=== PATIENT | male | born 1965 | race Hispanic/Latino ===

== ENCOUNTER 2017-11-02 19:10 | Inpatient (IN) | payer SELFPAY ==
[~2017-11-02 19:10] MED LIST: AMLO10TA2 PO; ASPI-555 PO; CHLO25TA3 PO; HYDR-4154 PO; LISI-613 PO; MAGN250T2 PO; METO50TA18 PO; POTA-79 PO; TRAZ-144 PO; VENL100T4 PO
[2017-11-02] MEDS ORDERED: KETOROLAC TROMETHAMINE 30MG/ML ONE (19:30)
[2017-11-02] MEDS ORDERED: ACETAMINOPHEN EXTRA STRENGTH 500 MG TABLET ONE (19:30)
[2017-11-02] MEDS ORDERED: HYOSCYAMINE SULFATE 0.125 MG TAB.SUBL SL ONE (19:30)
[2017-11-02] MEDS ORDERED: SODIUM CHLORIDE 0.9% 1000ML 1,000 ML IV ONE ×2 (19:30→22:27)
[2017-11-02] MEDS ORDERED: ONDANSETRON HCL 4 MG/2 ML VIAL ONE ×2 (19:30→22:27)
[2017-11-02 19:36] LABS: APPEARANCE,URINE Clear (CLEAR); BASOPHILS % (AUTO) 0.5 % (0.0-5.0); BILIRUBIN,URINE Negative (NEGATIVE); COLOR,URINE Yellow (YELLOW); GLUCOSE, URINE (UA) Negative (NEGATIVE); HEMATOCRIT 50.2 % (42-54); KETONES,URINE Negative (NEGATIVE); LEUKOCYTE ESTERASE ,URINE Negative (NEGATIVE); MEAN CORPUSCULAR HEMOGLOBIN 28.6 pg (27.0-33.0); MEAN CORPUSCULAR HGB CONC 34.9 g/dL (32.0-36.0); MEAN CORPUSCULAR VOLUME 81.9 fL (79-99); NEUTROPHILS % (AUTO) 76.5 % (40.0-77.0); NITRATE,URINE Negative (NEGATIVE); OCCULT BLOOD,URINE Trace (NEGATIVE); PLATELET COUNT (AUTO) 238 K/uL (130-400); PROTEIN,URINE POS 1+ (NEGATIVE); RED BLOOD CELL COUNT(AUTO) 6.13 MIL/uL (4.50-6.20); RED CELL DISTRIBUTION WIDTH 14.1 % (11.0-15.5); WHITE BLOOD COUNT (AUTO) 10.2 K/uL (4.8-10.8)
[2017-11-02 19:48] LABS: BACTERIA,URINE Few /HPF (None Seen); MUCUS,URINE Few LPF (None Seen); RBC,URINE None Seen /HPF (0-1); WBC,URINE 0-1 /HPF (0-1)
[2017-11-02 19:49] LABS: INR 1.08 (0.85-1.15); PARTIAL THROMBOPLASTIN TIME 32.7 SEC (26.3-35.5); PROTHROMBIN TIME 11.3 SEC (9.6-11.6)
[2017-11-02 19:53] LABS: ALBUMIN 3.6 g/dL (3.5-5.0); BILIRUBIN,TOTAL 0.7 mg/dL (0.2-1.0); CREATININE 1.4 mg/dL (0.5-1.5); TOTAL PROTEIN, SERUM 8.4 g/dL (6.0-8.3)
[2017-11-02 19:55] LABS: POTASSIUM 2.5 mmol/L (3.5-5.1)
[2017-11-02] MEDS ORDERED: POTASSIUM BICARB/CIT AC 25 MEQ TABLET.EFF ONE (19:57)
[2017-11-02] MEDS ORDERED: MORPHINE SULFATE 4 MG/1ML SYG ONE (19:58)
[2017-11-02] MEDS ORDERED: MAG HYDROX/AL HYDROX/SIMETH ES 30 ML SUSP UDCUP ONE (21:07)
[2017-11-02] MEDS ORDERED: LIDOCAINE HCL 2% VISCOUS 15 ML UDCUP ONE (21:07)
[2017-11-02] MEDS ORDERED: POTASSIUM CHLORIDE 20MEQ/100ML 100 ML IV ONE (22:45)
[2017-11-02] MEDS ORDERED: DICYCLOMINE HCL 10 MG/ML 2ML AMP IM ONE (22:52)
[2017-11-03] MEDS ORDERED: POTASSIUM CHLORIDE 20MEQ/100ML 100 ML IV ONE (04:02)
[2017-11-03] MEDS: SODIUM CHLORIDE 0.9% 1000ML 1,000 ML IV SCH ×3 (04:05→20:05)
[2017-11-03] MEDS ORDERED: ACETAMINOPHEN 325 MG TAB PO PRN (04:15)
[2017-11-03] MEDS ORDERED: POTASSIUM CHLORIDE 10% ELIXIR 20 MEQ/15 ML UDCUP PO PRN (04:15)
[2017-11-03] MEDS ORDERED: ONDANSETRON HCL 4 MG/2 ML VIAL IV PRN (04:15)
[2017-11-03 04:27] VITALS: BP 147/104
[2017-11-03] MEDS ORDERED: POTA20TA12 PO (04:59)
[2017-11-03] MEDS ORDERED: ATOR10TA69 PO (04:59)
[2017-11-03] MEDS ORDERED: LISI40TA4 PO (04:59)
[2017-11-03 05:22] LABS: HEMATOCRIT 43.5 % (42-54); MEAN CORPUSCULAR HEMOGLOBIN 28.2 pg (27.0-33.0); MEAN CORPUSCULAR HGB CONC 34.4 g/dL (32.0-36.0); MEAN CORPUSCULAR VOLUME 82.1 fL (79-99); PLATELET COUNT (AUTO) 197 K/uL (130-400); RED BLOOD CELL COUNT(AUTO) 5.31 MIL/uL (4.50-6.20); RED CELL DISTRIBUTION WIDTH 14.2 % (11.0-15.5); WHITE BLOOD COUNT (AUTO) 7.2 K/uL (4.8-10.8)
[2017-11-03 05:33] LABS: CREATININE 1.1 mg/dL (0.5-1.5); POTASSIUM 3.2 mmol/L (3.5-5.1)
[2017-11-03] MEDS ORDERED: FLU VACC QS2017-18 36MOS UP/PF 60 MCG/0.5 ML ML IM SCH (06:30)
[2017-11-03 07:30] VITALS: BP 166/105
[2017-11-03] MEDS ORDERED: PANTOPRAZOLE SODIUM 40 MG TABLET.DR PO SCH (09:00)
[2017-11-03] MEDS: HYDRALAZINE HCL 20 MG/ML VIAL IV PRN ×2 (09:31→21:04)
[2017-11-03 11:00] VITALS: BP 144/92
[2017-11-03] MEDS: METRONIDAZOLE 500 MG TABLET PO SCH ×2 (12:49→21:00)
[2017-11-03] MEDS: CLARITHROMYCIN 500 MG TABLET PO SCH ×2 (12:50→21:00)
[2017-11-03] MEDS: FAMOTIDINE 20MG TAB 20 MG TAB PO SCH ×2 (12:50→21:00)
[2017-11-03 16:00] VITALS: BP 163/104
[2017-11-03 19:58] VITALS: BP 162/103
[2017-11-03] MEDS: POTASSIUM CHLORIDE 20 MEQ ERTAB PO PRN (21:04)
[2017-11-03] MEDS: MORPHINE SULFATE 2 MG/ML 1ML SYG IV PRN (21:05)
[2017-11-03 22:00] VITALS: BP 148/113
[2017-11-04] VITALS (7 sets, daily range): BP systolic 149–179; BP diastolic 93–114
[2017-11-04] MEDS: SODIUM CHLORIDE 0.9% 1000ML 1,000 ML IV SCH ×2 (04:05→12:05)
[2017-11-04 05:29] LABS: MAGNESIUM 1.6 mg/dL (1.80-2.40)
[2017-11-04 05:34] LABS: POTASSIUM 2.8 mmol/L (3.5-5.1)
[2017-11-04] MEDS: POTASSIUM CHLORIDE 20MEQ/100ML 100 ML IV PRN ×2 (06:36→13:29)
[2017-11-04] MEDS: POTASSIUM CHLORIDE 20 MEQ ERTAB PO PRN (06:37)
[2017-11-04] MEDS: LIDOCAINE HCL-MPF 1% 2ML VIAL IVP PRN ×2 (06:37→13:29)
[2017-11-04] MEDS: FAMOTIDINE 20MG TAB 20 MG TAB PO SCH ×2 (09:30→20:49)
[2017-11-04] MEDS: CLARITHROMYCIN 500 MG TABLET PO SCH ×2 (09:30→20:48)
[2017-11-04] MEDS: HYDRALAZINE HCL 20 MG/ML VIAL IV PRN ×2 (09:30→17:36)
[2017-11-04] MEDS: METRONIDAZOLE 500 MG TABLET PO SCH ×2 (09:31→20:49)
[2017-11-04] MEDS: MORPHINE SULFATE 2 MG/ML 1ML SYG IV PRN (09:39)
[2017-11-04] MEDS: LACTOBACILLUS RHAMNOSUS GG 1 EACH CAP.SPRINK PO SCH (13:31)
[2017-11-04] MEDS ORDERED: LOPERAMIDE HCL 2 MG CAP PO PRN (15:30)
[2017-11-04 18:02] LABS: CREATININE 1.1 mg/dL (0.5-1.5); POTASSIUM 3.9 mmol/L (3.5-5.1)
[2017-11-04 18:07] LABS: BILIRUBIN,TOTAL 0.3 mg/dL (0.2-1.0); MAGNESIUM 1.6 mg/dL (1.80-2.40); TOTAL PROTEIN, SERUM 7.1 g/dL (6.0-8.3)
[2017-11-04] MEDS: LEVOFLOXACIN 500 MG/D5W 100 ML 100 ML IV SCH (20:48)
[2017-11-05] VITALS (13 sets, daily range): BP systolic 123–216; BP diastolic 81–133
[2017-11-05] MEDS: MORPHINE SULFATE 2 MG/ML 1ML SYG IV PRN (04:14)
[2017-11-05] MEDS: HYDRALAZINE HCL 20 MG/ML VIAL IV PRN ×3 (04:14→22:52)
[2017-11-05] MEDS: ATORVASTATIN CALCIUM 10 MG TABLET PO SCH (09:21)
[2017-11-05] MEDS: CLARITHROMYCIN 500 MG TABLET PO SCH ×2 (09:21→22:52)
[2017-11-05] MEDS: AMLODIPINE BESYLATE 5 MG TAB PO SCH (09:21)
[2017-11-05] MEDS: VENLAFAXINE HCL 50 MG TABLET PO SCH (09:21)
[2017-11-05] MEDS: POTASSIUM CHLORIDE 20 MEQ ERTAB PO SCH (09:21)
[2017-11-05] MEDS: FAMOTIDINE 20MG TAB 20 MG TAB PO SCH ×2 (09:21→22:52)
[2017-11-05] MEDS: METRONIDAZOLE 500 MG TABLET PO SCH ×2 (09:21→22:52)
[2017-11-05] MEDS: LACTOBACILLUS RHAMNOSUS GG 1 EACH CAP.SPRINK PO SCH (09:21)
[2017-11-05] MEDS: LISINOPRIL 40 MG TABLET PO SCH (09:22)
[2017-11-05] MEDS: LEVOFLOXACIN 500 MG/D5W 100 ML 100 ML IV SCH (22:55)
[2017-11-05] MEDS: MAGNESIUM 2GM PREMIX 50ML 50 ML IV SCH (23:03)
[2017-11-06] MEDS: SODIUM CHLORIDE 0.9% 1000ML 1,000 ML IV SCH (04:05)
[2017-11-06 04:52] VITALS: BP 146/89
[2017-11-06] MEDS ORDERED: ONDANSETRON HCL MDV 20ML 2 MG/ML VIAL IVP PRN (07:45)
[2017-11-06] MEDS: LACTOBACILLUS RHAMNOSUS GG 1 EACH CAP.SPRINK PO SCH (07:59)
[2017-11-06 08:00] VITALS: BP 156/99
[2017-11-06] MEDS: VENLAFAXINE HCL 50 MG TABLET PO SCH (08:01)
[2017-11-06] MEDS: AMLODIPINE BESYLATE 5 MG TAB PO SCH (08:02)
[2017-11-06] MEDS: POTASSIUM CHLORIDE 20 MEQ ERTAB PO SCH (08:02)
[2017-11-06] MEDS: ATORVASTATIN CALCIUM 10 MG TABLET PO SCH (08:02)
[2017-11-06] MEDS: LISINOPRIL 40 MG TABLET PO SCH (08:02)
[2017-11-06] MEDS: FAMOTIDINE 20MG TAB 20 MG TAB PO SCH (08:02)
[2017-11-06] MEDS: CLARITHROMYCIN 500 MG TABLET PO SCH (09:38)
[2017-11-06] MEDS: METRONIDAZOLE 500 MG TABLET PO SCH (09:38)
[2017-11-06] MEDS ORDERED: MAGNESIUM 2GM PREMIX 50ML 50 ML IV SCH (10:15)
[2017-11-06] MEDS ORDERED: HYDRALAZINE HCL 10 MG TABLET PO SCH (10:15)
[2017-11-06] MEDS ORDERED: METR500T PO (10:24)
[2017-11-06] MEDS ORDERED: FAMO20TA8 PO (10:24)
[2017-11-06] MEDS ORDERED: HYDR-3420 PO (10:24)
[2017-11-06] MEDS ORDERED: CLAR500T PO (10:24)
[2017-11-06] MEDS: MAGNESIUM 2GM PREMIX 50ML 50 ML IV SCH (10:47)
[2017-11-06 12:00] VITALS: BP 134/86
[2017-11-06 16:00] VITALS: BP 131/86
[2017-12-27] MEDS ORDERED: LABE200T PO (15:54)
== END 2017-11-06 16:45 | disposition home or self-care (01) | DRG 392 ==
LOC: EDH 19:10 → EDHIP 19:11 → 4BH 22:57
PROVIDERS: ADMIT Family Medicine; ATTEND Family Medicine
PROC: 3E0234Z Introduction of Serum, Toxoid and Vaccine into Muscle, Percutaneous Approach (ICD-10-PCS; principal; 2017-11-03)
DX: K52.9 Noninfective gastroenteritis and colitis, unspecified (principal); E83.42 Hypomagnesemia; E86.0 Dehydration; I48.0 Paroxysmal atrial fibrillation; B96.81 Helicobacter pylori [H. pylori] as the cause of diseases classified elsewhere; E87.6 Hypokalemia; I10 Essential (primary) hypertension; K57.30 Diverticulosis of large intestine without perforation or abscess without bleeding; Z23 Encounter for immunization
CPT/HCPCS: 36415; 74176; 76705; 80048; 80053; 81001; 82948; 83690; 83735; 84132; 85025; 85027; 85610; 85730; 86677; 87040; 87324; 87507; 87804; 93005; C9113; J0360; J0500; J1885; J1956; J2270; J2405; J3475; J3480; J3490; J7030; Q2038

== ENCOUNTER 2017-12-26 15:16 | Inpatient (IN) | payer SELFPAY ==
[~2017-12-26] VITALS: Ht 175.3 cm; Wt 94.2 kg
[~2017-12-26 15:16] MED LIST changes: -ASPI-555 PO; +ATOR10TA69 PO; -CHLO25TA3 PO; +CLAR500T PO; +FAMO20TA8 PO; +HYDR-3420 PO; -HYDR-4154 PO; -LISI-613 PO; +LISI40TA4 PO; -MAGN250T2 PO; -METO50TA18 PO; +METR500T PO; -POTA-79 PO; +POTA20TA12 PO; -TRAZ-144 PO
[2017-12-26 15:46] LABS: BASOPHILS % (AUTO) 0.9 % (0.0-5.0); EOSINOPHILS % (AUTO) 4.1 % (0.0-8.0); HEMATOCRIT 47.1 % (42-54); LYMPHOCYTES % (AUTO) 26.4 % (21.0-51.0); MEAN CORPUSCULAR HEMOGLOBIN 28.3 pg (27.0-33.0); MEAN CORPUSCULAR HGB CONC 34.6 g/dL (32.0-36.0); MEAN CORPUSCULAR VOLUME 81.9 fL (79-99); MONOCYTES % (AUTO) 8.9 % (3.0-13.0); NEUTROPHILS % (AUTO) 59.7 % (40.0-77.0); PLATELET COUNT (AUTO) 271 K/uL (130-400); RED BLOOD CELL COUNT(AUTO) 5.75 MIL/uL (4.50-6.20); RED CELL DISTRIBUTION WIDTH 14.1 % (11.0-15.5); WHITE BLOOD COUNT (AUTO) 8.9 K/uL (4.8-10.8)
[2017-12-26 16:04] LABS: BILIRUBIN,TOTAL 0.4 mg/dL (0.2-1.0); CREATININE 1.1 mg/dL (0.5-1.5); TOTAL PROTEIN, SERUM 8.2 g/dL (6.0-8.3)
[2017-12-26 16:05] LABS: POTASSIUM 2.6 mmol/L (3.5-5.1)
[2017-12-26] MEDS ORDERED: POTASSIUM BICARB/CIT AC 25 MEQ TABLET.EFF ONE (16:20)
[2017-12-26] MEDS ORDERED: NITROGLYCERIN 1GM/1 INCH PACKET TD ONE (16:20)
[2017-12-26] MEDS ORDERED: CLONIDINE HCL 0.1 MG TABLET ONE (16:20)
[2017-12-26] MEDS ORDERED: HYDRALAZINE HCL 25 MG TABLET ONE (17:35)
[2017-12-26 21:20] VITALS: BP 175/99
[2017-12-26] MEDS ORDERED: HYDRALAZINE HCL 20 MG/ML VIAL ONE (22:27)
[2017-12-26] MEDS ORDERED: POTASSIUM CHLORIDE 20 MEQ ERTAB PO ONE (22:27)
[2017-12-26] MEDS ORDERED: LIDOCAINE HCL-MPF 1% 2ML VIAL IJ PRN (23:30)
[2017-12-26] MEDS ORDERED: HYDRALAZINE HCL 20 MG/ML VIAL IV PRN (23:30)
[2017-12-26] MEDS ORDERED: POTASSIUM CHLORIDE 20MEQ/100ML 100 ML IV PRN (23:30)
[2017-12-26] MEDS ORDERED: CLONIDINE HCL 0.1 MG TABLET PO PRN (23:30)
[2017-12-26] MEDS ORDERED: POTASSIUM CHLORIDE 10% ELIXIR 20 MEQ/15 ML UDCUP PO PRN (23:30)
[2017-12-26] MEDS ORDERED: POTASSIUM CHLORIDE 20 MEQ ERTAB PO PRN (23:30)
[2017-12-26] MEDS ORDERED: ONDANSETRON ODT 4 MG TAB PO PRN (23:30)
[2017-12-27] VITALS: BP 134/82
[2017-12-27 04:00] VITALS: BP 152/98
[2017-12-27 06:00] LABS: HEMATOCRIT 45.4 % (42-54); MEAN CORPUSCULAR HEMOGLOBIN 28.9 pg (27.0-33.0); MEAN CORPUSCULAR HGB CONC 35.4 g/dL (32.0-36.0); MEAN CORPUSCULAR VOLUME 81.5 fL (79-99); PLATELET COUNT (AUTO) 265 K/uL (130-400); RED BLOOD CELL COUNT(AUTO) 5.57 MIL/uL (4.50-6.20); RED CELL DISTRIBUTION WIDTH 14.7 % (11.0-15.5); WHITE BLOOD COUNT (AUTO) 8.4 K/uL (4.8-10.8)
[2017-12-27 06:14] LABS: POTASSIUM 3.6 mmol/L (3.5-5.1)
[2017-12-27 08:24] VITALS: BP 166/118
[2017-12-27] MEDS ORDERED: LISINOPRIL 40 MG TABLET PO SCH (09:00)
[2017-12-27] MEDS ORDERED: AMLODIPINE BESYLATE 5 MG TAB PO SCH (09:00)
[2017-12-27] MEDS ORDERED: FAMOTIDINE 20MG TAB 20 MG TAB PO SCH (09:00)
[2017-12-27] MEDS ORDERED: LABETALOL HCL 200 MG TABLET PO SCH (09:00)
[2017-12-27] MEDS ORDERED: VENLAFAXINE HCL 50 MG TABLET PO SCH (09:00)
[2017-12-27] MEDS ORDERED: POTASSIUM CHLORIDE 20 MEQ ERTAB PO SCH (09:00)
[2017-12-27] MEDS ORDERED: HYDRALAZINE HCL 10 MG TABLET PO SCH (09:00)
[2017-12-27 12:03] VITALS: BP 159/111
[2017-12-27] MEDS: HYDRALAZINE HCL 10 MG TABLET PO SCH ×2 (13:14→17:40)
[2017-12-27] MEDS ORDERED: LABE200T5 PO (15:54)
[2017-12-27] MEDS ORDERED: HYDR-3420 PO (15:54)
[2017-12-27 15:58] VITALS: BP 135/78
[2017-12-27] MEDS ORDERED: ATORVASTATIN CALCIUM 10 MG TABLET PO SCH (21:00)
== END 2017-12-27 18:50 | disposition home or self-care (01) | DRG 305 ==
LOC: EDH 15:16 → OBSVTOIN 15:17 → EDHIP 15:17 → 3CH 21:12
PROVIDERS: ADMIT Family Medicine; ATTEND Family Medicine
DX: I16.9 Hypertensive crisis, unspecified (principal); I48.0 Paroxysmal atrial fibrillation; I10 Essential (primary) hypertension; E11.9 Type 2 diabetes mellitus without complications; E66.9 Obesity, unspecified; E78.5 Hyperlipidemia, unspecified; E87.6 Hypokalemia; Z68.30 Body mass index [BMI] 30.0-30.9, adult; Z59.9 Problem related to housing and economic circumstances, unspecified; Z82.49 Family history of ischemic heart disease and other diseases of the circulatory system; Z83.3 Family history of diabetes mellitus
CPT/HCPCS: 36415; 80048; 80053; 84484; 85025; 85027; 93005; J0360; J3480; J3490

== ENCOUNTER 2018-01-26 10:42 | Inpatient (IN) | payer SELFPAY ==
[~2018-01-26] VITALS: Ht 175.3 cm; Wt 93.6 kg
[~2018-01-26 10:42] MED LIST changes: +LABE200T5 PO
[2018-01-26] MEDS ORDERED: SODIUM CHLORIDE 0.9% 1000ML 1,000 ML IV ONE ×2 (11:06→11:18)
[2018-01-26 11:42] LABS: BASOPHILS % (AUTO) 0.6 % (0.0-5.0); EOSINOPHILS % (AUTO) 1.2 % (0.0-8.0); HEMATOCRIT 44.7 % (42-54); LYMPHOCYTES % (AUTO) 15.4 % (21.0-51.0); MEAN CORPUSCULAR HEMOGLOBIN 28.7 pg (27.0-33.0); MEAN CORPUSCULAR HGB CONC 34.7 g/dL (32.0-36.0); MEAN CORPUSCULAR VOLUME 82.8 fL (79-99); MONOCYTES % (AUTO) 10.1 % (3.0-13.0); NEUTROPHILS % (AUTO) 72.7 % (40.0-77.0); PLATELET COUNT (AUTO) 290 K/uL (130-400); RED CELL DISTRIBUTION WIDTH 14.6 % (11.0-15.5); WHITE BLOOD COUNT (AUTO) 10.1 K/uL (4.8-10.8)
[2018-01-26] MEDS ORDERED: LORAZEPAM 1 MG TABLET ONE (11:44)
[2018-01-26 11:58] LABS: ALBUMIN 3.8 g/dL (3.5-5.0); BILIRUBIN,TOTAL 0.7 mg/dL (0.2-1.0); CREATININE 1.5 mg/dL (0.5-1.5); TOTAL PROTEIN, SERUM 7.9 g/dL (6.0-8.3)
[2018-01-26 12:01] LABS: POTASSIUM 2.4 mmol/L (3.5-5.1)
[2018-01-26] MEDS ORDERED: POTASSIUM BICARB/CIT AC 25 MEQ TABLET.EFF ONE (12:23)
[2018-01-26] MEDS ORDERED: LABETALOL HCL 5 MG/ML 20ML VIAL IV ONE (13:09)
[2018-01-26 15:13] VITALS: BP 159/96
[2018-01-26] MEDS ORDERED: LIDOCAINE HCL-MPF 1% 2ML VIAL IJ PRN (16:30)
[2018-01-26] MEDS ORDERED: POTASSIUM CHLORIDE 10% ELIXIR 20 MEQ/15 ML UDCUP PO PRN (16:30)
[2018-01-26] MEDS: SODIUM CHLORIDE 0.9% 1000ML 1,000 ML IV SCH (16:42)
[2018-01-26 19:00] VITALS: BP 168/99
[2018-01-26] MEDS: ALPRAZOLAM 0.5 MG TABLET PO PRN (21:01)
[2018-01-27] VITALS (7 sets, daily range): BP systolic 129–176; BP diastolic 85–100
[2018-01-27] MEDS: HYDRALAZINE HCL 20 MG/ML VIAL IV PRN (00:49)
[2018-01-27 04:44] LABS: HEMATOCRIT 41.6 % (42-54); MEAN CORPUSCULAR HGB CONC 34.8 g/dL (32.0-36.0); MEAN CORPUSCULAR VOLUME 83.5 fL (79-99); PLATELET COUNT (AUTO) 261 K/uL (130-400); RED BLOOD CELL COUNT(AUTO) 4.98 MIL/uL (4.50-6.20); RED CELL DISTRIBUTION WIDTH 14.9 % (11.0-15.5); WHITE BLOOD COUNT (AUTO) 8.2 K/uL (4.8-10.8)
[2018-01-27 04:45] LABS: CREATININE 1.3 mg/dL (0.5-1.5)
[2018-01-27 04:48] LABS: POTASSIUM 2.9 mmol/L (3.5-5.1)
[2018-01-27] MEDS: POTASSIUM CHLORIDE 20 MEQ ERTAB PO PRN ×4 (04:55→20:16)
[2018-01-27] MEDS: SODIUM CHLORIDE 0.9% 1000ML 1,000 ML IV SCH ×2 (04:58→12:30)
[2018-01-27] MEDS: POTASSIUM CHLORIDE 20MEQ/100ML 100 ML IV PRN (08:49)
[2018-01-27] MEDS ORDERED: PHARMACY COMMUNICATION MISC SCH (11:00)
[2018-01-27] MEDS ORDERED: COMPOUND PO MISCELLANEOUS 1 EACH MISC MISC PRN (11:15)
[2018-01-27] MEDS: MAG HYDROX/AL HYDROX/SIMETH 30 ML, LIDOCAINE HCL 2% VISCOUS 30 ML, DIPHENHYDRAMINE HCL ... PO SCH ×6 (16:56→22:41)
[2018-01-27] MEDS: ALPRAZOLAM 0.5 MG TABLET PO PRN (22:37)
[2018-01-28] VITALS: BP 146/100
[2018-01-28 04:00] VITALS: BP 117/91
[2018-01-28] MEDS: SODIUM CHLORIDE 0.9% 1000ML 1,000 ML IV SCH (05:27)
[2018-01-28] MEDS: MAG HYDROX/AL HYDROX/SIMETH 30 ML, LIDOCAINE HCL 2% VISCOUS 30 ML, DIPHENHYDRAMINE HCL ... PO SCH ×12 (05:28→22:48)
[2018-01-28 05:53] LABS: CREATININE 1.2 mg/dL (0.5-1.5)
[2018-01-28 05:57] LABS: POTASSIUM 2.8 mmol/L (3.5-5.1)
[2018-01-28 08:13] VITALS: BP 153/97
[2018-01-28] MEDS: POTASSIUM CHLORIDE 20MEQ/100ML 100 ML IV PRN ×2 (10:21→13:52)
[2018-01-28] MEDS: POTASSIUM CHLORIDE 20 MEQ ERTAB PO PRN ×3 (10:23→15:35)
[2018-01-28 11:27] VITALS: BP 159/97
[2018-01-28] MEDS ORDERED: MAGNESIUM 2GM PREMIX 50ML 50 ML IV SCH (12:00)
[2018-01-28] MEDS ORDERED: LISINOPRIL 40 MG TABLET ONE (15:31)
[2018-01-28] MEDS: HYDRALAZINE HCL 20 MG/ML VIAL IV PRN (15:33)
[2018-01-28] MEDS: LISINOPRIL 40 MG TABLET PO SCH (15:34)
[2018-01-28 15:37] VITALS: BP 182/120
[2018-01-28 19:05] VITALS: BP 161/112
[2018-01-28] MEDS: HYDRALAZINE HCL 25 MG TABLET PO SCH (21:01)
[2018-01-28] MEDS: LABETALOL HCL 100 MG TABLET PO SCH (21:01)
[2018-01-28] MEDS: ALPRAZOLAM 0.5 MG TABLET PO PRN (21:07)
[2018-01-29 00:15] VITALS: BP 152/96
[2018-01-29 04:28] VITALS: BP 163/95
[2018-01-29] MEDS: MAG HYDROX/AL HYDROX/SIMETH 30 ML, LIDOCAINE HCL 2% VISCOUS 30 ML, DIPHENHYDRAMINE HCL ... PO SCH ×6 (04:33→11:15)
[2018-01-29 07:17] VITALS: BP 119/106
[2018-01-29 08:02] LABS: CREATININE 1.2 mg/dL (0.5-1.5); MAGNESIUM 1.8 mg/dL (1.80-2.40); POTASSIUM 3.2 mmol/L (3.5-5.1)
[2018-01-29] MEDS ORDERED: LISINOPRIL 40 MG TABLET PO SCH (09:00)
[2018-01-29] MEDS ORDERED: AMLODIPINE BESYLATE 5 MG TAB PO SCH (09:00)
[2018-01-29 10:55] VITALS: BP 168/105
[2018-01-29] MEDS: LISINOPRIL 40 MG TABLET PO SCH (11:06)
[2018-01-29] MEDS: POTASSIUM CHLORIDE 20 MEQ ERTAB PO PRN ×2 (11:06→15:03)
[2018-01-29] MEDS: LABETALOL HCL 100 MG TABLET PO SCH (11:07)
[2018-01-29] MEDS: HYDRALAZINE HCL 25 MG TABLET PO SCH ×2 (11:20→14:22)
[2018-01-29] MEDS ORDERED: POTA20TA12 PO (14:05)
[2018-01-31] MEDS ORDERED: ZOSYN 3.375GM+NS 50ML 50 ML IV ONE (06:36)
== END 2018-01-29 15:35 | disposition home or self-care (01) | DRG 641 ==
LOC: EDH 10:42 → OBSVTOIN 10:43 → EDHIP 10:43 → 3DH 15:04
PROVIDERS: ADMIT Family Medicine; ATTEND Family Medicine
DX: E87.6 Hypokalemia (principal); E86.0 Dehydration; M62.82 Rhabdomyolysis; E78.5 Hyperlipidemia, unspecified; I10 Essential (primary) hypertension
CPT/HCPCS: 36415; 80048; 80053; 82550; 83735; 84132; 84484; 85025; 85027; 93005; J0360; J3475; J3480; J3490; J7030

== ENCOUNTER → 2020-02-28 | Outpatient (CLI) | payer MEDICAID ==
[~2020-02-28] MED LIST changes: -AMLO10TA2 PO; +AMLO10TA7 PO; -CLAR500T PO; -FAMO20TA8 PO; -METR500T PO
== END | disposition home or self-care (01) ==
LOC: SHCH 07:54
PROVIDERS: ATTEND Internal Medicine Cardiovascular Disease
DX: I10 Essential (primary) hypertension (principal)
CPT/HCPCS: 93975

== ENCOUNTER 2023-04-03 16:03 | Emergency (ER) | payer MEDICAID ==
[~2023-04-03] VITALS: Ht 170.2 cm; Wt 102.5 kg
[~2023-04-03 16:03] MED LIST changes: +AMLO-258 PO; -AMLO10TA7 PO; -LABE200T5 PO; +LABE200T7 PO; -LISI40TA4 PO; +LISI40TA9 PO; +POTA-192 PO; -POTA20TA12 PO
[2023-04-03] MEDS ORDERED: AMOX500T2 PO (16:35)
[2023-04-03 16:41] VITALS: BP 154/79; PULSE 72; RESP 18; O2SAT 96
== END 2023-04-03 16:50 | disposition home or self-care (01) ==
LOC: EDH 16:03
DX: H66.91 Otitis media, unspecified, right ear (principal); I10 Essential (primary) hypertension; F41.9 Anxiety disorder, unspecified; Z90.49 Acquired absence of other specified parts of digestive tract; Z98.890 Other specified postprocedural states; Z79.899 Other long term (current) drug therapy

== ENCOUNTER → 2023-04-16 | Outpatient (CLI) | payer MEDICAID ==
[~2023-04-16] MED LIST changes: +AMOX500T2 PO
[2023-04-16 15:36] LABS: CREATININE 1.2 mg/dL (0.5-1.5); POTASSIUM 3.1 mmol/L (3.5-5.1)
== END | disposition home or self-care (01) ==
LOC: LAB 10:00
PROVIDERS: ATTEND Internal Medicine Cardiovascular Disease
DX: I10 Essential (primary) hypertension (principal)
CPT/HCPCS: 36415; 80048

== ENCOUNTER → 2023-05-10 | Outpatient (CLI) | payer MEDICAID ==
[2023-05-10 16:31] LABS: CREATININE 1.1 mg/dL (0.5-1.5)
== END | disposition home or self-care (01) ==
LOC: LAB 13:14
PROVIDERS: ATTEND Internal Medicine Cardiovascular Disease
DX: I10 Essential (primary) hypertension (principal)
CPT/HCPCS: 36415; 80048

== ENCOUNTER 2023-12-30 17:30 | Emergency (ER) | payer MEDICAID ==
[2023-12-30 18:26] LABS: APPEARANCE,URINE CLEAR (CLEAR); BILIRUBIN,URINE NEGATIVE (NEGATIVE); COLOR,URINE COLORLESS (YELLOW); GLUCOSE, URINE (UA) >=1000 mg/dL (NEGATIVE); KETONES,URINE NEGATIVE (NEGATIVE); LEUKOCYTE ESTERASE ,URINE NEGATIVE Leu/uL (NEGATIVE); NITRATE,URINE NEGATIVE (NEGATIVE); OCCULT BLOOD,URINE NEGATIVE (NEGATIVE); PROTEIN,URINE NEGATIVE (NEGATIVE); UROBILINOGEN,URINE 0.2 mg/dL (0.2-1.0)
[2023-12-30 18:27] LABS: ADD UA MICROSCOPIC YES
[2023-12-30 18:28] LABS: RBC,URINE 0-1 /HPF (0-1); WBC,URINE 0-1 /HPF (0-1)
[2023-12-30 18:33] VITALS: BP 171/100; PULSE 60; RESP 16; O2SAT 100
[2023-12-30 18:35] LABS: BASOPHILS # (AUTO) 0.08 K/uL (0.00-0.20); BASOPHILS % (AUTO) 0.9 % (0.0-5.0); EOSINOPHILS # (AUTO) 0.47 K/uL (0.00-0.70); EOSINOPHILS % (AUTO) 5.1 % (0.0-8.0); HEMATOCRIT 48.4 % (42-54); IMMATURE GRANULOCYTE ABSOLUTE 0.08 K/uL (0-1); LYMPHOCYTES # (AUTO) 1.4 K/uL (1.0-4.8); LYMPHOCYTES % (AUTO) 15.2 % (21.0-51.0); MEAN CORPUSCULAR HEMOGLOBIN 29.9 pg (27.0-33.0); MEAN CORPUSCULAR HGB CONC 33.9 g/dL (32.0-36.0); MEAN CORPUSCULAR VOLUME 88.2 fL (79-99); MONOCYTES # (AUTO) 1.1 K/uL (0.1-1.0); MONOCYTES % (AUTO) 11.6 % (3.0-13.0); NEUTROPHILS # (AUTO) 6.1 K/uL (1.8-7.7); NEUTROPHILS % (AUTO) 66.3 % (40.0-77.0); PLATELET COUNT (AUTO) 260 K/uL (130-400); RED BLOOD CELL COUNT(AUTO) 5.49 MIL/uL (4.50-6.20); RED CELL DISTRIBUTION WIDTH 13.2 % (11.0-15.5); WHITE BLOOD COUNT (AUTO) 9.2 K/uL (4.8-10.8)
[2023-12-30 18:44] LABS: CREATININE 1.2 mg/dL (0.5-1.3); POTASSIUM 3.9 mmol/L (3.5-5.1)
[2023-12-30 18:48] LABS: BILIRUBIN,TOTAL 0.5 mg/dL (0.2-1.0); TOTAL PROTEIN, SERUM 7.8 g/dL (6.0-8.3)
[2023-12-30] MEDS: ONDANSETRON 4MG INJ IVP ONE (19:06)
[2023-12-30] MEDS: MORPHINE 4 MG SYG IVP ONE (19:07)
[2023-12-30] MEDS ORDERED: TAMS-1 PO (19:52)
== END 2023-12-30 20:12 | disposition home or self-care (01) ==
LOC: EDH 17:30
DX: S79.912A Unspecified injury of left hip, initial encounter (principal); R07.81 Pleurodynia; F41.9 Anxiety disorder, unspecified; I10 Essential (primary) hypertension; Z79.899 Other long term (current) drug therapy; Z86.73 Personal history of transient ischemic attack (TIA), and cerebral infarction without residual deficits; Z90.49 Acquired absence of other specified parts of digestive tract; W18.39XA Other fall on same level, initial encounter; Y93.89 Activity, other specified; Y92.89 Other specified places as the place of occurrence of the external cause; Y99.8 Other external cause status
CPT/HCPCS: 99285; 74176; 96374; 71045; 96375; 84484; 80053; 85025; 81001; 36415; 73562; 71100; 73030; 93005; J2405; J2270

== ENCOUNTER 2024-10-07 12:17 | Emergency (ER) | payer MEDICAID ==
[~2024-10-07] VITALS: Ht 175.3 cm; Wt 98.9 kg
[~2024-10-07 12:17] MED LIST changes: +TAMS-1 PO
--- NOTE | 2024-10-07 13:19 | ERN ---
ED Note History of Present Illness Stated Complaint: WEAKNESS Chief Complaint: Weakness Time Seen by MD: 12:52 Allergies: Coded Allergies: No Known Drug Allergies (Verified Allergy, 11/10/12) Home Meds Active Scripts Tamsulosin HCl (Flomax) 0.4 Mg Cap.er.24h, 0.4 MG PO DAILY, #30 CAPSULE.DR Prov:BOBBY CORONEL V JET DYEING MACHINE TENDER 12/30/23 Amoxicillin (Amoxicillin) 500 Mg Tablet, 1000 MG PO TID for 10 Days, #60 TAB Prov:MIGEL BRIAN MD 04/03/23 Potassium Chloride (K-Dur/Klor-Con) 20 Meq Ertab, 20 MEQ PO BID for 30 Days, #60 TAB.EC Prov:TRISTAN COVARRUBIAS MD 01/29/18 Labetalol HCl (Labetalol HCl) 200 Mg Tablet, 50 MG PO BID for 30 Days, TAB Prov:LENORE BATRES JET DYEING MACHINE TENDER 12/27/17 Hydralazine Hcl (APRESOLINE) 10 Mg Tablet, 25 MG PO QID for 30 Days, TAB Prov:LENORE BATRES JET DYEING MACHINE TENDER 12/27/17 Reported Medications Lisinopril (Lisinopril) 40 Mg Tablet, 40 MG PO DAILY, TAB 11/03/17 Atorvastatin Calcium (Atorvastatin Calcium) 10 Mg Tablet, 10 MG PO DAILY, TAB 11/03/17 Amlodipine Besylate (Amlodipine Besylate) 10 Mg Tablet, 10 MG PO DAILY, TAB 01/13/17 Venlafaxine HCl (Venlafaxine HCl) 100 Mg Tablet, 100 MG PO DAILY, TAB 01/13/17 Past Medical History Past Medical History: Anxiety, CAD, CVA, Depression, Diabetes-Type II, High Cholesterol, Hypertension Surgical History: Appendectomy, Other Surgical History Other: HERNIA SX, LEFT ARM SX Social History: Negative, Lives with family RN Note Reviewed/Agreed w/PFSH: Yes Initial Vital Sign VS Vital Signs Date Time Temp Pulse Resp B/P (MAP) Pulse Ox O2 Delivery O2 Flow Rate FiO2 10/07/24 12:21 99.3 82 18 178/111 96 Room Air 0 10/07/24 12:25 21 Results (Laboratory/Radiology) Laboratory/Radiology Laboratory Tests Test 10/07/24 13:35 10/07/24 13:41 White Blood Count 10.4 K/uL (4.8-10.8) Red Blood Count 5.32 MIL/uL (4.50-6.20) Hemoglobin 14.9 g/dL (14.0-18.0) Hematocrit 45.4 % (42-54) Mean Corpuscular Volume 85.3 fL (79-99) Mean Corpuscular Hemoglobin 28.0 pg (27.0-33.0) Mean Corpuscular Hemoglobin Concent 32.8 g/dL (32.0-36.0) Red Cell Distribution Width 14.0 % (11.0-15.5) Platelet Count 278 K/uL (130-400) Mean Platelet Volume 9.3 fL (7.5-10.5) Immature Granulocyte % (Auto) 0.4 % (0-1) Neutrophils (%) (Auto) 69.5 % (40.0-77.0) Lymphocytes (%) (Auto) 12.3 % (21.0-51.0) L Monocytes (%) (Auto) 10.2 % (3.0-13.0) Eosinophils (%) (Auto) 6.8 % (0.0-8.0) Basophils (%) (Auto) 0.8 % (0.0-5.0) Neutrophils # (Auto) 7.2 K/uL (1.8-7.7) Lymphocytes # (Auto) 1.3 K/uL (1.0-4.8) Monocytes # (Auto) 1.1 K/uL (0.1-1.0) H Eosinophils # (Auto) 0.70 K/uL (0.00-0.70) Basophils # (Auto) 0.08 K/uL (0.00-0.20) Absolute Immature Granulocyte (auto 0.04 K/uL (0-1) Nucleated Red Blood Cells 0.0 % (0.0-0.19) Sodium Level 140 mmol/L (136-145) Potassium Level 3.0 mmol/L (3.5-5.1) *L Chloride Level 101 mmol/L (101-111) Carbon Dioxide Level 36 mmol/L (21-32) H Blood Urea Nitrogen 12 mg/dL (7-18) Creatinine 1.2 mg/dL (0.5-1.3) Glomerular Filtration Rate Calc 70 mL/min (>90) Random Glucose 104 mg/dL (70-105) Total Calcium 9.2 mg/dL (8.5-10.1) Troponin I High Sensitivity 12 ng/L (4-75) Urine Color YELLOW (YELLOW) Urine Appearance CLOUDY (CLEAR) H Urine pH 6.0 (5.0-8.0) Urine Specific [place] 1.023 (1.001-1.031) Urine Protein 100 mg/dL (NEGATIVE) H Urine Glucose (UA) NEGATIVE mg/dL (NEGATIVE) Urine Ketones 5 mg/dL (NEGATIVE) H Urine Occult Blood +- (TRACE) (NEGATIVE) H Urine Nitrate NEGATIVE (NEGATIVE) Urine Bilirubin NEGATIVE mg/dL (NEGATIVE) Urine Urobilinogen 2.0 mg/dL (0.2-1.0) H Urine Leukocyte Esterase 500 Giovanny/uL (NEGATIVE) H Urine RBC 2-5 /HPF (0-1) H Urine WBC TNTC /HPF (0-1) H Urine Squamous Epithelial Cells RARE /HPF (0-2) Urine Transitional Epithelial Cells RARE /HPF (None Seen) Urine Bacteria Few /HPF (None Seen) EKG Comment: EKG Interpretation: Time Reviewed: 1329 Ventricular rate: 72 bpm AK Interval: 164 ms QRS duration: 91 ms Clinical impression: Sinus rhythm without ST elevation EKG Reviewed and interpreted by Dr. Scott ED Course ED Course Orders Procedure Category Date Status Time Influenza Type A & B, LAB 10/07/24 In Process Rapid 13:18 Covid Rna Naat LAB 10/07/24 In Process 13:18 Urinalysis Profile LAB 10/07/24 Complete 13:18 Cbc With Differential LAB 10/07/24 Complete 13:18 Basic Metabolic Panel LAB 10/07/24 Complete 13:18 Troponin I High LAB 10/07/24 Complete Sensitivity 13:18 12 Lead Ekg Tracing- EKG 10/07/24 Logged Technical 13:18 Culture Urine COLBY 10/07/24 In Process 14:23 Levofloxacin 250 PHA 10/07/24 In Process Mg/D5w 50ml (Levaquin 15:00 Potassium Bicarb/Cit PHA 10/07/24 Complete Ac 25meq (K-Lyte Ta 15:00 Ondansetron 4mg Inj PHA 10/07/24 Complete (Zofran 4mg Inj) 15:00 Current Medications Medications (Trade) Dose Ordered Sig/[place] Route PRN Reason Start Time Stop Time Status Last Admin Dose Admin Levofloxacin/ Dextrose 250 ml @ 100 mls/hr ONCE ONCE IV 10/07/24 15:00 10/07/24 17:29 10/07/24 14:57 Ondansetron HCl (zoFRAN 4MG INJ) 4 mg ONCE ONCE IVP 10/07/24 15:00 10/07/24 15:01 DC 10/07/24 14:57 Potassium Bicarbonate (K-Lyte Tablet Eff 25 Meq Tablet.eff) 50 meq ONCE ONCE PO 10/07/24 15:00 10/07/24 15:01 DC 10/07/24 14:57 Vital Signs Date Time Temp Pulse Resp B/P (MAP) Pulse Ox O2 Delivery O2 Flow Rate FiO2 10/07/24 15:41 98.1 70 16 144/90 96 Room Air* 0 21 10/07/24 14:28 98.2 71 16 155/86 96 Room Air* 0 21 10/07/24 13:25 99.3 74 14 152/92 96 Room Air* 0 21 10/07/24 12:25 99.3 82 18 178/111 96 Room Air* 0 21 10/07/24 12:21 99.3 82 18 178/111 96 Room Air 0 DX & DISP Disposition: Discharge Departure Impression: Primary Impression: UTI (urinary tract infection) Additional Impression: Hypokalemia Condition: Stable Scripts Ondansetron (Ondansetron Odt) 4 Mg Tab.rapdis 4 MG PO Q6HPRN PRN for nausea, #15 TAB 0 Refills Prov: KILEY AMATO CRANE OPERATOR CAB 10/07/24 Levofloxacin (Levaquin 750Mg Tabs) 750 Mg Tablet 250 MG PO DAILY for UTI, #10 TAB 0 Refills Prov: KILEY AMATO CRANE OPERATOR CAB 10/07/24 Potassium Chloride (Potassium Chloride) 20 Meq Tab.er.prt 1 TAB PO DAILY for 5 Days, #5 TAB 0 Refills Prov: KILEY AMATO CRANE OPERATOR CAB 10/07/24 Additional Instructions: . Drink plenty of fluids. Rest. Continue antibiotic with Levaquin 250 mg daily for the next 10 days may take ondansetron sublingual every 6 hours as needed for nausea. You will need to continue taking potassium pills one tablet daily for the next five days. Referrals: DEVANG CHASE (PCP) Time of Disposition: 16:47 KILEY AMATO NP Oct 07, 2024 13:19
[2024-10-07 13:46] LABS: BASOPHILS # (AUTO) 0.08 K/uL (0.00-0.20); BASOPHILS % (AUTO) 0.8 % (0.0-5.0); EOSINOPHILS % (AUTO) 6.8 % (0.0-8.0); HEMATOCRIT 45.4 % (42-54); IMMATURE GRANULOCYTE ABSOLUTE 0.04 K/uL (0-1); LYMPHOCYTES # (AUTO) 1.3 K/uL (1.0-4.8); LYMPHOCYTES % (AUTO) 12.3 % (21.0-51.0); MEAN CORPUSCULAR HGB CONC 32.8 g/dL (32.0-36.0); MEAN CORPUSCULAR VOLUME 85.3 fL (79-99); MONOCYTES # (AUTO) 1.1 K/uL (0.1-1.0); MONOCYTES % (AUTO) 10.2 % (3.0-13.0); NEUTROPHILS # (AUTO) 7.2 K/uL (1.8-7.7); NEUTROPHILS % (AUTO) 69.5 % (40.0-77.0); PLATELET COUNT (AUTO) 278 K/uL (130-400); RED BLOOD CELL COUNT(AUTO) 5.32 MIL/uL (4.50-6.20); WHITE BLOOD COUNT (AUTO) 10.4 K/uL (4.8-10.8)
[2024-10-07 14:04] LABS: CREATININE 1.2 mg/dL (0.5-1.3)
[2024-10-07 14:13] LABS: APPEARANCE,URINE CLOUDY (CLEAR); BILIRUBIN,URINE NEGATIVE (NEGATIVE); COLOR,URINE YELLOW (YELLOW); GLUCOSE, URINE (UA) NEGATIVE (NEGATIVE); KETONES,URINE 5 mg/dL (NEGATIVE); LEUKOCYTE ESTERASE ,URINE 500 Leu/uL (NEGATIVE); NITRATE,URINE NEGATIVE (NEGATIVE); PROTEIN,URINE 100 mg/dL (NEGATIVE)
[2024-10-07 14:23] LABS: ADD UA MICROSCOPIC YES
[2024-10-07 14:26] LABS: MUCUS,URINE FEW LPF (None Seen); SQUAMOUS EPITHELIAL CELL,UR RARE /HPF (0-2); TRANSITIONAL EPI CELLS,URINE RARE /HPF (None Seen); WBC,URINE TNTC /HPF (0-1)
[2024-10-07 14:27] LABS: BACTERIA,URINE Few /HPF (None Seen)
[2024-10-07] MEDS: LEVOFLOXACIN IV ONE (14:57)
[2024-10-07] MEDS: PoTASSium BIcarbonate/CIT AC 25 MEQ TABLET.EFF PO ONE (14:57)
[2024-10-07] MEDS: D5W IV ONE (14:57)
[2024-10-07] MEDS: ondanSETRON 4MG INJ IVP ONE (14:57)
[2024-10-07] MEDS ORDERED: POTA-202 PO (16:46)
[2024-10-07] MEDS ORDERED: ONDA-243 PO (16:46)
[2024-10-07] MEDS ORDERED: LEVO750T68 PO (16:46)
[2024-10-07 17:14] LABS: INFLUENZA TYPE A Negative For Type A (NEGATIVE); INFLUENZA TYPE B Negative For Type B (NEGATIVE); SARS-CoV-2, RNA, NAAT NEGATIVE SARS CoV-2 (NEGATIVE)
[2024-10-07 17:16] VITALS: BP 145/80; PULSE 70; RESP 16; TEMP 98; O2SAT 96
--- NOTE | 2024-10-07 17:48 | EKG ---
[facility] Test Date: 2024-10-07 Test Time: 13:29:17 Pat Name: DANYELL ROSARIO Department: ED Room: Gender: M Tub Washer: [id number] : 1965 Requested By: KILEY AMATO Order Number: [id number] Reading MD: Geovanny García Measurements Intervals [place] Rate: 72 P: 45 ME: 164 QRS: 2 QRSD: 91 T: 136 QT: 401 QTc: 441 Interpretive Statements Sinus rhythm Abnormal T, consider ischemia, lateral leads Compared to ECG 12/30/2023 18:46:25 T-wave abnormality now present Possible ischemia still present Electronically Signed On 10-08-2024 09:56:34 COLLECTION CORRESPONDENT by Geovanny García Please click the below link to view image of tracing.
== END 2024-10-07 17:19 | disposition home or self-care (01) ==
LOC: EDH 12:17
DX: N39.0 Urinary tract infection, site not specified (principal); E87.6 Hypokalemia; F41.9 Anxiety disorder, unspecified; E11.9 Type 2 diabetes mellitus without complications; E78.00 Pure hypercholesterolemia, unspecified; F32.A Depression, unspecified; I10 Essential (primary) hypertension; I25.10 Atherosclerotic heart disease of native coronary artery without angina pectoris; Z79.899 Other long term (current) drug therapy; Z86.73 Personal history of transient ischemic attack (TIA), and cerebral infarction without residual deficits; Z90.49 Acquired absence of other specified parts of digestive tract; Z20.822 Contact with and (suspected) exposure to COVID-19
CPT/HCPCS: 99285; 96365; 87635; 96366; 96375; 84484; 80048; 85025; 87086 ×2; 87186; 87804 ×2; 81001; 36415; 93005; J2405; J1956; 99284

== ENCOUNTER → 2024-10-13 | Outpatient (CLI) | payer MEDICAID ==
[~2024-10-13] MED LIST changes: +LEVO750T68 PO; +ONDA-243 PO; +POTA-202 PO
[2024-10-13 15:22] LABS: CREATININE 1.2 mg/dL (0.5-1.3); POTASSIUM 3.6 mmol/L (3.5-5.1)
== END | disposition home or self-care (01) ==
LOC: LAB 11:39
PROVIDERS: ATTEND Nurse Practitioner Acute Care
DX: E87.6 Hypokalemia (principal)
CPT/HCPCS: 36415; 80048

== ENCOUNTER 2024-11-16 10:09 | Emergency (ER) | payer MEDICAID ==
[~2024-11-16] VITALS: Ht 175.3 cm; Wt 95.7 kg
--- NOTE | 2024-11-16 10:16 | ERN ---
ED Note History of Present Illness Stated Complaint: LEFT SHOULDER, FALL YESTERDAY Chief Complaint: Mechanical Fall Time Seen by MD: 10:11 Dictation: PATIENT IS A 59-YEAR-OLD MALE SENT BY HIS PRIMARY CARE DOCTOR FOR X-RAY OF HIS LEFT SHOULDER. PATIENT STATES HE WAS WALKING YESTERDAY WHEN HE MISSTEPPED AND FELL ON HIS LEFT SHOULDER. HE STATES HE DOES NOT HAVE ANY RANGE OF MOTION TO HIS SHOULDER OR HIS LEFT LEG BECAUSE A PRIOR STROKE AND HE DOES NOT MOVE EITHER ONE OF THEM. HE SAW HIS PRIMARY CARE DOCTOR TODAY WHO EVALUATED HIM AND TOLD HIM HE THOUGHT IT MIGHT BE FRACTURED OR DISLOCATED AND SENT HIM TO THE EMERGENCY ROOM FOR FURTHER EVALUATION AND TREATMENT. PATIENT WAS GIVEN TORADOL 60 MG IM PRIOR TO ARRIVAL Allergies: Coded Allergies: No Known Drug Allergies (Verified Allergy, 11/10/12) Home Meds Active Scripts Ondansetron (Ondansetron Odt) 4 Mg Tab.rapdis, 4 MG PO Q6HPRN PRN for nausea, #15 TAB 0 Refills Prov:KILEY AMATO NP 10/07/24 Levofloxacin (Levaquin 750Mg Tabs) 750 Mg Tablet, 250 MG PO DAILY for UTI, #10 TAB 0 Refills Prov:KILEY AMATO NP 10/07/24 Potassium Chloride (Potassium Chloride) 20 Meq Tab.er.prt, 1 TAB PO DAILY for 5 Days, #5 TAB 0 Refills Prov:KILEY AMATO NP 10/07/24 Tamsulosin HCl (Flomax) 0.4 Mg Cap.er.24h, 0.4 MG PO DAILY, #30 CAPSULE.DR Prov:BOBBY CORONEL 12/30/23 Amoxicillin (Amoxicillin) 500 Mg Tablet, 1000 MG PO TID for 10 Days, #60 TAB Prov:MIGEL BRIAN MD 04/03/23 Potassium Chloride (K-Dur/Klor-Con) 20 Meq Ertab, 20 MEQ PO BID for 30 Days, #60 TAB.EC Prov:TRISTAN COVARRUBIAS MD 01/29/18 Labetalol HCl (Labetalol HCl) 200 Mg Tablet, 50 MG PO BID for 30 Days, TAB Prov:LENORE BATRES 12/27/17 Hydralazine Hcl (APRESOLINE) 10 Mg Tablet, 25 MG PO QID for 30 Days, TAB Prov:LENORE BATRESP 12/27/17 Reported Medications Lisinopril (Lisinopril) 40 Mg Tablet, 40 MG PO DAILY, TAB 11/03/17 Atorvastatin Calcium (Atorvastatin Calcium) 10 Mg Tablet, 10 MG PO DAILY, TAB 11/03/17 Amlodipine Besylate (Amlodipine Besylate) 10 Mg Tablet, 10 MG PO DAILY, TAB 01/13/17 Venlafaxine HCl (Venlafaxine HCl) 100 Mg Tablet, 100 MG PO DAILY, TAB 01/13/17 Past Medical History Past Medical History: Anxiety, CAD, CVA, Depression, Diabetes-Type II, High Cholesterol, Hypertension Surgical History: Appendectomy, Other Surgical History Other: HERNIA SX, LEFT ARM SX Social History: Negative, Lives with family RN Note Reviewed/Agreed w/PFSH: Yes Review of System Dictation CONSTITUTIONAL: NEGATIVE EXCEPT FOR HPI HEAD/FACE: NEGATIVE EXCEPT FOR HPI EENT: NEGATIVE EXCEPT FOR HPI RESPIRATORY: NEGATIVE EXCEPT FOR HPI GASTROINTESTINAL/ABDOMINAL: NEGATIVE EXCEPT FOR HPI GENITOURINARY: NEGATIVE EXCEPT FOR HPI MUSCULOSKELETAL: NEGATIVE EXCEPT FOR HPI LEFT SHOULDER PAIN INTEGUMENTARY: NEGATIVE EXCEPT FOR HPI NEUROLOGICAL/PSYCH: NEGATIVE EXCEPT FOR HPI HEMATOLOGIC/LYMPHATIC: NEGATIVE EXCEPT FOR HPI ALL SYSTEMS NEGATIVE, EXCEPT NOTED ABOVE. 13 POINT REVIEW OF SYSTEMS ASSESSED AND ALL NEGATIVE EXCEPT FOR ABOVE. Initial Vital Sign VS Vital Signs Date Time Temp Pulse Resp B/P (MAP) Pulse Ox O2 Delivery O2 Flow Rate FiO2 11/16/24 10:10 98.1 65 16 132/87 97 Room Air 0 Physical Exam Dictation VITAL SIGNS REVIEWED GENERAL APPEARANCE: ALERT, ORIENTED X 3, NO ACUTE DISTRESS, WELL DEVELOPED, NOURISHED. HEAD AND FACE: NON-TRAUMATIC. EYES: PERRL, PINK CONJUNCTIVAS, EYELID NO TRAUMA, ANTERIOR CHAMBER WITH ARCUS SENILIS. EARS: PINNAS INTACT AND NO SIGNS OF TRAUMA OR ERYTHEMA EAR CANALS CLEAR AND NO DISCHARGE TM NO ERYTHEMA NOSE: NO DISCHARGE, NO BLEEDING. OROPHARYNX: MOUTH NORMAL, TONGUE PINK, PHARYNX CLEAR,NO ERYTHEMA, TONSILS NO EXUDATES, NO ABSCESSES NOTED, MUCOUS MEMBRANE MOIST NECK: SUPPLE, NON-TENDER, NO THYROMEGALY, NO MASSES, NO JVD, NO BRUITS BREAST:DEFERRED CHEST:NO TENDERNESS, NO CREPITUS, NO PARADOXICAL MOVEMENT, NO RETRACTIONS LUNGS:CLEAR, WELL-VENTILATED, SYMMETRIC, NO RALES, NO WHEEZING, NO RHONCHI, NO STRIDOR, GOOD BREATH SOUNDS BILATERALLY HEART: REGULAR RATE, REGULAR RHYTHM, NO MURMUR, NO GALLOPS VASCULAR: NO PERIPHERAL EDEMA, ABDOMEN: SOFT, POSITIVE BOWEL SOUNDS, NONDISTENDED, NO GUARDING, NONTENDER, NO REBOUND, NO MASSES NO HEPATOMEGALY, NO SPLENOMEGALY, NO BERTRAND'S SIGN, NO HERNIAS. RECTAL: DEFERRED GENITAL: DEFERRED NEUROLOGICAL: NORMAL SPEECH, MOTOR FUNCTION INTACT, CHRONIC LEFT HEMIPLEGIA, SECONDARY TO STROKE MUSCULOSKELETAL: NECK NONTENDER, FULL RANGE OF MOTION, BACK NONTENDER, FULL RANGE OF MOTION, EXTREMITIES: LEFT ANTEROLATERAL SHOULDER TENDERNESS WITH PALPATION. SKIN: COLOR PINK, DRY, NO TURGOR, NO RASH, NO LACERATIONS, NO ABRASIONS, NO CONT USIONS. LYMPHATIC: DEFERRED Results (Laboratory/Radiology) Laboratory/Radiology 1102/LEFT SHOULDER X-RAY DEMONSTRATES PRIOR SURGICAL REPAIR OF HUMERAL HEAD WITH SCREWS NO DISLOCATION NO OBVIOUS FRACTURE Labs Reviewed?: Yes ED Course ED Course Orders Procedure Category Date Status Time Shoulder Comp 2+Vws Lt RAD 11/16/24 Taken 10:14 Sling MARILIA 11/16/24 Transmitted 11:03 Vital Signs Date Time Temp Pulse Resp B/P (MAP) Pulse Ox O2 Delivery O2 Flow Rate FiO2 11/16/24 10:10 98.1 65 16 132/87 97 Room Air 0 1102/PATIENT PLACED IN SLING TO LEFT ARM WE WILL BE REFERRED TO DR. CARA DE FOR MANAGEMENT Medical Decision Making MDM MEDICAL DECISION-MAKING BASED ON X-RAY OF LEFT SHOULDER STATUS POST FALL NO OBVIOUS FRACTURE OR DISLOCATION PRIOR HUMERAL HEAD REPAIR GROSSLY INTACT PATIENT PLACED IN SLING AND REFERRED TO DR. CARA DE FOR EVALUATION DX & DISP Disposition: Discharge Departure Impression: Primary Impression: Contusion of left shoulder, initial encounter Additional Impression: Fall Condition: Stable Scripts Ibuprofen (Ibuprofen 800 mg Tab) 800 Mg Tab 800 MG PO Q8H PRN for fever or pain, #30 TAB 0 Refills Prov: ALEJANDRA DE LA GARZA ARCHERY EQUIPMENT HAY SORTER 11/16/24 Additional Instructions: FOLLOW-UP WITH PRIMARY CARE PROVIDER IN 1 TO 2 DAYS. TAKE MEDICATIONS DIRECTED HERE IN THE EMERGENCY ROOM. OKAY TO CONTINUE HOME MEDICATIONS UNLESS OTHERWISE DISCUSSED DURING YOUR VISIT IN THE EMERGENCY ROOM TODAY. RETURN TO YOUR NEAREST EMERGENCY ROOM IF SYMPTOMS WORSEN OR IF THERE IS NO IMPROVEMENT. CALL 911 IF YOU NEED IMMEDIATE ASSISTANCE. TAKE TYLENOL OR MOTRIN [id number] NEEDED AND IF NO CONTRAINDICATIONS ARE PRESENT. INCREASE ORAL HYDRATION. A WOUND CULTURE OR URINE CULTURE WAS ORDERED HERE IN THE E MERGENCY ROOM DEPARTMENT PLEASE FOLLOW-UP WITH PRIMARY CARE PROVIDER AND ADVISE THEM TO GET REPEAT PORTS FROM OUR FACILITY. IF YOU HAD ANY CHASITY WRAP/SPLINTS THAT WERE APPLIED HERE, PLEASE DO NOT REMOVE THEM UNTIL YOU SEE YOUR PRIMARY CARE OR SPECIALTY. SLING AND NO WEIGHT-BEARING TO LEFT ARM UNTIL CLEARED BY ORTHOPEDIC SURGERY, CALL FOR AN APPOINTMENT TODAY OR TOMORROW. Referrals: DEVANG CHASE (PCP) CARA DE DO Time of Disposition: 11:05 I have reviewed the case, and I agree with ALEJANDRA DE LA GARZA NP Nov 16, 2024 10:16
[2024-11-16] MEDS ORDERED: IBUP-2077 PO (11:07)
[2024-11-16 11:52] VITALS: BP 136/66; PULSE 60; RESP 18; TEMP 97.7; O2SAT 98
--- NOTE | 2024-11-16 11:53 | NUR ---
APPLIED XL SLING TO LT ARM, PT TOLERATED WELL.
[2024-11-16] MEDS: acetaMINOPHEN 325 MG TAB ONE (11:55)
[2024-11-16] MEDS: acetaMINOPHEN 325 MG TAB PO ONE (12:04)
--- NOTE | 2024-11-16 12:10 | HMCIMG ---
Exam Type: SHOULDER COMP 2+VWS LT Clinical Information: LEFT ANTEROLATERAL SHOULDER PAIN STATUS POST FALL YESTERDAY Comparison: None FINDINGS and impression: Postoperative changes with status post ORIF of a humeral neck fracture with hardware in place. The glenohumeral relationship is preserved. No acute fractures or dislocations are noted.
== END 2024-11-16 12:04 | disposition home or self-care (01) ==
LOC: EDH 10:09
DX: S40.012A Contusion of left shoulder, initial encounter (principal); E11.9 Type 2 diabetes mellitus without complications; E78.00 Pure hypercholesterolemia, unspecified; F32.A Depression, unspecified; F41.9 Anxiety disorder, unspecified; I10 Essential (primary) hypertension; I25.10 Atherosclerotic heart disease of native coronary artery without angina pectoris; Z79.899 Other long term (current) drug therapy; Z86.73 Personal history of transient ischemic attack (TIA), and cerebral infarction without residual deficits; Z90.49 Acquired absence of other specified parts of digestive tract; Z98.890 Other specified postprocedural states; W18.39XA Other fall on same level, initial encounter; Y93.01 Activity, walking, marching and hiking; Y92.89 Other specified places as the place of occurrence of the external cause; Y99.8 Other external cause status
CPT/HCPCS: 73030; 99283

== ENCOUNTER 2024-12-16 06:27 | Emergency (ER) | payer MEDICAID ==
[~2024-12-16] VITALS: Ht 175.3 cm; Wt 95.7 kg
[~2024-12-16 06:27] MED LIST changes: +AMLO-257 PO; -AMLO-258 PO; +AMOX-426 PO; -AMOX500T2 PO; +ASPI-1197 PO; -ATOR10TA69 PO; +ATOR40TA71 PO; +DULO60CA64 PO; -HYDR-3420 PO; -LABE200T7 PO; +LABE300T4 PO; -LEVO750T68 PO; -LISI40TA9 PO; -ONDA-243 PO; -POTA-192 PO; +SPIR25TA6 PO; -TAMS-1 PO; +TAMS-55 PO; +TELM80TA10 PO; +TRAZ-187 PO; -VENL100T4 PO
--- NOTE | 2024-12-16 06:54 | ERN ---
General Chief Complaint: Multiple Complaints Stated Complaint: GENERALIZED WEAKNESS, FATIGUE, ANXIETY Time Seen by : 06:33 Source: patient History of Present Illness Initial Comments This is a 59-year-old male with multiple medical problems including a recent admission for a urinary tract infection and hypokalemia. 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 The patient is here because he has not been able or drink any food for a week. Anytime he tries he immediately experiences nausea and emesis. He does not think it was made worse by his Augmentin prescription for his UTI, but he is not sure. He reports intermittent chills but no fever. He does not have diarrhea. Other significant past medical history is anxiety. Timing/Duration: 24 hours Severity: mild Allergies: Coded Allergies: No Known Drug Allergies (Verified Allergy, 11/10/12) Home Meds Active Scripts Potassium Chloride (Potassium Chloride) 20 Meq Tab.er.prt, 1 TAB PO DAILY for 7 Days, #7 TAB 0 Refills Prov:ARLYN MICHEL MD 12/15/24 Amoxicillin/Potassium Clav (Augmentin 500-125 Tablet) 500 Mg-125 Mg Tablet, 1 TAB PO BID for 7 Days, #14 TAB 0 Refills Prov:ARLYN MICHEL MD 12/15/24 Spironolactone (Spironolactone) 25 Mg Tablet, 50 MG PO DAILY, #30 TAB 0 Refills Prov:ARLYN MICHEL MD 12/15/24 Tamsulosin HCl (Flomax) 0.4 Mg Cap.er.24h, 0.4 MG PO DAILY, #30 CAPSULE. Prov:[facility] 12/30/23 Reported Medications Atorvastatin Calcium (Atorvastatin Calcium) 40 Mg Tablet, 1 TAB PO HS for 30 Days, #30 TAB 0 Refills 12/12/24 Aspirin (Aspirin) 81 Mg Tab.chew, 1 TAB PO DAILY for 30 Days, #30 TAB 0 Refills 12/12/24 Trazodone HCl (Trazodone HCl) 100 Mg Tablet, 2.5 TAB PO HS for 30 Days, #30 TAB 0 Refills 12/12/24 Labetalol HCl (Labetalol HCl) 300 Mg Tablet, 1 TAB PO BID for 30 Days, #60 TAB 0 Refills 12/12/24 Duloxetine HCl (Duloxetine HCl) 60 Mg Capsule.dr, 2 CAP PO DAILY for 30 Days, #30 CAP 0 Refills 12/12/24 Amlodipine Besylate (Amlodipine Besylate) 5 Mg Tablet, 1 TAB PO DAILY for 30 Days, #30 TAB 0 Refills 12/12/24 Telmisartan (Telmisartan) 80 Mg Tablet, 1 TAB PO DAILY for 30 Days, #30 TAB 0 Refills 12/12/24 Discontinued Reported Medications Empagliflozin (Jardiance) 10 Mg Tablet, 1 TAB PO DAILY for 30 Days, #30 TAB 0 Refills 12/12/24 Spironolactone (Spironolactone) 25 Mg Tablet, 1 TAB PO DAILY for 30 Days, #30 TAB 0 Refills 12/12/24 Lisinopril (Lisinopril) 40 Mg Tablet, 40 MG PO DAILY, TAB 11/03/17 Atorvastatin Calcium (Atorvastatin Calcium) 10 Mg Tablet, 10 MG PO DAILY, TAB 11/03/17 Amlodipine Besylate (Amlodipine Besylate) 10 Mg Tablet, 10 MG PO DAILY, TAB 01/13/17 Venlafaxine HCl (Venlafaxine HCl) 100 Mg Tablet, 100 MG PO DAILY, TAB 01/13/17 Discontinued Scripts Tamsulosin HCl (Flomax) 0.4 Mg Cap.er.24h, 1 CAP PO DAILY for 7 Days, #7 CAP 0 Refills Prov:SOLEDAD RUANO MD 12/12/24 Cephalexin Monohydrate (Keflex) 500 Mg Cap, 1 CAP PO TID for 10 Days, #30 CAP 0 Refills Prov:SOLEDAD RUANO MD 12/12/24 Ibuprofen (Ibuprofen 800 mg Tab) 800 Mg Tab, 800 MG PO Q8H PRN for fever or pain, #30 TAB 0 Refills Prov:ALEJANDRA DE LA GARZA NP 11/16/24 Ondansetron (Ondansetron Odt) 4 Mg Tab.rapdis, 4 MG PO Q6HPRN PRN for nausea, #15 TAB 0 Refills Prov:KILEY AMATO NP 10/07/24 Levofloxacin (Levaquin 750Mg Tabs) 750 Mg Tablet, 250 MG PO DAILY for UTI, #10 TAB 0 Refills Prov:KILEY AMATO NP 10/07/24 Potassium Chloride (Potassium Chloride) 20 Meq Tab.er.prt, 1 TAB PO DAILY for 5 Days, #5 TAB 0 Refills Prov:KILEY AMATO NP 10/07/24 Amoxicillin (Amoxicillin) 500 Mg Tablet, 1000 MG PO TID for 10 Days, #60 TAB Prov:MIGEL BRIAN MD 04/03/23 Potassium Chloride (K-Dur/Klor-Con) 20 Meq Ertab, 20 MEQ PO BID for 30 Days, #60 TAB.EC Prov:TRISTAN COVARRUBIAS MD 01/29/18 Labetalol HCl (Labetalol HCl) 200 Mg Tablet, 50 MG PO BID for 30 Days, TAB Prov:[facility] 12/27/17 Hydralazine Hcl (APRESOLINE) 10 Mg Tablet, 25 MG PO QID for 30 Days, TAB Prov:[facility] 12/27/17 Past Medical History Past Medical History: Anxiety, CVA, Diabetes-Type II, High Cholesterol, Hypertension Medical History Other: LT SIDE WEAKNESS R/T CVA, ABDOMINAL HERNIA Past Surgical History: Appendectomy, Other Surgical History Other: LEFT ARM, HERNIA. Social History Social History: Negative, Lives with family Constitutional: (+) chills, (+) fever, (+) malaise EENTM: (-) eye pain, (-) blurred vision, (-) tearing, (-) double vision, (-) ear pain, (-) ear discharge, (-) nose pain, (-) nose congestion, (-) throat pain, (-) Throat swelling, (-) mouth pain, (-) tooth pain, (-) mouth swelling, (-) other documentation Respiratory: (-) cough, (-) orthopnea, (-) short of breath, (-) stridor, (-) wheezing, (-) other documentation Cardiovascular: (-) chest pain, (-) edema, (-) palpitations, (-) syncope, (-) dyspnea on exertion, (-) other documentation Gastrointestinal/Abdominal: (+) nausea, (+) vomiting Musculoskeletal: (-) Neck pain, (-) back pain, (-) Flank Pain, (-) joint pain, (-) joint swelling, (-) muscle pain, (-) muscle stiffness, (-) gout, (-) other documentation Skin: (-) laceration, (-) contusion, (-) abrasion, (-) abscess, (-) rash, (-) change in color, (-) change in hair, (-) change in nails, (-) diaphoresis, (-) dryness, (-) other documentation Neuro: (-) altered mental status, (-) headache, (-) syncope, (-) paralysis, (-) numbness, (-) seizure, (-) pre-existing deficit, (-) tremors, (-) weakness, (-) dizziness, (-) slurred speech, (-) vertigo, (-) other documentation Psych: (+) anxiety Physical Exam General Appearance: (+) mild distress Orientation: (+) alert Head/Face Trauma: No Eye: bilateral eye normal inspection, bilateral eye PERRL, bilateral eye EOMI Ear, Nose, Throat: (+) hearing grossly normal, (+) normal ENT inspection Neck: (+) normal inspection, (+) supple, (+) full range of motion Respiratory: (+) chest non-tender, (+) lungs clear, (+) well ventilated Heart: (+) regular, (+) no gallop Vascular: (+) no edema, (+) no JVD Gastrointestinal: (+) soft, (+) non-tender, (+) bowel sound present Results Laboratory and Microbiology Lab and Micro Result Laboratory Tests Test 12/16/24 09:13 12/16/24 09:18 White Blood Count 8.9 K/uL (4.8-10.8) Red Blood Count 5.01 MIL/uL (4.50-6.20) Hemoglobin 14.7 g/dL (14.0-18.0) Hematocrit 44.2 % (42-54) Mean Corpuscular Volume 88.2 fL (79-99) Mean Corpuscular Hemoglobin 29.3 pg (27.0-33.0) Mean Corpuscular Hemoglobin Concent 33.3 g/dL (32.0-36.0) Red Cell Distribution Width 13.9 % (11.0-15.5) Platelet Count 260 K/uL (130-400) Mean Platelet Volume 9.7 fL (7.5-10.5) Immature Granulocyte % (Auto) 0.7 % (0-1) Neutrophils (%) (Auto) 78.2 % (40.0-77.0) H Lymphocytes (%) (Auto) 10.6 % (21.0-51.0) L Monocytes (%) (Auto) 9.0 % (3.0-13.0) Eosinophils (%) (Auto) 0.8 % (0.0-8.0) Basophils (%) (Auto) 0.7 % (0.0-5.0) Neutrophils # (Auto) 7.0 K/uL (1.8-7.7) Lymphocytes # (Auto) 0.9 K/uL (1.0-4.8) L Monocytes # (Auto) 0.8 K/uL (0.1-1.0) Eosinophils # (Auto) 0.07 K/uL (0.00-0.70) Basophils # (Auto) 0.06 K/uL (0.00-0.20) Absolute Immature Granulocyte (auto 0.06 K/uL (0-1) Nucleated Red Blood Cells 0.0 % (0.0-0.19) Sodium Level 139 mmol/L (136-145) Potassium Level 3.3 mmol/L (3.5-5.1) L Chloride Level 102 mmol/L (101-111) Carbon Dioxide Level 30 mmol/L (21-32) Blood Urea Nitrogen 12 mg/dL (7-18) Creatinine 1.0 mg/dL (0.5-1.3) Glomerular Filtration Rate Calc 87 mL/min (>90) Random Glucose 95 mg/dL (70-105) Lactic Acid Level 1.4 mmol/L (0.8-2.5) Total Calcium 8.7 mg/dL (8.5-10.1) Total Bilirubin 0.8 mg/dL (0.2-1.0) Aspartate Amino Transf (AST/SGOT) 17 U/L (10-37) Alanine Aminotransferase (ALT/SGPT) 24 U/L (12-78) Alkaline Phosphatase 113 U/L (50-136) Troponin I High Sensitivity 12 ng/L (4-75) Total Protein 7.1 g/dL (6.0-8.3) Albumin 3.6 g/dL (3.5-5.0) Urine Color LIGHT-YELLOW (YELLOW) Urine Appearance CLEAR (CLEAR) Urine pH 7.0 (5.0-8.0) Urine Specific [place] 1.012 (1.001-1.031) Urine Protein 10 mg/dL (NEGATIVE) H Urine Glucose (UA) 70 mg/dL (NEGATIVE) H Urine Ketones 60 mg/dL (NEGATIVE) H Urine Occult Blood +- (TRACE) (NEGATIVE) H Urine Nitrate NEGATIVE (NEGATIVE) Urine Bilirubin NEGATIVE mg/dL (NEGATIVE) Urine Urobilinogen 0.2 mg/dL (0.2-1.0) Urine Leukocyte Esterase NEGATIVE Giovanny/uL Urine RBC 2-5 /HPF (0-1) H Urine WBC 0-1 /HPF (0-1) Urine Bacteria None /HPF (None Seen) MDM I will get a CBC, a BMP, a repeat UA. I will give the patient half a mg of Ativan p.o. and I will bolused him a L of LR. His symptoms are so nonspecific and many of them could be related to him recovering from his urinary tract infection, which he says is still ongoing as he still experiences burning when he urinates. I will defer imaging for now. Patient handed off at shift change pending re-evaluation, patient laboratory values were stable potassium borderline low at 3.3 urinary tract infection has now cleared up patient feels better and wants to go home stable for discharge.. MDM: Differential diagnosis: Rationale: Tests considered and ordered secondary to shared decision making include: Previous outside records reviewed: Old ER visits. Risk of complication and/or morbidity or mortality of patient management: None Medications-Per medication reconciliation Need for hospitalization: Patient does not meet criteria for hospitalization. Need for emergency major/minor surgery: No There are no social concerns with this patient. Prescription drug management Prescriptions will include symptomatic care Patient's prior external medical records from other ER visits were reviewed by me as indicated. Prior testing and results from previous visits were reviewed. Prior tests were taken into account with medical decision making and resource utilization, independent historian/historians were used to obtain complete medical history. I independently interpreted the test that were performed, results were reviewed by me and considered findings on radiology if ordered. Medical management and examination interpretation discussions were had by me with other qualified healthcare professionals as indicated for the patient's care. ED Course Orders Procedure Category Date Status Time Cbc With Differential LAB 12/16/24 Complete 06:33 Comprehensive LAB 12/16/24 Complete Metabolic Panel 06:33 Lactic Acid LAB 12/16/24 Complete 06:33 Urinalysis LAB 12/16/24 Complete W/Microscopic 06:33 Lactated Ringers PHA 12/16/24 Complete 1000ml (Lactated 07:00 Lorazepam 0.5 Mg PHA 12/16/24 In Process (Ativan) 07:30 12 Lead Ekg Tracing- EKG 12/16/24 Logged Technical 07:37 Troponin I High LAB 12/16/24 Complete Sensitivity 07:37 Current Medications Medications (Trade) Dose Ordered Sig/[place] Route PRN Reason Start Time Stop Time Status Last Admin Dose Admin Lactated Ringer's (Lactated Ringers 1000ml) 1,000 ml BOLUS ONCE IV 12/16/24 07:00 12/16/24 07:01 DC 12/16/24 08:14 Lorazepam (AtiVAN) 0.5 mg BID PRN PO ANXIETY/AGITATION 12/16/24 07:30 01/15/25 07:29 12/16/24 08:14 Vital Signs Date Time Temp Pulse Resp B/P (MAP) Pulse Ox O2 Delivery O2 Flow Rate FiO2 12/16/24 07:56 97.9 73 18 164/95 98 Room Air* 0 21 12/16/24 06:28 98.4 87 18 185/87 98 0 DX & DISP Disposition: Discharge Departure Impression: Primary Impression: Weakness Additional Impression: Hypokalemia Condition: Stable Scripts Potassium Chloride (Potassium Chloride) 20 Meq Tablet.er 20 MEQ PO DAILY for 10 Days, #10 TAB 0 Refills Prov: NETO PARKS MD 12/16/24 Referrals: DEVANG CHASE (PCP) SILVIA KILGORE MD Dec 16, 2024 06:54 NETO PARKS MD Dec 16, 2024 10:58
[2024-12-16] MEDS: LACTATED RINGERS 1000ML IV ONE (08:14)
[2024-12-16] MEDS: LORazepam 0.5 MG TABLET PO PRN (08:14)
[2024-12-16 09:27] LABS: BASOPHILS # (AUTO) 0.06 K/uL (0.00-0.20); BASOPHILS % (AUTO) 0.7 % (0.0-5.0); EOSINOPHILS # (AUTO) 0.07 K/uL (0.00-0.70); EOSINOPHILS % (AUTO) 0.8 % (0.0-8.0); HEMATOCRIT 44.2 % (42-54); IMMATURE GRANULOCYTE ABSOLUTE 0.06 K/uL (0-1); LYMPHOCYTES # (AUTO) 0.9 K/uL (1.0-4.8); LYMPHOCYTES % (AUTO) 10.6 % (21.0-51.0); MEAN CORPUSCULAR HEMOGLOBIN 29.3 pg (27.0-33.0); MEAN CORPUSCULAR HGB CONC 33.3 g/dL (32.0-36.0); MEAN CORPUSCULAR VOLUME 88.2 fL (79-99); MONOCYTES # (AUTO) 0.8 K/uL (0.1-1.0); NEUTROPHILS % (AUTO) 78.2 % (40.0-77.0); PLATELET COUNT (AUTO) 260 K/uL (130-400); RED BLOOD CELL COUNT(AUTO) 5.01 MIL/uL (4.50-6.20); RED CELL DISTRIBUTION WIDTH 13.9 % (11.0-15.5); WHITE BLOOD COUNT (AUTO) 8.9 K/uL (4.8-10.8)
[2024-12-16 09:33] LABS: APPEARANCE,URINE CLEAR (CLEAR); BILIRUBIN,URINE NEGATIVE (NEGATIVE); COLOR,URINE LIGHT-YELLOW (YELLOW); GLUCOSE, URINE (UA) 70 mg/dL (NEGATIVE); KETONES,URINE 60 mg/dL (NEGATIVE); LEUKOCYTE ESTERASE ,URINE NEGATIVE Leu/uL (NEGATIVE); NITRATE,URINE NEGATIVE (NEGATIVE); PROTEIN,URINE 10 mg/dL (NEGATIVE); UROBILINOGEN,URINE 0.2 mg/dL (0.2-1.0)
[2024-12-16 09:48] LABS: MUCUS,URINE RARE LPF (None Seen); WBC,URINE 0-1 /HPF (0-1)
[2024-12-16 09:56] LABS: POTASSIUM 3.3 mmol/L (3.5-5.1)
[2024-12-16 10:01] LABS: ALBUMIN 3.6 g/dL (3.5-5.0); BILIRUBIN,TOTAL 0.8 mg/dL (0.2-1.0); TOTAL PROTEIN, SERUM 7.1 g/dL (6.0-8.3)
[2024-12-16] MEDS ORDERED: POTA-364 PO (10:58)
[2024-12-16 11:14] VITALS: BP 145/90; PULSE 75; RESP 18; TEMP 97.9; O2SAT 97
--- NOTE | 2024-12-16 13:11 | EKG ---
[facility] Test Date: 2024-12-16 Test Time: 07:44:57 Pat Name: DANYELL ROSARIO Department: ED Room: Gender: M [employer]: [id number] 1965 Requested By: NETO PARKS Order Number: [id number] Reading MD: Teresa Tesfaye Measurements Intervals Holiday Rate: 79 P: 45 WY: 150 QRS: 16 QRSD: 84 T: 0 QT: 339 QTc: 386 Interpretive Statements Sinus rhythm Atrial premature complex Compared to ECG 12/12/2024 09:37:37 Atrial premature complex(es) now present Electronically Signed On 12-16-2024 17:04:14 CDT by Teresa Tesfaye Please click the below link to view image of tracing.
== END 2024-12-16 11:34 | disposition home or self-care (01) ==
LOC: EDH 06:27
DX: E87.6 Hypokalemia (principal); R53.1 Weakness; E11.9 Type 2 diabetes mellitus without complications; E78.00 Pure hypercholesterolemia, unspecified; F41.9 Anxiety disorder, unspecified; I10 Essential (primary) hypertension; I49.1 Atrial premature depolarization; Z79.84 Long term (current) use of oral hypoglycemic drugs; Z79.899 Other long term (current) drug therapy; Z86.73 Personal history of transient ischemic attack (TIA), and cerebral infarction without residual deficits; Z90.49 Acquired absence of other specified parts of digestive tract
CPT/HCPCS: 99284; 96360; 84484; 80053; 85025; 83605; 81001; 36415; 93005; J7120

== ENCOUNTER 2024-12-17 19:09 | Emergency (ER) | payer MEDICAID ==
[~2024-12-17] VITALS: Ht 175.3 cm; Wt 95.7 kg
[~2024-12-17 19:09] MED LIST changes: +POTA-364 PO
--- NOTE | 2024-12-17 19:30 | ERN ---
General Chief Complaint: Nausea,Vomiting,Diarrhea Stated Complaint: N/V X 2 DAYS, SOB Time Seen by MD: 19:12 History of Present Illness Initial Comments A 59-year-old male with a history of nonobstructing nephrolithiasis, anxiety, UTI, hallucinations. He was recently discharged from the hospital with these complaints treated with IV antibiotics only to be seen the very next day in the emergency room or he was treated with hypokalemia and discharged. He was unable to fill his prescriptions. Had emesis x3 today and comes back to the emergency room. Timing/Duration: 4-6 hours, 24 hours Allergies: Coded Allergies: No Known Drug Allergies (Verified Allergy, 11/10/12) Home Meds Active Scripts Potassium Chloride (Potassium Chloride) 20 Meq Tablet.er, 20 MEQ PO DAILY for 10 Days, #10 TAB 0 Refills Prov:NETO PARKS MD 12/16/24 Potassium Chloride (Potassium Chloride) 20 Meq Tab.er.prt, 1 TAB PO DAILY for 7 Days, #7 TAB 0 Refills Prov:ARLYN MICHEL MD 12/15/24 Amoxicillin/Potassium Clav (Augmentin 500-125 Tablet) 500 Mg-125 Mg Tablet, 1 TAB PO BID for 7 Days, #14 TAB 0 Refills Prov:ARLYN MICHEL MD 12/15/24 Spironolactone (Spironolactone) 25 Mg Tablet, 50 MG PO DAILY, #30 TAB 0 Refills Prov:ARLYN MICHEL MD 12/15/24 Tamsulosin HCl (Flomax) 0.4 Mg Cap.er.24h, 0.4 MG PO DAILY, #30 CAPSULE. Prov:[facility] 12/30/23 Reported Medications Atorvastatin Calcium (Atorvastatin Calcium) 40 Mg Tablet, 1 TAB PO HS for 30 Days, #30 TAB 0 Refills 12/12/24 Aspirin (Aspirin) 81 Mg Tab.chew, 1 TAB PO DAILY for 30 Days, #30 TAB 0 Refills 12/12/24 Trazodone HCl (Trazodone HCl) 100 Mg Tablet, 2.5 TAB PO HS for 30 Days, #30 TAB 0 Refills 12/12/24 Labetalol HCl (Labetalol HCl) 300 Mg Tablet, 1 TAB PO BID for 30 Days, #60 TAB 0 Refills 12/12/24 Duloxetine HCl (Duloxetine HCl) 60 Mg Capsule.dr, 2 CAP PO DAILY for 30 Days, #30 CAP 0 Refills 12/12/24 Amlodipine Besylate (Amlodipine Besylate) 5 Mg Tablet, 1 TAB PO DAILY for 30 Days, #30 TAB 0 Refills 12/12/24 Telmisartan (Telmisartan) 80 Mg Tablet, 1 TAB PO DAILY for 30 Days, #30 TAB 0 Refills 12/12/24 Discontinued Reported Medications Empagliflozin (Jardiance) 10 Mg Tablet, 1 TAB PO DAILY for 30 Days, #30 TAB 0 Refills 12/12/24 Spironolactone (Spironolactone) 25 Mg Tablet, 1 TAB PO DAILY for 30 Days, #30 TAB 0 Refills 12/12/24 Lisinopril (Lisinopril) 40 Mg Tablet, 40 MG PO DAILY, TAB 11/03/17 Atorvastatin Calcium (Atorvastatin Calcium) 10 Mg Tablet, 10 MG PO DAILY, TAB 11/03/17 Amlodipine Besylate (Amlodipine Besylate) 10 Mg Tablet, 10 MG PO DAILY, TAB 01/13/17 Venlafaxine HCl (Venlafaxine HCl) 100 Mg Tablet, 100 MG PO DAILY, TAB 01/13/17 Discontinued Scripts Tamsulosin HCl (Flomax) 0.4 Mg Cap.er.24h, 1 CAP PO DAILY for 7 Days, #7 CAP 0 Refills Prov:SOLEDAD RUANO MD 12/12/24 Cephalexin Monohydrate (Keflex) 500 Mg Cap, 1 CAP PO TID for 10 Days, #30 CAP 0 Refills Prov:SOLEDAD RUANO MD 12/12/24 Ibuprofen (Ibuprofen 800 mg Tab) 800 Mg Tab, 800 MG PO Q8H PRN for fever or pain, #30 TAB 0 Refills Prov:ALEJANDRA DE LA GARZA NP 11/16/24 Ondansetron (Ondansetron Odt) 4 Mg Tab.rapdis, 4 MG PO Q6HPRN PRN for nausea, #15 TAB 0 Refills Prov:KILEY AMATO NP 10/07/24 Levofloxacin (Levaquin 750Mg Tabs) 750 Mg Tablet, 250 MG PO DAILY for UTI, #10 TAB 0 Refills Prov:KILEY AMATO NP 10/07/24 Potassium Chloride (Potassium Chloride) 20 Meq Tab.er.prt, 1 TAB PO DAILY for 5 Days, #5 TAB 0 Refills Prov:KILEY AMATO NP 10/07/24 Amoxicillin (Amoxicillin) 500 Mg Tablet, 1000 MG PO TID for 10 Days, #60 TAB Prov:MIGEL BRIAN MD 04/03/23 Potassium Chloride (K-Dur/Klor-Con) 20 Meq Ertab, 20 MEQ PO BID for 30 Days, #60 TAB.EC Prov:TRISTAN COVARRUBIAS MD 01/29/18 Labetalol HCl (Labetalol HCl) 200 Mg Tablet, 50 MG PO BID for 30 Days, TAB Prov:[facility] 12/27/17 Hydralazine Hcl (APRESOLINE) 10 Mg Tablet, 25 MG PO QID for 30 Days, TAB Prov:[facility] 12/27/17 Past Medical History Past Medical History: Anxiety, CVA, Diabetes-Type II, High Cholesterol, Hypertension Medical History Other: LT SIDE WEAKNESS R/T CVA, ABDOMINAL HERNIA, adrenal mass, ureteral stones Past Surgical History: Appendectomy, Other Surgical History Other: LEFT ARM, HERNIA. Social History Social History: Negative, Lives with family Constitutional: (-) chills, (-) diaphoresis, (-) fever, (-) malaise, (-) weakness, (-) other documentation EENTM: (-) eye pain, (-) blurred vision, (-) tearing, (-) double vision, (-) ear pain, (-) ear discharge, (-) nose pain, (-) nose congestion, (-) throat pain, (-) Throat swelling, (-) mouth pain, (-) tooth pain, (-) mouth swelling, (-) other documentation Respiratory: (-) cough, (-) orthopnea, (-) short of breath, (-) stridor, (-) wheezing, (-) other documentation Cardiovascular: (-) chest pain, (-) edema, (-) palpitations, (-) syncope, (-) dyspnea on exertion, (-) other documentation Gastrointestinal/Abdominal: (+) nausea, (+) vomiting Genitourinary: (-) penile discharge, (-) dysuria, (-) frequency, (-) hematuria, (-) pain, (-) other documentation Musculoskeletal: (-) Neck pain, (-) back pain, (-) Flank Pain, (-) joint pain, (-) joint swelling, (-) muscle pain, (-) muscle stiffness, (-) gout, (-) other documentation Skin: (-) laceration, (-) contusion, (-) abrasion, (-) abscess, (-) rash, (-) change in color, (-) change in hair, (-) change in nails, (-) diaphoresis, (-) dryness, (-) other documentation Physical Exam General Appearance: (+) no apparent distress Orientation: (+) alert Eye: bilateral eye normal inspection, bilateral eye PERRL, bilateral eye EOMI Ear, Nose, Throat: (+) hearing grossly normal, (+) normal ENT inspection Neck: (+) normal inspection, (+) supple, (+) full range of motion Respiratory: (+) chest non-tender, (+) lungs clear Heart: (+) regular, (+) no gallop Vascular: (+) no edema, (+) normal peripheral pulse Gastrointestinal: (+) soft, (+) non-tender, (+) bowel sound present Extremities: (+) normal range of motion, (+) non-tender Results Laboratory and Microbiology Lab and Micro Result Laboratory Tests Test 12/17/24 19:33 12/17/24 22:55 12/18/24 01:18 White Blood Count 9.0 K/uL (4.8-10.8) Red Blood Count 4.49 MIL/uL (4.50-6.20) L Hemoglobin 13.1 g/dL (14.0-18.0) L Hematocrit 39.5 % (42-54) L Mean Corpuscular Volume 88.0 fL (79-99) Mean Corpuscular Hemoglobin 29.2 pg (27.0-33.0) Mean Corpuscular Hemoglobin Concent 33.2 g/dL (32.0-36.0) Red Cell Distribution Width 14.0 % (11.0-15.5) Platelet Count 280 K/uL (130-400) Mean Platelet Volume 9.8 fL (7.5-10.5) Immature Granulocyte % (Auto) 0.6 % (0-1) Neutrophils (%) (Auto) 67.6 % (40.0-77.0) Lymphocytes (%) (Auto) 16.7 % (21.0-51.0) L Monocytes (%) (Auto) 11.2 % (3.0-13.0) Eosinophils (%) (Auto) 3.3 % (0.0-8.0) Basophils (%) (Auto) 0.6 % (0.0-5.0) Neutrophils # (Auto) 6.1 K/uL (1.8-7.7) Lymphocytes # (Auto) 1.5 K/uL (1.0-4.8) Monocytes # (Auto) 1.0 K/uL (0.1-1.0) Eosinophils # (Auto) 0.30 K/uL (0.00-0.70) Basophils # (Auto) 0.05 K/uL (0.00-0.20) Absolute Immature Granulocyte (auto 0.05 K/uL (0-1) Nucleated Red Blood Cells 0.0 % (0.0-0.19) Sodium Level 141 mmol/L (136-145) 141 mmol/L (136-145) Potassium Level 2.7 mmol/L (3.5-5.1) *L 3.7 mmol/L (3.5-5.1) Chloride Level 107 mmol/L (101-111) 102 mmol/L (101-111) Carbon Dioxide Level 24 mmol/L (21-32) 30 mmol/L (21-32) Blood Urea Nitrogen 17 mg/dL (7-18) 17 mg/dL (7-18) Creatinine 1.2 mg/dL (0.5-1.3) 1.2 mg/dL (0.5-1.3) Glomerular Filtration Rate Calc 70 mL/min (>90) 70 mL/min (>90) Random Glucose 96 mg/dL (70-105) 94 mg/dL (70-105) Total Calcium 8.1 mg/dL (8.5-10.1) L 8.7 mg/dL (8.5-10.1) Urine Color YELLOW (YELLOW) Urine Appearance CLEAR (CLEAR) Urine pH 5.5 (5.0-8.0) Urine Specific [place] 1.031 (1.001-1.031) Urine Protein 50 mg/dL (NEGATIVE) H Urine Glucose (UA) >=1000 mg/dL (NEGATIVE) H Urine Ketones 5 mg/dL (NEGATIVE) H Urine Occult Blood NEGATIVE (NEGATIVE) Urine Nitrate NEGATIVE (NEGATIVE) Urine Bilirubin 0.5 mg/dL (NEGATIVE) H Urine Urobilinogen 2.0 mg/dL (0.2-1.0) H Urine Leukocyte Esterase NEGATIVE Giovanny/uL Urine RBC 2-5 /HPF (0-1) H Urine WBC 2-5 /HPF (0-1) H Urine Squamous Epithelial Cells RARE /HPF (0-2) Urine Bacteria RARE /HPF (None Seen) Urine Hyaline Casts 2-5 /LPF (0-1 /LPF) H MDM Not obvious to me why the patient continues to have nausea and vomiting. He probably has not completed his antibiotic therapy for his UTI. He has not refilled any of his prescriptions due to stores being closed. I will get a CBC BMP and a UA. I will also give him fluid. Patient's potassium is 2.7 and a BMP I will give him effervescent potassium replacement. Patient received two oral doses 50 mEq each of potassium. Follow-up BMP shows that his potassium is 3.7. He feels much better. He will start making phone calls to get a ride home. ED Course Orders Procedure Category Date Status Time Cbc With Differential LAB 12/17/24 Complete 19: Urinalysis Profile LAB 12/17/24 Complete 19:31 Lactated Ringers PHA 12/17/24 Complete 1000ml (Lactated 20:00 Basic Metabolic Panel LAB 12/17/24 Complete 19:31 Potassium Bicarb/Cit PHA 12/17/24 Complete Ac 25meq (K-Lyte Ta 20:30 Potassium Bicarb/Cit PHA 12/17/24 Complete Ac 25meq (K-Lyte Ta 23:00 Basic Metabolic Panel LAB 12/18/24 Complete 00:58 Current Medications Medications (Trade) Dose Ordered Sig/[place] Route PRN Reason Start Time Stop Time Status Last Admin Dose Admin Lactated Ringer's 1,000 ml @ 0 mls/hr ONCE ONCE IV 12/17/24 20:00 12/17/24 20:01 DC 12/17/24 19:57 Potassium Bicarbonate (K-Lyte Tablet Eff 25 Meq Tablet.eff) 50 meq ONCE ONCE PO 12/17/24 20:30 12/17/24 20:31 DC 12/17/24 21:31 Potassium Bicarbonate (K-Lyte Tablet Eff 25 Meq Tablet.eff) 50 meq ONCE ONCE PO 12/17/24 23:00 12/17/24 23:01 DC 12/17/24 23:39 Vital Signs Date Time Temp Pulse Resp B/P (MAP) Pulse Ox O2 Delivery O2 Flow Rate FiO2 12/17/24 23:34 98.4 76 20 128/74 97 Room Air* 0 21 12/17/24 19:40 98.4 72 18 138/87 98 Room Air* 0 21 12/17/24 19:10 98.8 80 22 160/94 93 Room Air 0 DX & DISP Disposition: Discharge Departure Impression: Primary Impression: Hypokalemia Condition: Stable Additional Instructions: Please return if you have continued emesis in her and able to Referrals: DEVANG CHASE (PCP) SILVIA KILGORE MD Dec 17, 2024 19:30
[2024-12-17 19:39] LABS: BASOPHILS # (AUTO) 0.05 K/uL (0.00-0.20); BASOPHILS % (AUTO) 0.6 % (0.0-5.0); EOSINOPHILS % (AUTO) 3.3 % (0.0-8.0); HEMATOCRIT 39.5 % (42-54); IMMATURE GRANULOCYTE ABSOLUTE 0.05 K/uL (0-1); LYMPHOCYTES # (AUTO) 1.5 K/uL (1.0-4.8); LYMPHOCYTES % (AUTO) 16.7 % (21.0-51.0); MEAN CORPUSCULAR HEMOGLOBIN 29.2 pg (27.0-33.0); MEAN CORPUSCULAR HGB CONC 33.2 g/dL (32.0-36.0); MONOCYTES % (AUTO) 11.2 % (3.0-13.0); NEUTROPHILS # (AUTO) 6.1 K/uL (1.8-7.7); NEUTROPHILS % (AUTO) 67.6 % (40.0-77.0); PLATELET COUNT (AUTO) 280 K/uL (130-400); RED BLOOD CELL COUNT(AUTO) 4.49 MIL/uL (4.50-6.20)
[2024-12-17 19:48] LABS: CREATININE 1.2 mg/dL (0.5-1.3)
[2024-12-17] MEDS: LACTATED RINGERS 1000ML 1,000 ML IV ONE (19:57)
[2024-12-17 20:02] LABS: POTASSIUM 2.7 mmol/L (3.5-5.1)
[2024-12-17] MEDS: PoTASSium BIcarbonate/CIT AC 25 MEQ TABLET.EFF PO ONE ×2 (21:31→23:39)
[2024-12-17 23:57] LABS: APPEARANCE,URINE CLEAR (CLEAR); BILIRUBIN,URINE 0.5 mg/dL (NEGATIVE); COLOR,URINE YELLOW (YELLOW); GLUCOSE, URINE (UA) >=1000 mg/dL (NEGATIVE); KETONES,URINE 5 mg/dL (NEGATIVE); LEUKOCYTE ESTERASE ,URINE NEGATIVE Leu/uL (NEGATIVE); NITRATE,URINE NEGATIVE (NEGATIVE); OCCULT BLOOD,URINE NEGATIVE (NEGATIVE); PH,URINE 5.5 (5.0-8.0); PROTEIN,URINE 50 mg/dL (NEGATIVE)
[2024-12-17 23:59] LABS: ADD UA MICROSCOPIC YES
[2024-12-18 00:01] LABS: BACTERIA,URINE RARE /HPF (None Seen); MUCUS,URINE MANY LPF (None Seen); SQUAMOUS EPITHELIAL CELL,UR RARE /HPF (0-2)
[2024-12-18 01:36] LABS: CREATININE 1.2 mg/dL (0.5-1.3); POTASSIUM 3.7 mmol/L (3.5-5.1)
--- NOTE | 2024-12-18 02:18 | NUR ---
[facility] CONTACTED FOR TRANSFER HOME
[2024-12-18 05:31] VITALS: BP 154/82; PULSE 76; RESP 18; TEMP 98.5; O2SAT 98
--- NOTE | 2024-12-18 05:32 | NUR ---
EMS AT BEDSIDE
== END 2024-12-18 05:35 | disposition home or self-care (01) ==
LOC: EDH 19:09
DX: E87.6 Hypokalemia (principal); E11.9 Type 2 diabetes mellitus without complications; E78.00 Pure hypercholesterolemia, unspecified; F41.9 Anxiety disorder, unspecified; I10 Essential (primary) hypertension; Z79.82 Long term (current) use of aspirin; Z79.84 Long term (current) use of oral hypoglycemic drugs; Z79.899 Other long term (current) drug therapy; Z86.73 Personal history of transient ischemic attack (TIA), and cerebral infarction without residual deficits; Z90.49 Acquired absence of other specified parts of digestive tract
CPT/HCPCS: 99285; 96360; 96361; 80048 ×3; 85025 ×2; 81001; 36415 ×3; 99284; 82088; 96372 ×2; J7120; J1885; J1200

== ENCOUNTER 2024-12-18 16:29 | Emergency (ER) | payer MEDICAID ==
[~2024-12-18] VITALS: Ht 172.7 cm; Wt 95.7 kg
--- NOTE | 2024-12-18 18:45 | ERN ---
General Chief Complaint: Urinary Frequency Stated Complaint: UTI Time Seen by MD: 17:03 Time Seen by Midlevel: 17:03 Source: patient History of Present Illness Initial Comments The patient is a 59-year-old male presenting to the emergency department seeking pain medication and medication help him sleep. He has been seen in our emergency department twice in the last 48 hours. Today he states he had an episode of profuse sweating which prompted the ER visit. He does have a history of stroke with residual left-sided weakness. He reports chronic pain from previous left-sided rib fractures and is seeking pain control. He also states he has been unable to sleep for the last couple of days and wanted medication to help him sleep. Allergies: Coded Allergies: No Known Drug Allergies (Verified Allergy, 11/10/12) Home Meds Active Scripts Potassium Chloride (Potassium Chloride) 20 Meq Tablet.er, 20 MEQ PO DAILY for 10 Days, #10 TAB 0 Refills Prov:NETO PARKS MD 12/16/24 Potassium Chloride (Potassium Chloride) 20 Meq Tab.er.prt, 1 TAB PO DAILY for 7 Days, #7 TAB 0 Refills Prov:ARLYN MICHEL MD 12/15/24 Amoxicillin/Potassium Clav (Augmentin 500-125 Tablet) 500 Mg-125 Mg Tablet, 1 TAB PO BID for 7 Days, #14 TAB 0 Refills Prov:ARLYN MICHEL MD 12/15/24 Spironolactone (Spironolactone) 25 Mg Tablet, 50 MG PO DAILY, #30 TAB 0 Refills Prov:ARLYN MICHEL MD 12/15/24 Tamsulosin HCl (Flomax) 0.4 Mg Cap.er.24h, 0.4 MG PO DAILY, #30 CAPSULE. Prov:B[facility]BY [facility] 12/30/23 Reported Medications Atorvastatin Calcium (Atorvastatin Calcium) 40 Mg Tablet, 1 TAB PO HS for 30 Days, #30 TAB 0 Refills 12/12/24 Aspirin (Aspirin) 81 Mg Tab.chew, 1 TAB PO DAILY for 30 Days, #30 TAB 0 Refills 12/12/24 Trazodone HCl (Trazodone HCl) 100 Mg Tablet, 2.5 TAB PO HS for 30 Days, #30 TAB 0 Refills 12/12/24 Labetalol HCl (Labetalol HCl) 300 Mg Tablet, 1 TAB PO BID for 30 Days, #60 TAB 0 Refills 12/12/24 Duloxetine HCl (Duloxetine HCl) 60 Mg Capsule.dr, 2 CAP PO DAILY for 30 Days, #30 CAP 0 Refills 12/12/24 Amlodipine Besylate (Amlodipine Besylate) 5 Mg Tablet, 1 TAB PO DAILY for 30 Days, #30 TAB 0 Refills 12/12/24 Telmisartan (Telmisartan) 80 Mg Tablet, 1 TAB PO DAILY for 30 Days, #30 TAB 0 Refills 12/12/24 Discontinued Reported Medications Empagliflozin (Jardiance) 10 Mg Tablet, 1 TAB PO DAILY for 30 Days, #30 TAB 0 Refills 12/12/24 Spironolactone (Spironolactone) 25 Mg Tablet, 1 TAB PO DAILY for 30 Days, #30 TAB 0 Refills 12/12/24 Lisinopril (Lisinopril) 40 Mg Tablet, 40 MG PO DAILY, TAB 11/03/17 Atorvastatin Calcium (Atorvastatin Calcium) 10 Mg Tablet, 10 MG PO DAILY, TAB 11/03/17 Amlodipine Besylate (Amlodipine Besylate) 10 Mg Tablet, 10 MG PO DAILY, TAB 01/13/17 Venlafaxine HCl (Venlafaxine HCl) 100 Mg Tablet, 100 MG PO DAILY, TAB 01/13/17 Discontinued Scripts Tamsulosin HCl (Flomax) 0.4 Mg Cap.er.24h, 1 CAP PO DAILY for 7 Days, #7 CAP 0 Refills Prov:SOLEDAD RUANO MD 12/12/24 Cephalexin Monohydrate (Keflex) 500 Mg Cap, 1 CAP PO TID for 10 Days, #30 CAP 0 Refills Prov:SOLEDAD RUANO MD 12/12/24 Ibuprofen (Ibuprofen 800 mg Tab) 800 Mg Tab, 800 MG PO Q8H PRN for fever or pain, #30 TAB 0 Refills Prov:ALEJANDRA DE LA GARZA NP 11/16/24 Ondansetron (Ondansetron Odt) 4 Mg Tab.rapdis, 4 MG PO Q6HPRN PRN for nausea, #15 TAB 0 Refills Prov:KILEY AMATO NP 10/07/24 Levofloxacin (Levaquin 750Mg Tabs) 750 Mg Tablet, 250 MG PO DAILY for UTI, #10 TAB 0 Refills Prov:KILEY AMATO NP 10/07/24 Potassium Chloride (Potassium Chloride) 20 Meq Tab.er.prt, 1 TAB PO DAILY for 5 Days, #5 TAB 0 Refills Prov:KILEY AMATO Lance PALOMINO 10/07/24 Amoxicillin (Amoxicillin) 500 Mg Tablet, 1000 MG PO TID for 10 Days, #60 TAB Prov:MIGEL BRIAN MD 04/03/23 Potassium Chloride (K-Dur/Klor-Con) 20 Meq Ertab, 20 MEQ PO BID for 30 Days, #60 TAB.EC Prov:TRISTAN COVARRUBIAS MD 01/29/18 Labetalol HCl (Labetalol HCl) 200 Mg Tablet, 50 MG PO BID for 30 Days, TAB Prov:LENORE BATRESP 12/27/17 Hydralazine Hcl (APRESOLINE) 10 Mg Tablet, 25 MG PO QID for 30 Days, TAB Prov:LENORE BATRESP 12/27/17 Past Medical History Past Medical History: Diabetes-Type II, High Cholesterol, Heart Disease, Hypertension, UTI Medical History Other: LT SIDE WEAKNESS R/T CVA, ABDOMINAL HERNIA, adrenal mass, ureteral stones Past Surgical History: Appendectomy Surgical History Other: LT ARM, HERNIA Social History Social History: Negative, Lives with family ROS Dictation CONSTITUTIONAL: Negative except for HPI HEAD/FACE: Negative except for HPI EENT: Negative except for HPI RESPIRATORY: Negative except for HPI GASTROINTESTINAL/ABDOMINAL: Negative except for HPI GENITOURINARY: Negative except for HPI MUSCULOSKELETAL: Negative except for HPI INTEGUMENTARY: Negative except for HPI NEUROLOGICAL/PSYCH: Negative except for HPI HEMATOLOGIC/LYMPHATIC: Negative except for HPI All Systems Negative, Except as noted above. 13 point review of systems assessed and all negative except for above. Physical Exam Physical Exam Dictation Vital Signs reviewed General Appearance: Alert, oriented x 3, no acute distress, well developed, nourished. Head and Face: non-traumatic. Eyes: PERRL, pink conjunctivas, eyelid no trauma, anterior chamber with arcus senilis. Ears: Pinnas intact and no signs of trauma or erythema ear canals clear and no discharge TM no erythema Nose: No discharge, no bleeding. Oropharynx: Mouth normal, tongue pink, pharynx clear,no erythema, tonsils no exudates, no abscesses noted, mucous membrane moist Neck: Supple, non-tender, no thyromegaly, no masses, no JVD, no bruits Breast:Deferred Chest:No tenderness, no crepitus, no paradoxical movement, no retractions Lungs:Clear, well-ventilated, symmetric, no rales, no wheezing, no rhonchi, no stridor, good breath sounds bilaterally Heart: Regular rate, regular rhythm, no murmur, no gallops Vascular: no peripheral edema, Abdomen: Soft, positive bowel sounds, nondistended, no guarding, nontender, no rebound, no masses no hepatomegaly, no splenomegaly, no Henderson's sign, no hernias. Rectal: Deferred Genital: Deferred Neurological: Normal speech, motor function intact, sensory function intact Musculoskeletal: Left-sided hemiparesis consistent with previous CVA Extremities: nontender, full range of motion Skin: Color pink, dry, no turgor, no rash, no lacerations, no abrasions, no contusions. Lymphatic: Deferred Results Laboratory and Microbiology Lab and Micro Result Laboratory Tests Test 12/18/24 19:24 White Blood Count 8.6 K/uL (4.8-10.8) Red Blood Count 4.89 MIL/uL (4.50-6.20) Hemoglobin 14.3 g/dL (14.0-18.0) Hematocrit 43.0 % (42-54) Mean Corpuscular Volume 87.9 fL (79-99) Mean Corpuscular Hemoglobin 29.2 pg (27.0-33.0) Mean Corpuscular Hemoglobin Concent 33.3 g/dL (32.0-36.0) Red Cell Distribution Width 14.1 % (11.0-15.5) Platelet Count 306 K/uL (130-400) Mean Platelet Volume 9.6 fL (7.5-10.5) Immature Granulocyte % (Auto) 0.5 % (0-1) Neutrophils (%) (Auto) 71.2 % (40.0-77.0) Lymphocytes (%) (Auto) 14.8 % (21.0-51.0) L Monocytes (%) (Auto) 10.3 % (3.0-13.0) Eosinophils (%) (Auto) 2.4 % (0.0-8.0) Basophils (%) (Auto) 0.8 % (0.0-5.0) Neutrophils # (Auto) 6.1 K/uL (1.8-7.7) Lymphocytes # (Auto) 1.3 K/uL (1.0-4.8) Monocytes # (Auto) 0.9 K/uL (0.1-1.0) Eosinophils # (Auto) 0.21 K/uL (0.00-0.70) Basophils # (Auto) 0.07 K/uL (0.00-0.20) Absolute Immature Granulocyte (auto 0.04 K/uL (0-1) Nucleated Red Blood Cells 0.0 % (0.0-0.19) Sodium Level 143 mmol/L (136-145) Potassium Level 3.3 mmol/L (3.5-5.1) L Chloride Level 104 mmol/L (101-111) Carbon Dioxide Level 29 mmol/L (21-32) Blood Urea Nitrogen 13 mg/dL (7-18) Creatinine 1.0 mg/dL (0.5-1.3) Glomerular Filtration Rate Calc 87 mL/min (>90) Random Glucose 107 mg/dL (70-105) H Total Calcium 9.1 mg/dL (8.5-10.1) Labs Reviewed?: Yes MDM MDM: Differential diagnosis: Malingering, chronic pain, electrolyte abnormality There are no social concerns with this patient. Prescription drug management Prescriptions will include: None Medical management and examination interpretation discussions were had by me with other qualified healthcare professionals as indicated for the patient's care. ED Course Orders Procedure Category Date Status Time Cbc With Differential LAB 12/18/24 Complete 18:41 Basic Metabolic Panel LAB 12/18/24 Complete 18:41 Ketorolac PHA 12/18/24 Complete Tromethamine 15mg/Ml 19:00 Diphenhydramine Hcl PHA 12/18/24 Complete (Benadryl Inj) 19:00 Aldosterone Serum LAB 12/18/24 In Process 20:25 Current Medications Medications (Trade) Dose Ordered Sig/[place] Route PRN Reason Start Time Stop Time Status Last Admin Dose Admin Diphenhydramine HCl (BENAdryl INJ) 50 mg ONCE ONCE IM 12/18/24 19:00 12/18/24 19:01 DC 12/18/24 20:31 Ketorolac Tromethamine (toRADol) 15 mg ONCE ONCE IM 12/18/24 19:00 12/18/24 19:01 DC 12/18/24 20:31 Vital Signs Date Time Temp Pulse Resp B/P (MAP) Pulse Ox O2 Delivery O2 Flow Rate FiO2 12/18/24 16:30 99.0 71 16 157/91 98 Room Air 0 DX & DISP Disposition: Discharge Departure Impression: Primary Impression: Rib pain on left side Additional Impression: Insomnia Condition: Stable Additional Instructions: Your blood work today is stable. You were given pain medication in the emergency department for your chronic left rib pain. You were also given an injection which should help easy sleep. He had mentioned you were having difficulty sleeping over the last couple of days. You need to follow up with your primary care doctor for further evaluation. Referrals: DEVANG CHASE (PCP) Time of Disposition: 21:47 I have reviewed the case, and I agree with, Diagnosis and Plan I performed the substantive portion of the visit. I have reviewed and personally made and approve the management plan that is documented in the note by myself or the ANIBAL. I acknowledge for responsibility for the patient's management plan. ANTHONY GRADY Dec 18, 2024 18:45
[2024-12-18 19:37] LABS: BASOPHILS # (AUTO) 0.07 K/uL (0.00-0.20); BASOPHILS % (AUTO) 0.8 % (0.0-5.0); EOSINOPHILS # (AUTO) 0.21 K/uL (0.00-0.70); EOSINOPHILS % (AUTO) 2.4 % (0.0-8.0); IMMATURE GRANULOCYTE ABSOLUTE 0.04 K/uL (0-1); LYMPHOCYTES # (AUTO) 1.3 K/uL (1.0-4.8); LYMPHOCYTES % (AUTO) 14.8 % (21.0-51.0); MEAN CORPUSCULAR HEMOGLOBIN 29.2 pg (27.0-33.0); MEAN CORPUSCULAR HGB CONC 33.3 g/dL (32.0-36.0); MEAN CORPUSCULAR VOLUME 87.9 fL (79-99); MONOCYTES # (AUTO) 0.9 K/uL (0.1-1.0); MONOCYTES % (AUTO) 10.3 % (3.0-13.0); NEUTROPHILS # (AUTO) 6.1 K/uL (1.8-7.7); NEUTROPHILS % (AUTO) 71.2 % (40.0-77.0); PLATELET COUNT (AUTO) 306 K/uL (130-400); RED BLOOD CELL COUNT(AUTO) 4.89 MIL/uL (4.50-6.20); RED CELL DISTRIBUTION WIDTH 14.1 % (11.0-15.5); WHITE BLOOD COUNT (AUTO) 8.6 K/uL (4.8-10.8)
[2024-12-18 19:48] LABS: POTASSIUM 3.3 mmol/L (3.5-5.1)
[2024-12-18] MEDS: DiphenhydrAMINE HCL 50 MG/ML VIAL IM ONE (20:31)
[2024-12-18] MEDS: ketOROlac 15MG/ML VIAL (15MG/ML) IM ONE (20:31)
[2024-12-18 22:27] VITALS: BP 150/85; PULSE 70; RESP 18; TEMP 98.6; O2SAT 97
== END 2024-12-18 22:28 | disposition home or self-care (01) ==
LOC: EDH 16:29
DX: R07.81 Pleurodynia (principal); G47.00 Insomnia, unspecified; E11.9 Type 2 diabetes mellitus without complications; E78.00 Pure hypercholesterolemia, unspecified; I10 Essential (primary) hypertension; Z79.82 Long term (current) use of aspirin; Z79.84 Long term (current) use of oral hypoglycemic drugs; Z79.899 Other long term (current) drug therapy; Z90.49 Acquired absence of other specified parts of digestive tract
CPT/HCPCS: 99284; 80048; 85025; 82088; 36415; 96372 ×2; J1885; J1200

== ENCOUNTER 2024-12-20 17:07 | Emergency (ER) | payer MEDICAID ==
[~2024-12-20] VITALS: Ht 175.3 cm; Wt 95.7 kg
[2024-12-20 17:42] LABS: BASOPHILS # (AUTO) 0.07 K/uL (0.00-0.20); BASOPHILS % (AUTO) 0.8 % (0.0-5.0); EOSINOPHILS # (AUTO) 0.29 K/uL (0.00-0.70); EOSINOPHILS % (AUTO) 3.5 % (0.0-8.0); IMMATURE GRANULOCYTE ABSOLUTE 0.03 K/uL (0-1); LYMPHOCYTES # (AUTO) 1.3 K/uL (1.0-4.8); MEAN CORPUSCULAR HEMOGLOBIN 29.3 pg (27.0-33.0); MEAN CORPUSCULAR HGB CONC 33.3 g/dL (32.0-36.0); MEAN CORPUSCULAR VOLUME 87.9 fL (79-99); MONOCYTES % (AUTO) 11.6 % (3.0-13.0); NEUTROPHILS # (AUTO) 5.8 K/uL (1.8-7.7); NEUTROPHILS % (AUTO) 68.7 % (40.0-77.0); PLATELET COUNT (AUTO) 287 K/uL (130-400); RED BLOOD CELL COUNT(AUTO) 4.78 MIL/uL (4.50-6.20); RED CELL DISTRIBUTION WIDTH 14.1 % (11.0-15.5); WHITE BLOOD COUNT (AUTO) 8.4 K/uL (4.8-10.8)
[2024-12-20 18:09] LABS: CREATININE 1.2 mg/dL (0.5-1.3); POTASSIUM 3.6 mmol/L (3.5-5.1)
[2024-12-20 18:13] LABS: ALBUMIN 3.7 g/dL (3.5-5.0); BILIRUBIN,DIRECT 0.2 mg/dL (0.0-0.3); BILIRUBIN,TOTAL 0.6 mg/dL (0.2-1.0)
[2024-12-20 18:55] LABS: APPEARANCE,URINE CLEAR (CLEAR); BILIRUBIN,URINE NEGATIVE (NEGATIVE); COLOR,URINE YELLOW (YELLOW); GLUCOSE, URINE (UA) >=1000 mg/dL (NEGATIVE); KETONES,URINE NEGATIVE (NEGATIVE); LEUKOCYTE ESTERASE ,URINE NEGATIVE Leu/uL (NEGATIVE); MUCUS,URINE FEW LPF (None Seen); NITRATE,URINE NEGATIVE (NEGATIVE); OCCULT BLOOD,URINE NEGATIVE (NEGATIVE); PH,URINE 6.5 (5.0-8.0); PROTEIN,URINE NEGATIVE (NEGATIVE); SQUAMOUS EPITHELIAL CELL,UR RARE /HPF (0-2); UROBILINOGEN,URINE 0.2 mg/dL (0.2-1.0); YEAST,URINE BUDDING RARE /HPF (None Seen)
[2024-12-20] MEDS ORDERED: PHEN-846 PO (19:32)
--- NOTE | 2024-12-20 19:32 | ERN ---
General Chief Complaint: Painful Urination Stated Complaint: DYSURIA, POSSIBLE HYPOKALEMIA Time Seen by MD: 17:10 Time Seen by Midlevel: 17:10 Source: patient History of Present Illness Initial Comments 59-year-old male who presents to the emergency department due to dysuria. The patient reports he has concern for hypokalemia due to his history is. Denies any fever, abdominal pain, hematuria, penile lesions, penile discharge or further associated symptoms. PMHx DM, hypercholesterolemia, HTN, left-sided weakness due to CVA, abdominal hernia Allergies: Coded Allergies: No Known Drug Allergies (Verified Allergy, 11/10/12) Home Meds Active Scripts Phenazopyridine HCl (Pyridium) 100 Mg Tab, 1 TAB PO TID for urinary discomfort for 3 Days, #9 TAB 0 Refills Prov:YAW HODGES 12/20/24 Potassium Chloride (Potassium Chloride) 20 Meq Tablet.er, 20 MEQ PO DAILY for 10 Days, #10 TAB 0 Refills Prov:NETO PARKS MD 12/16/24 Potassium Chloride (Potassium Chloride) 20 Meq Tab.er.prt, 1 TAB PO DAILY for 7 Days, #7 TAB 0 Refills Prov:ARLYN MICHEL MD 12/15/24 Amoxicillin/Potassium Clav (Augmentin 500-125 Tablet) 500 Mg-125 Mg Tablet, 1 TAB PO BID for 7 Days, #14 TAB 0 Refills Prov:ARLYN MICHEL MD 12/15/24 Spironolactone (Spironolactone) 25 Mg Tablet, 50 MG PO DAILY, #30 TAB 0 Refills Prov:ARLYN MICHEL MD 12/15/24 Tamsulosin HCl (Flomax) 0.4 Mg Cap.er.24h, 0.4 MG PO DAILY, #30 CAPSULE. Prov:BOBBY CORONEL [facility] [employer] 12/30/23 Reported Medications Atorvastatin Calcium (Atorvastatin Calcium) 40 Mg Tablet, 1 TAB PO HS for 30 Days, #30 TAB 0 Refills 12/12/24 Aspirin (Aspirin) 81 Mg Tab.chew, 1 TAB PO DAILY for 30 Days, #30 TAB 0 Refills 12/12/24 Trazodone HCl (Trazodone HCl) 100 Mg Tablet, 2.5 TAB PO HS for 30 Days, #30 TAB 0 Refills 12/12/24 Labetalol HCl (Labetalol HCl) 300 Mg Tablet, 1 TAB PO BID for 30 Days, #60 TAB 0 Refills 12/12/24 Duloxetine HCl (Duloxetine HCl) 60 Mg Capsule.dr, 2 CAP PO DAILY for 30 Days, #30 CAP 0 Refills 12/12/24 Amlodipine Besylate (Amlodipine Besylate) 5 Mg Tablet, 1 TAB PO DAILY for 30 Days, #30 TAB 0 Refills 12/12/24 Telmisartan (Telmisartan) 80 Mg Tablet, 1 TAB PO DAILY for 30 Days, #30 TAB 0 Refills 12/12/24 Discontinued Reported Medications Empagliflozin (Jardiance) 10 Mg Tablet, 1 TAB PO DAILY for 30 Days, #30 TAB 0 Refills 12/12/24 Spironolactone (Spironolactone) 25 Mg Tablet, 1 TAB PO DAILY for 30 Days, #30 TAB 0 Refills 12/12/24 Past Medical History Past Medical History: Diabetes-Type II, High Cholesterol, Heart Disease, Hypertension, UTI Medical History Other: LT SIDE WEAKNESS R/T CVA, ABDOMINAL HERNIA, adrenal mass, ureteral stones Past Surgical History: Appendectomy Surgical History Other: LT ARM, HERNIA Social History Social History: Negative, Lives with family ROS Dictation Constitutional: Negative for fever,chills, and weight loss Eyes: Negative for injury, pain,redness, and discharge ENT: Negative for injury,pain or swelling Cardiovascular: Negative for chest pain, palpitations, and edema Respiratory: Negative for shortness of breath, cough, and wheezing, Abdomen/GI: Negative for abdominal pain, nausea, vomiting, diarrhea, and constipation Back: Negative for injury and pain : Positive dysuria Negative for bleeding or discharge MS/Extremity: Negative for injury and deformity Skin: Negative for rash, and discoloration Neuro: Negative for headache, weakness, numbness, tingling, and seizure Psych: Negative for suicide ideation, homicidal ideation, and hallucinations Physical Exam Physical Exam Dictation General: awake, alert, no acute distress Head/Face: Normocephalic, atraumatic Eyes: PERRL, EOMI, normal conjuctiva ENT: oral cavity clear, oral mucosa moist Neck: Supple, normal range of motion Cardiovascular: RRR, normal S1/S2 Respiratory: CTAB, no respiratory distress, Abdomen: Soft, non-tender, non-distended, no guarding or rebound. Skin: Warm, dry, normal turgor, no rash MS/Extremity: Pulses equal, no cyanosis, neurovascular intact, FROM Neuro: COAx4, GCS 15, left side at baseline after CVA, normal gait using a cane Psych: Normal behavior, mood, and affect normal Results Laboratory and Microbiology Lab and Micro Result Laboratory Tests Test 12/20/24 17:34 12/20/24 18:45 White Blood Count 8.4 K/uL (4.8-10.8) Red Blood Count 4.78 MIL/uL (4.50-6.20) Hemoglobin 14.0 g/dL (14.0-18.0) Hematocrit 42.0 % (42-54) Mean Corpuscular Volume 87.9 fL (79-99) Mean Corpuscular Hemoglobin 29.3 pg (27.0-33.0) Mean Corpuscular Hemoglobin Concent 33.3 g/dL (32.0-36.0) Red Cell Distribution Width 14.1 % (11.0-15.5) Platelet Count 287 K/uL (130-400) Mean Platelet Volume 9.5 fL (7.5-10.5) Immature Granulocyte % (Auto) 0.4 % (0-1) Neutrophils (%) (Auto) 68.7 % (40.0-77.0) Lymphocytes (%) (Auto) 15.0 % (21.0-51.0) L Monocytes (%) (Auto) 11.6 % (3.0-13.0) Eosinophils (%) (Auto) 3.5 % (0.0-8.0) Basophils (%) (Auto) 0.8 % (0.0-5.0) Neutrophils # (Auto) 5.8 K/uL (1.8-7.7) Lymphocytes # (Auto) 1.3 K/uL (1.0-4.8) Monocytes # (Auto) 1.0 K/uL (0.1-1.0) Eosinophils # (Auto) 0.29 K/uL (0.00-0.70) Basophils # (Auto) 0.07 K/uL (0.00-0.20) Absolute Immature Granulocyte (auto 0.03 K/uL (0-1) Nucleated Red Blood Cells 0.0 % (0.0-0.19) Sodium Level 139 mmol/L (136-145) Potassium Level 3.6 mmol/L (3.5-5.1) Chloride Level 103 mmol/L (101-111) Carbon Dioxide Level 31 mmol/L (21-32) Blood Urea Nitrogen 14 mg/dL (7-18) Creatinine 1.2 mg/dL (0.5-1.3) Glomerular Filtration Rate Calc 70 mL/min (>90) Random Glucose 98 mg/dL (70-105) Total Calcium 9.1 mg/dL (8.5-10.1) Total Bilirubin 0.6 mg/dL (0.2-1.0) Direct Bilirubin 0.2 mg/dL (0.0-0.3) Aspartate Amino Transf (AST/SGOT) 14 U/L (10-37) Alanine Aminotransferase (ALT/SGPT) 24 U/L (12-78) Alkaline Phosphatase 112 U/L (50-136) Total Protein 7.0 g/dL (6.0-8.3) Albumin 3.7 g/dL (3.5-5.0) Lipase 129 U/L (16-77) H Urine Color YELLOW (YELLOW) Urine Appearance CLEAR (CLEAR) Urine pH 6.5 (5.0-8.0) Urine Specific [place] 1.017 (1.001-1.031) Urine Protein NEGATIVE mg/dL (NEGATIVE) Urine Glucose (UA) >=1000 mg/dL (NEGATIVE) H Urine Ketones NEGATIVE mg/dL (NEGATIVE) Urine Occult Blood NEGATIVE (NEGATIVE) Urine Nitrate NEGATIVE (NEGATIVE) Urine Bilirubin NEGATIVE mg/dL (NEGATIVE) Urine Urobilinogen 0.2 mg/dL (0.2-1.0) Urine Leukocyte Esterase NEGATIVE Giovanny/uL Urine RBC 2-5 /HPF (0-1) H Urine WBC 2-5 /HPF (0-1) H Urine Squamous Epithelial Cells RARE /HPF (0-2) Urine Bacteria None /HPF (None Seen) Urine Yeast RARE /HPF (None Seen) Labs Reviewed?: Yes MDM MDM: Differential diagnosis: Dehydration, hypokalemia, UTI Rationale: 59-year-old male who presents to the emergency department due to dysuria. The patient reports he has concern for hypokalemia due to his history is. Denies any fever, abdominal pain, hematuria, penile lesions, penile discharge or further associated symptoms. PMHx DM, hypercholesterolemia, HTN, left-sided weakness due to CVA, abdominal hernia Labs obtained CBC within normal limits, chemistry shows mild lipase elevation of 129 however patient is not having any nausea, vomiting or abdominal pain. UA negative for leukocytes or nitrates and no bacteria. UA sent out for culture. Patient prescribed Pyridium. Advised to follow up with PCP. Return to the emergency department if any worsening symptoms. Patient verbalized understanding. Patient stable for discharge. There are no social concerns with this patient. I independently interpreted the test that were performed, results were reviewed by me and considered findings on radiology if ordered. Medical management and examination interpretation discussions were had by me with other qualified healthcare professionals as indicated for the patient's care. ED Course Orders Procedure Category Date Status Time Cbc With Differential LAB 12/20/24 Complete 17:17 Basic Metabolic Panel LAB 12/20/24 Complete 17:17 Lipase LAB 12/20/24 Complete 17:17 Hepatic Function Panel LAB 12/20/24 Complete 17:17 Urinalysis LAB 12/20/24 Complete W/Microscopic 17:17 Vital Signs Date Time Temp Pulse Resp B/P (MAP) Pulse Ox O2 Delivery O2 Flow Rate FiO2 12/20/24 19:48 97.0 72 17 146/83 96 Room Air* 0 21 12/20/24 17:09 98.2 68 16 144/82 96 Room Air 0 DX & DISP Disposition: Discharge Departure Impression: Primary Impression: Dysuria Condition: Stable Scripts Phenazopyridine HCl (Pyridium) 100 Mg Tab 1 TAB PO TID for urinary discomfort for 3 Days, #9 TAB 0 Refills Prov: YAW HODGES 12/20/24 Additional Instructions: Discharge home. Rest. Follow up with primary care DrTrista in 24 hours. Return to the ER for any acute changes or worsening symptoms. If any medications were prescribed take as directed. Okay to continue home medications unless otherwise discussed during your visit in the emergency room today. Patient was also advised to follow-up with primary care physician in 1 to 2 days for continued monitoring. Referrals: DEVANG CHASE (PCP) I performed the substantive portion of the visit. I have reviewed and personally made and approve the management plan that is documented in the notes by myself or the ANIBAL. I acknowledge full responsibility for the patient's management plan. YAW HODGES Dec 20, 2024 19:32
[2024-12-20 19:48] VITALS: BP 146/83; PULSE 72; RESP 17; TEMP 97; O2SAT 96
== END 2024-12-20 19:53 | disposition home or self-care (01) ==
LOC: EDH 17:07
DX: R30.0 Dysuria (principal); E11.9 Type 2 diabetes mellitus without complications; E78.00 Pure hypercholesterolemia, unspecified; I11.9 Hypertensive heart disease without heart failure; Z79.82 Long term (current) use of aspirin; Z79.84 Long term (current) use of oral hypoglycemic drugs; Z79.899 Other long term (current) drug therapy; Z87.440 Personal history of urinary (tract) infections; Z87.442 Personal history of urinary calculi; Z90.49 Acquired absence of other specified parts of digestive tract
CPT/HCPCS: 36415; 80048; 80076; 81001; 83690; 85025; 99284

== ENCOUNTER 2025-01-12 09:54 | Emergency (ER) | payer MEDICAID ==
[~2025-01-12] VITALS: Ht 175.3 cm; Wt 83.5 kg
[~2025-01-12 09:54] MED LIST changes: +PHEN-846 PO
[2025-01-12] MEDS: HYDROcodone/acetaMINOPHEN 10/325 MG TAB PO ONE (10:37)
[2025-01-12] MEDS: ketOROlac 15MG/ML VIAL (15MG/ML) IM ONE (10:37)
--- NOTE | 2025-01-12 12:34 | ERN ---
ED Note History of Present Illness Stated Complaint: FALL Chief Complaint: Mechanical Fall Time Seen by MD: 10:04 Dictation: 59-year-old male with a history of stroke with left-sided residual deficit presents to the ED for evaluation post fall onset [employer]. Patient reports left- sided rib pain with inspiration, SOB, but denies any head injury, LOC, vomiting or any other associated symptoms at this time. Patient states he has a history of two fractured ribs that were healing on his left side. Allergies: Coded Allergies: No Known Drug Allergies (Verified Allergy, 11/10/12) Home Meds Active Scripts Cyclobenzaprine HCl (Cyclobenzaprine HCl) 5 Mg Tablet, 5 MG PO BID for 5 Days, #10 TAB Prov:NETO PARKS MD 01/12/25 Phenazopyridine HCl (Pyridium) 100 Mg Tab, 1 TAB PO TID for urinary discomfort for 3 Days, #9 TAB 0 Refills Prov:YAW HODGES 12/20/24 Potassium Chloride (Potassium Chloride) 20 Meq Tablet.er, 20 MEQ PO DAILY for 10 Days, #10 TAB 0 Refills Prov:NETO PARKS MD 12/16/24 Potassium Chloride (Potassium Chloride) 20 Meq Tab.er.prt, 1 TAB PO DAILY for 7 Days, #7 TAB 0 Refills Prov:ARLYN MICHEL MD 12/15/24 Amoxicillin/Potassium Clav (Augmentin 500-125 Tablet) 500 Mg-125 Mg Tablet, 1 TAB PO BID for 7 Days, #14 TAB 0 Refills Prov:ARLYN MICHEL MD 12/15/24 Spironolactone (Spironolactone) 25 Mg Tablet, 50 MG PO DAILY, #30 TAB 0 Refills Prov:ARLYN MICHEL MD 12/15/24 Tamsulosin HCl (Flomax) 0.4 Mg Cap.er.24h, 0.4 MG PO DAILY, #30 CAPSULE. Prov:BOBBY CORONELP 12/30/23 Reported Medications Atorvastatin Calcium (Atorvastatin Calcium) 40 Mg Tablet, 1 TAB PO HS for 30 Days, #30 TAB 0 Refills 12/12/24 Aspirin (Aspirin) 81 Mg Tab.chew, 1 TAB PO DAILY for 30 Days, #30 TAB 0 Refills 12/12/24 Trazodone HCl (Trazodone HCl) 100 Mg Tablet, 2.5 TAB PO HS for 30 Days, #30 TAB 0 Refills 12/12/24 Labetalol HCl (Labetalol HCl) 300 Mg Tablet, 1 TAB PO BID for 30 Days, #60 TAB 0 Refills 12/12/24 Duloxetine HCl (Duloxetine HCl) 60 Mg Capsule.dr, 2 CAP PO DAILY for 30 Days, #30 CAP 0 Refills 12/12/24 Amlodipine Besylate (Amlodipine Besylate) 5 Mg Tablet, 1 TAB PO DAILY for 30 Days, #30 TAB 0 Refills 12/12/24 Telmisartan (Telmisartan) 80 Mg Tablet, 1 TAB PO DAILY for 30 Days, #30 TAB 0 Refills 12/12/24 Past Medical History Past Medical History: Diabetes-Type II, High Cholesterol, Heart Disease, Hypertension, UTI Additional Past Medical Hx: LT SIDE WEAKNESS R/T CVA, ABDOMINAL HERNIA, adrenal mass, ureteral stones Surgical History: Appendectomy Surgical History Other: LT ARM, HERNIA Social History: Negative, Lives with family Review of System Dictation Constitutional: Negative for fever,chills, and weight loss Eyes: Negative for injury, pain,redness, and discharge ENT: Negative for injury,pain or swelling Cardiovascular: Positive for left-sided rib pain Negative for chest pain, palpitations, and edema Respiratory: Negative for shortness of breath, cough, and wheezing, Abdomen/GI: Negative for abdominal pain, nausea, vomiting, diarrhea, and constipation Back: Negative for injury and pain : Negative for injury, bleeding and discharge MS/Extremity: Negative for injury and deformity Skin: Negative for rash, and discoloration Neuro: Negative for headache, weakness, numbness, tingling, and seizure Psych: Negative for suicide ideation, homicidal ideation, and hallucinations Initial Vital Sign VS Vital Signs Date Time Temp Pulse Resp B/P (MAP) Pulse Ox O2 Delivery O2 Flow Rate FiO2 01/12/25 09:54 98.8 66 16 132/80 98 Room Air 0 01/12/25 09:54 21 Physical Exam Dictation General: awake, alert, NAD Head/Face: Normocephalic, atraumatic Eyes: PERRL, EOMI, vision at baseline ENT: oral cavity clear, TMs clear, no signs of infection Neck: Trachea midline, supple, no nuchal rigidity Cardiovascular: RRR, normal S1/S2, No MRGs, no JVD, left rib tenderness Respiratory: CTAB, no respiratory distress, No rales or wheezes Abdomen: Soft, non-tender, non-distended, normal bowel sounds, no guarding or rebound. Skin: Warm, dry, normal turgor, no rash MS/Extremity: Pulses equal, no cyanosis, neurovascular intact, FROM Neuro: COAx4, GCS 15, strength 5/5, CN 2-12 intact, normal cerebellar exam, normal gait, Psych: Normal behavior, mood, and affect normal Results (Laboratory/Radiology) CT Scan Comment: REASON: left rib pain, fall ORDERING PHYSICIAN: NETO PARKS MD PROCEDURE: CHEST WO - CT CHEST W/O CONTRAST CT NONCONTRAST CHEST Comparison Study: none History: left rib pain, fall Technique: Helical CT of the chest without IV contrast at 5 mm collimation. Coronal and sagittal reformations also done. CT Dose Index (CTDI): 2.38 mGy Dose Length Product (DLP): 94.8 total mGy-cm Findings: The airway is intact. The trachea and major bronchi are unremarkable. The chest exam shows no pulmonary nodules or masses. No significant pulmonary parenchymal abnormalities are noted. No pulmonary infiltrates or mass lesions are seen. No pleural effusions are identified. There is no pneumothorax. There is no evidence of pneumomediastinum. The nonenhanced exam of the araceli and mediastinum is unremarkable. No evidence of hilar enlargement is seen. The aorta shows no aneurysmal dilatation or significant atheromatous calcification. No significant brachiocephalic vascular abnormalities are seen. The heart is unremarkable. It is not enlarged. No significant coronary arterial calcifications are seen. There is no pericardial effusion. The rib cage appears unremarkable. The soft tissues of the chest wall are unremarkable. The dorsal spine shows no significant abnormalities. IMPRESSION: NORMAL CT OF THE CHEST WITHOUT CONTRAST. This study was performed using dose reduction techniques to include automated exposure control and/or adjustment of the mA and/or kV according to patient size. DICTATED BY: DOMINGUEZ VALDES MD DATE: 01/12/25 1321 ED Course ED Course Orders Procedure Category Date Status Time Hydrocodone/Apap PHA 01/12/25 Complete 10/325 Tab ([place] 10) 10:30 Ct Chest W/O Contrast CT 01/12/25 Resulted 10:17 Ketorolac PHA 01/12/25 Complete Tromethamine 15mg/Ml 10:30 Current Medications Medications (Trade) Dose Ordered Sig/[place] Route PRN Reason Start Time Stop Time Status Last Admin Dose Admin Acetaminophen/ Hydrocodone Bitart (NORco 10) 1 tab ONCE ONCE PO 01/12/25 10:30 01/12/25 10:31 DC 01/12/25 10:37 Ketorolac Tromethamine (toRADol) 15 mg ONCE ONCE IM 01/12/25 10:30 01/12/25 10:31 DC 01/12/25 10:37 Vital Signs Date Time Temp Pulse Resp B/P (MAP) Pulse Ox O2 Delivery O2 Flow Rate FiO2 01/12/25 12:00 98.8 57 16 138/80 97 Room Air* 0 21 01/12/25 09:54 98.8 66 16 132/80 98 Room Air* 0 21 01/12/25 09:54 98.8 66 16 132/80 98 Room Air 0 Medical Decision Making MDM MDM: Differential diagnosis: Fall, rib contusion, fracture Risk of complication and/or morbidity or mortality of patient management: None Medications-Per medication reconciliation Need for hospitalization: Patient does not meet criteria for hospitalization. Need for emergency major/minor surgery: No There are no social concerns with this patient. Prescription drug management Prescriptions will include symptomatic care I independently interpreted the test that were performed, results were reviewed by me and considered findings on radiology if ordered. DX & DISP Disposition: Discharge Departure Impression: Primary Impression: Contusion of rib on left side Condition: Stable Scripts Cyclobenzaprine HCl (Cyclobenzaprine HCl) 5 Mg Tablet 5 MG PO BID for 5 Days, #10 TAB Prov: NTEO PARKS MD 01/12/25 Referrals: DEVANG CHASE (PCP) NETO PARKS MD January 12, 2025 12:34
--- NOTE | 2025-01-12 13:24 | HMCIMG ---
CT NONCONTRAST CHEST Comparison Study: none History: left rib pain, fall Technique: Helical CT of the chest without IV contrast at 5 mm collimation. Coronal and sagittal reformations also done. CT Dose Index (CTDI): 2.38 mGy Dose Length Product (DLP): 94.8 total mGy-cm Findings: The airway is intact. The trachea and major bronchi are unremarkable. The chest exam shows no pulmonary nodules or masses. No significant pulmonary parenchymal abnormalities are noted. No pulmonary infiltrates or mass lesions are seen. No pleural effusions are identified. There is no pneumothorax. There is no evidence of pneumomediastinum. The nonenhanced exam of the araceli and mediastinum is unremarkable. No evidence of hilar enlargement is seen. The aorta shows no aneurysmal dilatation or significant atheromatous calcification. No significant brachiocephalic vascular abnormalities are seen. The heart is unremarkable. It is not enlarged. No significant coronary arterial calcifications are seen. There is no pericardial effusion. The rib cage appears unremarkable. The soft tissues of the chest wall are unremarkable. The dorsal spine shows no significant abnormalities. IMPRESSION: NORMAL CT OF THE CHEST WITHOUT CONTRAST. This study was performed using dose reduction techniques to include automated exposure control and/or adjustment of the mA and/or kV according to patient size.
[2025-01-12] MEDS ORDERED: CYCL5TAB3 PO (14:03)
[2025-01-12 14:27] VITALS: BP 137/79; PULSE 59; RESP 16; TEMP 98.8; O2SAT 97
== END 2025-01-12 14:38 | disposition home or self-care (01) ==
LOC: EDH 09:54
DX: S20.212A Contusion of left front wall of thorax, initial encounter (principal); E11.9 Type 2 diabetes mellitus without complications; E78.00 Pure hypercholesterolemia, unspecified; I10 Essential (primary) hypertension; Z79.82 Long term (current) use of aspirin; Z79.899 Other long term (current) drug therapy; Z86.73 Personal history of transient ischemic attack (TIA), and cerebral infarction without residual deficits; Z87.442 Personal history of urinary calculi; Z90.49 Acquired absence of other specified parts of digestive tract; W18.39XA Other fall on same level, initial encounter; Y93.89 Activity, other specified; Y92.89 Other specified places as the place of occurrence of the external cause; Y99.8 Other external cause status
CPT/HCPCS: 99285; 71250; 96372; J1885

== ENCOUNTER 2025-04-02 00:16 | Emergency (ER) | payer MEDICAID ==
[~2025-04-02] VITALS: Ht 175.3 cm; Wt 79.8 kg
[~2025-04-02 00:16] MED LIST changes: +CYCL5TAB3 PO
--- NOTE | 2025-04-02 02:34 | ERN ---
General Chief Complaint: Mechanical Fall Stated Complaint: L RIB PAIN, LUE AND HAND PAIN S/P FALL Time Seen by MD: 00:25 Time Seen by Midlevel: 00:25 Source: patient History of Present Illness Initial Comments The patient is a 59-year-old male with a past medical history of a stroke with residual left-sided weakness presenting to the emergency department for evaluation following a mechanical ground level fall. The patient states he was walking outside and accidentally fell onto his left side after stepping on uneven ground. Denies any head injury or loss of consciousness. Patient reports pain to his left wrist and the left side of his ribs. Denies any other symptoms. Denies being on any blood thinners. Allergies: Coded Allergies: No Known Drug Allergies (Verified Allergy, 11/10/12) Home Meds Active Scripts Cyclobenzaprine HCl (Cyclobenzaprine HCl) 5 Mg Tablet, 5 MG PO BID for 5 Days, #10 TAB Prov:NETO PARKS MD 01/12/25 Phenazopyridine HCl (Pyridium) 100 Mg Tab, 1 TAB PO TID for urinary discomfort for 3 Days, #9 TAB 0 Refills Prov:YAW HODGES 12/20/24 Potassium Chloride (Potassium Chloride) 20 Meq Tablet.er, 20 MEQ PO DAILY for 10 Days, #10 TAB 0 Refills Prov:NETO PARKS MD 12/16/24 Potassium Chloride (Potassium Chloride) 20 Meq Tab.er.prt, 1 TAB PO DAILY for 7 Days, #7 TAB 0 Refills Prov:ARLYN MICHEL MD 12/15/24 Amoxicillin/Potassium Clav (Augmentin 500-125 Tablet) 500 Mg-125 Mg Tablet, 1 TAB PO BID for 7 Days, #14 TAB 0 Refills Prov:ARLYN MICHEL MD 12/15/24 Spironolactone (Spironolactone) 25 Mg Tablet, 50 MG PO DAILY, #30 TAB 0 Refills Prov:ARLYN MICHEL MD 12/15/24 Tamsulosin HCl (Flomax) 0.4 Mg Cap.er.24h, 0.4 MG PO DAILY, #30 CAPSULE. Prov:BOBBY CORONEL 12/30/23 Reported Medications Atorvastatin Calcium (Atorvastatin Calcium) 40 Mg Tablet, 1 TAB PO HS for 30 Days, #30 TAB 0 Refills 12/12/24 Aspirin (Aspirin) 81 Mg Tab.chew, 1 TAB PO DAILY for 30 Days, #30 TAB 0 Refills 12/12/24 Trazodone HCl (Trazodone HCl) 100 Mg Tablet, 2.5 TAB PO HS for 30 Days, #30 TAB 0 Refills 12/12/24 Labetalol HCl (Labetalol HCl) 300 Mg Tablet, 1 TAB PO BID for 30 Days, #60 TAB 0 Refills 12/12/24 Duloxetine HCl (Duloxetine HCl) 60 Mg Capsule.dr, 2 CAP PO DAILY for 30 Days, #30 CAP 0 Refills 12/12/24 Amlodipine Besylate (Amlodipine Besylate) 5 Mg Tablet, 1 TAB PO DAILY for 30 Days, #30 TAB 0 Refills 12/12/24 Telmisartan (Telmisartan) 80 Mg Tablet, 1 TAB PO DAILY for 30 Days, #30 TAB 0 Refills 12/12/24 Past Medical History Past Medical History: CVA, Diabetes-Type II, High Cholesterol, Heart Disease, Hypertension, UTI Medical History Other: LT SIDE WEAKNESS R/T CVA, ABDOMINAL HERNIA, adrenal m ass, ureteral stones Past Surgical History: Appendectomy Surgical History Other: LT ARM, HERNIA Social History Social History: Negative, Lives with family ROS Dictation CONSTITUTIONAL: Negative except for HPI HEAD/FACE: Negative except for HPI EENT: Negative except for HPI RESPIRATORY: Negative except for HPI GASTROINTESTINAL/ABDOMINAL: Negative except for HPI GENITOURINARY: Negative except for HPI MUSCULOSKELETAL: Negative except for HPI INTEGUMENTARY: Negative except for HPI NEUROLOGICAL/PSYCH: Negative except for HPI HEMATOLOGIC/LYMPHATIC: Negative except for HPI All Systems Negative, Except as noted above. 13 point review of systems assessed and all negative except for above. Physical Exam Physical Exam Dictation Vital Signs reviewed General Appearance: Alert, oriented x 3, no acute distress, well developed, nourished. Head and Face: non-traumatic. Eyes: PERRL, pink conjunctivas, eyelid no trauma, anterior chamber with arcus senilis. Ears: Pinnas intact and no signs of trauma or erythema ear canals clear and no discharge TM no erythema Nose: No discharge, no bleeding. Oropharynx: Mouth normal, tongue pink, pharynx clear,no erythema, tonsils no exudates, no abscesses noted, mucous membrane moist Neck: Supple, non-tender, no thyromegaly, no masses, no JVD, no bruits Breast:Deferred Chest:No tenderness, no crepitus, no paradoxical movement, no retractions Lungs:Clear, well-ventilated, symmetric, no rales, no wheezing, no rhonchi, no stridor, good breath sounds bilaterally Heart: Regular rate, regular rhythm, no murmur, no gallops Vascular: no peripheral edema, Abdomen: Soft, positive bowel sounds, nondistended, no guarding, nontender, no rebound, no masses no hepatomegaly, no splenomegaly, no Henderson's sign, no hernias. Rectal: Deferred Genital: Deferred Neurological: Normal speech, motor function intact, sensory function intact Musculoskeletal: Neck nontender, full range of motion, back nontender, full range of motion, Extremities: nontender, full range of motion Skin: Color pink, dry, no turgor, no rash, no lacerations, no abrasions, no contusions. Lymphatic: Deferred MDM MDM: Differential diagnosis: Fall, contusion, fracture, dislocation There are no social concerns with this patient. Prescription drug management Prescriptions will include: None Medical management and examination interpretation discussions were had by me with other qualified healthcare professionals as indicated for the patient's care. ED Course Orders Procedure Category Date Status Time Ribs Uni Lt W Pa RAD 04/02/25 Taken Chest 3+Vws 01:00 Wrist Comp 3+Vws Lt RAD 04/02/25 Taken 01:00 Morphine 2mg Syg PHA 04/02/25 Complete (Morphine 2mg Syg) 01:00 Current Medications Medications (Trade) Dose Ordered Sig/[place] Route PRN Reason Start Time Stop Time Status Last Admin Dose Admin Morphine Sulfate (morPHINE 2MG SYG) 2 mg ONCE ONCE IM 04/02/25 01:00 04/02/25 01:01 DC 04/02/25 01:15 Vital Signs Date Time Temp Pulse Resp B/P (MAP) Pulse Ox O2 Delivery O2 Flow Rate FiO2 04/02/25 01:57 98.4 51 14 105/65 98 Room Air* 0 21 04/02/25 00:29 98.4 59 14 108/61 94 Room Air* 0 04/02/25 00:18 97.5 64 16 134/78 95 Room Air 0 DX & DISP Disposition: Discharge Departure Impression: Primary Impression: Fall Additional Impressions: Contusion of rib on left side, Contusion of left wrist Condition: Stable Additional Instructions: Your x-rays do not show any evidence of an acute fracture or dislocation. You may take Tylenol and Motrin as needed for pain. Follow up with your primary care doctor in 2-3 days for repeat evaluation. Referrals: DEVANG CHASE (PCP) Time of Disposition: 02:33 I have reviewed the case, and I agree with, Diagnosis and Plan I performed the substantive portion of the visit. I have reviewed and personally made and approve the management plan that is documented in the note by myself or the ANIBAL. I acknowledge for responsibility for the patient's man agement plan. ANTHONY GRADY Apr 02, 2025 02:33
[2025-04-02 02:41] VITALS: BP 109/71; PULSE 55; RESP 16; TEMP 98.4; O2SAT 96
--- NOTE | 2025-04-02 02:43 | HMCIMG ---
EXAM: CR Left Wrist, 3 views. CLINICAL HISTORY: Fall. COMPARISON: None provided. FINDINGS: No acute fracture or aggressive appearing osseous lesion. The carpal bones demonstrate normal alignment. Mild generalized osteopenia and osteoarthritis are evident. Mild diffuse soft tissue swelling is evident. IMPRESSION: No acute bony abnormality is evident. Mild generalized osteopenia and osteoarthritis. /[place]
--- NOTE | 2025-04-02 02:55 | HMCIMG ---
EXAM: CR Chest and Left Ribs, 5 Views. CLINICAL HISTORY: Fall. COMPARISON: CT chest dated 01/12/2025. FINDINGS: Interval blunting of the bilateral CP angles, concerning small pleural effusions. The remaining lung capps are clear. The cardiac size is within normal limits. No pneumothorax. Mild osteopenia. Degenerative osseous changes. Partially visualized internal fixator hardware in the left proximal femur. No acute left rib fracture is evident. Redemonstrated old healed left rib fractures involving the anterolateral aspect of the left 7th, 8th, 9th, and 10th ribs. IMPRESSION: No acute left rib fracture is evident. Redemonstrated old healed left rib fractures involving the anterolateral aspect of the left 7th, 8th, 9th, and 10th ribs. These are grossly unchanged compared to the previous CT dated 01/12/2025. Interval blunting of the bilateral CP angles, concerning small pleural effusions. /[place]
== END 2025-04-02 02:42 | disposition home or self-care (01) ==
LOC: EDH 00:16
DX: S20.212A Contusion of left front wall of thorax, initial encounter (principal); S60.212A Contusion of left wrist, initial encounter; E11.9 Type 2 diabetes mellitus without complications; E78.00 Pure hypercholesterolemia, unspecified; I10 Essential (primary) hypertension; Z79.82 Long term (current) use of aspirin; Z87.440 Personal history of urinary (tract) infections; Z90.49 Acquired absence of other specified parts of digestive tract; Z79.899 Other long term (current) drug therapy; W18.39XA Other fall on same level, initial encounter; Y93.01 Activity, walking, marching and hiking; Y92.89 Other specified places as the place of occurrence of the external cause; Y99.8 Other external cause status
CPT/HCPCS: 99284; 73110; 71101; 96372; J2270

== ENCOUNTER 2025-04-04 21:42 | Inpatient (IN) | payer MEDICAID ==
[~2025-04-04] VITALS: Ht 172.7 cm; Wt 79.8 kg
[2025-04-05] VITALS (8 sets, daily range): BP systolic 141–192; BP diastolic 83–97; PULSE 49–60; RESP 16–21; TEMP 98.6–98.8; O2SAT 95–98
--- NOTE | 2025-04-05 | HMCIMG ---
EXAM: CR Chest and Left Ribs, 3 Views. CLINICAL HISTORY: Pain. Fall. COMPARISON: Radiograph of the chest and left ribs dated 04/02/2025. FINDINGS: Small pleural effusion and mid to lower zone airspace disease on the left side with mild interval worsening. The remaining lung capps are clear. The cardiac size is within normal limits. No pneumothorax. Mild osteopenia. Degenerative osseous changes. Partially visualized internal fixator hardware in the left proximal femur. No acute left rib fracture is evident. Redemonstrated old healed left rib fractures involving the anterolateral aspect of the left 7th, 8th, 9th, and 10th ribs. IMPRESSION: Small pleural effusion and mid to lower zone airspace disease on the left side with mild interval worsening. Redemonstrated old healed left rib fractures involving the anterolateral aspect of the left 7th, 8th, 9th, and 10th ribs. The possibility of acute on chronic fractures cannot be excluded; recommend CT chest for an optimal evaluation. /[place]
--- NOTE | 2025-04-05 01:44 | HMCIMG ---
EXAM: Non-contrast CT examination of the chest CLINICAL HISTORY: Pain. TECHNIQUE: Thin collimated axial CT images of the chest were obtained with sagittal and coronal reformatted images also submitted. CT scan is done according to ALARA (As Low as Reasonably Achievable). CONTRAST USED: None. COMPARISON: CT chest dated 01/12/2025. FINDINGS: Acute fracture of the left 6th, 7th, 8th, and 9th ribs. Old healed fractures of the left 9th, 10th, and 11th ribs. Small pleural effusion on the left. Partial collapse and consolidation in the left lower lobe of the lung. Mild subsegmental atelectasis in the posterior segment of the left upper lobe of the lung. Mild dependent atelectasis in the right posterior basal lung. No pneumothorax. No pericardial effusion. The cardiac size is within normal limits. Calcific atherosclerotic disease in the thoracic aorta and coronary arteries. No pathological lymphadenopathy in the mediastinum, axilla, or supraclavicular regions. No focal thyroid abnormality. Mild nodular thickening in the bilateral adrenal glands, the largest measures up to 1.7 cm on the left side, is concerning for adrenal adenomas. The remaining included upper abdominal organs are within normal limits. Partially visualized omental implants in the left proximal humerus. Mild scoliosis and thoracic spondylosis. IMPRESSION: Acute fracture of the left 6th, 7th, 8th, and 9th ribs. Old healed fractures of the left 9th, 10th, and 11th ribs. Small pleural effusion on the left. No pneumothorax. Partial collapse and consolidation in the left lower lobe of the lung. Mild subsegmental atelectasis in the posterior segment of the left upper lobe of the lung. Mild dependent atelectasis in the right posterior basal lung. Overall, there is an interval worsening compared to the previous CT chest. /[place]
[2025-04-05 02:40] LABS: IMMATURE GRANULOCYTE ABSOLUTE 0.04 K/uL (0-1); NUCLEATED RED BLOOD CELLS 0.0 % (0.0-0.19); PLATELET COUNT (AUTO) 236 K/uL (130-400); RED BLOOD CELL COUNT(AUTO) 4.83 MIL/uL (4.50-6.20); RED CELL DISTRIBUTION WIDTH 13.8 % (11.0-15.5); WHITE BLOOD COUNT (AUTO) 7.7 K/uL (4.8-10.8)
[2025-04-05 02:50] LABS: CREATININE 1.0 mg/dL (0.5-1.3); GLOMERULAR FILTR. RATE CALC 87.0 mL/min (>90); GLUCOSE,RANDOM 117.0 mg/dL (70-105); SODIUM SERUM 143.0 mmol/L (136-145); UREA NITROGEN, BLOOD 13.0 mg/dL (7-18)
[2025-04-05 02:54] LABS: ASPARTATE AMINOTRANSFERASE 12.0 U/L (10-37); TOTAL PROTEIN, SERUM 6.5 g/dL (6.0-8.3)
--- NOTE | 2025-04-05 04:08 | NUR ---
PATIENT DID NOT BRING HOME MEDICATIONS
--- NOTE | 2025-04-05 04:12 | HP ---
[facility] HISTORY AND PHYSICAL Date of Service: Apr 05, 2025 Time of Service: 04:12 SUPERVISING/ATTENDING PHYSICIANS: Dr. Borges and Dr. Kavin Weaver HISTORY OF PRESENT ILLNESS: Mr. Carter is 59-year-old male with a history of alcoholism, insomnia, depression, hypertension, DM type 2, CAD, left-sided weakness due to CVA, abdominal hernia, adrenal mass, ureteral stones, urinary incontinence who presented to [facility] for evaluation of left rib pain. Patient reported that he fell on 04/04/2025 at 1900 as he is going to his brother's house and slipped on a rock. Patient reports that prior to the fall he had drank three beers. He stated he hit his left rib on concrete/dirt. Patient reported the pain has caused him to have difficulty breathing which prompted the ED visit today. CT chest without contrast: Acute fracture of the left 6th, 7th, 8th, and 9th ribs. Old healed fractures of the left 9th, 10th, and 11th ribs. Small pleural effusion on the left. No pneumothorax. Partial collapse and consolidation in the left lower lobe of the lung. Mild subsegmental atelectasis in the posterior segment of the left upper lobe of the lung. Mild dependent atelectasis in the right posterior basal lung. Overall, there is an interval worsening compared to the previous CT chest. In ED the patient received Zithromax 500 mL IV, Rocephin1 g IV, Toradol 30 mg IV. ED provider requested patient to be admitted to the hospital with the diagnosis of left hemothorax. I assessed the patient at bedside at ED nine. No family member at bedside. Breathing was even, unlabored, in no distress. Patient reports pain with deep breathing. I informed him of labs, diagnostics, and plan of care. He verbalized understanding and is in agreement with the plan. Plan and assessment are listed below. REVIEW OF SYSTEMS 12-point ROS reviewed with patient. All pertinent positives mentioned above. Otherwise negative, noncontributory, non-pertinent. PAST MEDICAL HISTORY: As mentioned above PAST SURGICAL HISTORY: Left arm surgery, hernia repair, appendectomy PAST SOCIAL HISTORY: + alcohol. Denied tobacco, illicit drug use. FAMILY HISTORY: Noncontributory Coded Allergies: No Known Drug Allergies (Verified Allergy, 11/10/12) PHYSICAL EXAM GENERAL APPEARANCE: The patient is awake, alert, and oriented, in no acute cardiopulmonary distress. NEUROLOGICAL: Cranial nerves II-XII grossly intact. Motor is 5/5 in bilateral upper and lower extremities proximal to distal. No sensory deficits. HEENT: Face is symmetric. Pupils are equal and reactive. Extraocular movements are intact. NECK: Supple. No JVD. No thyromegaly. No submental, submandibular, pre- /postauricular, occipital or supraclavicular lymphadenopathy. CHEST: Normal chest expansion. Small greenish/old bruising to left and right chest. LUNGS: Absence of any rales, rhonchi or any wheezing. CARDIOVASCULAR: Regular. S1 and S2 normal. No appreciable rubs, murmurs or gallops. ABDOMEN: Soft, nontender, and nondistended. There is no rebound, voluntary guarding, or rigidity. : Deferred. No [place]. EXTREMITIES: Non-edematous and not cyanotic. No clubbing. Good capillary refill. SKIN: No skin breakdown. Vital Sign (Last 24 Hours) 04/04/25 21:55 Temp 98.1 Pulse 68 Resp 16 B/P (MAP) 152/88 Pulse Ox 95 O2 Delivery Room Air O2 Flow Rate 0 LABS: Laboratory: Test 04/05/25 02:29 Range/Units White Blood Count 7.7 4.8-10.8 K/uL Red Blood Count 4.83 4.50-6.20 MIL/uL Hemoglobin 14.7 14.0-18.0 g/dL Hematocrit 43.7 42-54 % Mean Corpuscular Volume 90.5 79-99 fL Mean Corpuscular Hemoglobin 30.4 27.0-33.0 pg Mean Corpuscular Hemoglobin Concent 33.6 32.0-36.0 g/dL Red Cell Distribution Width 13.8 11.0-15.5 % Platelet Count 236 130-400 K/uL Mean Platelet Volume 9.7 7.5-10.5 fL Immature Granulocyte % (Auto) 0.5 0-1 % Neutrophils (%) (Auto) 72.6 40.0-77.0 % Lymphocytes (%) (Auto) 14.3 L 21.0-51.0 % Monocytes (%) (Auto) 9.2 3.0-13.0 % Eosinophils (%) (Auto) 2.6 0.0-8.0 % Basophils (%) (Auto) 0.8 0.0-5.0 % Neutrophils # (Auto) 5.6 1.8-7.7 K/uL Lymphocytes # (Auto) 1.1 1.0-4.8 K/uL Monocytes # (Auto) 0.7 0.1-1.0 K/uL Eosinophils # (Auto) 0.20 0.00-0.70 K/uL Basophils # (Auto) 0.06 0.00-0.20 K/uL Absolute Immature Granulocyte (auto 0.04 0-1 K/uL Nucleated Red Blood Cells 0.0 0.0-0.19 % Sodium Level 143 136-145 mmol/L Potassium Level 3.2 L 3.5-5.1 mmol/L Chloride Level 106 101-111 mmol/L Carbon Dioxide Level 33 H 21-32 mmol/L Blood Urea Nitrogen 13 7-18 mg/dL Creatinine 1.0 0.5-1.3 mg/dL Glomerular Filtration Rate Calc 87 >90 mL/min Random Glucose 117 H 70-105 mg/dL Total Calcium 9.0 8.5-10.1 mg/dL Total Bilirubin 0.5 0.2-1.0 mg/dL Aspartate Amino Transf (AST/SGOT) 12 10-37 U/L Alanine Aminotransferase (ALT/SGPT) 22 12-78 U/L Alkaline Phosphatase 91 50-136 U/L Total Protein 6.5 6.0-8.3 g/dL Albumin 3.3 L 3.5-5.0 g/dL Current Medications Medications (Trade) Dose Ordered Sig/[place] Route PRN Reason Start Time Stop Time Status Last Admin Dose Admin Acetaminophen (TYLenol 325MG TAB) 650 mg Q6H PRN PO FEVER/MILD PAIN LEVEL 1-3 04/05/25 04:30 05/05/25 04:29 UNV Acetaminophen (TYLenol 650MG SUPPOSITORY) 650 mg Q6H PRN RC FEVER / MILD PAIN 1-3 IF NPO 04/05/25 04:30 05/05/25 04:29 UNV Acetaminophen/ Hydrocodone Bitart (NORco 5/325MG) 1 tab Q6H PRN PO MILD PAIN (1-3) 04/05/25 04:30 04/10/25 04:29 UNV Azithromycin 250 ml @ 250 mls/hr Q24H IVPB 04/05/25 04:00 04/15/25 03:59 Docusate Sodium (COLace 100MG CAP) 100 mg BID PRN PO c 04/05/25 04:30 05/05/25 04:29 UNV Insulin Human Regular (humuLIN R 100 UNIT/ML 3ML) INSULIN SLIDING SCAL... ACHS SQ 04/05/25 07:30 05/05/25 07:29 UNV Labetalol HCl (TRANdate 20MG SYG) 10 mg Q2H PRN IV SBP GREATER THAN 160 04/05/25 04:30 05/05/25 04:29 UNV Lactulose (Constulose 20gm/ 30ml Udcup) 20 gm Q6H PRN PO CONSTIPATION 04/05/25 04:30 05/05/25 04:29 UNV Ondansetron HCl (zoFRAN 4MG INJ) 4 mg Q6H PRN IVP NAUSEA/VOMITING 04/05/25 04:30 05/05/25 04:29 UNV Temazepam (restORIL 15 MG CAP) 15 mg HS PRN PO INSOMNIA/SLEEP 04/05/25 04:30 05/05/25 04:29 UNV DIAGNOSTICS / RADIOLOGY: [ ] ASSESSMENT: Acute fracture of the left 6th, 7th, 8th, and 9th ribs, POA, per CT chest on 04/05/2025 Old healed fractures of the left 9th, 10th, and 11th ribs, per CT chest on 04/05/2025 Small pleural effusion on the left, per CT chest on 04/05/2025 Partial collapse and consolidation in the left lower lobe of the lung, per CT on 04/05/2025 Mild subsegmental atelectasis in the posterior segment of the left upper lobe of the lung, per CT on 04/05/2025 Mild dependent atelectasis in the right posterior basal lung, per CT on 04/05/2025 Uncontrolled hypertension Bradycardia Hyponatremia Acute on chronic kidney disease, [id number] Diabetes mellitus with hyperglycemia Malnutrition/albuminemia Chronic problem list: alcoholism, insomnia, depression, hypertension, DM type 2, CAD, 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 -Monitor respiratory status closely. -Oxygen therapy as needed. Titrate oxygen prn to keep Spo2>/+=92%. -Albuterol and Atrovent nebulizer treatments scheduled. -RT to provide IS and education on use. -Consult [facility] pulmonology team. -Robitussin DM as needed cough. -Continue antibiotic therapy: Zithromax IV and Rocephin IV -PRN medications for: Pain management, fever, hypertension, N/V, constipation. -CIWA -Glucometer checks AC & HS needed with insulin regular sliding scale coverage as needed. -Blood pressure checks every 4 hours and as needed. -Reconcile home medications once available. -Monitor renal and liver function. -Monitor electrolytes and treat accordingly PRN -AM labs. -GI and DVT prophylaxis -Further plan/orders per hospitalization course. ADVANCED CARE PLANNING 1. Which of the following were discussed? Hospice Care - No Therapeutic options - Yes Advance Directives - Yes Other discussions - 2. Discussed with who? The patient 3. Voluntary nature of this service was explained to the patient? Yes 4. Amount of time spent - ___ Over 35 minutes ____ 5. Reviewed by Physician? (if this service was performed by ANIBAL) Yes ATTESTATION BY PHYSICIAN I reviewed the documentation, medical decision making, and treatment plan as noted by the ANIBAL above. I agree with the findings and plan of care. RADHA KAYE Apr 05, 2025 04:12
[2025-04-05] MEDS: AZITHROMYCIN 500MG+NS 250ML 250 ML IVPB SCH (04:13)
[2025-04-05] MEDS: HYDROcodone/APAP 5/325 1 TAB TABLET PO PRN (04:47)
--- NOTE | 2025-04-05 04:57 | ERN ---
General Chief Complaint: Rib Pain Stated Complaint: LEFT RIB PAIN Time Seen by MD: 21:59 History of Present Illness Initial Comments Mr. Bob andrade is a very pleasant but unfortunate 59-year-old male with a history of alcoholism, insomnia, depression, hypertension comes in with left rib pain. Patient reports that he fell earlier today as he is going to his brother's house and slipped on a rock. Patient reports the pain has caused him to have difficulty breathing. Patient comes in for further evaluation and care Allergies: Coded Allergies: No Known Drug Allergies (Verified Allergy, 11/10/12) Home Meds Active Scripts Cyclobenzaprine HCl (Cyclobenzaprine HCl) 5 Mg Tablet, 5 MG PO BID for 5 Days, #10 TAB Prov:NETO PARKS MD 01/12/25 Phenazopyridine HCl (Pyridium) 100 Mg Tab, 1 TAB PO TID for urinary discomfort for 3 Days, #9 TAB 0 Refills Prov:YAW HODGES 12/20/24 Potassium Chloride (Potassium Chloride) 20 Meq Tablet.er, 20 MEQ PO DAILY for 10 Days, #10 TAB 0 Refills Prov:NETO PARKS MD 12/16/24 Potassium Chloride (Potassium Chloride) 20 Meq Tab.er.prt, 1 TAB PO DAILY for 7 Days, #7 TAB 0 Refills Prov:ARLYN MICHEL MD 12/15/24 Amoxicillin/Potassium Clav (Augmentin 500-125 Tablet) 500 Mg-125 Mg Tablet, 1 TAB PO BID for 7 Days, #14 TAB 0 Refills Prov:ARLYN MICHEL MD 12/15/24 Spironolactone (Spironolactone) 25 Mg Tablet, 50 MG PO DAILY, #30 TAB 0 Refills Prov:ARLYN MICHEL MD 12/15/24 Tamsulosin HCl (Flomax) 0.4 Mg Cap.er.24h, 0.4 MG PO DAILY, #30 CAPSULE. Prov:[facility] 12/30/23 Reported Medications Atorvastatin Calcium (Atorvastatin Calcium) 40 Mg Tablet, 1 TAB PO HS for 30 Days, #30 TAB 0 Refills 12/12/24 Aspirin (Aspirin) 81 Mg Tab.chew, 1 TAB PO DAILY for 30 Days, #30 TAB 0 Refills 12/12/24 Trazodone HCl (Trazodone HCl) 100 Mg Tablet, 2.5 TAB PO HS for 30 Days, #30 TAB 0 Refills 12/12/24 Labetalol HCl (Labetalol HCl) 300 Mg Tablet, 1 TAB PO BID for 30 Days, #60 TAB 0 Refills 12/12/24 Duloxetine HCl (Duloxetine HCl) 60 Mg Capsule.dr, 2 CAP PO DAILY for 30 Days, #30 CAP 0 Refills 12/12/24 Amlodipine Besylate (Amlodipine Besylate) 5 Mg Tablet, 1 TAB PO DAILY for 30 Days, #30 TAB 0 Refills 12/12/24 Telmisartan (Telmisartan) 80 Mg Tablet, 1 TAB PO DAILY for 30 Days, #30 TAB 0 Refills 12/12/24 Past Medical History Past Medical History: CVA, Diabetes-Type II, High Cholesterol, Heart Disease, Hypertension, UTI Medical History Other: LT SIDE WEAKNESS R/T CVA, ABDOMINAL HERNIA, adrenal mass, ureteral stones Past Surgical History: Appendectomy Surgical History Other: LT ARM, HERNIA Social History Social History: Negative, Lives with family ROS Dictation Constitutional: Negative for fever,chills, and weight loss Eyes: Negative for injury, pain,redness, and discharge ENT: Negative for injury,pain or swelling Cardiovascular: Negative for chest pain, palpitations, and edema Respiratory: Shortness of breath Abdomen/GI: Negative for abdominal pain, nausea, vomiting, diarrhea, and constipation Back: Negative for injury and pain : Negative for injury, bleeding and discharge MS/Extremity: Negative for injury and deformity Skin: Negative for rash, and discoloration Neuro: Negative for headache, weakness, numbness, tingling, and seizure Psych: Negative for suicide ideation, homicidal ideation, and hallucinations Physical Exam Physical Exam Dictation General: awake, alert, NAD Head/Face: Normocephalic, atraumatic Eyes: PERRL, EOMI, vision at baseline ENT: oral cavity clear, TMs clear, no signs of infection Neck: Trachea midline, supple, no nuchal rigidity Cardiovascular: RRR, normal S1/S2, No MRGs, no JVD Respiratory: Pain with palpation in the left costal margin, diminished breath sounds at the left lower lobe Abdomen: Soft, non-tender, non-distended, normal bowel sounds, no guarding or rebound. Skin: Warm, dry, normal turgor, no rash MS/Extremity: Pulses equal, no cyanosis, neurovascular intact, FROM Neuro: COAx4, GCS 15, strength 5/5, CN 2-12 intact, normal cerebellar exam, no rmal gait, Psych: Normal behavior, mood, and affect normal Results Laboratory and Microbiology Lab and Micro Result Laboratory Tests Test 04/05/25 02:29 White Blood Count 7.7 K/uL (4.8-10.8) Red Blood Count 4.83 MIL/uL (4.50-6.20) Hemoglobin 14.7 g/dL (14.0-18.0) Hematocrit 43.7 % (42-54) Mean Corpuscular Volume 90.5 fL (79-99) Mean Corpuscular Hemoglobin 30.4 pg (27.0-33.0) Mean Corpuscular Hemoglobin Concent 33.6 g/dL (32.0-36.0) Red Cell Distribution Width 13.8 % (11.0-15.5) Platelet Count 236 K/uL (130-400) Mean Platelet Volume 9.7 fL (7.5-10.5) Immature Granulocyte % (Auto) 0.5 % (0-1) Neutrophils (%) (Auto) 72.6 % (40.0-77.0) Lymphocytes (%) (Auto) 14.3 % (21.0-51.0) L Monocytes (%) (Auto) 9.2 % (3.0-13.0) Eosinophils (%) (Auto) 2.6 % (0.0-8.0) Basophils (%) (Auto) 0.8 % (0.0-5.0) Neutrophils # (Auto) 5.6 K/uL (1.8-7.7) Lymphocytes # (Auto) 1.1 K/uL (1.0-4.8) Monocytes # (Auto) 0.7 K/uL (0.1-1.0) Eosinophils # (Auto) 0.20 K/uL (0.00-0.70) Basophils # (Auto) 0.06 K/uL (0.00-0.20) Absolute Immature Granulocyte (auto 0.04 K/uL (0-1) Nucleated Red Blood Cells 0.0 % (0.0-0.19) Sodium Level 143 mmol/L (136-145) Potassium Level 3.2 mmol/L (3.5-5.1) L Chloride Level 106 mmol/L (101-111) Carbon Dioxide Level 33 mmol/L (21-32) H Blood Urea Nitrogen 13 mg/dL (7-18) Creatinine 1.0 mg/dL (0.5-1.3) Glomerular Filtration Rate Calc 87 mL/min (>90) Random Glucose 117 mg/dL (70-105) H Total Calcium 9.0 mg/dL (8.5-10.1) Total Bilirubin 0.5 mg/dL (0.2-1.0) Aspartate Amino Transf (AST/SGOT) 12 U/L (10-37) Alanine Aminotransferase (ALT/SGPT) 22 U/L (12-78) Alkaline Phosphatase 91 U/L (50-136) Total Protein 6.5 g/dL (6.0-8.3) Albumin 3.3 g/dL (3.5-5.0) L MDM Patient will be admitted for further evaluation and care of potential hemothorax. Patient will likely need a pulmonary/surgery consultation. This is the further evaluate to make sure that this is not a hemothorax. ED Course Orders Procedure Category Date Status Time Ribs Uni Lt W Pa RAD 04/04/25 Resulted Chest 3+Vws 22:17 Ketorolac PHA 04/04/25 Complete Tromethamine 30mg/Ml 22:30 Ct Chest W/O Contrast CT 04/05/25 Resulted 00:33 Comprehensive LAB 04/05/25 Complete Metabolic Panel 02:20 Cbc With Differential LAB 04/05/25 Complete 02:20 Ceftriaxone 1g Vial PHA 04/05/25 In Process (Rocephine 1g Inj) 04:00 Azithromycin 500mg+Ns PHA 04/05/25 In Process 250ml (Azithromyci 04:00 Current Medications Medications (Trade) Dose Ordered Sig/[place] Route PRN Reason Start Time Stop Time Status Last Admin Dose Admin Ketorolac Tromethamine (toRADol) 30 mg ONCE ONCE IM 04/04/25 22:30 04/04/25 22:31 DC 04/04/25 22:27 Vital Signs Date Time Temp Pulse Resp B/P (MAP) Pulse Ox O2 Delivery O2 Flow Rate FiO2 04/04/25 21:55 98.1 68 16 152/88 95 Room Air 0 DX & DISP Disposition: Discharge Departure Impression: Primary Impression: Hemothorax, left Condition: Stable Referrals: DEVANG CHASE (PCP) CHARLOTTE HOBBS MD Apr 05, 2025 04:57
[2025-04-05] MEDS: ALBUTEROL 0.083% 2.5 MG/3 ML INH IH SCH (06:34)
--- NOTE | 2025-04-05 09:15 | NUR ---
PT PROVIDER DROPPED OFF MEDICATIONS.
--- NOTE | 2025-04-05 09:39 | NUR ---
DCP: HOME Pt currently lives with her mom Shayy García . Pt does use a cane to ambulate. Pt does have a provider that assist him 26 hrs a week and helps with all ADLS, home management, and meals. PCP is Louie Small and uses [facility] for any RX needs. At [place] pt will want to go home and family can assist with transportation. Addendum: 04/05/25 at 0941 by MART MARIANO SS Amended: Links added.
[2025-04-05 09:51] LABS: ABG BASE EXCESS 3.7 mmol/L (-2.0-3.0); ABG HCO3 28.4 mmol/L (21.0-28.0); ABG OXYGEN SATURATION 94.2 % (94.0-98.0); ABG PCO2 43 mmHg (35-48); ABG PH 7.439 (7.350-7.450); CARBON MONOXIDE 2.0 % (0.5-1.5); DEVICE COMMENT RR MELANIE, RN; PO2, ARTERIAL BG 71.3 mmHg (83.0-108.0); TEMPERATURE, CELSIUS BG 37.0 CELSIUS (35.5-37.0); VENT MODE, BG RA (ROOM AIR)
[2025-04-05] MEDS ORDERED: GABA-534 PO (10:18)
[2025-04-05] MEDS ORDERED: EMPA10TA PO (10:23)
--- NOTE | 2025-04-05 11:15 | NUR ---
PT TRANSFERRED ONTO A HOSPITAL BED AT THIS TIME. PT TOELRATED TRANSFER WELL. NO VOCALIZED PAIN AT THIS TIME.
[2025-04-05] MEDS ORDERED: PoTASSium chl 10% ELIXIR 20MEQ 20 MEQ/15 ML UDCUP PO PRN (11:30)
[2025-04-05] MEDS: PoTASSium chloRIDE 20MEQ ER 20 MEQ ERTAB PO PRN (12:12)
--- NOTE | 2025-04-05 13:07 | HMCSR ---
APPROVED REPORT EXAM: Two-dimensional and M-mode echocardiogram with Doppler and color Doppler. INDICATION ICD: Chest pain R07.9 2D Dimensions RVDd4.2 cmLVEF(%)60.0 (>50%)LVED Vol(simp.)137.0 mL IVSd1.0 (0.7-1.1cm)FS(%)32 %LVES Vol(simp.)58.0 mL LVDd5.4 (3.8-5.6cm)LA (2D)3.5 (1.6-4.0cm)LVEF(%, simp.)57 % PWd1.1 (0.7-1.1cm)Ao Root(2D)3.4 (2.0-3.7cm)LA ESV INDEX (BP)33.53 mL/m2 IVSs1.3 cmLVOT diam2.5 (1.8-2.4cm) LVDs3.6 (2.5-4.0cm) PWs1.6 cm Deformation Strain Apical 4-19.0 % Apical 2-20.8 % Apical 3-20.9 % Global Strain-20.2 % M-Mode Dimensions EPSS1.1 cm LA (MM)4.8 (1.6-4.0cm) Ao Root(MM)3.6 (2.0-3.7cm) Aortic Valve AoV Vmax1.2 m/Dru Peak GR5.5 mmHgLVOT Vmax1.3 m/s AoV VTI0.2 mAo Mean GR2.7 mmHgLVOT VTI0.25 m ARNOLD (VMAX)5.24 cm2AVA (VTI) 4.8 cm2 Mitral Valve MV E Vmax72.5 cm/sDECEL Ofum675 ms MV A Vmax44.1 cm/sP 1/2 T54 ms E/A ratio1.6MVA (PHT)4.1 cm2 TDI E/E' Objbee97.8E/E' Lateral8.7 Medial E' Peak V6.15 cm/sLateral E' Peak V8.34 cm/s Pulmonary Valve PV Vmax0.8 m/sPV VTI0.16 mPV Mean GR1.4 mmHg PV Peak GR2.3 mmHg Left Ventricle The left ventricle is normal size. GLS -20.0% There is normal left ventricular wall thickness. LVEF i s 55-60%. 3D volume EF 58%. The left ventricular diastolic function is normal. Right Ventricle The right ventricle is borderline dilated. The right ventricular systolic function is normal. Atria The left atrium size is normal. The right atrium is mildly dilated. Aortic Valve Aortic valve is trileaflet. Thickening of the left/non coronary cusp leaflet. Nodular calcification o n the non coronary cusp leaflet. Mild aortic regurgitation is present. There is no aortic valvular st enosis. Mitral Valve The mitral valve is normal in structure. There is trace of mitral valve regurgitation noted. There is no mitral valve stenosis. Tricuspid Valve The tricuspid valve is normal in structure. There is no tricuspid valve regurgitation noted. Pulmonic Valve The pulmonary valve is normal in structure. There is no pulmonic valvular regurgitation. Great Vessels The aortic root is normal in size. IVC is not well visualized. Pericardium There is no pericardial effusion. Other Information Quality : AdequateRhythm : NSR Conclusion LVEF is 55-60%. 3D volume EF 58%. The left ventricular diastolic function is normal. Aortic valve is trileaflet. Thickening of the left/non coronary cusp leaflet. Nodular calcification o n the non coronary cusp leaflet. Mild aortic regurgitation is present.
--- NOTE | 2025-04-05 13:35 | PN ---
[facility] PROGRESS NOTE Date of Service: Apr 05, 2025 Time of Service: 13:34 SUBJECTIVE: 04/05/25: Patient is seen in room ED-9. The patient is awake, alert and oriented.The pulse is low 49, and the B.P appears to be high 139/79. On examination, patient appears to be feeling better. He is breathing normally at room air. ABG was ordered and the results show PO2 of 71.3 and HCO3 of 28.4 which is high and serum alcohol <3. REVIEW OF SYSTEMS 12-point ROS reviewed with patient. All pertinent positives mentioned above. Otherwise negative, noncontributory, non-pertinent. PHYSICAL EXAM GENERAL APPEARANCE: The patient is awake, alert, and oriented, in no acute cardiopulmonary distress. NEUROLOGICAL: Cranial nerves II-XII grossly intact. Motor is 5/5 in bilateral upper and lower extremities proximal to distal. No sensory deficits. HEENT: Face is symmetric. Pupils are equal and reactive. Extraocular movements are intact. NECK: Supple. No JVD. No thyromegaly. No submental, submandibular, pre- /postauricular, occipital or supraclavicular lymphadenopathy. CHEST: Normal chest expansion. Small greenish/old bruising to left and right chest. LUNGS: Absence of any rales, rhonchi or any wheezing. CARDIOVASCULAR: Regular. S1 and S2 normal. No appreciable rubs, murmurs or gallops. ABDOMEN: Soft, nontender, and nondistended. There is no rebound, voluntary guarding, or rigidity. : Deferred. No [place]. EXTREMITIES: Non-edematous and not cyanotic. No clubbing. Good capillary refill. SKIN: No skin breakdown. Vital Signs (last 8hr) Date Time Temp Pulse Resp B/P (MAP) Pulse Ox O2 Delivery O2 Flow Rate FiO2 04/05/25 12:57 52 16 139/79 98 Room Air* 0 04/05/25 11:36 49 16 04/05/25 11:36 49 16 N/A Room Air 21 04/05/25 09:15 52 17 161/84 97 Room Air* 0 21 04/05/25 07:03 51 18 156/80 97 Room Air* 0 21 04/05/25 06:34 53 16 04/05/25 06:33 53 16 N/A Room Air 21 LABS: Laboratory: Test 04/05/25 12:18 04/05/25 09:49 04/05/25 09:38 04/05/25 02:29 Range/Units Whole Blood Glucose 98 70-110 MG/DL Blood Gas Specimen Type Arterial Arterial Blood pH 7.439 7.350-7.450 Arterial Blood Partial Pressure CO2 43 35-48 mmHg Arterial Blood Partial Pressure O2 71.3 L 83.0-108.0 mmHg Arterial Blood HCO3 28.4 H 21.0-28.0 mmol/L Arterial Blood Oxygen Saturation 94.2 94.0-98.0 % Arterial Blood Base Excess 3.7 H -2.0-3.0 mmol/L Hemoglobin (Blood Gas) 14.9 13.5-17.5 g/dL Sodium (Blood Gas) 138 136-145 MMOL/L Bedside Potassium (Blood Gas) 3.0 *L 3.4-4.5 MMOL/L Bedside Chloride (Blood Gas) 103 98-107 MMOL/L Bedside Glucose (Blood Gas) 90 65-95 MG/DL Bedside Ionized Calcium (Blood Gas) 1.17 1.15-1.33 MMOL/L Bedside Lactic Acid (Blood Gas) 0.61 0.36-0.75 MMOL/L Blood Gas Temperature 37.0 35.5-37.0 CELSIUS Blood Gas Vent Mode RA ROOM AIR FiO2 21.0 % Blood Gas Specimen Comment RR MAKAYLA DUBON Serum Alcohol < 3 0-10 mg/dL White Blood Count 7.7 4.8-10.8 K/uL Red Blood Count 4.83 4.50-6.20 MIL/uL Hemoglobin 14.7 14.0-18.0 g/dL Hematocrit 43.7 42-54 % Mean Corpuscular Volume 90.5 79-99 fL Mean Corpuscular Hemoglobin 30.4 27.0-33.0 pg Mean Corpuscular Hemoglobin Concent 33.6 32.0-36.0 g/dL Red Cell Distribution Width 13.8 11.0-15.5 % Platelet Count 236 130-400 K/uL Mean Platelet Volume 9.7 7.5-10.5 fL Immature Granulocyte % (Auto) 0.5 0-1 % Neutrophils (%) (Auto) 72.6 40.0-77.0 % Lymphocytes (%) (Auto) 14.3 L 21.0-51.0 % Monocytes (%) (Auto) 9.2 3.0-13.0 % Eosinophils (%) (Auto) 2.6 0.0-8.0 % Basophils (%) (Auto) 0.8 0.0-5.0 % Neutrophils # (Auto) 5.6 1.8-7.7 K/uL Lymphocytes # (Auto) 1.1 1.0-4.8 K/uL Monocytes # (Auto) 0.7 0.1-1.0 K/uL Eosinophils # (Auto) 0.20 0.00-0.70 K/uL Basophils # (Auto) 0.06 0.00-0.20 K/uL Absolute Immature Granulocyte (auto 0.04 0-1 K/uL Nucleated Red Blood Cells 0.0 0.0-0.19 % Sodium Level 143 136-145 mmol/L Potassium Level 3.2 L 3.5-5.1 mmol/L Chloride Level 106 101-111 mmol/L Carbon Dioxide Level 33 H 21-32 mmol/L Blood Urea Nitrogen 13 7-18 mg/dL Creatinine 1.0 0.5-1.3 mg/dL Glomerular Filtration Rate Calc 87 >90 mL/min Random Glucose 117 H 70-105 mg/dL Hemoglobin A1c 4.9 4.0-6.0 % Estimated Average Glucose (eAG) 94 70-126 mg/dL Total Calcium 9.0 8.5-10.1 mg/dL Total Bilirubin 0.5 0.2-1.0 mg/dL Aspartate Amino Transf (AST/SGOT) 12 10-37 U/L Alanine Aminotransferase (ALT/SGPT) 22 12-78 U/L Alkaline Phosphatase 91 50-136 U/L Total Protein 6.5 6.0-8.3 g/dL Albumin 3.3 L 3.5-5.0 g/dL Current Medications Medications (Trade) Dose Ordered Sig/[place] Route PRN Reason Start Time Stop Time Status Last Admin Dose Admin Acetaminophen (TYLenol 325MG TAB) 650 mg Q6H PRN PO FEVER/MILD PAIN LEVEL 1-3 04/05/25 04:30 05/05/25 04:29 Acetaminophen (TYLenol 650MG SUPPOSITORY) 650 mg Q6H PRN RC FEVER / MILD PAIN 1-3 IF NPO 04/05/25 04:30 05/05/25 04:29 Acetaminophen/ Hydrocodone Bitart (NORco 5/325MG) FOR MODERATE PAIN SC... Q6H PRN PO MILD PAIN (1-3) 04/05/25 04:30 04/10/25 04:29 04/05/25 10:11 2 TAB Albuterol Sulfate (Proventil 0.083% 2.5mg/3ml) 2.5 mg [id number] IH 04/05/25 06:00 05/05/25 05:59 04/05/25 11:36 2.5 MG Azithromycin 250 ml @ 250 mls/hr Q24H IVPB 04/05/25 04:00 04/05/25 04:21 DC 04/05/25 04:13 250 MLS/HR Azithromycin 250 ml @ 250 mls/hr Q24H IVPB 04/06/25 04:30 04/16/25 04:29 Ceftriaxone Sodium (ROCEphine 1G INJ) 1 gm Q24H IVPB 04/06/25 04:30 04/16/25 04:29 Docusate Sodium (COLace 100MG CAP) 100 mg BID PRN PO CONSTIPATION 04/05/25 04:30 05/05/25 04:29 Hydralazine HCl (APRESOLine 20MG INJ) 10 mg Q2H PRN IV ADMINISTER FOR SBP > 160 04/05/25 05:00 05/05/25 04:59 Insulin Human Regular (humuLIN R 100 UNIT/ML 3ML) INSULIN SLIDING SCAL... ACHS SQ 04/05/25 07:30 05/05/25 07:29 Ipratropium [place] (AtrovENT UD) 0.5 mg [id number] IH 04/05/25 06:00 05/05/25 05:59 04/05/25 11:36 0.5 MG Labetalol HCl (TRANdate 20MG SYG) 10 mg Q2H PRN IV SBP GREATER THAN 180 04/05/25 04:30 05/05/25 04:29 Lactulose (Constulose 20gm/ 30ml Udcup) 20 gm Q6H PRN PO CONSTIPATION 04/05/25 04:30 05/05/25 04:29 Morphine Sulfate (morPHINE 2MG SYG) 2 mg Q4H PRN IVP SEVERE PAIN (7-10) IF NPO 04/05/25 11:30 04/12/25 11:29 Ondansetron HCl (zoFRAN 4MG INJ) 4 mg Q6H PRN IVP NAUSEA/VOMITING 04/05/25 04:30 05/05/25 04:29 Potassium Chloride 100 ml @ 100 mls/hr AD PRN IV POTASSIUM PROTOCOL 04/05/25 11:30 05/05/25 11:29 Potassium Chloride (K-Dur/Klor-Con 20meq) 20 meq AD PRN PO POTASSIUM PROTOCOL 04/05/25 11:30 05/05/25 11:29 04/05/25 12:12 20 MEQ Potassium Chloride (KCl 10% Elixir 20meq/15ml) 20 meq AD PRN PO POTASSIUM PROTOCOL 04/05/25 11:30 05/05/25 11:29 Temazepam (restORIL 15 MG CAP) 15 mg HS PRN PO INSOMNIA/SLEEP 04/05/25 04:30 05/05/25 04:29 DIAGNOSTICS / RADIOLOGY: [ ] ASSESSMENT: ABG was ordered and results were analyzed. Chest xray was ordered for tomorrow Pain management-pain control medications are added. Plan to consult the BIS. Acute fracture of the left 6th, 7th, 8th, and 9th ribs, POA, per CT chest on 04/05/2025 Old healed fractures of the left 9th, 10th, and 11th ribs, per CT chest on 04/05/2025 Small pleural effusion on the left, per CT chest on 04/05/2025 Partial collapse and consolidation in the left lower lobe of the lung, per CT on 04/05/2025 Mild subsegmental atelectasis in the posterior segment of the left upper lobe of the lung, per CT on 04/05/2025 Mild dependent atelectasis in the right posterior basal lung, per CT on 04/05/2025 Uncontrolled hypertension Bradycardia Hyponatremia Acute on chronic kidney disease, GFR87 Diabetes mellitus with hyperglycemia Malnutrition/albuminemia Chronic problem list: alcoholism, insomnia, depression, hypertension, DM type 2, CAD, 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 Chest xray was ordered for tomorrow Pain management-pain control medications are added. Plan to consult the BIS. -Admit to PCCU with continuous telemetry monitoring. -Monitor respiratory status closely. -Oxygen therapy as needed. Titrate oxygen prn to keep Spo2>/+=92%. -Albuterol and Atrovent nebulizer treatments scheduled. -RT to provide IS and education on use. -Consult BIS pulmonology team. -Robitussin DM as needed cough. -Continue antibiotic therapy: Zithromax IV and Rocephin IV -PRN medications for: Pain management, fever, hypertension, N/V, constipation. -CIWA -Glucometer checks AC & HS needed with insulin regular sliding scale coverage as needed. -Blood pressure checks every 4 hours and as needed. -Reconcile home medications once available. -Monitor renal and liver function. -Monitor electrolytes and treat accordingly PRN -AM labs. -GI and DVT prophylaxis -Further plan/orders per hospitalization course. MARGARITA VALLE MD Apr 05, 2025 13:35
--- NOTE | 2025-04-05 15:59 | HMCIMG ---
CHEST 1VW REASON: rib fractures and left hemothorax COMPARISON: Prior chest radiograph from 12/30/2023 is available. FINDINGS: Single view of the chest was obtained. There is suspicion for possible lung contusion in the left lower lung.. Heart size is normal. There is no pulmonary vascular congestion. Mediastinum appears normal. As noted on the recent CT there is multiple left rib fractures which is not well seen. There is multiple pins seen in the left humeral head at the edge of the study.. IMPRESSION: 1. No evidence of airspace consolidation or pulmonary venous congestion. 2. Suspicion for left lung contusion 3. Multiple left rib fractures are not well seen on the present study.
--- NOTE | 2025-04-05 18:46 | NUR ---
ATTEMPTED TO CALL FOR REPORT; NO RESPONSE.
--- NOTE | 2025-04-05 20:56 | NUR ---
PATIENT TRANSFERED TO 230
--- NOTE | 2025-04-05 20:56 | NUR ---
REPORT GIVEN TO SUNDEEP BENAVIDES.
[2025-04-05] MEDS ORDERED: ERGO500093 PO (21:14)
[2025-04-06] VITALS (15 sets, daily range): BP systolic 124–182; BP diastolic 87–105; PULSE 58–85; RESP 16–19; TEMP 98.4–99.1; O2SAT 95–98
[2025-04-06] MEDS: AZITHROMYCIN 500MG+NS 250ML 250 ML IVPB SCH (04:06)
[2025-04-06 05:09] LABS: NUCLEATED RED BLOOD CELLS 0.0 % (0.0-0.19); PLATELET COUNT (AUTO) 263.0 K/uL (130-400); RED BLOOD CELL COUNT(AUTO) 5.18 MIL/uL (4.50-6.20); RED CELL DISTRIBUTION WIDTH 13.7 % (11.0-15.5); WHITE BLOOD COUNT (AUTO) 7.6 K/uL (4.8-10.8)
[2025-04-06 05:27] LABS: CREATININE 0.7 mg/dL (0.5-1.3); GLOMERULAR FILTR. RATE CALC 106.0 mL/min (>90); GLUCOSE,RANDOM 95.0 mg/dL (70-105); PHOSPHORUS 2.8 mg/dL (2.5-4.9); SODIUM SERUM 143.0 mmol/L (136-145); UREA NITROGEN, BLOOD 14.0 mg/dL (7-18)
[2025-04-06] MEDS: DULOXETINE 60 MG PO SCH (09:00)
--- NOTE | 2025-04-06 09:27 | NUR ---
SW followed up with pt to verify medical services. Pt states that he is a pt of Louie Small at [facility]. Pt states that his case was reopened and is currently active. inclusion manager is Val Reynaga. SW contacted [facility] and confirmed that his next primary care visit is 06/22/25 at 8:00am.
[2025-04-06] MEDS: GABAPENTIN 300 MG CAPSULE PO SCH (09:48)
[2025-04-06] MEDS: ASPIRIN 81MG CHEW TAB PO SCH (09:48)
[2025-04-06] MEDS: amLODIPine 5 MG TAB PO SCH (09:49)
[2025-04-06] MEDS: SPIRONOLACTONE 25 MG TAB PO SCH (09:49)
--- NOTE | 2025-04-06 11:12 | HMCIMG ---
CHEST 2VWS REASON: rib fractures and hemothorax COMPARISON: Prior study from 04/05/2025 is available. FINDINGS: Two views of the chest were obtained. Lungs are clear. Heart size is normal. There is no pulmonary vascular congestion. Mediastinum appears to be normal there is uncoiling atherosclerotic change of thoracic aorta. The bony thorax demonstrate osteopenia. There is deformity of the left mid ribs. Patient has a known left rib fractures. There is orthopedic screw seen in the left humerus including left humeral head seen and there is a study from prior ORIF. IMPRESSION: No evidence of airspace consolidation or pulmonary venous congestion..
[2025-04-06] MEDS: LACTULOSE 20 GM/30 ML UDCUP PO PRN (11:58)
--- NOTE | 2025-04-06 12:44 | PN ---
[facility] PROGRESS NOTE Date of Service: Apr 06, 2025 Time of Service: 10:51 SUBJECTIVE: 04/05/25: Patient is seen in room ED-9. The patient is awake, alert and oriented.The pulse is low 49, and the B.P appears to be high 139/79. On examination, patient appears to be feeling better. He is breathing normally at room air. ABG was ordered and the results show PO2 of 71.3 and HCO3 of 28.4 which is high and serum alcohol <3. 04/06/25 - Patient seen in bed and remains in stable condition, currently on room air and receiving breathing treatments. He is afebrile, BP 124/94 mmHg, HR 85. He continues to report pain but is otherwise hemodynamically stable. Blood alcohol level was negative, however patient is on CIWA protocol. The patient has now been on azithromycin (day 2) and ceftriaxone (day 2). Physical therapy evaluation ordered, pending recommendations. We will continue close monitoring and follow up Pulmonary Service recommendations for further management. REVIEW OF SYSTEMS 12-point ROS reviewed with patient. All pertinent positives mentioned above. Otherwise negative, noncontributory, non-pertinent. PHYSICAL EXAM GENERAL APPEARANCE: The patient is awake, alert, and oriented, in no acute cardiopulmonary distress. NEUROLOGICAL: Cranial nerves II-XII grossly intact. Motor is 5/5 in bilateral upper and lower extremities proximal to distal. No sensory deficits. HEENT: Face is symmetric. Pupils are equal and reactive. Extraocular movements are intact. NECK: Supple. No JVD. No thyromegaly. No submental, submandibular, pre- /postauricular, occipital or supraclavicular lymphadenopathy. CHEST: Normal chest expansion. Small greenish/old bruising to left and right chest. LUNGS: Absence of any rales, rhonchi or any wheezing. CARDIOVASCULAR: Regular. S1 and S2 normal. No appreciable rubs, murmurs or gallops. ABDOMEN: Soft, nontender, and nondistended. There is no rebound, voluntary guarding, or rigidity. : Deferred. No [place]. EXTREMITIES: Non-edematous and not cyanotic. No clubbing. Good capillary refill. SKIN: No skin breakdown. Vital Signs (last 8hr) Date Time Temp Pulse Resp B/P (MAP) Pulse Ox O2 Delivery O2 Flow Rate FiO2 04/06/25 07:49 98.4 85 18 124/94 97 Room Air 04/06/25 06:57 76 19 N/A Room Air 21 04/06/25 06:54 76 18 04/06/25 04:36 163/91 04/06/25 04:00 98.8 67 18 182/105 96 Room Air LABS: Laboratory: Test 04/06/25 07:13 04/06/25 04:39 04/05/25 21:26 04/05/25 09:49 Range/Units Potassium Level 3.7 3.5-5.1 mmol/L White Blood Count 7.6 4.8-10.8 K/uL Red Blood Count 5.18 4.50-6.20 MIL/uL Hemoglobin 15.4 14.0-18.0 g/dL Hematocrit 45.6 42-54 % Mean Corpuscular Volume 88.0 79-99 fL Mean Corpuscular Hemoglobin 29.7 27.0-33.0 pg Mean Corpuscular Hemoglobin Concent 33.8 32.0-36.0 g/dL Red Cell Distribution Width 13.7 11.0-15.5 % Platelet Count 263 130-400 K/uL Mean Platelet Volume 9.7 7.5-10.5 fL Nucleated Red Blood Cells 0.0 0.0-0.19 % Sodium Level 143 136-145 mmol/L Chloride Level 104 101-111 mmol/L Carbon Dioxide Level 31 21-32 mmol/L Blood Urea Nitrogen 14 7-18 mg/dL Creatinine 0.7 0.5-1.3 mg/dL Glomerular Filtration Rate Calc 106 >90 mL/min Random Glucose 95 70-105 mg/dL Total Calcium 8.9 8.5-10.1 mg/dL Phosphorus Level 2.8 2.5-4.9 mg/dL Magnesium Level 1.80 1.80-2.40 mg/dL Whole Blood Glucose 86 70-110 MG/DL Blood Gas Specimen Type Arterial Arterial Blood pH 7.439 7.350-7.450 Arterial Blood Partial Pressure CO2 43 35-48 mmHg Arterial Blood Partial Pressure O2 71.3 L 83.0-108.0 mmHg Arterial Blood HCO3 28.4 H 21.0-28.0 mmol/L Arterial Blood Oxygen Saturation 94.2 94.0-98.0 % Arterial Blood Base Excess 3.7 H -2.0-3.0 mmol/L Hemoglobin (Blood Gas) 14.9 13.5-17.5 g/dL Sodium (Blood Gas) 138 136-145 MMOL/L Bedside Potassium (Blood Gas) 3.0 *L 3.4-4.5 MMOL/L Bedside Chloride (Blood Gas) 103 98-107 MMOL/L Bedside Glucose (Blood Gas) 90 65-95 MG/DL Bedside Ionized Calcium (Blood Gas) 1.17 1.15-1.33 MMOL/L Bedside Lactic Acid (Blood Gas) 0.61 0.36-0.75 MMOL/L Blood Gas Temperature 37.0 35.5-37.0 CELSIUS Blood Gas Vent Mode RA ROOM AIR FiO2 21.0 % Blood Gas Specimen Comment RR MAKAYLA DUBON Test 04/05/25 09:38 04/05/25 02:29 Range/Units Serum Alcohol < 3 0-10 mg/dL Immature Granulocyte % (Auto) 0.5 0-1 % Neutrophils (%) (Auto) 72.6 40.0-77.0 % Lymphocytes (%) (Auto) 14.3 L 21.0-51.0 % Monocytes (%) (Auto) 9.2 3.0-13.0 % Eosinophils (%) (Auto) 2.6 0.0-8.0 % Basophils (%) (Auto) 0.8 0.0-5.0 % Neutrophils # (Auto) 5.6 1.8-7.7 K/uL Lymphocytes # (Auto) 1.1 1.0-4.8 K/uL Monocytes # (Auto) 0.7 0.1-1.0 K/uL Eosinophils # (Auto) 0.20 0.00-0.70 K/uL Basophils # (Auto) 0.06 0.00-0.20 K/uL Absolute Immature Granulocyte (auto 0.04 0-1 K/uL Hemoglobin A1c 4.9 4.0-6.0 % Estimated Average Glucose (eAG) 94 70-126 mg/dL Total Bilirubin 0.5 0.2-1.0 mg/dL Aspartate Amino Transf (AST/SGOT) 12 10-37 U/L Alanine Aminotransferase (ALT/SGPT) 22 12-78 U/L Alkaline Phosphatase 91 50-136 U/L Total Protein 6.5 6.0-8.3 g/dL Albumin 3.3 L 3.5-5.0 g/dL Current Medications Medications (Trade) Dose Ordered Sig/[place] Route PRN Reason Start Time Stop Time Status Last Admin Dose Admin Acetaminophen (TYLenol 325MG TAB) 650 mg Q6H PRN PO FEVER/MILD PAIN LEVEL 1-3 04/05/25 04:30 05/05/25 04:29 Acetaminophen (TYLenol 650MG SUPPOSITORY) 650 mg Q6H PRN RC FEVER / MILD PAIN 1-3 IF NPO 04/05/25 04:30 05/05/25 04:29 Acetaminophen/ Hydrocodone Bitart (NORco 5/325MG) FOR MODERATE PAIN SC... Q6H PRN PO MILD PAIN (1-3) 04/05/25 04:30 04/10/25 04:29 04/06/25 04:27 2 TAB Albuterol Sulfate (Proventil 0.083% 2.5mg/3ml) 2.5 mg [id number] IH 04/05/25 06:00 05/05/25 05:59 04/06/25 06:54 2.5 MG Amlodipine Besylate (NorvASC 5MG TAB) 5 mg DAILY PO 04/06/25 09:00 05/06/25 08:59 04/06/25 09:49 5 MG Aspirin (Aspirin 81mg Chew Tab) 81 mg DAILY PO 04/06/25 09:00 05/06/25 08:59 04/06/25 09:48 81 MG Atorvastatin Calcium (LIPItor 40MG) 40 mg HS PO 04/06/25 21:00 05/06/25 20:59 Azithromycin 250 ml @ 250 mls/hr Q24H IVPB 04/05/25 04:00 04/05/25 04:21 DC 04/05/25 04:13 250 MLS/HR Azithromycin 250 ml @ 250 mls/hr Q24H IVPB 04/06/25 04:30 04/16/25 04:29 04/06/25 04:06 250 MLS/HR Ceftriaxone Sodium (ROCEphine 1G INJ) 1 gm Q24H IVPB 04/06/25 04:30 04/16/25 04:29 04/06/25 04:06 1 GM Docusate Sodium (COLace 100MG CAP) 100 mg BID PRN PO CONSTIPATION 04/05/25 04:30 05/05/25 04:29 Ergocalciferol (Drisdol) 1,250 unit QWEEK PO 04/12/25 09:00 05/12/25 08:59 Gabapentin (NEURontin 300 MG CAP) 300 mg TID PO 04/06/25 09:00 05/06/25 08:59 04/06/25 09:48 300 MG Home Med (Home Medication) DAILY PO 04/06/25 09:00 05/06/25 08:59 Hydralazine HCl (APRESOLine 20MG INJ) 10 mg Q2H PRN IV ADMINISTER FOR SBP > 160 04/05/25 05:00 05/05/25 04:59 04/06/25 04:06 10 MG Insulin Human Regular (humuLIN R 100 UNIT/ML 3ML) INSULIN SLIDING SCAL... ACHS SQ 04/05/25 07:30 05/05/25 07:29 Ipratropium [place] (AtrovENT UD) 0.5 mg [id number] IH 04/05/25 06:00 05/05/25 05:59 04/06/25 06:54 0.5 MG Labetalol HCl (TRANdate 100 MG TABLET) 300 mg BID PO 04/06/25 09:00 05/06/25 08:59 04/06/25 09:48 300 MG Labetalol HCl (TRANdate 20MG SYG) 10 mg Q2H PRN IV SBP GREATER THAN 180 04/05/25 04:30 05/05/25 04:29 04/05/25 22:22 10 MG Lactulose (Constulose 20gm/ 30ml Udcup) 20 gm Q6H PRN PO CONSTIPATION 04/05/25 04:30 05/05/25 04:29 Losartan Potassium (CozAAR 100MG TAB) 100 mg DAILY PO 04/06/25 09:00 05/06/25 08:59 04/06/25 09:48 100 MG Morphine Sulfate (morPHINE 2MG SYG) 2 mg Q4H PRN IVP SEVERE PAIN (7-10) IF NPO 04/05/25 11:30 04/12/25 11:29 04/05/25 20:23 2 MG Ondansetron HCl (zoFRAN 4MG INJ) 4 mg Q6H PRN IVP NAUSEA/VOMITING 04/05/25 04:30 05/05/25 04:29 Potassium Chloride 100 ml @ 100 mls/hr AD PRN IV POTASSIUM PROTOCOL 04/05/25 11:30 05/05/25 11:29 04/06/25 06:07 100 MLS/HR Potassium Chloride (K-Dur/Klor-Con 20meq) 20 meq AD PRN PO POTASSIUM PROTOCOL 04/05/25 11:30 05/05/25 11:29 04/06/25 09:53 20 MEQ Potassium Chloride (KCl 10% Elixir 20meq/15ml) 20 meq AD PRN PO POTASSIUM PROTOCOL 04/05/25 11:30 05/05/25 11:29 Spironolactone (Aldactone 25mg) 50 mg DAILY PO 04/06/25 09:00 05/06/25 08:59 04/06/25 09:49 50 MG Tamsulosin HCl (FloMAX) 0.4 mg DAILY PO 04/06/25 09:00 05/06/25 08:59 04/06/25 09:48 0.4 MG Temazepam (restORIL 15 MG CAP) 15 mg HS PRN PO INSOMNIA/SLEEP 04/05/25 04:30 05/05/25 04:29 Trazodone HCl (DesyREL/OlepTRO) 250 mg HS PO 04/06/25 21:00 05/06/25 20:59 04/05/25 22:20 250 MG DIAGNOSTICS / RADIOLOGY: [ ] ASSESSMENT: Acute fracture of the left 6th, 7th, 8th, and 9th ribs, POA, per CT chest on 04/05/2025 Old healed fractures of the left 9th, 10th, and 11th ribs, per CT chest on 04/05/2025 Small pleural effusion on the left, per CT chest on 04/05/2025 Partial collapse and consolidation in the left lower lobe of the lung, per CT on 04/05/2025 Mild subsegmental atelectasis in the posterior segment of the left upper lobe of the lung, per CT on 04/05/2025 Mild dependent atelectasis in the right posterior basal lung, per CT on 04/05/2025 Uncontrolled hypertension Bradycardia Hyponatremia Acute on chronic kidney disease, GFR87 Diabetes mellitus with hyperglycemia Malnutrition/albuminemia Chronic problem list: alcoholism, insomnia, depression, hypertension, DM type 2, CAD, 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 BIS recommendations -Monitor respiratory status closely. -Oxygen therapy as needed. Titrate oxygen prn to keep Spo2>/+=92%. -Albuterol and Atrovent nebulizer treatments scheduled. -RT to provide IS and education on use. -Robitussin DM as needed cough. -Continue antibiotic therapy: Zithromax IV (day 2) and Rocephin IV (day 2) -PRN medications for: Pain management, fever, hypertension, N/V, constipation. -[facility] protocol -Glucometer checks AC & HS needed with insulin regular sliding scale coverage as needed. -Blood pressure checks every 4 hours and as needed. -Reconcile home medications once available. -Monitor renal and liver function. -Monitor electrolytes and treat accordingly PRN -AM labs. - PT eval -GI and DVT prophylaxis -Further plan/orders per hospitalization course. ATTESTATION BY PHYSICIAN I have seen and examined the patient. I reviewed the documentation, medical decision making, and treatment plan as noted by the resident provider above. I agree with the findings and plan of care. Sven Borges MD, PRIYA N Apr 06, 2025 12:44
[2025-04-06 14:26] LABS: IMMATURE GRANULOCYTE ABSOLUTE 0.02 K/uL (0-1); NUCLEATED RED BLOOD CELLS 0.0 % (0.0-0.19); PLATELET COUNT (AUTO) 267 K/uL (130-400); RED BLOOD CELL COUNT(AUTO) 5.20 MIL/uL (4.50-6.20); RED CELL DISTRIBUTION WIDTH 13.7 % (11.0-15.5); WHITE BLOOD COUNT (AUTO) 9.8 K/uL (4.8-10.8)
[2025-04-06 14:45] LABS: ASPARTATE AMINOTRANSFERASE 11.0 U/L (10-37); CREATININE 0.7 mg/dL (0.5-1.3); GLOMERULAR FILTR. RATE CALC 106.0 mL/min (>90); GLUCOSE,RANDOM 99.0 mg/dL (70-105); SODIUM SERUM 140.0 mmol/L (136-145); TOTAL PROTEIN, SERUM 6.9 g/dL (6.0-8.3); UREA NITROGEN, BLOOD 10.0 mg/dL (7-18)
[2025-04-06 21:58] LABS: APPEARANCE,URINE CLEAR (CLEAR); GLUCOSE, URINE (UA) >=1000 mg/dL (NEGATIVE); LEUKOCYTE ESTERASE ,URINE NEGATIVE Leu/uL (NEGATIVE); NITRATE,URINE NEGATIVE (NEGATIVE); OCCULT BLOOD,URINE NEGATIVE (NEGATIVE)
[2025-04-06 22:00] LABS: ADD UA MICROSCOPIC YES
[2025-04-06 22:01] LABS: SQUAMOUS EPITHELIAL CELL,UR RARE /HPF (0-2)
[2025-04-06 22:59] LABS: AMPHET/METH SCREEN,URINE NEGATIVE (NEGATIVE); BARBITURATE SCREEN, URINE NEGATIVE (NEGATIVE); CANNABINOID SCREEN,URINE POSITIVE (NEGATIVE); COCAINE SCREEN,URINE NEGATIVE (NEGATIVE)
[2025-04-07] VITALS (13 sets, daily range): BP systolic 105–153; BP diastolic 67–86; PULSE 62–74; RESP 16–20; TEMP 97.7–98.5; O2SAT 96–98
[2025-04-07 04:21] LABS: IMMATURE GRANULOCYTE ABSOLUTE 0.04 K/uL (0-1); NUCLEATED RED BLOOD CELLS 0.0 % (0.0-0.19); PLATELET COUNT (AUTO) 259 K/uL (130-400); RED BLOOD CELL COUNT(AUTO) 4.84 MIL/uL (4.50-6.20); RED CELL DISTRIBUTION WIDTH 13.9 % (11.0-15.5); WHITE BLOOD COUNT (AUTO) 7.8 K/uL (4.8-10.8)
[2025-04-07 04:33] LABS: ASPARTATE AMINOTRANSFERASE 10.0 U/L (10-37); CREATININE 0.9 mg/dL (0.5-1.3); GLOMERULAR FILTR. RATE CALC 98.0 mL/min (>90); GLUCOSE,RANDOM 104.0 mg/dL (70-105); SODIUM SERUM 142.0 mmol/L (136-145); TOTAL PROTEIN, SERUM 6.4 g/dL (6.0-8.3); UREA NITROGEN, BLOOD 12.0 mg/dL (7-18)
[2025-04-07] MEDS: MAGNESIUM 2GM PREMIX 50ML 50 ML IV PRN (06:32)
--- NOTE | 2025-04-07 16:18 | PN ---
[facility] PROGRESS NOTE Date of Service: Apr 07, 2025 Time of Service: 16:08 SUBJECTIVE: 04/05/25: Patient is seen in room ED-9. The patient is awake, alert and oriented.The pulse is low 49, and the B.P appears to be high 139/79. On examination, patient appears to be feeling better. He is breathing normally at room air. ABG was ordered and the results show PO2 of 71.3 and HCO3 of 28.4 which is high and serum alcohol <3. 04/06/25 - Patient seen in bed and remains in stable condition, currently on room air and receiving breathing treatments. He is afebrile, BP 124/94 mmHg, HR 85. He continues to report pain but is otherwise hemodynamically stable. Blood alcohol level was negative, however patient is on CIWA protocol. The patient has now been on azithromycin (day 2) and ceftriaxone (day 2). Physical therapy evaluation ordered, pending recommendations. We will continue close monitoring and follow up Pulmonary Service recommendations for further management. 04/07/2025: Patient seen in bed and remains in stable condition, currently on room air and receiving breathing treatments. He is afebrile, BP 105/79 mmHg, HR 67. He continues to report pain but is otherwise hemodynamically stable. Blood alcohol level was negative, however patient is on CIWA protocol. The patient chavarria s now been on azithromycin (day 3) and ceftriaxone (day 3). Due to history of falls , patient is started on osteoporosis and osteopenia workup. REVIEW OF SYSTEMS 12-point ROS reviewed with patient. All pertinent positives mentioned above. Otherwise negative, noncontributory, non-pertinent. PHYSICAL EXAM GENERAL APPEARANCE: The patient is awake, alert, and oriented, in no acute cardiopulmonary distress. NEUROLOGICAL: Cranial nerves II-XII grossly intact. Motor is 5/5 in bilateral upper and lower extremities proximal to distal. No sensory deficits. HEENT: Face is symmetric. Pupils are equal and reactive. Extraocular movements are intact. NECK: Supple. No JVD. No thyromegaly. No submental, submandibular, pre- /postauricular, occipital or supraclavicular lymphadenopathy. CHEST: Normal chest expansion. Small greenish/old bruising to left and right chest. LUNGS: Absence of any rales, rhonchi or any wheezing. CARDIOVASCULAR: Regular. S1 and S2 normal. No appreciable rubs, murmurs or gallops. ABDOMEN: Soft, nontender, and nondistended. There is no rebound, voluntary guarding, or rigidity. : Deferred. No [place]. EXTREMITIES: Non-edematous and not cyanotic. No clubbing. Good capillary refill. SKIN: No skin breakdown. Vital Signs (last 8hr) Date Time Temp Pulse Resp B/P (MAP) Pulse Ox O2 Delivery O2 Flow Rate FiO2 04/07/25 12:00 98.4 65 16 125/76 97 Room Air 04/07/25 11:05 63 18 04/07/25 11:04 63 18 N/A Room Air 21 04/07/25 08:09 98.1 67 16 105/79 97 Room Air LABS: Laboratory: Test 04/07/25 11:31 04/07/25 03:46 04/06/25 21:45 04/06/25 04:39 Range/Units Whole Blood Glucose 130 H 70-110 MG/DL White Blood Count 7.8 4.8-10.8 K/uL Red Blood Count 4.84 4.50-6.20 MIL/uL Hemoglobin 14.5 14.0-18.0 g/dL Hematocrit 43.3 42-54 % Mean Corpuscular Volume 89.5 79-99 fL Mean Corpuscular Hemoglobin 30.0 27.0-33.0 pg Mean Corpuscular Hemoglobin Concent 33.5 32.0-36.0 g/dL Red Cell Distribution Width 13.9 11.0-15.5 % Platelet Count 259 130-400 K/uL Mean Platelet Volume 9.7 7.5-10.5 fL Immature Granulocyte % (Auto) 0.5 0-1 % Neutrophils (%) (Auto) 66.3 40.0-77.0 % Lymphocytes (%) (Auto) 17.1 L 21.0-51.0 % Monocytes (%) (Auto) 12.2 3.0-13.0 % Eosinophils (%) (Auto) 3.3 0.0-8.0 % Basophils (%) (Auto) 0.6 0.0-5.0 % Neutrophils # (Auto) 5.2 1.8-7.7 K/uL Lymphocytes # (Auto) 1.3 1.0-4.8 K/uL Monocytes # (Auto) 1.0 0.1-1.0 K/uL Eosinophils # (Auto) 0.26 0.00-0.70 K/uL Basophils # (Auto) 0.05 0.00-0.20 K/uL Absolute Immature Granulocyte (auto 0.04 0-1 K/uL Nucleated Red Blood Cells 0.0 0.0-0.19 % Sodium Level 142 136-145 mmol/L Potassium Level 3.2 L 3.5-5.1 mmol/L Chloride Level 105 101-111 mmol/L Carbon Dioxide Level 30 21-32 mmol/L Blood Urea Nitrogen 12 7-18 mg/dL Creatinine 0.9 0.5-1.3 mg/dL Glomerular Filtration Rate Calc 98 >90 mL/min Random Glucose 104 70-105 mg/dL Total Calcium 8.9 8.5-10.1 mg/dL Magnesium Level 1.90 1.80-2.40 mg/dL Total Bilirubin 0.6 0.2-1.0 mg/dL Aspartate Amino Transf (AST/SGOT) 10 10-37 U/L Alanine Aminotransferase (ALT/SGPT) 19 12-78 U/L Alkaline Phosphatase 74 50-136 U/L Total Protein 6.4 6.0-8.3 g/dL Albumin 3.2 L 3.5-5.0 g/dL Urine Color YELLOW YELLOW Urine Appearance CLEAR CLEAR Urine pH 6.0 5.0-8.0 Urine Specific [place] 1.027 1.001-1.031 Urine Protein 30 H NEGATIVE mg/dL Urine Glucose (UA) >=1000 H NEGATIVE mg/dL Urine Ketones NEGATIVE NEGATIVE mg/dL Urine Occult Blood NEGATIVE NEGATIVE Urine Nitrate NEGATIVE NEGATIVE Urine Bilirubin NEGATIVE NEGATIVE mg/dL Urine Urobilinogen 0.2 0.2-1.0 mg/dL Urine Leukocyte Esterase NEGATIVE NEGATIVE Giovanny/uL Urine RBC 2-5 H 0-1 /HPF Urine WBC 2-5 H 0-1 /HPF Urine Squamous Epithelial Cells RARE 0-2 /HPF Urine Bacteria None None Seen /HPF Urine Opiates Screen POSITIVE H NEGATIVE Urine Barbiturates Screen NEGATIVE NEGATIVE Urine Phencyclidine Screen NEGATIVE NEGATIVE Urine Amphetamines Screen NEGATIVE NEGATIVE Urine Benzodiazepines Screen NEGATIVE NEGATIVE Urine Cocaine Screen NEGATIVE NEGATIVE Urine Marijuana (THC) Screen POSITIVE H NEGATIVE Phosphorus Level 2.8 2.5-4.9 mg/dL Current Medications Medications (Trade) Dose Ordered Sig/[place] Route PRN Reason Start Time Stop Time Status Last Admin Dose Admin Acetaminophen (TYLenol 325MG TAB) 650 mg Q6H PRN PO FEVER/MILD PAIN LEVEL 1-3 04/05/25 04:30 05/05/25 04:29 Acetaminophen (TYLenol 650MG SUPPOSITORY) 650 mg Q6H PRN RC FEVER / MILD PAIN 1-3 IF NPO 04/05/25 04:30 05/05/25 04:29 Acetaminophen/ Hydrocodone Bitart (NORco 5/325MG) FOR MODERATE PAIN SC... Q6H PRN PO MILD PAIN (1-3) 04/05/25 04:30 04/10/25 04:29 04/06/25 14:41 2 TAB Albuterol Sulfate (Proventil 0.083% 2.5mg/3ml) 2.5 mg [id number] IH 04/05/25 06:00 05/05/25 05:59 04/07/25 11:03 2.5 MG Amlodipine Besylate (NorvASC 5MG TAB) 5 mg DAILY PO 04/06/25 09:00 05/06/25 08:59 04/07/25 09:14 5 MG Aspirin (Aspirin 81mg Chew Tab) 81 mg DAILY PO 04/06/25 09:00 05/06/25 08:59 04/07/25 09:15 81 MG Atorvastatin Calcium (LIPItor 40MG) 40 mg HS PO 04/06/25 21:00 05/06/25 20:59 04/06/25 20:11 40 MG Azithromycin 250 ml @ 250 mls/hr Q24H IVPB 04/05/25 04:00 04/05/25 04:21 DC 04/05/25 04:13 250 MLS/HR Azithromycin 250 ml @ 250 mls/hr Q24H IVPB 04/06/25 04:30 04/16/25 04:29 04/07/25 03:45 250 MLS/HR Ceftriaxone Sodium (ROCEphine 1G INJ) 1 gm Q24H IVPB 04/06/25 04:30 04/16/25 04:29 04/07/25 03:45 1 GM Docusate Sodium (COLace 100MG CAP) 100 mg BID PRN PO CONSTIPATION 04/05/25 04:30 05/05/25 04:29 04/06/25 11:58 100 MG Ergocalciferol (Drisdol) 50,000 unit QWEEK PO 04/12/25 09:00 05/12/25 08:59 Gabapentin (NEURontin 300 MG CAP) 300 mg TID PO 04/06/25 09:00 05/06/25 08:59 04/07/25 13:57 300 MG Home Med (Home Medication) DAILY PO 04/06/25 09:00 05/06/25 08:59 Hydralazine HCl (APRESOLine 20MG INJ) 10 mg Q2H PRN IV ADMINISTER FOR SBP > 160 04/05/25 05:00 05/05/25 04:59 04/06/25 04:06 10 MG Insulin Human Regular (humuLIN R 100 UNIT/ML 3ML) INSULIN SLIDING SCAL... ACHS SQ 04/05/25 07:30 05/05/25 07:29 Ipratropium [place] (AtrovENT UD) 0.5 mg [id number] IH 04/05/25 06:00 05/05/25 05:59 04/07/25 11:03 0.5 MG Labetalol HCl (TRANdate 100 MG TABLET) 300 mg BID PO 04/06/25 09:00 05/06/25 08:59 04/06/25 20:12 300 MG Labetalol HCl (TRANdate 20MG SYG) 10 mg Q2H PRN IV SBP GREATER THAN 180 04/05/25 04:30 05/05/25 04:29 04/05/25 22:22 10 MG Lactulose (Constulose 20gm/ 30ml Udcup) 20 gm Q6H PRN PO CONSTIPATION 04/05/25 04:30 05/05/25 04:29 04/06/25 11:58 20 GM Lidocaine (Lidocaine Patch 4%) 1 each DAILY TP 04/07/25 14:00 05/07/25 13:59 Losartan Potassium (CozAAR 100MG TAB) 100 mg DAILY PO 04/06/25 09:00 05/06/25 08:59 04/06/25 09:48 100 MG Magnesium Sulfate 50 ml @ 0 mls/hr PROTOCOL PRN IV MAGNESIUM PROTOCOL 04/07/25 06:30 05/07/25 06:29 04/07/25 06:32 25 MLS/HR Morphine Sulfate (morPHINE 2MG SYG) 2 mg Q4H PRN IVP SEVERE PAIN (7-10) IF NPO 04/05/25 11:30 04/12/25 11:29 04/07/25 13:58 2 MG Ondansetron HCl (zoFRAN 4MG INJ) 4 mg Q6H PRN IVP NAUSEA/VOMITING 04/05/25 04:30 05/05/25 04:29 Potassium Chloride 100 ml @ 100 mls/hr AD PRN IV POTASSIUM PROTOCOL 04/05/25 11:30 05/05/25 11:29 04/06/25 06:07 100 MLS/HR Potassium Chloride (K-Dur/Klor-Con 20meq) 20 meq AD PRN PO POTASSIUM PROTOCOL 04/05/25 11:30 05/05/25 11:29 04/07/25 06:09 20 MEQ Potassium Chloride (KCl 10% Elixir 20meq/15ml) 20 meq AD PRN PO POTASSIUM PROTOCOL 04/05/25 11:30 05/05/25 11:29 Spironolactone (Aldactone 25mg) 50 mg DAILY PO 04/06/25 09:00 05/06/25 08:59 04/07/25 09:15 50 MG Tamsulosin HCl (FloMAX) 0.4 mg DAILY PO 04/06/25 09:00 05/06/25 08:59 04/07/25 09:14 0.4 MG Temazepam (restORIL 15 MG CAP) 15 mg HS PRN PO INSOMNIA/SLEEP 04/05/25 04:30 05/05/25 04:29 Trazodone HCl (DesyREL/OlepTRO) 250 mg HS PO 04/06/25 21:00 05/06/25 20:59 04/06/25 20:11 250 MG DIAGNOSTICS / RADIOLOGY: [ ] ASSESSMENT: Acute fracture of the left 6th, 7th, 8th, and 9th ribs, POA, per CT chest on 04/05/2025 Old healed fractures of the left 9th, 10th, and 11th ribs, per CT chest on 04/05/2025 Small pleural effusion on the left, per CT chest on 04/05/2025 Partial collapse and consolidation in the left lower lobe of the lung, per CT on 04/05/2025 Mild subsegmental atelectasis in the posterior segment of the left upper lobe of the lung, per CT on 04/05/2025 Mild dependent atelectasis in the right posterior basal lung, per CT on 04/05/2025 Uncontrolled hypertension Bradycardia Hyponatremia Acute on chronic kidney disease, [id number] Diabetes mellitus with hyperglycemia Malnutrition/albuminemia Chronic problem list: alcoholism, insomnia, depression, hypertension, DM type 2, CAD, 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 Osteopenia and osteoporosis workup is initiated for history of multiple fractured ribs. BIS recommendations -Monitor respiratory status closely. -Oxygen therapy as needed. Titrate oxygen prn to keep Spo2>/+=92%. -Albuterol and Atrovent nebulizer treatments scheduled. -RT to provide IS and education on use. -Robitussin DM as needed cough. -Continue antibiotic therapy: Zithromax IV (day 2) and Rocephin IV (day 2) -PRN medications for: Pain management, fever, hypertension, N/V, constipation. -CIWA protocol -Glucometer checks AC & HS needed with insulin regular sliding scale coverage as needed. -Blood pressure checks every 4 hours and as needed. -Reconcile home medications once available. -Monitor renal and liver function. -Monitor electrolytes and treat accordingly PRN -AM labs. - PT eval -GI and DVT prophylaxis -Further plan/orders per hospitalization course. PHYSICIAN RESIDENT STATEMENT I was present with the resident during the History and Physical exam and I have reviewed the resident's note. This case was discussed with the resident and I agree with the history, physical exam and medical decision making as documented. Additions/exceptions/observations were directly added to the notes. Diego Hayes IV, MD, SYED M MD Apr 07, 2025 16:18
[2025-04-07] MEDS: LIDOCAINE 4% ADH..PATCH TP SCH (16:52)
--- NOTE | 2025-04-07 22:50 | PN ---
[facility] PROGRESS NOTE Date Patient Seen: Apr 07, 2025 Time of Visit: 22:46 Supervising Physician: GAYE CERON MD Primary Care Physician: [ ] Outpatient Specialists: [ ] Inpatient Consults: [ ] PROBLEM LIST: Status post mechanical fall Alcohol use disorder Tobacco use disorder Cocaine use disorder Hypertension Adult failure to thrive Left lower lobe atelectasis Left rib fractures secondary to mechanical fall Hypertension INTERVAL HISTORY: 04/07/25 patient seen at bedside he is awake, alert, no acute distress he is on room air, good appetite no nausea, no vomiting complains of left hemithorax pain pain on inspiration denies cough, denies congestion no fevers, no chills REVIEW OF SYSTEMS: 12 point ROS reviewed with patient. Pertinent positives mentioned above. Otherwise negative. PHYSICAL EXAM: GENERAL: alert, weak, awake oriented x 3 HEENT: EOMI, Sclera non icteric, moist mucosa NECK: Supple, no JVD, trachea midline LUNGS: Clear breath sounds bilaterally. No wheezes HEART: Regular rate and rhythm. Normal S1 and S2, without murmurs ABD: Abdomen soft, nontender. Bowel sounds present EXT: No clubbing cyanosis or edema NEURO: Alert and oriented to person, follows commands Vital Signs (last 8hr) Date Time Temp Pulse Resp B/P (MAP) Pulse Ox O2 Delivery O2 Flow Rate FiO2 04/07/25 20:00 98.1 64 20 137/75 96 Room Air 04/07/25 18:46 65 18 N/A Room Air 21 04/07/25 18:45 65 18 04/07/25 16:00 98.4 66 16 140/81 95 Room Air LABS: Hematology Labs: Test 04/07/25 03:46 Range/Units White Blood Count 7.8 4.8-10.8 K/uL Red Blood Count 4.84 4.50-6.20 MIL/uL Hemoglobin 14.5 14.0-18.0 g/dL Hematocrit 43.3 42-54 % Mean Corpuscular Volume 89.5 79-99 fL Mean Corpuscular Hemoglobin 30.0 27.0-33.0 pg Mean Corpuscular Hemoglobin Concent 33.5 32.0-36.0 g/dL Red Cell Distribution Width 13.9 11.0-15.5 % Platelet Count 259 130-400 K/uL Mean Platelet Volume 9.7 7.5-10.5 fL Immature Granulocyte % (Auto) 0.5 0-1 % Neutrophils (%) (Auto) 66.3 40.0-77.0 % Lymphocytes (%) (Auto) 17.1 L 21.0-51.0 % Monocytes (%) (Auto) 12.2 3.0-13.0 % Eosinophils (%) (Auto) 3.3 0.0-8.0 % Basophils (%) (Auto) 0.6 0.0-5.0 % Neutrophils # (Auto) 5.2 1.8-7.7 K/uL Lymphocytes # (Auto) 1.3 1.0-4.8 K/uL Monocytes # (Auto) 1.0 0.1-1.0 K/uL Eosinophils # (Auto) 0.26 0.00-0.70 K/uL Basophils # (Auto) 0.05 0.00-0.20 K/uL Absolute Immature Granulocyte (auto 0.04 0-1 K/uL Nucleated Red Blood Cells 0.0 0.0-0.19 % Chemistry Labs: Test 04/07/25 19:29 04/07/25 03:46 04/06/25 04:39 Range/Units Whole Blood Glucose 123 H 70-110 MG/DL Sodium Level 142 136-145 mmol/L Potassium Level 3.2 L 3.5-5.1 mmol/L Chloride Level 105 101-111 mmol/L Carbon Dioxide Level 30 21-32 mmol/L Blood Urea Nitrogen 12 7-18 mg/dL Creatinine 0.9 0.5-1.3 mg/dL Glomerular Filtration Rate Calc 98 >90 mL/min Random Glucose 104 70-105 mg/dL Total Calcium 8.9 8.5-10.1 mg/dL Magnesium Level 1.90 1.80-2.40 mg/dL Total Bilirubin 0.6 0.2-1.0 mg/dL Aspartate Amino Transf (AST/SGOT) 10 10-37 U/L Alanine Aminotransferase (ALT/SGPT) 19 12-78 U/L Alkaline Phosphatase 74 50-136 U/L Total Protein 6.4 6.0-8.3 g/dL Albumin 3.2 L 3.5-5.0 g/dL Phosphorus Level 2.8 2.5-4.9 mg/dL DIAGNOSTICS / RADIOLOGY RESULTS: [ Chest CT scan and chest x-ray reviewed at bedside. Patient with left lower lobe atelectasis ] PLAN Incentive spirometry pain management PT and OT daily Lidocaine patch to the chest I personally scribed for GAYE CERON MD ([email or web address]) on 04/07/25 at 22:50. Electronically submitted by Diego Aguirre ([email or web address]). GAYE CERON MD Apr 07, 2025 22:50
[2025-04-07 23:42] LABS: PHOSPHORUS 4.2 mg/dL (2.5-4.9)
[2025-04-08] VITALS (9 sets, daily range): BP systolic 134–151; BP diastolic 74–93; PULSE 53–65; RESP 16–20; TEMP 97.9–98.4; O2SAT 96–97
[2025-04-08 04:11] LABS: IMMATURE GRANULOCYTE ABSOLUTE 0.03 K/uL (0-1); NUCLEATED RED BLOOD CELLS 0.0 % (0.0-0.19); PLATELET COUNT (AUTO) 232 K/uL (130-400); RED BLOOD CELL COUNT(AUTO) 4.43 MIL/uL (4.50-6.20); RED CELL DISTRIBUTION WIDTH 13.6 % (11.0-15.5); WHITE BLOOD COUNT (AUTO) 6.5 K/uL (4.8-10.8)
[2025-04-08 04:24] LABS: CREATININE 1.1 mg/dL (0.5-1.3); GLOMERULAR FILTR. RATE CALC 77.0 mL/min (>90); GLUCOSE,RANDOM 111.0 mg/dL (70-105); SODIUM SERUM 143.0 mmol/L (136-145); UREA NITROGEN, BLOOD 16.0 mg/dL (7-18)
--- NOTE | 2025-04-08 13:05 | PN ---
[facility] PROGRESS NOTE Date of Service: Apr 08, 2025 Time of Service: :25 SUBJECTIVE: 04/05/25: Patient is seen in room ED-9. The patient is awake, alert and oriented.The pulse is low 49, and the B.P appears to be high 139/79. On examination, patient appears to be feeling better. He is breathing normally at room air. ABG was ordered and the results show PO2 of 71.3 and HCO3 of 28.4 whic h is high and serum alcohol <3. 04/06/25 - Patient seen in bed and remains in stable condition, currently on room air and receiving breathing treatments. He is afebrile, BP 124/94 mmHg, HR 85. He continues to report pain but is otherwise hemodynamically stable. Blood alcohol level was negative, however patient is on CIWA protocol. The patient has now been on azithromycin (day 2) and ceftriaxone (day 2). Physical therapy evaluation ordered, pending recommendations. We will continue close monitoring and follow up Pulmonary Service recommendations for further management. 04/07/2025: Patient seen in bed and remains in stable condition, currently on room air and receiving breathing treatments. He is afebrile, BP 105/79 mmHg, HR 67. He continues to report pain but is otherwise hemodynamically stable. Blood alcohol level was negative, however patient is on CIWA protocol. The patient h as now been on azithromycin (day 3) and ceftriaxone (day 3). Due to history of falls , patient is started on osteoporosis and osteopenia workup. 04/08/25 - Patient seen at bedside. No overnight acute events. Patient is afebrile, normotensive and saturating well on room air. Patient's pain is being managed with pain medications and lidocaine patches. Patient REVIEW OF SYSTEMS 12-point ROS reviewed with patient. All pertinent positives mentioned above. Otherwise negative, noncontributory, non-pertinent. PHYSICAL EXAM GENERAL APPEARANCE: The patient is awake, alert, and oriented, in no acute cardiopulmonary distress. NEUROLOGICAL: Cranial nerves II-XII grossly intact. Motor is 5/5 in bilateral upper and lower extremities proximal to distal. No sensory deficits. HEENT: Face is symmetric. Pupils are equal and reactive. Extraocular movements are intact. NECK: Supple. No JVD. No thyromegaly. No submental, submandibular, pre-/postauricular, occipital or supraclavicular lymphadenopathy. CHEST: Normal chest expansion. Small greenish/old bruising to left and right chest. LUNGS: Absence of any rales, rhonchi or any wheezing. CARDIOVASCULAR: Regular. S1 and S2 normal. No appreciable rubs, murmurs or gallops. ABDOMEN: Soft, nontender, and nondistended. There is no rebound, voluntary guarding, or rigidity. : Deferred. No [place]. EXTREMITIES: Non-edematous and not cyanotic. No clubbing. Good capillary refill. SKIN: No skin breakdown. Vital Signs (last 8hr) Date Time Temp Pulse Resp B/P (MAP) Pulse Ox O2 Delivery O2 Flow Rate FiO2 04/08/25 12:13 97.9 60 16 151/93 96 Room Air 04/08/25 11:26 60 18 N/A Room Air 04/08/25 11:21 60 18 04/08/25 08:00 98.1 53 16 142/75 96 Room Air 04/08/25 08:00 96 Room Air* 0 21 04/08/25 06:53 60 18 N/A Room Air 04/08/25 06:51 60 18 LABS: Laboratory: Test 04/08/25 11:45 04/08/25 03:50 04/07/25 23:08 04/07/25 03:46 Range/Units Whole Blood Glucose 106 70-110 MG/DL White Blood Count 6.5 4.8-10.8 K/uL Red Blood Count 4.43 L 4.50-6.20 MIL/uL Hemoglobin 13.3 L 14.0-18.0 g/dL Hematocrit 40.1 L 42-54 % Mean Corpuscular Volume 90.5 79-99 fL Mean Corpuscular Hemoglobin 30.0 27.0-33.0 pg Mean Corpuscular Hemoglobin Concent 33.2 32.0-36.0 g/dL Red Cell Distribution Width 13.6 11.0-15.5 % Platelet Count 232 130-400 K/uL Mean Platelet Volume 9.8 7.5-10.5 fL Immature Granulocyte % (Auto) 0.5 0-1 % Neutrophils (%) (Auto) 55.9 40.0-77.0 % Lymphocytes (%) (Auto) 25.9 21.0-51.0 % Monocytes (%) (Auto) 10.6 3.0-13.0 % Eosinophils (%) (Auto) 6.3 0.0-8.0 % Basophils (%) (Auto) 0.8 0.0-5.0 % Neutrophils # (Auto) 3.6 1.8-7.7 K/uL Lymphocytes # (Auto) 1.7 1.0-4.8 K/uL Monocytes # (Auto) 0.7 0.1-1.0 K/uL Eosinophils # (Auto) 0.41 0.00-0.70 K/uL Basophils # (Auto) 0.05 0.00-0.20 K/uL Absolute Immature Granulocyte (auto 0.03 0-1 K/uL Nucleated Red Blood Cells 0.0 0.0-0.19 % Sodium Level 143 136-145 mmol/L Potassium Level 3.4 L 3.5-5.1 mmol/L Chloride Level 108 101-111 mmol/L Carbon Dioxide Level 29 21-32 mmol/L Blood Urea Nitrogen 16 7-18 mg/dL Creatinine 1.1 0.5-1.3 mg/dL Glomerular Filtration Rate Calc 77 >90 mL/min Random Glucose 111 H 70-105 mg/dL Total Calcium 8.6 8.5-10.1 mg/dL Magnesium Level 2.10 1.80-2.40 mg/dL Ionized Calcium 1.20 1.15-1.33 MMOL/L Phosphorus Level 4.2 2.5-4.9 mg/dL Thyroid Stimulating Hormone (TSH) 1.63 # 0.36-3.74 uIU/mL Total Bilirubin 0.6 0.2-1.0 mg/dL Aspartate Amino Transf (AST/SGOT) 10 10-37 U/L Alanine Aminotransferase (ALT/SGPT) 19 12-78 U/L Alkaline Phosphatase 74 50-136 U/L Total Protein 6.4 6.0-8.3 g/dL Albumin 3.2 L 3.5-5.0 g/dL Test 04/06/25 21:45 Range/Units Urine Color YELLOW YELLOW Urine Appearance CLEAR CLEAR Urine pH 6.0 5.0-8.0 Urine Specific [place] 1.027 1.001-1.031 Urine Protein 30 H NEGATIVE mg/dL Urine Glucose (UA) >=1000 H NEGATIVE mg/dL Urine Ketones NEGATIVE NEGATIVE mg/dL Urine Occult Blood NEGATIVE NEGATIVE Urine Nitrate NEGATIVE NEGATIVE Urine Bilirubin NEGATIVE NEGATIVE mg/dL Urine Urobilinogen 0.2 0.2-1.0 mg/dL Urine Leukocyte Esterase NEGATIVE NEGATIVE Giovanny/uL Urine RBC 2-5 H 0-1 /HPF Urine WBC 2-5 H 0-1 /HPF Urine Squamous Epithelial Cells RARE 0-2 /HPF Urine Bacteria None None Seen /HPF Urine Opiates Screen POSITIVE H NEGATIVE Urine Barbiturates Screen NEGATIVE NEGATIVE Urine Phencyclidine Screen NEGATIVE NEGATIVE Urine Amphetamines Screen NEGATIVE NEGATIVE Urine Benzodiazepines Screen NEGATIVE NEGATIVE Urine Cocaine Screen NEGATIVE NEGATIVE Urine Marijuana (THC) Screen POSITIVE H NEGATIVE Current Medications Medications (Trade) Dose Ordered Sig/[place] Route PRN Reason Start Time Stop Time Status Last Admin Dose Admin Acetaminophen (TYLenol 325MG TAB) 650 mg Q6H PRN PO FEVER/MILD PAIN LEVEL 1-3 04/05/25 04:30 05/05/25 04:29 Acetaminophen (TYLenol 650MG SUPPOSITORY) 650 mg Q6H PRN RC FEVER / MILD PAIN 1-3 IF NPO 04/05/25 04:30 05/05/25 04:29 Acetaminophen/ Hydrocodone Bitart (NORco 5/325MG) FOR MODERATE PAIN SC... Q6H PRN PO MILD PAIN (1-3) 04/05/25 04:30 04/10/25 04:29 04/08/25 04:30 1 TAB Albuterol Sulfate (Proventil 0.083% 2.5mg/3ml) 2.5 mg [id number] IH 04/05/25 06:00 05/05/25 05:59 04/08/25 11:21 2.5 MG Amlodipine Besylate (NorvASC 5MG TAB) 5 mg DAILY PO 04/06/25 09:00 05/06/25 08:59 04/08/25 09:04 5 MG Aspirin (Aspirin 81mg Chew Tab) 81 mg DAILY PO 04/06/25 09:00 05/06/25 08:59 04/08/25 09:04 81 MG Atorvastatin Calcium (LIPItor 40MG) 40 mg HS PO 04/06/25 21:00 05/06/25 20:59 04/07/25 20:32 40 MG Azithromycin 250 ml @ 250 mls/hr Q24H IVPB 04/05/25 04:00 04/05/25 04:21 DC 04/05/25 04:13 250 MLS/HR Azithromycin 250 ml @ 250 mls/hr Q24H IVPB 04/06/25 04:30 04/16/25 04:29 04/08/25 02:31 250 MLS/HR Ceftriaxone Sodium (ROCEphine 1G INJ) 1 gm Q24H IVPB 04/06/25 04:30 04/16/25 04:29 04/08/25 02:31 1 GM Docusate Sodium (COLace 100MG CAP) 100 mg BID PRN PO CONSTIPATION 04/05/25 04:30 05/05/25 04:29 04/06/25 11:58 100 MG Ergocalciferol (Drisdol) 50,000 unit QWEEK PO 04/12/25 09:00 05/12/25 08:59 Gabapentin (NEURontin 300 MG CAP) 300 mg TID PO 04/06/25 09:00 05/06/25 08:59 04/08/25 09:04 300 MG Home Med (Home Medication) DAILY PO 04/06/25 09:00 05/06/25 08:59 Hydralazine HCl (APRESOLine 20MG INJ) 10 mg Q2H PRN IV ADMINISTER FOR SBP > 160 04/05/25 05:00 05/05/25 04:59 04/06/25 04:06 10 MG Insulin Human Regular (humuLIN R 100 UNIT/ML 3ML) INSULIN SLIDING SCAL... ACHS SQ 04/05/25 07:30 05/05/25 07:29 Ipratropium [place] (AtrovENT UD) 0.5 mg [id number] IH 04/05/25 06:00 05/05/25 05:59 04/08/25 11:21 0.5 MG Labetalol HCl (TRANdate 100 MG TABLET) 300 mg BID PO 04/06/25 09:00 05/06/25 08:59 04/08/25 09:03 300 MG Labetalol HCl (TRANdate 20MG SYG) 10 mg Q2H PRN IV SBP GREATER THAN 180 04/05/25 04:30 05/05/25 04:29 04/05/25 22:22 10 MG Lactulose (Constulose 20gm/ 30ml Udcup) 20 gm Q6H PRN PO CONSTIPATION 04/05/25 04:30 05/05/25 04:29 04/06/25 11:58 20 GM Lidocaine (Lidocaine Patch 4%) 1 each DAILY TP 04/07/25 14:00 05/07/25 13:59 04/08/25 09:06 1 EACH Losartan Potassium (CozAAR 100MG TAB) 100 mg DAILY PO 04/06/25 09:00 05/06/25 08:59 04/08/25 09:04 100 MG Magnesium Sulfate 50 ml @ 0 mls/hr PROTOCOL PRN IV MAGNESIUM PROTOCOL 04/07/25 06:30 05/07/25 06:29 04/07/25 06:32 25 MLS/HR Morphine Sulfate (morPHINE 2MG SYG) 2 mg Q4H PRN IVP SEVERE PAIN (7-10) IF NPO 04/05/25 11:30 04/12/25 11:29 04/07/25 13:58 2 MG Ondansetron HCl (zoFRAN 4MG INJ) 4 mg Q6H PRN IVP NAUSEA/VOMITING 04/05/25 04:30 05/05/25 04:29 Potassium Chloride 100 ml @ 100 mls/hr AD PRN IV POTASSIUM PROTOCOL 04/05/25 11:30 05/05/25 11:29 04/06/25 06:07 100 MLS/HR Potassium Chloride (K-Dur/Klor-Con 20meq) 20 meq AD PRN PO POTASSIUM PROTOCOL 04/05/25 11:30 05/05/25 11:29 04/08/25 09:06 20 MEQ Potassium Chloride (KCl 10% Elixir 20meq/15ml) 20 meq AD PRN PO POTASSIUM PROTOCOL 04/05/25 11:30 05/05/25 11:29 Spironolactone (Aldactone 25mg) 50 mg DAILY PO 04/06/25 09:00 05/06/25 08:59 04/08/25 09:04 50 MG Tamsulosin HCl (FloMAX) 0.4 mg DAILY PO 04/06/25 09:00 05/06/25 08:59 04/08/25 09:04 0.4 MG Temazepam (restORIL 15 MG CAP) 15 mg HS PRN PO INSOMNIA/SLEEP 04/05/25 04:30 05/05/25 04:29 Trazodone HCl (DesyREL/OlepTRO) 250 mg HS PO 04/06/25 21:00 05/06/25 20:59 04/07/25 20:31 250 MG DIAGNOSTICS / RADIOLOGY: ASSESSMENT: Acute fracture of the left 6th, 7th, 8th, and 9th ribs, POA, per CT chest on 04/05/2025 Old healed fractures of the left 9th, 10th, and 11th ribs, per CT chest on 04/05/2025 Small pleural effusion on the left, per CT chest on 04/05/2025 Partial collapse and consolidation in the left lower lobe of the lung, per CT on 04/05/2025 Mild subsegmental atelectasis in the posterior segment of the left upper lobe of the lung, per CT on 04/05/2025 Mild dependent atelectasis in the right posterior basal lung, per CT on 04/05/2025 Uncontrolled hypertension Bradycardia Hyponatremia Acute on chronic kidney disease, [id number] Diabetes mellitus with hyperglycemia Malnutrition/albuminemia Chronic problem list: alcoholism, insomnia, depression, hypertension, DM type 2, CAD, 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 Osteopenia and osteoporosis workup is initiated for history of multiple fractured ribs. BIS recommendations -Monitor respiratory status closely. -Oxygen therapy as needed. Titrate oxygen prn to keep Spo2>/+=92%. -Albuterol and Atrovent nebulizer treatments scheduled. -RT to provide IS and education on use. -Robitussin DM as needed cough. -Continue antibiotic therapy: Zithromax IV (day 3) and Rocephin IV (day 3) -PRN medications for: Pain management, fever, hypertension, N/V, constipation. -CIWA protocol -Glucometer checks AC & HS needed with insulin regular sliding scale coverage as needed. -Blood pressure checks every 4 hours and as needed. -Reconcile home medications once available. -Monitor renal and liver function. -Monitor electrolytes and treat accordingly PRN -AM labs. - PT eval -GI and DVT prophylaxis -Further plan/orders per hospitalization course. ATTESTATION BY PHYSICIAN I have seen and examined the patient. I reviewed the documentation, medical decision making, and treatment plan as noted by the resident provider above. I agree with the findings and plan of care. Diego Hayes IV, MD, PRIYA N Apr 08, 2025 13:05
[2025-04-08] MEDS ORDERED: LIDO1ADH71 TP (16:37)
--- NOTE | 2025-04-08 18:00 | NUR ---
DISCHARGE HOME IV, ID BANDS AND TELEPAK REMOVED. DISCHARGE INSTRUCTIONS GIVEN AND EXPLAINED TO PATIENT. PATIENT HAD NO RIDE THEREFORE A LYFT WAS PROVIDED. PATIENT WHEELED DOWN BY ME AND TRANSFERRED SAFELY TO [employer]AL [employer]. PATIENT WILL HAVE HELP AT HOME TO GET OFF LYFT. BELONGINGS PACKED AND TAKEN BY PATIENT, PLACED IN BACK SEAT OF VEHICLE BY PATIENT.
--- NOTE | 2025-04-08 18:16 | DS ---
Discharge Summary Hospital Course Summary: The patient is a 59-year-old male with a past medical history of chronic alcoholism, insomnia, depression, hypertension, type 2 diabetes mellitus, coronary artery disease, left-sided weakness from a prior cerebrovascular accident, abdominal hernia, adrenal mass, ureteral stones, and urinary incontinence, who presented to the emergency department on April 05, 2025, with complaints of left rib pain and difficulty breathing after falling the previous night. He reported slipping on rocks after drinking3 beers. Due to worsening discomfort and shortness of breaths, he sought medical attention the following day. A CT chest without contrast revealed acute fractures of the left 6th, 7th, 8th, and 9th ribs, a small left pleural effusion without pneumothorax, partial collapse and consolidation in the left lower lobe, and mild subsegmental atelectasis in the posterior segment of the left upper lobe, with overall interval worsening compared to prior imaging. In the emergency department, the patient was started on azithromycin and ceftriaxone and given pain medications. He was admitted for management of a left hemothorax, and pulmonology was consulted. The patient was initiated on physical therapy, incentive spirometry, and breathing treatments in addition to multimodal pain control. He remained hemodynamically stable throughout hospitalization and demonstrated gradual improvement in respiratory status and mobility. By hospital day 3, he was c linically stable with well controlled pain and cleared for discharge. On discharge it was recommended that the patient continue his home medications, use lidocaine patches for pain management, and follow up with pulmonology for further evaluation and treatment. Sales Marketing Director(s): Pulmonology consultation recommended incentive spirometry and daily physical therapy as well as breathing treatments and pain management. Procedure(s): [address] [id number] IMAGING REPORT Signed PATIENT: DANYELL ROSARIO SR MR#: [id number] : 1965 SEX: M AGE: 59 LOCATION: [facility] ORDER 18 STATUS: REG ER REPORT#: [id number] SERVICE 16 REASON: pain after fall ORDERING PHYSICIAN: CHARLOTTE HOBBS MD PROCEDURE: RIB LT W C - RIBS UNI LT W PA CHEST 3+VWS EXAM: CR Chest and Left Ribs, 3 Views. CLINICAL HISTORY: Pain. Fall. COMPARISON: Radiograph of the chest and left ribs dated 04/02/2025. FINDINGS: Small pleural effusion and mid to lower zone airspace disease on the left side with mild interval worsening. The remaining lung capps are clear. The cardiac size is within normal limits. No pneumothorax. Mild osteopenia. Degenerative osseous changes. Partially visualized internal fixator hardware in the left proximal femur. No acute left rib fracture is evident. Redemonstrated old healed left rib fractures involving the anterolateral aspect of the left 7th, 8th, 9th, and 10th ribs. IMPRESSION: Small pleural effusion and mid to lower zone airspace disease on the left side with mild interval worsening. Redemonstrated old healed left rib fractures involving the anterolateral aspect of the left 7th, 8th, 9th, and 10th ribs. The possibility of acute on chronic fractures cannot be excluded; recommend CT chest for an optimal evaluation. /Bryan DICTATED BY: MACRINA CHERY Jr., MD DATE: 04/05/2599 ELECTRONICALLY SIGNED BY: MACRINA CHERY Jr., MD DATE: 04/05/2599 [place] [address] IMAGING REPORT Signed PATIENT: DANYELL ROSARIO SR MR#: [id number] : 1965 SEX: M AGE: 59 LOCATION: [facility] ORDER STATUS: REG ER REPORT#: [id number] SERVICE REASON: pain ORDERING PHYSICIAN: CHARLOTTE HOBBS MD PROCEDURE: CHEST WO - CT CHEST W/O CONTRAST EXAM: Non-contrast CT examination of the chest CLINICAL HISTORY: Pain. TECHNIQUE: Thin collimated axial CT images of the chest were obtained with sagittal and coronal reformatted images also submitted. CT scan is done according to ALARA (As Low as Reasonably Achievable). CONTRAST USED: None. COMPARISON: CT chest dated 01/12/2025. FINDINGS: Acute fracture of the left 6th, 7th, 8th, and 9th ribs. Old healed fractures of the left 9th, 10th, and 11th ribs. Small pleural effusion on the left. Partial collapse and consolidation in the left lower lobe of the lung. Mild subsegmental atelectasis in the posterior segment of the left upper lobe of the lung. Mild dependent atelectasis in the right posterior basal lung. No pneumothorax. No pericardial effusion. The cardiac size is within normal limits. Calcific atherosclerotic disease in the thoracic aorta and coronary arteries. No pathological lymphadenopathy in the mediastinum, axilla, or supraclavicular regions. No focal thyroid abnormality. Mild nodular thickening in the bilateral adrenal glands, the largest measures up to 1.7 cm on the left side, is concerning for adrenal adenomas. The remaining included upper abdominal organs are within normal limits. Partially visualized omental implants in the left proximal humerus. Mild scoliosis and thoracic spondylosis. IMPRESSION: Acute fracture of the left 6th, 7th, 8th, and 9th ribs. Old healed fractures of the left 9th, 10th, and 11th ribs. Small pleural effusion on the left. No pneumothorax. Partial collapse and consolidation in the left lower lobe of the lung. Mild subsegmental atelectasis in the posterior segment of the left upper lobe of the lung. Mild dependent atelectasis in the right posterior basal lung. Overall, there is an interval worsening compared to the previous CT chest. /Bryan DICTATED BY: MACRINA CHERY Jr., MD DATE: 04/05/25242 ELECTRONICALLY SIGNED BY: MACRINA CHERY Jr., MD DATE: 04/05/25242 [place] [address] IMAGING REPORT Signed PATIENT: DANYELL ROSARIO SR MR#: [id number] : 1965 SEX: M AGE: 59 LOCATION: [facility] ORDER 8 STATUS: ADM IN REPORT#: [id number] SERVICE 4 REASON: CP ORDERING PHYSICIAN: KAYE,RADHA M EDUCATION DEAN PROCEDURE: ECHO CMP - ECHO 2-D COMPLETE APPROVED REPORT EXAM: Two-dimensional and M-mode echocardiogram with Doppler and color Doppler. INDICATION ICD: Chest pain R07.9 2D Dimensions RVDd 4.2 cm LVEF(%) 60.0 (>50%) LVED Vol(simp.) 137.0 mL IVSd 1.0 (0.7-1.1cm) FS(%) 32 % LVES Vol(simp.) 58.0 mL LVDd 5.4 (3.8-5.6cm) LA (2D) 3.5 (1.6-4.0cm) LVEF(%, simp.) 57 % PWd 1.1 (0.7-1.1cm) Ao Root(2D) 3.4 (2.0-3.7cm) LA ESV INDEX (BP) 33.53 mL/m2 IVSs 1.3 cm LVOT diam 2.5 (1.8-2.4cm) LVDs 3.6 (2.5-4.0cm) PWs 1.6 cm Deformation Strain Apical 4 -19.0 % Apical 2 -20.8 % Apical 3 -20.9 % Global Strain -20.2 % M-Mode Dimensions EPSS 1.1 cm LA (MM) 4.8 (1.6-4.0cm) Ao Root(MM) 3.6 (2.0-3.7cm) Aortic Valve AoV Vmax 1.2 m/s Ao Peak GR 5.5 mmHg LVOT Vmax 1.3 m/s AoV VTI 0.2 m Ao Mean GR 2.7 mmHg LVOT VTI 0.25 m ARNOLD (VMAX) 5.24 cm2 ARNOLD (VTI) 4.8 cm2 Mitral Valve MV E Vmax 72.5 cm/s DECEL Time 201 ms MV A Vmax 44.1 cm/s P 1/2 T 54 ms E/A ratio 1.6 MVA (PHT) 4.1 cm2 TDI E/E' Medial 11.8 E/E' Lateral 8.7 Medial E' Peak V 6.15 cm/s Lateral E' Peak V 8.34 cm/s Pulmonary Valve PV Vmax 0.8 m/s PV VTI 0.16 m PV Mean GR 1.4 mmHg PV Peak GR 2.3 mmHg Left Ventricle The left ventricle is normal size. GLS -20.0% There is normal left ventricular wall thickness. LVEF is 55-60%. 3D volume EF 58%. The left ventricular diastolic function is normal. Right Ventricle The right ventricle is borderline dilated. The right ventricular systolic function is normal. Atria The left atrium size is normal. The right atrium is mildly dilated. Aortic Valve Aortic valve is trileaflet. Thickening of the left/non coronary cusp leaflet. Nodular calcification on the non coronary cusp leaflet. Mild aortic regurgitation is present. There is no aortic valvular stenosis. Mitral Valve The mitral valve is normal in structure. There is trace of mitral valve regurgitation noted. There is no mitral valve stenosis. Tricuspid Valve The tricuspid valve is normal in structure. There is no tricuspid valve regurgitation noted. Pulmonic Valve The pulmonary valve is normal in structure. There is no pulmonic valvular regurgitation. Great Vessels The aortic root is normal in size. IVC is not well visualized. Pericardium There is no pericardial effusion. Other Information Quality : Adequate Rhythm : NSR Conclusion LVEF is 55-60%. 3D volume EF 58%. The left ventricular diastolic function is normal. Aortic valve is trileaflet. Thickening of the left/non coronary cusp leaflet. Nodular calcification on the non coronary cusp leaflet. Mild aortic regurgitation is present. DICTATED BY: QUE CORREIA DO DATE: 04/05/2528 ELECTRONICALLY SIGNED BY: QUE CORREIA DO DATE: 04/05/25 [address] [address] [place] [id number] IMAGING REPORT Signed PATIENT: DANYELL ROSARIO SR MR#: [id number] : 1965 SEX: M AGE: 59 LOCATION: [facility] ORDER 06 STATUS: ADM IN REPORT#: [id number] SERVICE 110 REASON: rib fractures and left hemothorax ORDERING PHYSICIAN: JESSICA BUSTAMANTE PROCEDURE: CXR1VW - CHEST 1VW CHEST 1VW REASON: rib fractures and left hemothorax COMPARISON: Prior chest radiograph from 12/30/2023 is available. FINDINGS: Single view of the chest was obtained. There is suspicion for possible lung contusion in the left lower lung.. Heart size is normal. There is no pulmonary vascular congestion. Mediastinum appears normal. As noted on the recent CT there is multiple left rib fractures which is not well seen. There is multiple pins seen in the left humeral head at the edge of the study.. IMPRESSION: 1. No evidence of airspace consolidation or pulmonary venous congestion. 2. Suspicion for left lung contusion 3. Multiple left rib fractures are not well seen on the present study. DICTATED BY: GILSON RAMSEY MD DATE: 04/05/251554 ELECTRONICALLY SIGNED BY: GILSON RAMSEY MD DATE: 04/05/[address] [address] IMAGING REPORT Signed PATIENT: DANYELL ROSARIO SR MR#: [id number] : 1965 SEX: M AGE: 59 LOCATION: [facility] ORDER STATUS: ADM IN REPORT#: [id number] SERVICE REASON: rib fractures and hemothorax ORDERING PHYSICIAN: JESSICA BUSTAMANTE PROCEDURE: CXR2VW - CHEST 2VWS CHEST 2VWS REASON: rib fractures and hemothorax COMPARISON: Prior study from 04/05/2025 is available. FINDINGS: Two views of the chest were obtained. Lungs are clear. Heart size is normal. There is no pulmonary vascular congestion. Mediastinum appears to be normal there is uncoiling atherosclerotic change of thoracic aorta. The bony thorax demonstrate osteopenia. There is deformity of the left mid ribs. Patient has a known left rib fractures. There is orthopedic screw seen in the left humerus including left humeral head seen and there is a study from prior ORIF. IMPRESSION: No evidence of airspace consolidation or pulmonary venous congestion.. DICTATED BY: GILSON RAMSEY MD DATE: 04/06/2536 ELECTRONICALLY SIGNED BY: GILSON RAMSEY MD DATE: 04/06/25 1112 Assessment/Plan: ASSESSMENT: Acute fracture of the left 6th, 7th, 8th, and 9th ribs, POA, per CT chest on 04/05/2025 Old healed fractures of the left 9th, 10th, and 11th ribs, per CT chest on 04/05/2025 Small pleural effusion on the left, per CT chest on 04/05/2025 Partial collapse and consolidation in the left lower lobe of the lung, per CT on 04/05/2025 Mild subsegmental atelectasis in the posterior segment of the left upper lobe of the lung, per CT on 04/05/2025 Mild dependent atelectasis in the right posterior basal lung, per CT on 04/05/2025 Uncontrolled hypertension Bradycardia Hyponatremia Acute on chronic kidney disease, [id number] Diabetes mellitus with hyperglycemia Malnutrition/albuminemia Chronic problem list: alcoholism, insomnia, depression, hypertension, DM type 2, CAD, left-sided weakness due to CVA, abdominal hernia, adrenal mass, ureteral stones, urinary incontinence Discharge Instructions: Discharge instructions for rib fractures with hemothorax 1. Activity: Avoid heavy lifting, pushing, or pulling for at least 4-6 weeks. Walk daily as tolerated to promote circulation and prevent pneumonia. Avoid strenuous activities or contact sports until cleared by your doctor. 2. Breathing and lung care: Continue deep breathing and coughing exercises every hour while awake to prevent pneumonia. If you experience sudden worsening shortness of breath, chest pain, or coughing up blood, call 911 or go to the nearest emergency department. 3. Pain management: Use lidocaine patches as prescribed for localized pain. Take [id number] pain medications as directed. Do not exceed recommended doses. You may use an ice pack on the injured area for 20 minutes at a time during the 1st 48 hours to reduce pain and swelling, then switch to heat if preferred. 4. Alcohol use: Avoid alcohol while recovering, as it can impair healing, interact with medications, and increase her risk of falls. 5. Fall prevention: Use assistive devices if recommended by Physical therapy. Keep pathways in your home we will let and clear of obstacles. Wear supportive footwear to reduce the risk of slips. 6. Wound and skin care: Monitor the chest wall area for increasing swelling, redness, or warmth, which may indicate infection or worsening injury. 7. Diet and hydration: Maintain a balanced diet with adequate protein to support healing. Stay well hydrated unless you are on fluid restriction. 8. Follow up appointments: Follow up with primary care physician in 2-3 days. Follow up with pulmonology within 1-2 weeks for reassessment and for possible repeat imaging Consider evaluation for alcohol use counseling or support programs. 9. When to seek immediate medical attention: Sudden increase in chest pain or shortness of breaths Fever above 100.4 F (38 C) Coughing up blood New confusion, dizziness, or weakness Loss of consciousness Home Medications: Active Scripts Lidocaine (Lidocaine Pain Relief) 4 % Adh..patch, 1 PATCH TP DAILY for 30 Days, #30 PATCH 0 Refills Prov:JESSICA BUSTAMANTE 04/08/25 Spironolactone (Spironolactone) 25 Mg Tablet, 50 MG PO DAILY, #30 TAB 0 Refills Prov:ARLYN MICHEL MD 12/15/24 Tamsulosin HCl (Flomax) 0.4 Mg Cap.er.24h, 0.4 MG PO DAILY, #30 CAPSULE. Prov:BOBBY CORONEL V EDUCATION DEAN 12/30/23 Reported Medications Ergocalciferol (Vitamin D2) (Vitamin D2) 1,250 Mcg (66109 Unit) Capsule, 1 CAP PO QWEEK for 28 Days, #4 CAP 0 Refills 04/05/25 Empagliflozin (Jardiance) 10 Mg Tablet, 1 TAB PO DAILY for 30 Days, #30 TAB 0 Refills 04/05/25 Gabapentin (Gabapentin) 400 Mg Capsule, 300 MG PO TID, CAP 04/05/25 Atorvastatin Calcium (Atorvastatin Calcium) 40 Mg Tablet, 1 TAB PO HS for 30 Days, #30 TAB 0 Refills 12/12/24 Aspirin (Aspirin) 81 Mg Tab.chew, 1 TAB PO DAILY for 30 Days, #30 TAB 0 Refills 12/12/24 Trazodone HCl (Trazodone HCl) 100 Mg Tablet, 2.5 TAB PO HS for 30 Days, #30 TAB 0 Refills 12/12/24 Labetalol HCl (Labetalol HCl) 300 Mg Tablet, 1 TAB PO BID for 30 Days, #60 TAB 0 Refills 12/12/24 Duloxetine HCl (Duloxetine HCl) 60 Mg Capsule.dr, 2 CAP PO DAILY for 30 Days, #30 CAP 0 Refills 12/12/24 Amlodipine Besylate (Amlodipine Besylate) 5 Mg Tablet, 1 TAB PO DAILY for 30 Days, #30 TAB 0 Refills 12/12/24 Telmisartan (Telmisartan) 80 Mg Tablet, 1 TAB PO DAILY for 30 Days, #30 TAB 0 Refills 12/12/24 Discontinued Scripts Cyclobenzaprine HCl (Cyclobenzaprine HCl) 5 Mg Tablet, 5 MG PO BID for 5 Days, #10 TAB Prov:NETO PARKS MD 01/12/25 Phenazopyridine HCl (Pyridium) 100 Mg Tab, 1 TAB PO TID for urinary discomfort for 3 Days, #9 TAB 0 Refills Prov:YAW HODGES 12/20/24 Potassium Chloride (Potassium Chloride) 20 Meq Tablet.er, 20 MEQ PO DAILY for 10 Days, #10 TAB 0 Refills Prov:NETO PARKS MD 12/16/24 Potassium Chloride (Potassium Chloride) 20 Meq Tab.er.prt, 1 TAB PO DAILY for 7 Days, #7 TAB 0 Refills Prov:ARLYN MICHEL MD 12/15/24 Amoxicillin/Potassium Clav (Augmentin 500-125 Tablet) 500 Mg-125 Mg Tablet, 1 TAB PO BID for 7 Days, #14 TAB 0 Refills Prov:ARLYN MICHEL MD 12/15/24 New Medications: Lidocaine (Lidocaine Pain Relief) 4 % Adh..patch 1 PATCH TP DAILY for 30 Days, #30 PATCH 0 Refills Continued Medications: Amlodipine Besylate (Amlodipine Besylate) 5 Mg Tablet 1 TAB PO DAILY for 30 Days, #30 TAB 0 Refills Aspirin (Aspirin) 81 Mg Tab.chew 1 TAB PO DAILY for 30 Days, #30 TAB 0 Refills Atorvastatin Calcium (Atorvastatin Calcium) 40 Mg Tablet 1 TAB PO HS for 30 Days, #30 TAB 0 Refills Duloxetine HCl (Duloxetine HCl) 60 Mg Capsule.dr 2 CAP PO DAILY for 30 Days, #30 CAP 0 Refills Empagliflozin (Jardiance) 10 Mg Tablet 1 TAB PO DAILY for 30 Days, #30 TAB 0 Refills Ergocalciferol (Vitamin D2) (Vitamin D2) 1,250 Mcg (05513 Unit) Capsule 1 CAP PO QWEEK for 28 Days, #4 CAP 0 Refills Gabapentin (Gabapentin) 400 Mg Capsule 300 MG PO TID, CAP Labetalol HCl (Labetalol HCl) 300 Mg Tablet 1 TAB PO BID for 30 Days, #60 TAB 0 Refills Spironolactone (Spironolactone) 25 Mg Tablet 50 MG PO DAILY, #30 TAB 0 Refills Tamsulosin HCl (Flomax) 0.4 Mg Cap.er.24h 0.4 MG PO DAILY, #30 CAPSULE. Telmisartan (Telmisartan) 80 Mg Tablet 1 TAB PO DAILY for 30 Days, #30 TAB 0 Refills Trazodone HCl (Trazodone HCl) 100 Mg Tablet 2.5 TAB PO HS for 30 Days, #30 TAB 0 Refills Time spent arranging discharge: 1-30 minutes ATTESTATION BY PHYSICIAN I have seen and examined the patient. I reviewed the documentation, medical decision making, and treatment plan as noted by the resident provider above. I agree with the findings and plan of care. Diego Hayes IV, MD, PRIYA N Apr 08, 2025 18:16
--- NOTE | 2025-04-08 23:34 | PN ---
[facility] PROGRESS NOTE Date Patient Seen: Apr 08, 2025 Time of Visit: 23:32 Supervising Physician: GAYE CERON MD Primary Care Physician: [ ] Outpatient Specialists: [ ] Inpatient Consults: [ ] PROBLEM LIST: Status post mechanical fall Alcohol use disorder Tobacco use disorder Cocaine use disorder Hypertension Adult failure to thrive Left lower lobe atelectasis Left rib fractures secondary to mechanical fall Hypertension INTERVAL HISTORY: 04/08/2025 patient is seen and evaluated by me at bedside pain is better with Lidocaine patch Afebrile, no distress, on room air no new complaints good appetite no constipation good urinary output REVIEW OF SYSTEMS: 12 point ROS reviewed with patient. Pertinent positives mentioned above. Otherwise negative. PHYSICAL EXAM: GENERAL: alert, weak, awake oriented x 3 HEENT: EOMI, Sclera non icteric, moist mucosa NECK: Supple, no JVD, trachea midline LUNGS: Clear breath sounds bilaterally. No wheezes HEART: Regular rate and rhythm. Normal S1 and S2, without murmurs ABD: Abdomen soft, nontender. Bowel sounds present EXT: No clubbing cyanosis or edema NEURO: Alert and oriented to person, follows commands Vital Signs (last 8hr) Date Time Temp Pulse Resp B/P (MAP) Pulse Ox O2 Delivery O2 Flow Rate FiO2 04/08/25 16:00 97.9 61 16 137/80 96 Room Air LABS: Hematology Labs: Test 04/08/25 03:50 Range/Units White Blood Count 6.5 4.8-10.8 K/uL Red Blood Count 4.43 L 4.50-6.20 MIL/uL Hemoglobin 13.3 L 14.0-18.0 g/dL Hematocrit 40.1 L 42-54 % Mean Corpuscular Volume 90.5 79-99 fL Mean Corpuscular Hemoglobin 30.0 27.0-33.0 pg Mean Corpuscular Hemoglobin Concent 33.2 32.0-36.0 g/dL Red Cell Distribution Width 13.6 11.0-15.5 % Platelet Count 232 130-400 K/uL Mean Platelet Volume 9.8 7.5-10.5 fL Immature Granulocyte % (Auto) 0.5 0-1 % Neutrophils (%) (Auto) 55.9 40.0-77.0 % Lymphocytes (%) (Auto) 25.9 21.0-51.0 % Monocytes (%) (Auto) 10.6 3.0-13.0 % Eosinophils (%) (Auto) 6.3 0.0-8.0 % Basophils (%) (Auto) 0.8 0.0-5.0 % Neutrophils # (Auto) 3.6 1.8-7.7 K/uL Lymphocytes # (Auto) 1.7 1.0-4.8 K/uL Monocytes # (Auto) 0.7 0.1-1.0 K/uL Eosinophils # (Auto) 0.41 0.00-0.70 K/uL Basophils # (Auto) 0.05 0.00-0.20 K/uL Absolute Immature Granulocyte (auto 0.03 0-1 K/uL Nucleated Red Blood Cells 0.0 0.0-0.19 % Chemistry Labs: Test 04/08/25 16:25 04/08/25 03:50 04/07/25 23:08 04/07/25 03:46 Range/Units Whole Blood Glucose 97 70-110 MG/DL Sodium Level 143 136-145 mmol/L Potassium Level 3.4 L 3.5-5.1 mmol/L Chloride Level 108 101-111 mmol/L Carbon Dioxide Level 29 21-32 mmol/L Blood Urea Nitrogen 16 7-18 mg/dL Creatinine 1.1 0.5-1.3 mg/dL Glomerular Filtration Rate Calc 77 >90 mL/min Random Glucose 111 H 70-105 mg/dL Total Calcium 8.6 8.5-10.1 mg/dL Magnesium Level 2.10 1.80-2.40 mg/dL Parathyroid Hormone (Intact) 31.4 15-65 pg/mL Ionized Calcium 1.20 1.15-1.33 MMOL/L Phosphorus Level 4.2 2.5-4.9 mg/dL Vitamin D 25-Hydroxy 59.5 30.0-100.0 ng/mL Thyroid Stimulating Hormone (TSH) 1.63 # 0.36-3.74 uIU/mL Total Bilirubin 0.6 0.2-1.0 mg/dL Aspartate Amino Transf (AST/SGOT) 10 10-37 U/L Alanine Aminotransferase (ALT/SGPT) 19 12-78 U/L Alkaline Phosphatase 74 50-136 U/L Total Protein 6.4 6.0-8.3 g/dL Albumin 3.2 L 3.5-5.0 g/dL DIAGNOSTICS / RADIOLOGY RESULTS: [ ] PLAN Hemodynamically stable from pulmonary standpoint for safe medical discharge from hospital NEURO: Minimize central acting medications as possible. Maintain fall precautions, adequate lighting during the day PULMONARY: Supplemental 02 as needed. Maintain aspiration precautions at all times CARDIOVASCULAR: Follow hemodynamics. Vital signs per facility protocol GI & NUTRITION: Continue with nutritional support. Continue stool softeners and laxatives as needed. KIDNEYS & ELECTROLYTES: Strict monitoring of intake, output and overall fluid balance. Avoid nephrotoxic medications to the extent possible. Medications to be dosed according to renal function. Monitor electrolytes and replace as needed ENDOCRINE: Maintain blood glucose between 100-180 at all times. Hypoglycemia protocol in place INFECTIOUS DISEASE: Trend temperature, WBC and procalcitonin level Follow cultures, deescalate antibiotics as soon as possible. Panculture if new onset fever ONCOLOGY/HEMATOLOGY/COAGULATION: Monitor for s/s of bleeding Monitor hemoglobin, coagulation studies as needed SKIN: Pressure ulcer prevention per facility protocol Specialty mattress ORTHO/REHAB: Continue PT/OT Prophylaxis: Continue GI and DVT prophylaxis Code Status: Full Resuscitation Disposition: as per PCP I personally scribed for GAYE CERON MD ([email or web address]) on 04/08/25 at 23:34. Electronically submitted by Diego Aguirre ([email or web address]). GAYE CERON MD Apr 08, 2025 23:34
[2025-04-12] MEDS ORDERED: ERGOCALCIFEROL (VITAMIN D2) 50,000 UNIT CAPSULE PO SCH (09:00)
== END 2025-04-08 17:50 | disposition home or self-care (01) | DRG 135 ==
LOC: EDH 21:42 → EDHIP 21:43 → 2AH 04-05 21:32
PROVIDERS: ADMIT Internal Medicine; ATTEND Internal Medicine
DX: S27.1XXA Traumatic hemothorax, initial encounter (principal); E46 Unspecified protein-calorie malnutrition; E87.1 Hypo-osmolality and hyponatremia; I69.354 Hemiplegia and hemiparesis following cerebral infarction affecting left non-dominant side; E11.22 Type 2 diabetes mellitus with diabetic chronic kidney disease; S22.42XA Multiple fractures of ribs, left side, initial encounter for closed fracture; J98.11 Atelectasis; N18.9 Chronic kidney disease, unspecified; I12.9 Hypertensive chronic kidney disease with stage 1 through stage 4 chronic kidney disease, or unspecified chronic kidney disease; E11.65 Type 2 diabetes mellitus with hyperglycemia; F17.200 Nicotine dependence, unspecified, uncomplicated; F32.A Depression, unspecified; R62.7 Adult failure to thrive; R32 Unspecified urinary incontinence; E78.00 Pure hypercholesterolemia, unspecified; E27.9 Disorder of adrenal gland, unspecified; J90 Pleural effusion, not elsewhere classified; F14.10 Cocaine abuse, uncomplicated; R00.1 Bradycardia, unspecified; K46.9 Unspecified abdominal hernia without obstruction or gangrene; I25.10 Atherosclerotic heart disease of native coronary artery without angina pectoris; W18.39XA Other fall on same level, initial encounter; Z87.442 Personal history of urinary calculi; Z90.49 Acquired absence of other specified parts of digestive tract; Z91.81 History of falling; Z68.26 Body mass index [BMI] 26.0-26.9, adult; Y93.89 Activity, other specified; Y92.89 Other specified places as the place of occurrence of the external cause; Y99.8 Other external cause status
CPT/HCPCS: 36415; 36600; 71045; 71046; 71101; 71250; 76376; 80048; 80053; 80305; 81001; 82306; 82330; 82435; 82803; 82947; 82948; 83036; 83605; 83735; 83970; 84100; 84132; 84295; 84443; 85018; 85025; 85027; 93306; 93356; 94640; 94664; 96374; 99285; G0378; J0360; J0456; J0696; J1885; J2270; J3480

== ENCOUNTER 2025-05-19 20:41 | Observation (INO) | payer MEDICAID, OTHER ==
[~2025-05-19] VITALS: Ht 170.2 cm; Wt 76.8 kg
[~2025-05-19 20:41] MED LIST changes: -AMOX-426 PO; -CYCL5TAB3 PO; +EMPA10TA PO; +ERGO500093 PO; +GABA-534 PO; +LIDO1ADH71 TP; -PHEN-846 PO; -POTA-202 PO; -POTA-364 PO
--- NOTE | 2025-05-19 21:02 | ERN ---
ED Note History of Present Illness Stated Complaint: WEAKNESS, DIZZINESS ONSET YESTERDAY Chief Complaint: Weakness Time Seen by MD: 20:43 Dictation: This is a 59-year-old male who presented to the emergency room complaining of generalized weakness dizziness since yesterday. He stated that when he had these kind of symptoms and he presented to [facility] he had extremely low potassium. They repleted potassium and magnesium and his weakness improved. He also reported an occipital headache for which he took Tylenol 1000 mg and he was feeling somewhat better. No fever chills or rigors. No nausea vomitings diarrhea hematemesis or melena. Patient does report frequent urination and takes a pill for prostate problem. Temperature 98.2 pulse 66 respirations 16 blood pressure 135/85 with a pulse oximetry of 98% on room air His chronic medical problems include cerebrovascular accident in 2018 with residual left-sided deficits, hypertension, diabetes mellitus, hyperlipidemia, arrhythmias and adrenal mass Allergies: Coded Allergies: No Known Drug Allergies (Verified Allergy, 11/10/12) Home Meds Active Scripts Magnesium Oxide (Magnesium Oxide) 250 Mg Tablet, 1 TAB PO DAILY for 15 Days, #15 TAB 0 Refills Prov:JUAN PABLO MOSES MD 05/19/25 Potassium Chloride (Potassium Chloride) 10 Meq Capsule.er, 1 CAP PO DAILY for 15 Days, #15 CAP 0 Refills Prov:JUAN PABLO MOSES MD 05/19/25 Lidocaine (Lidocaine Pain Relief) 4 % Adh..patch, 1 PATCH TP DAILY for 30 Days, #30 PATCH 0 Refills Prov:JESSICA BUSTAMANTE 04/08/25 Spironolactone (Spironolactone) 25 Mg Tablet, 50 MG PO DAILY, #30 TAB 0 Refills Prov:ARLYN MICHEL MD 12/15/24 Tamsulosin HCl (Flomax) 0.4 Mg Cap.er.24h, 0.4 MG PO DAILY, #30 CAPSULE. Prov:BOBBY CORONEL V [facility] 12/30/23 Reported Medications Ergocalciferol (Vitamin D2) (Vitamin D2) 1,250 Mcg (53759 Unit) Capsule, 1 CAP PO QWEEK for 28 Days, #4 CAP 0 Refills 04/05/25 Empagliflozin (Jardiance) 10 Mg Tablet, 1 TAB PO DAILY for 30 Days, #30 TAB 0 Refills 04/05/25 Gabapentin (Gabapentin) 400 Mg Capsule, 300 MG PO TID, CAP 04/05/25 Atorvastatin Calcium (Atorvastatin Calcium) 40 Mg Tablet, 1 TAB PO HS for 30 Days, #30 TAB 0 Refills 12/12/24 Aspirin (Aspirin) 81 Mg Tab.chew, 1 TAB PO DAILY for 30 Days, #30 TAB 0 Refills 12/12/24 Trazodone HCl (Trazodone HCl) 100 Mg Tablet, 2.5 TAB PO HS for 30 Days, #30 TAB 0 Refills 12/12/24 Labetalol HCl (Labetalol HCl) 300 Mg Tablet, 1 TAB PO BID for 30 Days, #60 TAB 0 Refills 12/12/24 Duloxetine HCl (Duloxetine HCl) 60 Mg Capsule.dr, 2 CAP PO DAILY for 30 Days, #30 CAP 0 Refills 12/12/24 Amlodipine Besylate (Amlodipine Besylate) 5 Mg Tablet, 1 TAB PO DAILY for 30 Days, #30 TAB 0 Refills 12/12/24 Telmisartan (Telmisartan) 80 Mg Tablet, 1 TAB PO DAILY for 30 Days, #30 TAB 0 Refills 12/12/24 Past Medical History Past Medical History: CVA, Diabetes-Type II, High Cholesterol, Heart Disease, Hypertension, UTI Additional Past Medical Hx: LT SIDE WEAKNESS R/T CVA, ABDOMINAL HERNIA, adrenal mass, ureteral stones Surgical History: Appendectomy Surgical History Other: LT ARM, HERNIA Social History: Negative, Lives with family RN Note Reviewed/Agreed w/PFSH: Yes Review of System Dictation Constitutional: Negative for fever,chills, and weight loss positive for severe weakness and dizziness Eyes: Negative for injury, pain,redness, and discharge ENT: Negative for injury,pain or swelling Cardiovascular: Negative for chest pain, palpitations, and edema Respiratory: Negative for shortness of breath, cough, and wheezing, Abdomen/GI: Negative for abdominal pain, nausea, vomiting, diarrhea, and constipation Back: Negative for injury and pain : Negative for injury, bleeding and discharge MS/Extremity: Negative for injury and deformity Skin: Negative for rash, and discoloration Neuro: Negative for headache, weakness, numbness, tingling, and seizure Psych: Negative for suicide ideation, homicidal ideation, and hallucinations Initial Vital Sign VS Vital Signs Date Time Temp Pulse Resp B/P (MAP) Pulse Ox O2 Delivery O2 Flow Rate FiO2 05/19/25 20:42 98.2 66 16 135/85 98 Room Air 0 05/19/25 22:40 21 Physical Exam Dictation General: awake, alert, NAD uses cane to walk looks weak Head/Face: Normocephalic, atraumatic Eyes: PERRL, EOMI, vision at baseline ENT: oral cavity clear, TMs clear, no signs of infection Neck: Trachea midline, supple, no nuchal rigidity Cardiovascular: RRR, normal S1/S2, No MRGs, no JVD Respiratory: CTAB, no respiratory distress, No rales or wheezes Abdomen: Soft, non-tender, non-distended, normal bowel sounds, no guarding or rebound. Skin: Warm, dry, normal turgor, no rash MS/Extremity: Pulses equal, no cyanosis, neurovascular intact, FROM Neuro: COAx4, GCS 15, strength 5/5, CN 2-12 intact, normal cerebellar exam, normal gait, Psych: Normal behavior, mood, and affect normal Extremities-trace edema without any palpable cords, Homans sign is negative Results (Laboratory/Radiology) Laboratory/Radiology Laboratory Tests Test 05/19/25 21:02 05/19/25 21:34 05/19/25 23:15 White Blood Count 8.2 K/uL (4.8-10.8) Red Blood Count 4.82 MIL/uL (4.50-6.20) Hemoglobin 14.3 g/dL (14.0-18.0) Hematocrit 43.4 % (42-54) Mean Corpuscular Volume 90.0 fL (79-99) Mean Corpuscular Hemoglobin 29.7 pg (27.0-33.0) Mean Corpuscular Hemoglobin Concent 32.9 g/dL (32.0-36.0) Red Cell Distribution Width 13.6 % (11.0-15.5) Platelet Count 239 K/uL (130-400) Mean Platelet Volume 9.9 fL (7.5-10.5) Immature Granulocyte % (Auto) 0.2 % (0-1) Neutrophils (%) (Auto) 68.1 % (40.0-77.0) Lymphocytes (%) (Auto) 18.0 % (21.0-51.0) L Monocytes (%) (Auto) 9.3 % (3.0-13.0) Eosinophils (%) (Auto) 3.7 % (0.0-8.0) Basophils (%) (Auto) 0.7 % (0.0-5.0) Neutrophils # (Auto) 5.6 K/uL (1.8-7.7) Lymphocytes # (Auto) 1.5 K/uL (1.0-4.8) Monocytes # (Auto) 0.8 K/uL (0.1-1.0) Eosinophils # (Auto) 0.30 K/uL (0.00-0.70) Basophils # (Auto) 0.06 K/uL (0.00-0.20) Absolute Immature Granulocyte (auto 0.02 K/uL (0-1) Nucleated Red Blood Cells 0.0 % (0.0-0.19) Sodium Level 141 mmol/L (136-145) Potassium Level 3.1 mmol/L (3.5-5.1) L Chloride Level 102 mmol/L (101-111) Carbon Dioxide Level 33 mmol/L (21-32) H Blood Urea Nitrogen 13 mg/dL (7-18) Creatinine 1.0 mg/dL (0.5-1.3) Glomerular Filtration Rate Calc 87 mL/min (>90) Random Glucose 84 mg/dL (70-105) Total Calcium 8.8 mg/dL (8.5-10.1) Thyroid Stimulating Hormone (TSH) 2.05 uIU/mL (0.36-3.74) # Urine Color LIGHT-YELLOW (YELLOW) Urine Appearance CLEAR (CLEAR) Urine pH 6.0 (5.0-8.0) Urine Specific Edwards 1.005 (1.001-1.031) Urine Protein NEGATIVE mg/dL (NEGATIVE) Urine Glucose (UA) TRACE mg/dL (NEGATIVE) H Urine Ketones NEGATIVE mg/dL (NEGATIVE) Urine Occult Blood NEGATIVE (NEGATIVE) Urine Nitrate NEGATIVE (NEGATIVE) Urine Bilirubin NEGATIVE mg/dL (NEGATIVE) Urine Urobilinogen 0.2 mg/dL (0.2-1.0) Urine Leukocyte Esterase NEGATIVE Giovanny/uL Urine RBC None /HPF (0-1) Urine WBC 0-1 /HPF (0-1) Urine Bacteria None /HPF (None Seen) Influenza Type A Antigen Negative For Type A Influenza Type B Antigen Negative For Type B SARS-CoV-2 Antigen (Rapid) PRESUMPTIVE NEGATIVE Labs Reviewed?: Yes EKG Comment: Twelve lead EKG done on 05/19/2025 at 10:16 p.m. showed a heart rate of 57, [place] interval 181, QRS 89, QT/QTC 409/398 Impression normal sinus rhythm with nonspecific STT wave changes noted throughout. Overall somewhat of a low voltage. I compared the EKG to the 1 done on 12/16/2024 and patient is only bradycardic at this time EKG rhythm strip shows a normal sinus rhythm with a nonspecific ST-T changes. Interpreted by ER MD Dr. Moses ED Course ED Course Orders Procedure Category Date Status Time Cbc With Differential LAB 05/19/25 Complete 20:57 Basic Metabolic Panel LAB 05/19/25 Complete 20:57 Urinalysis LAB 05/19/25 Complete W/Microscopic 21:34 Potassium Bicarb/Cit PHA 05/19/25 Complete Ac 25meq (K-Lyte Ta 22:00 Magnesium Oxide PHA 05/19/25 Complete (Mag-Ox) 22:00 12 Lead Ekg Tracing- EKG 05/19/25 Complete Technical 22:10 Chest 1vw RAD 05/19/25 Resulted 22:10 0.9%Nacl 1000ml (Ns PHA 05/19/25 In Process 1000ml) 22:30 Potassium Chloride PHA 05/19/25 Complete 20meq/10ml (Kcl 20meq 22:30 Magnesium 2gm Premix PHA 05/19/25 In Process 50ml (Magnesium 2gm 22:30 Influenza Type A & B, LAB 05/19/25 Complete Rapid 22:10 Covid19 (Sars Antigen LAB 05/19/25 Complete Rapid) 22:10 Thyroid Stimulating LAB 05/19/25 Complete Hormone 22:10 Potassium Chloride PHA 05/19/25 In Process 10meq/100ml ([place] 22:30 Edm Admit Bridge Order ADM 05/19/25 Transmitted 23:23 Vital Signs(Adult CPOE 05/19/25 Transmitted Hospitalist) 23:24 Daily Weights CPOE 05/19/25 Transmitted 23:24 Acetaminophen 325 Tab PHA 05/19/25 In Process (Tylenol 325mg Tab 23:30 Acetaminophen 325 Tab PHA 05/19/25 In Process (Tylenol 325mg Tab 23:30 Ondansetron 4mg Inj PHA 05/19/25 In Process (Zofran 4mg Inj) 23:30 Nurse To Enter Home CPOE 05/19/25 Transmitted Medication 23:24 Admit Orders ADM 05/19/25 Transmitted 23:24 Activity: Ad Melody CPOE 05/19/25 Transmitted 23:24 Heart Healthy Diet DIET 05/20/25 Transmitted Breakfast Apply Scds CPOE 05/19/25 Transmitted 23:24 Famotidine 20mg Tab PHA 05/20/25 In Process (Pepcid 20mg Tab) 09:00 Magnesium 2gm Premix PHA 05/19/25 In Process 50ml (Magnesium 2gm 23:30 Initiate Po MARILIA 05/19/25 In Process Hypokalemia Protoc 23:24 Potassium Chloride PHA 05/19/25 In Process 20meq/100ml ([place] 23:30 Potassium Chl 10% PHA 05/19/25 In Process Elixir 20meq (Kcl 10% 23:30 Potassium Chloride PHA 05/19/25 In Process 20meq Er (K-Dur/Klor- 23:30 Notify Physician If CPOE 05/19/25 Transmitted There Is 23:24 Notify Md On The Next CPOE 05/19/25 Transmitted 23:24 Notify Md On The CPOE 05/19/25 Transmitted Next(Cont.) 23:24 Cbc With Differential LAB 05/20/25 Verified 04:00 Comprehensive LAB 05/20/25 Verified Metabolic Panel 04:00 Magnesium LAB 05/20/25 Verified 04:00 Thyroid Stimulating LAB 05/20/25 Verified Hormone 04:00 12 Lead Ekg Tracing- EKG 05/20/25 Logged Technical 06:00 Vital Signs Date Time Temp Pulse Resp B/P (MAP) Pulse Ox O2 Delivery O2 Flow Rate FiO2 05/19/25 22:40 98.2 66 18 142/78 98 Room Air* 0 21 05/19/25 20:42 98.2 66 16 135/85 98 Room Air 0 We will perform diagnostic labs, advanced imaging and administer medications according to the patient's complaint. Once the results are available, will review and personally interpreted the labs to rule out any acute life- threatening emergency the trach require immediate intervention and treatment. I will then re-evaluate the patient after treatment and diagnostic exams have return to determine whether the patient requires any further testing, can safely be discharged home or need further admission to hospital for additional treatment and evaluation. We will admit him for observation and management of severe hypokalemia and profound weakness and dizziness Medical Decision Making MDM Differential diagnosis: Dehydration, electrolyte abnormalities including hypokalemia and hypomagnesemia, anemia, viral syndrome, cardiac disease, hypothyroidism This is a 59-year-old male who presented to the emergency room complaining of generalized weakness dizziness since yesterday. He stated that when he had these kind of symptoms and he presented to [facility] he had extremely low potassium. They repleted potassium and magnesium and his weakness improved. He also reported an occipital headache for which he took Tylenol 1000 mg and he was feeling somewhat better. No fever chills or rigors. No nausea vomitings diarrhea hematemesis or melena. Patient does report frequent urination and takes a pill for prostate problem. Temperature 98.2 pulse 66 respirations 16 blood pressure 135/85 with a pulse oximetry of 98% on room air His chronic medical problems include cerebrovascular accident in 2018 with residual left-sided deficits, hypertension, diabetes mellitus, hyperlipidemia, arrhythmias and adrenal mass 10:00 p.m. labs reviewed CBC is with a normal limits BNP 7 shows a potassium of 3.1 BUN and creatinine are 13 and 1.0. Urinalysis is unremarkable. We will aggressively replete potassium and magnesium Patient indicated that it took 3 or 4 days for his potassium and magnesium to improve and does not want to go home without potassium being monitored. He states he is extremely weak. Rationale: Tests considered and ordered secondary to shared decision making include: labs, ECG and radiology Previous outside records reviewed: Old ER visits. Risk of complication and/or morbidity or mortality of patient management: None Medications-Per medication reconciliation Need for hospitalization: Patient does meet criteria for hospitalization. Need for emergency major/minor surgery: No There are no social concerns with this patient. Prescription drug management Prescriptions will include symptomatic care Patient's prior external medical records from other ER visits were reviewed by me as indicated. Prior testing and results from previous visits were reviewed. Prior tests were taken into account with medical decision making and resource utilization, independent historian/historians were used to obtain complete medical history. I independently interpreted the test that were performed, results were reviewed by me and considered findings on radiology if ordered. Medical management and examination interpretation discussions were had by me with other qualified healthcare professionals as indicated for the patient's care. Problem List Problem List: (1) Weakness (2) Hypokalemia (3) Dizziness DX & DISP Disposition: Inpatient Departure Impression: Primary Impression: Weakness Additional Impressions: Hypokalemia, Dizziness Condition: Stable Scripts Magnesium Oxide (Magnesium Oxide) 250 Mg Tablet 1 TAB PO DAILY for 15 Days, #15 TAB 0 Refills Prov: JUAN PABLO MOSES MD 05/19/25 Potassium Chloride (Potassium Chloride) 10 Meq Capsule.er 1 CAP PO DAILY for 15 Days, #15 CAP 0 Refills Prov: JUAN PABLO MOSES MD 05/19/25 Additional Instructions: Patient was informed of all the diagnostic labs and procedures conducted in the emergency room today and demonstrated understanding of the results. I personally reviewed and interpreted all the diagnostic exams performed in the ER today. The patient will be admitted to the hospital for further treatment and evaluation. Disposition-admit to facility Condition-stable/guarded Course-uncertain at this time Pain status-decreased Assessment-exam unchanged Admission Certification- I certify that the patients status is appropriate and is based on my best clinical judgment and the patient's condition as documented in the medical records Referrals: DEVANG CHASE (PCP) JUAN PABLO MOSES MD May 19, 2025 21:02
[2025-05-19 21:10] LABS: IMMATURE GRANULOCYTE ABSOLUTE 0.02 K/uL (0-1); NUCLEATED RED BLOOD CELLS 0.0 % (0.0-0.19); PLATELET COUNT (AUTO) 239 K/uL (130-400); RED BLOOD CELL COUNT(AUTO) 4.82 MIL/uL (4.50-6.20); RED CELL DISTRIBUTION WIDTH 13.6 % (11.0-15.5); WHITE BLOOD COUNT (AUTO) 8.2 K/uL (4.8-10.8)
[2025-05-19 21:20] LABS: CREATININE 1.0 mg/dL (0.5-1.3); GLOMERULAR FILTR. RATE CALC 87.0 mL/min (>90); GLUCOSE,RANDOM 84.0 mg/dL (70-105); SODIUM SERUM 141.0 mmol/L (136-145); UREA NITROGEN, BLOOD 13.0 mg/dL (7-18)
[2025-05-19 21:48] LABS: APPEARANCE,URINE CLEAR (CLEAR); GLUCOSE, URINE (UA) TRACE mg/dL (NEGATIVE); LEUKOCYTE ESTERASE ,URINE NEGATIVE Leu/uL (NEGATIVE); NITRATE,URINE NEGATIVE (NEGATIVE); OCCULT BLOOD,URINE NEGATIVE (NEGATIVE)
[2025-05-19] MEDS ORDERED: MAGNESIUM OXIDE 400 MG TABLET PO ONE (22:00)
[2025-05-19] MEDS ORDERED: MAGN250T39 PO (22:03)
[2025-05-19] MEDS ORDERED: POTA10CA95 PO (22:03)
--- NOTE | 2025-05-19 22:22 | EKG ---
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
--- NOTE | 2025-05-19 23:08 | HMCIMG ---
EXAM: X-Ray Chest, 1 view. CLINICAL HISTORY: Severe Weakness. COMPARISON: Prior chest x-ray dated 04/06/25. FINDINGS: Significant interval reduction in the left pleural effusion. The lungs show no infiltrate or other acute findings. No right pleural effusion or pneumothorax. The cardiomediastinal silhouette is within normal limits. Redemonstrated multiple left rib fractures. IMPRESSION: Significant interval reduction in the left pleural effusion with improved aeration of the left lower zone. The remaining findings are stable. /[place]
[2025-05-19] MEDS: 0.9%NACL 1000ML 1,000 ML IV ONE (23:09)
[2025-05-19] MEDS: MAGNESIUM 2GM PREMIX 50ML 50 ML IV SCH (23:09)
--- NOTE | 2025-05-19 23:23 | HP ---
[facility] HISTORY AND PHYSICAL Date of Service: May 19, 2025 Time of Service: 23:23 PCP: Geovanny GONZALEZ HISTORY OF PRESENT ILLNESS: This is a 59-year-old male with past medical history of alcoholism, insomnia depression anxiety, hypertension, diabetes, hyperlipidemia, coronary artery disease, BPH,CVA with left-sided weakness, and fall with left rib fracture who was brought by EMS to the ED for complaints of generalized body weakness and dizziness started yesterday.Patient also reports having headache but already re solved . Patient reports he was recently admitted in [facility] 2 weeks ago for similar problem and was confined for 3 days he said because his potassium was very low.Patient admits to drinking alcohol and using Marijuana as well.Patient reports he has frequent urination and taking Flomax for his prostate problem .Patient is ambulatory and he is using a cane.Patient denies any other symp toms.V/S T98.2,HR 66,BP 147/78 Sat 98% RA. Labs: CBC unremarkable. Potassium 3.1, CO2 33 the rest of the chemistries normal. Urinalysis unremarkable. Influenza type a and B negative SARs COVID negative. Chest x-ray result revealed significant interval reduction in the left pleural effusion with improved aeration of the left lower zone. The remaining findings are stable. ECG result revealed sinus bradycardia heart rate 57 nonspecific T abnormalities anterolateral leads. While in the ER patient received magnesium 400 mg p.o., potassium replacement 50 mEq p.o.. ER called and recommended to admit the patient. REVIEW OF SYSTEMS CONSTITUTIONAL: Denies fevers, chills, or night sweats. No unintentional weight loss reported. NEUROLOGICAL: Complain of generalized body weakness and dizziness Denies headache, amaurosis fugax, sensory deficit, gait abnormalities, or tremors. ENT: No hearing loss, otalgia, otorrhea, rhinitis, rhinorrhea, hoarseness, or sore throat. CARDIOVASCULAR: Denies any exertional angina, dyspnea on exertion, orthopnea, paroxysmal nocturnal dyspnea, palpitations, life-threatening arrhythmias, claudication. PULMONARY: Denies any shortness of breath, cough, phlegm/sputum, hemoptysis, pleuritic chest pain. SLEEP: Denies morning headaches, daytime somnolence or napping. Denies difficulty falling asleep, staying asleep, waking from sleep. Denies knowledge of snoring. GASTROINTESTINAL: Denies any type of dysphagia to either liquids or solids. Denies nausea, vomiting, pyrosis, early satiety, abdominal pain, diarrhea, constipation, or changes in stool consistency or caliber. Denies coffee-ground emesis, hematemesis, hematochezia, or melanotic stools. GENITOURINARY: Denies frequency, urgency, nocturia, hematuria or incontinence (Storage/Irritative symptoms.) Low urinary stream, straining to void, urinary intermittency or hesitancy, splitting of the voiding stream, terminal dribbling. ENDOCRINOLOGIC: Denies polyuria, polydipsia, polyphagia or heat/cold intolerances. HEMATOLOGIC: Denies thrombophilia/previous clots, or coagulopathy/bleeding disorders. ONCOLOGIC: Denies personal history of malignancy. DERMATOLOGIC: Denies rashes or pruritus. PSYCHIATRIC: Denies any suicidal or homicidal ideation. Denies hallucinations. PAST MEDICAL HISTORY: [ alcoholism, insomnia depression anxiety, hypertension, diabetes, hyperlipidemia, coronary artery disease, BPH,CVA with left-sided weakness, and fall with left rib fracture ] PAST SURGICAL HISTORY: [Left arm surgery secondary to fall, appendectomy and right inguinal hernia repair ] PAST SOCIAL HISTORY: [ Patient lives with mother. Patient states he drinks 12 beers and uses marijuana last use last Wednesday .Patient admits to drinking alcohol and using marijuana monthly. Patient denies cigarette and cocaine use ] FAMILY HISTORY: [ Hypertension, diabetes and cardiovascular disease] Coded Allergies: No Known Drug Allergies (Verified Allergy, 11/10/12) PHYSICAL EXAM GENERAL APPEARANCE: The patient is awake, alert, and oriented, in no acute cardiopulmonary distress. NEUROLOGICAL: Moves right upper and bilateral lower extremities HEENT: Face is symmetric. Pupils are equal and reactive. Extraocular movements are intact. NECK: Supple. No JVD. No thyromegaly. No submental, submandibular, pre- /postauricular, occipital or supraclavicular lymphadenopathy. CHEST: Normal chest expansion. No Telemetry. LUNGS: Absence of any rales, rhonchi or any wheezing. CARDIOVASCULAR: Regular. S1 and S2 normal. No appreciable rubs, murmurs or gallops. ABDOMEN: Soft, nontender, and nondistended. There is no rebound, voluntary guarding, or rigidity. : Deferred. No [place]. EXTREMITIES: Non-edematous and not cyanotic. No clubbing. Good capillary refill. SKIN: No skin breakdown. Vital Sign (Last 24 Hours) 05/19/25 22:40 Temp 98.2 Pulse 66 Resp 18 B/P (MAP) 142/78 Pulse Ox 98 O2 Delivery Room Air* O2 Flow Rate 0 FiO2 21 LABS: Laboratory: Test 05/19/25 21:34 05/19/25 21:02 Range/Units Urine Color LIGHT-YELLOW YELLOW Urine Appearance CLEAR CLEAR Urine pH 6.0 5.0-8.0 Urine Specific [place] 1.005 1.001-1.031 Urine Protein NEGATIVE NEGATIVE mg/dL Urine Glucose (UA) TRACE H NEGATIVE mg/dL Urine Ketones NEGATIVE NEGATIVE mg/dL Urine Occult Blood NEGATIVE NEGATIVE Urine Nitrate NEGATIVE NEGATIVE Urine Bilirubin NEGATIVE NEGATIVE mg/dL Urine Urobilinogen 0.2 0.2-1.0 mg/dL Urine Leukocyte Esterase NEGATIVE NEGATIVE Giovanny/uL Urine RBC None 0-1 /HPF Urine WBC 0-1 0-1 /HPF Urine Bacteria None None Seen /HPF White Blood Count 8.2 4.8-10.8 K/uL Red Blood Count 4.82 4.50-6.20 MIL/uL Hemoglobin 14.3 14.0-18.0 g/dL Hematocrit 43.4 42-54 % Mean Corpuscular Volume 90.0 79-99 fL Mean Corpuscular Hemoglobin 29.7 27.0-33.0 pg Mean Corpuscular Hemoglobin Concent 32.9 32.0-36.0 g/dL Red Cell Distribution Width 13.6 11.0-15.5 % Platelet Count 239 130-400 K/uL Mean Platelet Volume 9.9 7.5-10.5 fL Immature Granulocyte % (Auto) 0.2 0-1 % Neutrophils (%) (Auto) 68.1 40.0-77.0 % Lymphocytes (%) (Auto) 18.0 L 21.0-51.0 % Monocytes (%) (Auto) 9.3 3.0-13.0 % Eosinophils (%) (Auto) 3.7 0.0-8.0 % Basophils (%) (Auto) 0.7 0.0-5.0 % Neutrophils # (Auto) 5.6 1.8-7.7 K/uL Lymphocytes # (Auto) 1.5 1.0-4.8 K/uL Monocytes # (Auto) 0.8 0.1-1.0 K/uL Eosinophils # (Auto) 0.30 0.00-0.70 K/uL Basophils # (Auto) 0.06 0.00-0.20 K/uL Absolute Immature Granulocyte (auto 0.02 0-1 K/uL Nucleated Red Blood Cells 0.0 0.0-0.19 % Sodium Level 141 136-145 mmol/L Potassium Level 3.1 L 3.5-5.1 mmol/L Chloride Level 102 101-111 mmol/L Carbon Dioxide Level 33 H 21-32 mmol/L Blood Urea Nitrogen 13 7-18 mg/dL Creatinine 1.0 0.5-1.3 mg/dL Glomerular Filtration Rate Calc 87 >90 mL/min Random Glucose 84 70-105 mg/dL Total Calcium 8.8 8.5-10.1 mg/dL Thyroid Stimulating Hormone (TSH) 2.05 # 0.36-3.74 uIU/mL Current Medications Medications (Trade) Dose Ordered Sig/[place] Route PRN Reason Start Time Stop Time Status Last Admin Dose Admin Magnesium Sulfate 50 ml @ 0 mls/hr PROTOCOL IV 05/19/25 22:30 06/18/25 22:29 05/19/25 23:09 25 MLS/HR Potassium Chloride 10 meq/ Sodium Chloride 50 ml @ 50 mls/hr PROTOCOL IV 05/19/25 22:30 05/19/25 22:26 DC Potassium Chloride 100 ml @ 100 mls/hr PROTOCOL IV 05/19/25 22:30 06/18/25 22:29 05/19/25 23:09 100 MLS/HR DIAGNOSTICS / RADIOLOGY: [ ] ASSESSMENT: Symptomatic hypokalemia POA Alcoholism POA Marijuana use POA Hypertension POA Diabetes POA Hyperlipidemia POA Anxiety disorder POA Depression POA CVA with left-sided weakness POA PLAN: We will admit patient for observation in medical surgical We will start on heart healthy diet We will start on famotidine 20 mg p.o. daily for GI prophylaxis We will replace electrolytes as needed per protocol We will start on insulin sliding scale AC & HS with hypoglycemia protocol We will add prn medication for fever,pain,cough , nausea and vomiting We will reconcile home meds once medlist available We will request EKG in a.m. We will request labs in am Further orders to follow depending on above results Case discussed with attending physician and came up with above treatment and plan of care. ADVANCED CARE PLANNING 1. Which of the following were discussed? Hospice Care - No Therapeutic options - Yes Advance Directives - No Other discussions - 2. Discussed with who? Patient 3. Voluntary nature of this service was explained to the patient? Yes 4. Amount of time spent - _23 min 5. Reviewed by Physician? (if this service was performed by NPP) Yes Patient seen and examined by me. Agree with note by ZINC FURNACE CHARGER SEE ADDITIONAL ORDERS PER CHART DISCUSSED WITH NURSING STAFF KIRSTY MONTEJO NUTRITION MANAGER May 19, 2025 23:23
[2025-05-19] MEDS ORDERED: MAGNESIUM 2GM PREMIX 50ML 50 ML IV PRN (23:30)
[2025-05-19] MEDS ORDERED: PoTASSium chl 10% ELIXIR 20MEQ 20 MEQ/15 ML UDCUP PO PRN (23:30)
[2025-05-19 23:42] LABS: COVID19 (SARS ANTIGEN RAPID) PRESUMPTIVE NEGATIVE (NEGATIVE); INFLUENZA TYPE A Negative For Type A (NEGATIVE); INFLUENZA TYPE B Negative For Type B (NEGATIVE)
[2025-05-20] VITALS (10 sets, daily range): BP systolic 143–171; BP diastolic 73–104; PULSE 55–76; RESP 18–20; TEMP 97.4–98.2; O2SAT 96–99
[2025-05-20] MEDS ORDERED: DEXTROSE 50%-WATER 50 ML DISP.SYRIN IV PRN (00:30)
[2025-05-20] MEDS ORDERED: GLUCAGON 1MG KIT 1 MG ML IM PRN (00:30)
--- NOTE | 2025-05-20 01:28 | NUR ---
PATIENT REPORT GIVEN TO KARL
--- NOTE | 2025-05-20 01:30 | NUR ---
ADMIT PT ADMITTED TO ROOM 321, AAOX4. ADMISSION CARE DONE. ADMISSION V/S MONITORED, STABLE. ADMISSION ASSESSMENT DONE, PLEASE REFER TO CHART. ADMISSION DATA BASE COMPLETED. HOME MED LIST UPDATED IN COMPUTER. PROVIDED SNACKS TO TAKE AT THIS TIME HE CLAIMS OF FEELING HUNGRY. CALL LIGHT WITHIN REACH. ACTIVATED BED ALARM. ORIENTED TO ROOM AND UNIT. IN FOR MORE CARE AND MANAGEMENT.
[2025-05-20] MEDS ORDERED: DULO60CA64 PO (01:44)
--- NOTE | 2025-05-20 05:34 | NUR ---
RE-CHECK PT SLEPT AT INTERVALS SINCE ADMISSION. RE-CHECKED BA=852/73, HR=66. DENIES ANY CONCERNS AT THIS TIME. BLOOD BANK BUSINESS MANAGER IN TO DRAW BLOOD. KEPT RESTED IN BED. CALL LIGHT WITHIN REACH. FOR MORE CARE.
[2025-05-20 05:39] LABS: IMMATURE GRANULOCYTE ABSOLUTE 0.02 K/uL (0-1); NUCLEATED RED BLOOD CELLS 0.0 % (0.0-0.19); PLATELET COUNT (AUTO) 218 K/uL (130-400); RED BLOOD CELL COUNT(AUTO) 4.55 MIL/uL (4.50-6.20); RED CELL DISTRIBUTION WIDTH 13.6 % (11.0-15.5); WHITE BLOOD COUNT (AUTO) 7.2 K/uL (4.8-10.8)
[2025-05-20 06:02] LABS: ASPARTATE AMINOTRANSFERASE 14.0 U/L (10-37); CREATININE 0.9 mg/dL (0.5-1.3); GLOMERULAR FILTR. RATE CALC 98.0 mL/min (>90); GLUCOSE,RANDOM 103.0 mg/dL (70-105); SODIUM SERUM 145.0 mmol/L (136-145); TOTAL PROTEIN, SERUM 6.4 g/dL (6.0-8.3); UREA NITROGEN, BLOOD 8.0 mg/dL (7-18)
--- NOTE | 2025-05-20 06:23 | EKG ---
[facility] Test Date: 2025-05-20 Test Time: 06:20:22 Pat Name: DANYELL ROSARIO Department: [facility] Room: 321 1 Gender: M Cap Sewer: EMMANUEL : 1965 Requested By: KIRSTY MONTEJO Order Number: [id number] Reading MD: Dwight Esposito Measurements Intervals [place] Rate: 56 P: 41 [place]: 162 QRS: 11 QRSD: 90 T: 102 QT: 432 QTc: 416 Interpretive Statements Sinus bradycardia Nonspecific T wave abnormality Compared to ECG 05/19/2025 22:16:21 T-wave abnormality now present Sinus rhythm no longer present Electronically Signed On 05-20-2025 21:57:37 CDT by Dwight sEposito Please click the below link to view image of tracing.
[2025-05-20] MEDS: PoTASSium chloRIDE 20MEQ ER 20 MEQ ERTAB PO PRN (06:29)
[2025-05-20] MEDS: FAMOTIDINE 20MG TAB PO SCH (07:59)
--- NOTE | 2025-05-20 13:44 | PN ---
[facility] PROGRESS NOTE Date of Service: May 20, 2025 Time of Service: 13:[address] Hayes SUBJECTIVE: [05/19 This is a 59-year-old male with past medical history of alcoholism, insomnia depression anxiety, hypertension, diabetes, hyperlipidemia, coronary artery disease, BPH,CVA with left-sided weakness, and fall with left rib fracture who was brought by EMS to the ED for complaints of generalized body weakness and dizziness started yesterday.Patient also reports having headache but already resolved . Patient reports he was recently admitted in [facility] 2 weeks ago for similar problem and was confined for 3 days he said because his pota ssium was very low.Patient admits to drinking alcohol and using Marijuana as well.Patient reports he has frequent urination and taking Flomax for his prostate problem .Patient is ambulatory and he is using a cane.Patient denies any other symptoms.V/S T98.2,HR 66,BP 147/78 Sat 98% RA. Labs: CBC unremarkable. Potassium 3.1, CO2 33 the rest of the chemistries normal. Urinalysis unremarkable. Influenza type a and B negative SARs COVID negative. Chest x-ray result revealed significant interval reduction in the left pleural effusion with improved aeration of the left lower zone. The remaining findings are stable. ECG result revealed sinus bradycardia heart rate 57 nonspecific T abnormalities anterolateral leads. While in the ER patient received magnesium 400 mg p.o., potassium replacement 50 mEq p.o.. ER called and recommended to admit the patient. 05/20 patient was seen by nurse practitioner and physician during rounding in room 321. Chest x-ray significant interval reduction in the left pleural effusi on with improved aeration of the left lower zone. The remaining findings are stable. Patient's potassium today is 3.2. Patient will receive two doses of 40 mEq of potassium throughout the day. Medication reconciled by nurse practitioner. Due to nausea and vomiting with the abdominal pain is present in on the admission we will order CT abdomen/pelvis. Patient also stated that he has been drinking for the past few days and also smoking marijuana. Patient will be placed on CIWA protocol in the meantime. Patient did complain of some anxiety yesterday and in the morning not at this moment. We will continue to monitor patient in the meantime. A.m. labs.] REVIEW OF SYSTEMS CONSTITUTIONAL: Denies fevers, chills, or night sweats. No unintentional weight loss reported. NEUROLOGICAL: Complain of generalized body weakness and dizziness Denies headache, amaurosis fugax, sensory deficit, gait abnormalities, or tremors. ENT: No hearing loss, otalgia, otorrhea, rhinitis, rhinorrhea, hoarseness, or sore throat. CARDIOVASCULAR: Denies any exertional angina, dyspnea on exertion, orthopnea, paroxysmal nocturnal dyspnea, palpitations, life-threatening arrhythmias, claudication. PULMONARY: Denies any shortness of breath, cough, phlegm/sputum, hemoptysis, pleuritic chest pain. SLEEP: Denies morning headaches, daytime somnolence or napping. Denies di fficulty falling asleep, staying asleep, waking from sleep. Denies knowledge of snoring. GASTROINTESTINAL: Denies any type of dysphagia to either liquids or solids. Denies nausea, vomiting, pyrosis, early satiety, abdominal pain, diarrhea, constipation, or changes in stool consistency or caliber. Denies coffee-ground emesis, hematemesis, hematochezia, or melanotic stools. GENITOURINARY: Denies frequency, urgency, nocturia, hematuria or incontinence (Storage/Irritative symptoms.) Low urinary stream, straining to void, urinary intermittency or hesitancy, splitting of the voiding stream, terminal dribbling. ENDOCRINOLOGIC: Denies polyuria, polydipsia, polyphagia or heat/cold intolerances. HEMATOLOGIC: Denies thrombophilia/previous clots, or coagulopathy/bleeding disorders. ONCOLOGIC: Denies personal history of malignancy. DERMATOLOGIC: Denies rashes or pruritus. PSYCHIATRIC: Denies any suicidal or homicidal ideation. Denies hallucinations. PHYSICAL EXAM GENERAL APPEARANCE: The patient is awake, alert, and oriented, in no acute cardiopulmonary distress. NEUROLOGICAL: Moves right upper and bilateral lower extremities HEENT: Face is symmetric. Pupils are equal and reactive. Extraocular movements are intact. NECK: Supple. No JVD. No thyromegaly. No submental, submandibular, pre- /postauricular, occipital or supraclavicular lymphadenopathy. CHEST: Normal chest expansion. No Telemetry. LUNGS: Absence of any rales, rhonchi or any wheezing. CARDIOVASCULAR: Regular. S1 and S2 normal. No appreciable rubs, murmurs or gallops. ABDOMEN: Soft, nontender, and nondistended. There is no rebound, voluntary guarding, or rigidity. : Deferred. No [place]. EXTREMITIES: Non-edematous and not cyanotic. No clubbing. Good capillary refill. SKIN: No skin breakdown. Vital Signs (last 8hr) Date Time Temp Pulse Resp B/P (MAP) Pulse Ox O2 Delivery O2 Flow Rate FiO2 05/20/25 12:00 97.9 76 18 158/104 95 Room Air 05/20/25 08:00 97.7 56 18 156/88 99 Room Air 05/20/25 07:59 99 Room Air* 0 21 LABS: Laboratory: Test 05/20/25 11:11 05/20/25 05:34 05/19/25 23:15 05/19/25 21:34 Range/Units Whole Blood Glucose 107 70-110 MG/DL White Blood Count 7.2 4.8-10.8 K/uL Red Blood Count 4.55 4.50-6.20 MIL/uL Hemoglobin 13.8 L 14.0-18.0 g/dL Hematocrit 40.9 L 42-54 % Mean Corpuscular Volume 89.9 79-99 fL Mean Corpuscular Hemoglobin 30.3 27.0-33.0 pg Mean Corpuscular Hemoglobin Concent 33.7 32.0-36.0 g/dL Red Cell Distribution Width 13.6 11.0-15.5 % Platelet Count 218 130-400 K/uL Mean Platelet Volume 9.6 7.5-10.5 fL Immature Granulocyte % (Auto) 0.3 0-1 % Neutrophils (%) (Auto) 63.8 40.0-77.0 % Lymphocytes (%) (Auto) 19.0 L 21.0-51.0 % Monocytes (%) (Auto) 11.5 3.0-13.0 % Eosinophils (%) (Auto) 4.6 0.0-8.0 % Basophils (%) (Auto) 0.8 0.0-5.0 % Neutrophils # (Auto) 4.6 1.8-7.7 K/uL Lymphocytes # (Auto) 1.4 1.0-4.8 K/uL Monocytes # (Auto) 0.8 0.1-1.0 K/uL Eosinophils # (Auto) 0.33 0.00-0.70 K/uL Basophils # (Auto) 0.06 0.00-0.20 K/uL Absolute Immature Granulocyte (auto 0.02 0-1 K/uL Nucleated Red Blood Cells 0.0 0.0-0.19 % Sodium Level 145 136-145 mmol/L Potassium Level 3.2 L 3.5-5.1 mmol/L Chloride Level 106 101-111 mmol/L Carbon Dioxide Level 33 H 21-32 mmol/L Blood Urea Nitrogen 8 7-18 mg/dL Creatinine 0.9 0.5-1.3 mg/dL Glomerular Filtration Rate Calc 98 >90 mL/min Random Glucose 103 70-105 mg/dL Total Calcium 8.2 L 8.5-10.1 mg/dL Magnesium Level 2.40 1.80-2.40 mg/dL Total Bilirubin 0.3 0.2-1.0 mg/dL Aspartate Amino Transf (AST/SGOT) 14 10-37 U/L Alanine Aminotransferase (ALT/SGPT) 27 12-78 U/L Alkaline Phosphatase 120 50-136 U/L Total Protein 6.4 6.0-8.3 g/dL Albumin 3.3 L 3.5-5.0 g/dL Thyroid Stimulating Hormone (TSH) 1.32 # 0.36-3.74 uIU/mL Influenza Type A Antigen Negative For Type A NEGATIVE Influenza Type B Antigen Negative For Type B NEGATIVE SARS-CoV-2 Antigen (Rapid) PRESUMPTIVE NEGATIVE NEGATIVE Urine Color LIGHT-YELLOW YELLOW Urine Appearance CLEAR CLEAR Urine pH 6.0 5.0-8.0 Urine Specific [place] 1.005 1.001-1.031 Urine Protein NEGATIVE NEGATIVE mg/dL Urine Glucose (UA) TRACE H NEGATIVE mg/dL Urine Ketones NEGATIVE NEGATIVE mg/dL Urine Occult Blood NEGATIVE NEGATIVE Urine Nitrate NEGATIVE NEGATIVE Urine Bilirubin NEGATIVE NEGATIVE mg/dL Urine Urobilinogen 0.2 0.2-1.0 mg/dL Urine Leukocyte Esterase NEGATIVE NEGATIVE Giovanny/uL Urine RBC None 0-1 /HPF Urine WBC 0-1 0-1 /HPF Urine Bacteria None None Seen /HPF Current Medications Medications (Trade) Dose Ordered Sig/[place] Route PRN Reason Start Time Stop Time Status Last Admin Dose Admin Acetaminophen (TYLenol 325MG TAB) 650 mg Q4H PRN PO MILD PAIN (1-3) 05/19/25 23:30 06/18/25 23:29 05/20/25 02:19 650 MG Acetaminophen (TYLenol 325MG TAB) 650 mg Q6H PRN PO TEMPERATURE GREATER THAN 101.5 05/19/25 23:30 06/18/25 23:29 Dextrose (D50w) 50 ml AD PRN IV HYPOGLYCEMIA PROTOCOL 05/20/25 00:30 06/19/25 00:29 Famotidine (Pepcid 20mg Tab) 20 mg DAILY PO 05/20/25 09:00 06/19/25 08:59 05/20/25 07:59 20 MG Glucagon (Glucagon 1mg Kit) 1 mg AD PRN IM HYPOGLYCEMIA PROTOCOL 05/20/25 00:30 06/19/25 00:29 Insulin Human Regular (humuLIN R 100 UNIT/ML 3ML) INSULIN SLIDING SCAL... ACHS SQ 05/20/25 07:30 06/19/25 07:29 Lorazepam (AtiVAN) 0.5 mg Q6H PRN PO ANXIETY/AGITATION 05/20/25 13:30 06/19/25 13:29 05/20/25 13:22 0.5 MG Magnesium Sulfate 50 ml @ 0 mls/hr PROTOCOL IV 05/19/25 22:30 05/20/25 00:21 DC 05/19/25 23:09 25 MLS/HR Magnesium Sulfate 50 ml @ 0 mls/hr PROTOCOL PRN IV OTHER [SEE ORDER COMMENTS] 05/19/25 23:30 06/18/25 23:29 Ondansetron HCl (zoFRAN 4MG INJ) 4 mg Q6H PRN IV NAUSEA/VOMITING 05/19/25 23:30 06/18/25 23:29 Potassium Chloride 10 meq/ Sodium Chloride 50 ml @ 50 mls/hr PROTOCOL IV 05/19/25 22:30 05/19/25 22:26 DC Potassium Chloride 100 ml @ 100 mls/hr AD PRN IV POTASSIUM PROTOCOL 05/19/25 23:30 06/18/25 23:29 Potassium Chloride 100 ml @ 100 mls/hr PROTOCOL IV 05/19/25 22:30 06/18/25 22:29 05/19/25 23:09 100 MLS/HR Potassium Chloride (K-Dur/Klor-Con 20meq) 20 meq AD PRN PO POTASSIUM PROTOCOL 05/19/25 23:30 06/18/25 23:29 05/20/25 13:23 20 MEQ Potassium Chloride (KCl 10% Elixir 20meq/15ml) 20 meq AD PRN PO POTASSIUM PROTOCOL 05/19/25 23:30 06/18/25 23:29 DIAGNOSTICS / RADIOLOGY: [ ] ASSESSMENT: Symptomatic hypokalemia POA Severe abdominal pain POA Intractable nausea and vomiting POA Alcoholism POA Marijuana use POA Uncontrolled Hypertension POA Uncontrolled Diabetes POA Hyperlipidemia POA Anxiety disorder POA Depression POA CVA with left-sided weakness POA PLAN: Chest x-ray significant interval reduction in the left pleural effusion with improved aeration of the left lower zone. The remaining findings are stable. Patient's potassium today is 3.2. Patient will receive two doses of 40 mEq of potassium throughout the day. Medication reconciled by nurse practitioner. Due to nausea and vomiting with the abdominal pain is present in on the admission we will order CT abdomen/pelvis. Patient also stated that he has been drinking for the past few days and also smoking marijuana. Patient will be placed on CIWA protocol in the meantime. Patient did complain of some anxiety yesterday and in the morning not at this moment. We will continue to monitor patient in the meantime. A.m. labs. Continue for observation in medical surgical Continue start on heart healthy diet Continue famotidine 20 mg p.o. daily for GI prophylaxis We will replace electrolytes as needed per protocol We will start on insulin sliding scale AC & HS with hypoglycemia protocol We will add prn medication for fever,pain,cough , nausea and vomiting Further orders to follow depending on above results Case discussed with attending physician and came up with above treatment and plan of care. ATTESTATION BY PHYSICIAN I have seen and examined the patient. I reviewed the documentation, medical decision making, and treatment plan as noted by the mid-level provider above. I agree with the findings and plan of care. Diego Hayes IV, MD, [facility] May 20, 2025 13:44
[2025-05-20] MEDS ORDERED: PHARMACY COMMUNICATION MISC PRN (14:00)
[2025-05-20] MEDS ORDERED: PROMETHAZINE HCL 25 MG TABLET PO PRN (14:00)
[2025-05-20] MEDS ORDERED: COMPOUND IV MISC 1 EACH IVSOLN MISC PRN (14:30)
[2025-05-20] MEDS ORDERED: COMPOUND IV REFRIGERATED 1 EACH IVSOLN MISC PRN (14:30)
[2025-05-20] MEDS: THIAMINE HCL 100 MG, FOLic ACID 5 MG/ML VIAL 1 MG in 0.9%NACL 1000ML 1,000 ML IV SCH (14:33)
[2025-05-20] MEDS: PoTASSium chloRIDE 20MEQ ER 20 MEQ ERTAB PO ONE ×2 (14:33→20:44)
--- NOTE | 2025-05-20 16:41 | NUR ---
INITIAL/DCP HOME Met w pt this afternoon to discuss dcp. Pt mentions that he lives w his mother. He uses a cane for ambulation and requires assist from his provider @ times for ADLs. He receives provider services M-F 8a-[id number] from [facility]. He owns a wc and sh chair if needed. His preferred pharmacy is [facility]. Pt mentions that his provider transports him where needed. However will most likely need an [place] ride @ [place]. Discharge goal is to return home. Pt provided w community resources including drug/alcohol recovery centers. Addendum: 05/20/25 at 1644 by KOJO PRITCHARD Amended: Links added.
--- NOTE | 2025-05-20 17:32 | HMCIMG ---
CLINICAL INFORMATION Severe nausea, vomiting COMPARISON None. TECHNIQUE Volumetric helical CT images of the abdomen and pelvis without contrast FINDINGS Liver: Normal. Gallbladder: No calcified gallstones or sludge. No wall thickening. Biliary System: Non-dilated. Pancreas: Normal. Spleen: Normal. Adrenals: 1.5 cm left adrenal nodule. Kidneys: 6 nonobstructing nephrolith in the inferior pole right kidney. No perinephric inflammation or hydronephrosis. Ureters: Normal. Bladder: Normal. Pelvis: No pelvic masses. No abnormal pelvic fluid. Stomach: Normal. Duodenum: Normal. Small Bowel: Normal. Colon: Colonic diverticulosis without inflammation. Appendix: Nonvisualized. No evidence of appendicitis. Lymph Nodes: No lymphadenopathy. Peritoneum: No ascites or free air. Fat-containing left Bochdalek hernia. Retroperitoneum: Normal. Vessels: Atherosclerotic calcification without aneurysmal dilation. Abdominal Wall: Normal. Bones: Degenerative changes of the visualized spine. Multiple subacute appearing left posterior and lateral rib fractures. Lung Bases: Normal. Inferior Mediastinum: Coronary artery calcifications. IMPRESSION No acute intra-abdominal findings. Colonic diverticulosis without inflammation. Nonobstructing right nephrolithiasis. Multiple subacute appearing left posterior and lateral rib fractures. /[place]
[2025-05-20] MEDS: GABAPENTIN 300 MG CAPSULE PO SCH (20:43)
--- NOTE | 2025-05-20 20:45 | NUR ---
MEDS SHIFT ASSESSMENT DONE, PLEASE REFER TO CHART. DUE MEDS ADMINISTERED, PT TOLERATED WELL. KEPT RESTED AND COMFORTABLE IN BED, CALL LIGHT WITH REACH. BED ALARM ACTIVATED.
[2025-05-21] VITALS (7 sets, daily range): BP systolic 132–169; BP diastolic 76–102; PULSE 62–70; RESP 18–20; TEMP 97.6–98.3; O2SAT 96
--- NOTE | 2025-05-21 00:55 | NUR ---
BP PT'S BP ELEVATED = 169/102, HR=66 ON RE-CHECK. PT DENIES ANY PAINS NOR DISCOMFORT AT THIS TIME. NO DISTRESS NOTED. MEDICATED WITH HYDRALAZINE IV. WILL RE-CHECK BP.
--- NOTE | 2025-05-21 05:09 | NUR ---
ROUNDS PT SLEPT AT INTERVALS DURING THE SHIFT. NO DISTRESS NOTED. KEPT RESTED AND COMFORTABLE. CALL LIGHT WITHIN REACH. FOR MORE CARE.
[2025-05-21 06:23] LABS: IMMATURE GRANULOCYTE ABSOLUTE 0.02 K/uL (0-1); NUCLEATED RED BLOOD CELLS 0.0 % (0.0-0.19); PLATELET COUNT (AUTO) 238 K/uL (130-400); RED BLOOD CELL COUNT(AUTO) 5.05 MIL/uL (4.50-6.20); RED CELL DISTRIBUTION WIDTH 13.7 % (11.0-15.5); WHITE BLOOD COUNT (AUTO) 5.8 K/uL (4.8-10.8)
[2025-05-21 06:35] LABS: ASPARTATE AMINOTRANSFERASE 15.0 U/L (10-37); CREATININE 0.7 mg/dL (0.5-1.3); GLOMERULAR FILTR. RATE CALC 106.0 mL/min (>90); GLUCOSE,RANDOM 97.0 mg/dL (70-105); SODIUM SERUM 143.0 mmol/L (136-145); TOTAL PROTEIN, SERUM 7.0 g/dL (6.0-8.3); UREA NITROGEN, BLOOD 7.0 mg/dL (7-18)
--- NOTE | 2025-05-21 10:05 | PN ---
[facility] PROGRESS NOTE Date of Service: May 21, 2025 Time of Service: 10:04 SUBJECTIVE: [05/19 This is a 59-year-old male with past medical history of alcoholism, insomnia depression anxiety, hypertension, diabetes, hyperlipidemia, coronary artery disease, BPH,CVA with left-sided weakness, and fall with left rib fracture who was brought by EMS to the ED for complaints of generalized body weakness and dizziness started yesterday.Patient also reports having headache but already resolved . Patient reports he was recently admitted in [facility] 2 weeks ago for similar problem and was confined for 3 days he said because his potassium was very low.Patient admits to drinking alcohol and using Marijuana as well.Patient reports he has frequent urination and taking Flomax for his prostate problem .Patient is ambulatory and he is using a cane.Patient denies any other symptoms.V/S T98.2,HR 66,BP 147/78 Sat 98% RA. Labs: CBC unremarkable. Potassium 3.1, CO2 33 the rest of the chemistries normal. Urinalysis unremarkable. Influenza type a and B negative SARs COVID negative. Chest x-ray result revealed significant interval reduction in the left pleural effusion with improved aeration of the left lower zone. The remaining findings are stable. ECG result revealed sinus bradycardia heart rate 57 nonspecific T abnormalities anterolateral leads. While in the ER patient received magnesium 400 mg p.o., potassium replacement 50 mEq p.o.. ER called and recommended to admit the patient. 05/20 patient was seen by nurse practitioner and physician during rounding in room 321. Chest x-ray significant interval reduction in the left pleural effusion with improved aeration of the left lower zone. The remaining findings are stable. Patient's potassium today is 3.2. Patient will receive two doses of 40 mEq of potassium throughout the day. Medication reconciled by nurse practitioner. Due to nausea and vomiting with the abdominal pain is present in on the admission we will order CT abdomen/pelvis. Patient also stated that he has been drinking for the past few days and also smoking marijuana. Patient will be placed on CIWA protocol in the meantime. Patient did complain of some anxiety yesterday and in the morning not at this moment. We will continue to monitor patient in the meantime. A.m. labs.] 05/21 patient is seen and examined at bedside, case discussed with the RN, no acute events overnight, patient noted to have mild tremor, he feels mildly anxious, remains on CIWA protocol. We will request PT to evaluate the patient, continue with CIWA protocol, fall precautions. Continue replacing electrolytes per protocol. Anticipate discharge in the next 24 hours. REVIEW OF SYSTEMS CONSTITUTIONAL: Denies fevers, chills, or night sweats. No unintentional weight loss reported. NEUROLOGICAL: Complain of generalized body weakness and dizziness Denies headache, amaurosis fugax, sensory deficit, gait abnormalities, or tremors. ENT: No hearing loss, otalgia, otorrhea, rhinitis, rhinorrhea, hoarseness, or sore throat. CARDIOVASCULAR: Denies any exertional angina, dyspnea on exertion, orthopnea, paroxysmal nocturnal dyspnea, palpitations, life-threatening arrhythmias, claudication. PULMONARY: Denies any shortness of breath, cough, phlegm/sputum, hemoptysis, pleuritic chest pain. SLEEP: Denies morning headaches, daytime somnolence or napping. Denies difficulty falling asleep, staying asleep, waking from sleep. Denies knowledge of snoring. GASTROINTESTINAL: Denies any type of dysphagia to either liquids or solids. Denies nausea, vomiting, pyrosis, early satiety, abdominal pain, diarrhea, constipation, or changes in stool consistency or caliber. Denies coffee-ground emesis, hematemesis, hematochezia, or melanotic stools. GENITOURINARY: Denies frequency, urgency, nocturia, hematuria or incontinence (Storage/Irritative symptoms.) Low urinary stream, straining to void, urinary intermittency or hesitancy, splitting of the voiding stream, terminal dribbling. ENDOCRINOLOGIC: Denies polyuria, polydipsia, polyphagia or heat/cold intolerances. HEMATOLOGIC: Denies thrombophilia/previous clots, or coagulopathy/bleeding disorders. ONCOLOGIC: Denies personal history of malignancy. DERMATOLOGIC: Denies rashes or pruritus. PSYCHIATRIC: Denies any suicidal or homicidal ideation. Denies hallucinations. PHYSICAL EXAM GENERAL APPEARANCE: The patient is awake, alert, and oriented, in no acute cardiopulmonary distress. NEUROLOGICAL: Moves right upper and bilateral lower extremities HEENT: Face is symmetric. Pupils are equal and reactive. Extraocular movements are intact. NECK: Supple. No JVD. No thyromegaly. No submental, submandibular, pre- /postauricular, occipital or supraclavicular lymphadenopathy. CHEST: Normal chest expansion. No Telemetry. LUNGS: Absence of any rales, rhonchi or any wheezing. CARDIOVASCULAR: Regular. S1 and S2 normal. No appreciable rubs, murmurs or gallops. ABDOMEN: Soft, nontender, and nondistended. There is no rebound, voluntary guarding, or rigidity. : Deferred. No [place]. EXTREMITIES: Non-edematous and not cyanotic. No clubbing. Good capillary refill. SKIN: No skin breakdown. Vital Signs (last 8hr) Date Time Temp Pulse Resp B/P (MAP) Pulse Ox O2 Delivery O2 Flow Rate FiO2 05/21/25 07:43 98.2 68 19 140/83 96 Room Air 05/21/25 04:00 97.9 70 20 156/91 96 Room Air LABS: Laboratory: Test 05/21/25 05:57 05/21/25 05:16 05/20/25 05:34 05/19/25 23:15 Range/Units White Blood Count 5.8 4.8-10.8 K/uL Red Blood Count 5.05 4.50-6.20 MIL/uL Hemoglobin 15.1 14.0-18.0 g/dL Hematocrit 45.6 42-54 % Mean Corpuscular Volume 90.3 79-99 fL Mean Corpuscular Hemoglobin 29.9 27.0-33.0 pg Mean Corpuscular Hemoglobin Concent 33.1 32.0-36.0 g/dL Red Cell Distribution Width 13.7 11.0-15.5 % Platelet Count 238 130-400 K/uL Mean Platelet Volume 9.7 7.5-10.5 fL Immature Granulocyte % (Auto) 0.3 0-1 % Neutrophils (%) (Auto) 69.0 40.0-77.0 % Lymphocytes (%) (Auto) 17.1 L 21.0-51.0 % Monocytes (%) (Auto) 10.7 3.0-13.0 % Eosinophils (%) (Auto) 1.9 0.0-8.0 % Basophils (%) (Auto) 1.0 0.0-5.0 % Neutrophils # (Auto) 4.0 1.8-7.7 K/uL Lymphocytes # (Auto) 1.0 1.0-4.8 K/uL Monocytes # (Auto) 0.6 0.1-1.0 K/uL Eosinophils # (Auto) 0.11 0.00-0.70 K/uL Basophils # (Auto) 0.06 0.00-0.20 K/uL Absolute Immature Granulocyte (auto 0.02 0-1 K/uL Nucleated Red Blood Cells 0.0 0.0-0.19 % Sodium Level 143 136-145 mmol/L Potassium Level 3.3 L 3.5-5.1 mmol/L Chloride Level 105 101-111 mmol/L Carbon Dioxide Level 32 21-32 mmol/L Blood Urea Nitrogen 7 7-18 mg/dL Creatinine 0.7 0.5-1.3 mg/dL Glomerular Filtration Rate Calc 106 >90 mL/min Random Glucose 97 70-105 mg/dL Total Calcium 8.9 8.5-10.1 mg/dL Magnesium Level 2.00 1.80-2.40 mg/dL Total Bilirubin 0.7 0.2-1.0 mg/dL Aspartate Amino Transf (AST/SGOT) 15 10-37 U/L Alanine Aminotransferase (ALT/SGPT) 26 12-78 U/L Alkaline Phosphatase 116 50-136 U/L Total Protein 7.0 6.0-8.3 g/dL Albumin 3.7 3.5-5.0 g/dL Whole Blood Glucose 105 70-110 MG/DL Thyroid Stimulating Hormone (TSH) 1.32 # 0.36-3.74 uIU/mL Influenza Type A Antigen Negative For Type A NEGATIVE Influenza Type B Antigen Negative For Type B NEGATIVE SARS-CoV-2 Antigen (Rapid) PRESUMPTIVE NEGATIVE NEGATIVE Test 05/19/25 21:34 Range/Units Urine Color LIGHT-YELLOW YELLOW Urine Appearance CLEAR CLEAR Urine pH 6.0 5.0-8.0 Urine Specific [place] 1.005 1.001-1.031 Urine Protein NEGATIVE NEGATIVE mg/dL Urine Glucose (UA) TRACE H NEGATIVE mg/dL Urine Ketones NEGATIVE NEGATIVE mg/dL Urine Occult Blood NEGATIVE NEGATIVE Urine Nitrate NEGATIVE NEGATIVE Urine Bilirubin NEGATIVE NEGATIVE mg/dL Urine Urobilinogen 0.2 0.2-1.0 mg/dL Urine Leukocyte Esterase NEGATIVE NEGATIVE Giovanny/uL Urine RBC None 0-1 /HPF Urine WBC 0-1 0-1 /HPF Urine Bacteria None None Seen /HPF Current Medications Medications (Trade) Dose Ordered Sig/[place] Route PRN Reason Start Time Stop Time Status Last Admin Dose Admin Acetaminophen (TYLenol 325MG TAB) 650 mg Q4H PRN PO MILD PAIN (1-3) 05/19/25 23:30 06/18/25 23:29 05/20/25 15:58 650 MG Acetaminophen (TYLenol 325MG TAB) 650 mg Q6H PRN PO TEMPERATURE GREATER THAN 101.5 05/19/25 23:30 06/18/25 23:29 Acetaminophen (TYLenol 500MG TAB) 500 mg Q6H PRN PO TEMP < 101.1 AND/OR HEADACHE 05/20/25 14:00 05/21/25 07:11 DC Amlodipine Besylate (NorvASC 5MG TAB) 5 mg DAILY PO 05/21/25 09:00 06/20/25 08:59 Aspirin (Aspirin 81mg Chew Tab) 81 mg DAILY PO 05/21/25 09:00 06/20/25 08:59 Atorvastatin Calcium (LIPItor 40MG) 40 mg HS PO 05/20/25 21:00 06/19/25 20:59 05/20/25 20:43 40 MG Chlordiazepoxide HCl (LIBrium 25 MG CAP) 25 mg Q2H PRN PO ALCOHOL WITHDRAWAL PROTOCOL 05/20/25 14:00 05/27/25 13:59 Chlordiazepoxide HCl (LIBrium 25 MG CAP) 50 mg Q1H PRN PO ALCOHOL WITHDRAWAL PROTOCOL 05/20/25 14:00 05/27/25 13:59 Dextrose (D50w) 50 ml AD PRN IV HYPOGLYCEMIA PROTOCOL 05/20/25 00:30 06/19/25 00:29 Duloxetine HCl (CymbALTA 30 mg CAP) 120 mg DAILY PO 05/21/25 09:00 06/20/25 08:59 Famotidine (Pepcid 20mg Tab) 20 mg DAILY PO 05/20/25 09:00 06/19/25 08:59 05/20/25 07:59 20 MG Folic Acid (FOLic ACID 1 MG TABLET) 1 mg DAILY PO 05/21/25 09:00 05/23/25 09:01 Gabapentin (NEURontin 300 MG CAP) 300 mg TID PO 05/20/25 21:00 06/19/25 20:59 05/20/25 20:43 300 MG Glucagon (Glucagon 1mg Kit) 1 mg AD PRN IM HYPOGLYCEMIA PROTOCOL 05/20/25 00:30 06/19/25 00:29 Home Med (Home Medication) ERGOCALCIFEROL (VITAMIN D2) 1,250 MCG QWEEK PO 05/27/25 09:00 06/26/25 08:59 Hydralazine HCl (APRESOLine 20MG INJ) 10 mg Q6H6 PRN IV IF SBP GREATER THAN 150 05/20/25 17:00 06/19/25 16:59 05/21/25 00:55 10 MG Insulin Human Regular (humuLIN R 100 UNIT/ML 3ML) INSULIN SLIDING SCAL... ACHS SQ 05/20/25 07:30 06/19/25 07:29 Labetalol HCl (TRANdate 200 MG TABLET) 300 mg BID PO 05/20/25 21:00 06/19/25 20:59 05/20/25 20:44 300 MG Lidocaine (Lidocaine Patch 4%) 1 each DAILY TP 05/21/25 09:00 06/20/25 08:59 Lorazepam (AtiVAN) 0.5 mg Q6H PRN PO ANXIETY/AGITATION 05/20/25 13:30 06/19/25 13:29 05/20/25 13:22 0.5 MG Losartan Potassium (CozAAR 100MG TAB) 100 mg DAILY PO 05/21/25 09:00 06/20/25 08:59 Magnesium Sulfate 50 ml @ 0 mls/hr PROTOCOL IV 05/19/25 22:30 05/20/25 00:21 DC 05/19/25 23:09 25 MLS/HR Magnesium Sulfate 50 ml @ 0 mls/hr PROTOCOL PRN IV OTHER [SEE ORDER COMMENTS] 05/19/25 23:30 06/18/25 23:29 Multivitamins Therapeutic (Multivitamin Tablet) 1 tab DAILY PO 05/21/25 09:00 06/20/25 08:59 Ondansetron HCl (zoFRAN 4MG INJ) 4 mg Q6H PRN IV NAUSEA/VOMITING 05/19/25 23:30 06/18/25 23:29 Pharmacy Profile Note (Pharmacy Communication) 1 each PROTOCOL PRN MISC ETOH Withdrawal Score changes 05/20/25 14:00 05/27/25 13:59 Potassium Chloride 10 meq/ Sodium Chloride 50 ml @ 50 mls/hr PROTOCOL IV 05/19/25 22:30 05/19/25 22:26 DC Potassium Chloride 100 ml @ 100 mls/hr AD PRN IV POTASSIUM PROTOCOL 05/19/25 23:30 06/18/25 23:29 Potassium Chloride 100 ml @ 100 mls/hr PROTOCOL IV 05/19/25 22:30 06/18/25 22:29 05/19/25 23:09 100 MLS/HR Potassium Chloride (K-Dur/Klor-Con 20meq) 20 meq AD PRN PO POTASSIUM PROTOCOL 05/19/25 23:30 06/18/25 23:29 05/21/25 06:38 20 MEQ Potassium Chloride (KCl 10% Elixir 20meq/15ml) 20 meq AD PRN PO POTASSIUM PROTOCOL 05/19/25 23:30 06/18/25 23:29 Promethazine HCl (Phenergan) 25 mg Q6H PRN PO NAUSEA 05/20/25 14:00 06/19/25 13:59 Spironolactone (Aldactone 25mg) 50 mg DAILY PO 05/21/25 09:00 06/20/25 08:59 Tamsulosin HCl (FloMAX) 0.4 mg DAILY PO 05/21/25 09:00 06/20/25 08:59 Thiamine HCl 100 mg/Folic Acid 1 mg/Sodium Chloride 1,011.2 ml @ 100 mls/ hr Q24H IV 05/20/25 14:00 05/23/25 00:07 05/20/25 14:33 100 MLS/HR Trazodone HCl (DesyREL/OlepTRO) 100 mg HS PO 05/20/25 21:00 06/19/25 20:59 05/20/25 20:44 100 MG DIAGNOSTICS / RADIOLOGY: [ ] ASSESSMENT: Symptomatic hypokalemia POA Severe abdominal pain POA Intractable nausea and vomiting POA Alcoholism POA Marijuana use POA Uncontrolled Hypertension POA Uncontrolled Diabetes POA Hyperlipidemia POA Anxiety disorder POA Depression POA CVA with left-sided weakness POA PLAN: patient is seen and examined at bedside, case discussed with the RN, no acute events overnight, patient noted to have mild tremor, he feels mildly anxious, remains on CIWA protocol. We will request PT to evaluate the patient, continue with CIWA protocol, fall precautions. Continue replacing electrolytes per protocol. Anticipate discharge in the next 24 hours. Continue for observation in medical surgical Continue start on heart healthy diet Continue famotidine 20 mg p.o. daily for GI prophylaxis We will replace electrolytes as needed per protocol We will start on insulin sliding scale AC & HS with hypoglycemia protocol We will add prn medication for fever,pain,cough , nausea and vomiting Further orders to follow depending on above results Case discussed with attending physician and came up with above treatment and plan of care. VERITO DEVNIE MD May 21, 2025 10:04
[2025-05-21] MEDS: LIDOCAINE 4% ADH..PATCH TP SCH (10:08)
[2025-05-21] MEDS: MULTIVITAMIN TABLET PO SCH (10:09)
[2025-05-21] MEDS: amLODIPine 5 MG TAB PO SCH (10:09)
[2025-05-21] MEDS: SPIRONOLACTONE 25 MG TAB PO SCH (10:10)
[2025-05-21] MEDS: ASPIRIN 81MG CHEW TAB PO SCH (10:11)
[2025-05-21] MEDS: PoTASSium chloRIDE 20MEQ ER 20 MEQ ERTAB PO ONE (10:12)
--- NOTE | 2025-05-21 14:05 | DS ---
Discharge Summary Hospital Course Summary: The patient initially admitted to the hospital May 19, 2025 with the following history of the present illness: This is a 59-year-old male with past medical history of alcoholism, insomnia depression, anxiety, hypertension, diabetes, hyperlipidemia, coronary artery disease, BPH,CVA with left-sided weakness, and fall with left rib fracture who was brought by EMS to the ED for complaints of generalized body weakness and dizziness started yesterday. Patient also reported having headache but already resolved . Patient reported he was recently admitted in [facility] 2 weeks ago for similar problem and was confined for 3 days he said because his potassium was very low. Patient admitted to drinking alcohol and using Marijuana as well. Patient reported he has frequent urination and taking Flomax for his prostate problem.Patient is ambulatory and he is using a cane. Patient denied any other symptoms.V/S T98.2,HR 66,BP 147/78 Sat 98% RA. Labs: CBC unremarkable. Potassium 3.1, CO2 33 the rest of the chemistries normal. Urinalysis unremarkable. Influenza type a and B negative SARs COVID negative. Chest x-ray result revealed significant interval reduction in the left pleural effusion with improved aeration of the left lower zone. The remaining findings are stable. ECG result revealed sinus bradycardia heart rate 57 nonspecific T abnormalities anterolateral leads. While in the ER patient received magnesium 400 mg p.o., potassium replacement 50 mEq p.o.. ER called and recommended to admit the patient. 05/19 This is a 59-year-old male with past medical history of alcoholism, insomnia depression anxiety, hypertension, diabetes, hyperlipidemia, coronary artery disease, BPH,CVA with left-sided weakness, and fall with left rib fracture who was brought by EMS to the ED for complaints of generalized body weakness and dizziness started yesterday.Patient also reports having headache but already resolved . Patient reports he was recently admitted in [facility] 2 weeks ago for similar problem and was confined for 3 days he said because his potassium was very low.Patient admits to drinking alcohol and using Marijuana as well.Patient reports he has frequent urination and taking Flomax for his prostate problem .Patient is ambulatory and he is using a cane.Patient denies any other symptoms.V/S T98.2,HR 66,BP 147/78 Sat 98% RA. Labs: CBC unremarkable. Potassium 3.1, CO2 33 the rest of the chemistries normal. Urinalysis unremarkable. Influenza type a and B negative SARs COVID negative. Chest x-ray result revealed significant interval reduction in the left pleural effusion with improved aeration of the left lower zone. The remaining findings are stable. ECG result revealed sinus bradycardia heart rate 57 nonspecific T abnormalities anterolateral leads. While in the ER patient received magnesium 400 mg p.o., potassium replacement 50 mEq p.o.. ER called and recommended to admit the patient. 05/20 patient was seen by nurse practitioner and physician during rounding in room 321. Chest x-ray significant interval reduction in the left pleural effusion with improved aeration of the left lower zone. The remaining findings are stable. Patient's potassium today is 3.2. Patient will receive two doses of 40 mEq of potassium throughout the day. Medication reconciled by nurse practitioner. Due to nausea and vomiting with the abdominal pain is present in on the admission we will order CT abdomen/pelvis. Patient also stated that he has been drinking for the past few days and also smoking marijuana. Patient will be placed on CIWA protocol in the meantime. Patient did complain of some anxiety yesterday and in the morning not at this moment. We will continue to monitor patient in the meantime. A.m. labs.] 05/21 patient is seen and examined at bedside, case discussed with the RN, no acute events overnight, patient noted to have mild tremor, he feels mildly anxious, remains on CIWA protocol. We will request PT to evaluate the patient, continue with CIWA protocol, fall precautions. The patient to be discharged home today. Assessment/Plan: Final diagnosis Symptomatic hypokalemia POA Severe abdominal pain POA Intractable nausea and vomiting POA Alcoholism POA Marijuana use POA Uncontrolled Hypertension POA Uncontrolled Diabetes POA Hyperlipidemia POA Anxiety disorder POA Depression POA CVA with left-sided weakness POA Discharge Instructions: Follow up with primary care physician as an outpatient, return to hospital if condition changes, patient agreed and understood the information provided. Home Medications: Active Scripts Lidocaine (Lidocaine Pain Relief) 4 % Adh..patch, 1 PATCH TP DAILY for 30 Days, #30 PATCH 0 Refills Prov:JESSICA BUSTAMANTE 04/08/25 Spironolactone (Spironolactone) 25 Mg Tablet, 50 MG PO DAILY, #30 TAB 0 Refills Prov:ARLYN MICHEL MD 12/15/24 Tamsulosin HCl (Flomax) 0.4 Mg Cap.er.24h, 0.4 MG PO DAILY, #30 CAPSULE. Prov:BOBBY CORONEL [facility] 12/30/23 Reported Medications Ergocalciferol (Vitamin D2) (Vitamin D2) 1,250 Mcg (79176 Unit) Capsule, 1 CAP PO QWEEK for 28 Days, #4 CAP 0 Refills 04/05/25 Empagliflozin (Jardiance) 10 Mg Tablet, 1 TAB PO DAILY for 30 Days, #30 TAB 0 Refills 04/05/25 Gabapentin (Gabapentin) 400 Mg Capsule, 300 MG PO TID, CAP 04/05/25 Atorvastatin Calcium (Atorvastatin Calcium) 40 Mg Tablet, 1 TAB PO HS for 30 Days, #30 TAB 0 Refills 12/12/24 Aspirin (Aspirin) 81 Mg Tab.chew, 1 TAB PO DAILY for 30 Days, #30 TAB 0 Refills 12/12/24 Trazodone HCl (Trazodone HCl) 100 Mg Tablet, 2.5 TAB PO HS for 30 Days, #30 TAB 0 Refills 12/12/24 Labetalol HCl (Labetalol HCl) 300 Mg Tablet, 1 TAB PO BID for 30 Days, #60 TAB 0 Refills 12/12/24 Duloxetine HCl (Duloxetine HCl) 60 Mg Capsule.dr, 2 CAP PO DAILY for 30 Days, #30 CAP 0 Refills 12/12/24 Amlodipine Besylate (Amlodipine Besylate) 5 Mg Tablet, 1 TAB PO DAILY for 30 Days, #30 TAB 0 Refills 12/12/24 Telmisartan (Telmisartan) 80 Mg Tablet, 1 TAB PO DAILY for 30 Days, #30 TAB 0 Refills 12/12/24 Discontinued Reported Medications Duloxetine HCl (Duloxetine HCl) 60 Mg Capsule.dr, 60 MG PO DAILY, CAP 05/20/25 Discontinued Scripts Magnesium Oxide (Magnesium Oxide) 250 Mg Tablet, 1 TAB PO DAILY for 15 Days, #15 TAB 0 Refills Prov:JUAN PABLO NIETO MD 05/19/25 Potassium Chloride (Potassium Chloride) 10 Meq Capsule.er, 1 CAP PO DAILY for 15 Days, #15 CAP 0 Refills Prov:JUAN PABLO NIETO MD 05/19/25 Time spent arranging discharge: 31-60 minutes VERITO DEVINE MD May 21, 2025 14:05
--- NOTE | 2025-05-21 15:13 | NUR ---
DISCHARGE PT PIV DC'D PT VERBALIZED UNDERSTANDING OF DISCHARGE INSTRUCTIONS PT GATHERED AND TOOK ALL BELONGINGS PT HAD NO FURTHER QUESTIONS AT TIME OF DISCHARGE
[2025-05-27] MEDS ORDERED: ERGOCALCIFEROL 1250 MCG PO SCH (09:00)
[2025-06-17] MEDS ORDERED: LOSA100T59 PO (15:32)
[2025-06-17] MEDS ORDERED: AMLO-258 PO (15:32)
[2025-06-17] MEDS ORDERED: SPIR100T5 PO (15:32)
[2025-06-17] MEDS ORDERED: POTA-193 PO (15:33)
== END 2025-05-21 15:50 | disposition home or self-care (01) ==
LOC: EDH 20:41 → EDHIP 20:42 → 3DH 05-20 00:58
PROVIDERS: ADMIT Hospitalist; ATTEND Hospitalist
DX: E87.6 Hypokalemia (principal); R11.2 Nausea with vomiting, unspecified; F10.20 Alcohol dependence, uncomplicated; I10 Essential (primary) hypertension; E11.65 Type 2 diabetes mellitus with hyperglycemia; E78.00 Pure hypercholesterolemia, unspecified; F41.9 Anxiety disorder, unspecified; F32.A Depression, unspecified; I25.10 Atherosclerotic heart disease of native coronary artery without angina pectoris; G47.00 Insomnia, unspecified; R53.1 Weakness; R42 Dizziness and giddiness; R51.9 Headache, unspecified; N40.1 Benign prostatic hyperplasia with lower urinary tract symptoms; Z20.822 Contact with and (suspected) exposure to COVID-19; Z79.899 Other long term (current) drug therapy; Z98.890 Other specified postprocedural states
CPT/HCPCS: 96365; 96368; 99285; 84443 ×2; 80048; 85025 ×3; 87804 ×2; 87426; 81001; 36415 ×3; 71045; 93005 ×2; 96376; 96366; 96375; 96367; 83735 ×2; 80053 ×2; 82948 ×5; 74176; 97161; 97116; G0378 ×40; J3475; J7030 ×3; J3480; J0360 ×2; J3411 ×2; J3490 ×2

== ENCOUNTER 2025-06-10 11:44 | Emergency (ER) | payer MEDICAID ==
[~2025-06-10] VITALS: Ht 170.2 cm; Wt 80.7 kg
[2025-06-10 12:13] LABS: IMMATURE GRANULOCYTE ABSOLUTE 0.01 K/uL (0-1); NUCLEATED RED BLOOD CELLS 0.0 % (0.0-0.19); PLATELET COUNT (AUTO) 268 K/uL (130-400); RED BLOOD CELL COUNT(AUTO) 4.98 MIL/uL (4.50-6.20); RED CELL DISTRIBUTION WIDTH 13.7 % (11.0-15.5); WHITE BLOOD COUNT (AUTO) 6.7 K/uL (4.8-10.8)
[2025-06-10 12:23] LABS: CREATININE 1.0 mg/dL (0.5-1.3); GLOMERULAR FILTR. RATE CALC 87.0 mL/min (>90); GLUCOSE,RANDOM 99.0 mg/dL (70-105); SODIUM SERUM 143.0 mmol/L (136-145); UREA NITROGEN, BLOOD 10.0 mg/dL (7-18)
--- NOTE | 2025-06-10 12:23 | HMCIMG ---
EXAM: CR Chest, 1 View. CLINICAL HISTORY: cp COMPARISON: 05/19/2025 FINDINGS: LUNGS: The lungs show no infiltrate or other acute finding. PLEURAL SPACES: No evidence of pleural effusion or pneumothorax. MEDIASTINUM: The cardiomediastinal silhouette is within normal limits. BONES: No acute osseous abnormality. IMPRESSION: No acute cardiopulmonary pathology is evident. /[place]
[2025-06-10 12:28] LABS: CREATINE KINASE, TOTAL 39.0 U/L (21-232)
[2025-06-10] MEDS: 0.9%NACL 1000ML 1,000 ML IV ONE (12:34)
--- NOTE | 2025-06-10 12:36 | ERN ---
General Chief Complaint: Weakness Stated Complaint: WEAKNESS Time Seen by MD: 11:46 Source: patient History of Present Illness Initial Comments Patient is a 59-year-old male coming in complaining of generalized body weakness. Per patient this has been ongoing for two weeks. Patient states that he also has been having a mild cough and URI symptoms. Allergies: Coded Allergies: No Known Drug Allergies (Verified Allergy, 11/10/12) Home Meds Active Scripts Lidocaine (Lidocaine Pain Relief) 4 % Adh..patch, 1 PATCH TP DAILY for 30 Days, #30 PATCH 0 Refills Prov:JESSICA BUSTAMANTE 04/08/25 Spironolactone (Spironolactone) 25 Mg Tablet, 50 MG PO DAILY, #30 TAB 0 Refills Prov:ARLYN MICHEL MD 12/15/24 Tamsulosin HCl (Flomax) 0.4 Mg Cap.er.24h, 0.4 MG PO DAILY, #30 CAPSULE. Prov:BOBBY CORONEL V DICTATING MACHINE TYPIST 12/30/23 Reported Medications Ergocalciferol (Vitamin D2) (Vitamin D2) 1,250 Mcg (61653 Unit) Capsule, 1 CAP PO QWEEK for 28 Days, #4 CAP 0 Refills 04/05/25 Empagliflozin (Jardiance) 10 Mg Tablet, 1 TAB PO DAILY for 30 Days, #30 TAB 0 Refills 04/05/25 Gabapentin (Gabapentin) 400 Mg Capsule, 300 MG PO TID, CAP 04/05/25 Atorvastatin Calcium (Atorvastatin Calcium) 40 Mg Tablet, 1 TAB PO HS for 30 Days, #30 TAB 0 Refills 12/12/24 Aspirin (Aspirin) 81 Mg Tab.chew, 1 TAB PO DAILY for 30 Days, #30 TAB 0 Refills 12/12/24 Trazodone HCl (Trazodone HCl) 100 Mg Tablet, 2.5 TAB PO HS for 30 Days, #30 TAB 0 Refills 12/12/24 Labetalol HCl (Labetalol HCl) 300 Mg Tablet, 1 TAB PO BID for 30 Days, #60 TAB 0 Refills 12/12/24 Duloxetine HCl (Duloxetine HCl) 60 Mg Capsule., 2 CAP PO DAILY for 30 Days, #30 CAP 0 Refills 12/12/24 Amlodipine Besylate (Amlodipine Besylate) 5 Mg Tablet, 1 TAB PO DAILY for 30 Days, #30 TAB 0 Refills 12/12/24 Telmisartan (Telmisartan) 80 Mg Tablet, 1 TAB PO DAILY for 30 Days, #30 TAB 0 Refills 12/12/24 Past Medical History Past Medical History: Diabetes-Type II, High Cholesterol, Hypertension, Stroke Medical History Other: LT SIDE WEAKNESS R/T CVA, ABDOMINAL HERNIA, adrenal mass, ureteral stones Past Surgical History: Appendectomy Surgical History Other: LT ARM SX, ABD HERNIA REPAIR Social History Social History: Negative, Lives with family ROS Dictation CONSTITUTIONAL: No chills, no fever, no weakness, no diaphoresis, no malaise. HEAD/FACE: No signs of trauma. EENT: No eye pain, no blurred vision, no tearing, no double vision, no ear pain, no ear discharge, no nose pain, no nasal congestion, no throat pain, no throat swelling, no mouth pain. RESPIRATORY: No cough, no orthopnea, no SOB, no stridor, no wheezing. CARDIOVASCULAR: No chest pain, no edema, no palpitations, no syncope. GASTROINTESTINAL/ABDOMINAL: No abdominal pain, no constipation, no diarrhea, no nausea, no vomiting. GENITOURINARY: No abnormal discharge, no dysuria, no frequent urination, no hematuria. No complaints of pain in the genitals. MUSCULOSKELETAL: No back pain, no gout, no joint pain, no joint swelling, no muscle pain, no muscle stiffness, no neck pain. INTEGUMENTARY: No change in color, no change in hair/nails, no dryness, no lesion, no lumps, no rash. NEUROLOGICAL/PSYCH: No anxiety, not depressed, no emotional problem, no headache, no numbness, no pre-existing deficit, no history of seizures, no tremors, no weakness. HEMATOLOGIC/LYMPHATIC: Not anemic, no history of blood clots, no apparent bleeding, no bruising, glands not swollen. All Systems Negative, Except as Noted. Physical Exam Physical Exam Dictation VITAL SIGNS: Reviewed. GENERAL APPEARANCE: Alert, oriented x3, no acute distress, obese. HEAD AND FACE: Non-traumatic. EYES: PERRL, pink conjunctivas, eyelid no trauma, anterior chamber clear. EARS: Pinnas intact and no signs of trauma or erythema. Ear canals clear and no discharge. TMs no erythema. NOSE: No discharge, no bleeding. OROPHARYNX: Mouth normal, teeth no caries, tongue pink. Pharynx clear, no erythema. Tonsils no exudates, no abscesses noted. Mucous membrane moist. NECK: Supple, non-tender, no thyromegaly, no masses, no JVD, no bruits. BREAST: Deferred. CHEST: No tenderness, no crepitus, no paradoxical movement, no retractions. LUNGS: Clear, well-ventilated, symmetric, no rales, no wheezing, no rhonchi, no stridor, good breath sounds bilaterally. HEART: Regular rate, regular rhythm, no murmur, no gallops. VASCULAR: No peripheral edema. ABDOMEN: Soft, positive bowel sounds, nondistended, no guarding, nontender, no rebound, no masses no hepatomegaly, no splenomegaly, no Henderson's sign, no hernias. RECTAL: Deferred. GENITAL: Deferred. NEUROLOGICAL: Normal speech, gross motor function intact, gross sensory function intact. MUSCULOSKELETAL: Neck nontender, full range of motion, back nontender, full range of motion. EXTREMITIES: Nontender, full range of motion. SKIN: Color pink, dry, no turgor, no rash, no lacerations, no abrasions, no contusions. LYMPHATICS: Deferred. Results Laboratory and Microbiology Lab and Micro Result Laboratory Tests Test 06/10/25 12:08 06/10/25 15:00 White Blood Count 6.7 K/uL (4.8-10.8) Red Blood Count 4.98 MIL/uL (4.50-6.20) Hemoglobin 14.8 g/dL (14.0-18.0) Hematocrit 44.3 % (42-54) Mean Corpuscular Volume 89.0 fL (79-99) Mean Corpuscular Hemoglobin 29.7 pg (27.0-33.0) Mean Corpuscular Hemoglobin Concent 33.4 g/dL (32.0-36.0) Red Cell Distribution Width 13.7 % (11.0-15.5) Platelet Count 268 K/uL (130-400) Mean Platelet Volume 9.5 fL (7.5-10.5) Immature Granulocyte % (Auto) 0.1 % (0-1) Neutrophils (%) (Auto) 67.1 % (40.0-77.0) Lymphocytes (%) (Auto) 18.4 % (21.0-51.0) L Monocytes (%) (Auto) 10.3 % (3.0-13.0) Eosinophils (%) (Auto) 3.1 % (0.0-8.0) Basophils (%) (Auto) 1.0 % (0.0-5.0) Neutrophils # (Auto) 4.5 K/uL (1.8-7.7) Lymphocytes # (Auto) 1.2 K/uL (1.0-4.8) Monocytes # (Auto) 0.7 K/uL (0.1-1.0) Eosinophils # (Auto) 0.21 K/uL (0.00-0.70) Basophils # (Auto) 0.07 K/uL (0.00-0.20) Absolute Immature Granulocyte (auto 0.01 K/uL (0-1) Nucleated Red Blood Cells 0.0 % (0.0-0.19) Activated Partial Thromboplast Time 38.4 SEC (26.3-35.5) H Sodium Level 143 mmol/L (136-145) Potassium Level 3.1 mmol/L (3.5-5.1) L Chloride Level 100 mmol/L (101-111) L Carbon Dioxide Level 34 mmol/L (21-32) H Blood Urea Nitrogen 10 mg/dL (7-18) Creatinine 1.0 mg/dL (0.5-1.3) Glomerular Filtration Rate Calc 87 mL/min (>90) Random Glucose 99 mg/dL (70-105) Total Calcium 8.8 mg/dL (8.5-10.1) Magnesium Level 2.10 mg/dL (1.80-2.40) Total Creatine Kinase 39 U/L (21-232) # Troponin I High Sensitivity 14 ng/L (4-75) Urine Color LIGHT-YELLOW (YELLOW) Urine Appearance CLEAR (CLEAR) Urine pH 6.5 (5.0-8.0) Urine Specific [place] 1.002 (1.001-1.031) Urine Protein NEGATIVE mg/dL (NEGATIVE) Urine Glucose (UA) 300 mg/dL (NEGATIVE) H Urine Ketones NEGATIVE mg/dL (NEGATIVE) Urine Occult Blood NEGATIVE (NEGATIVE) Urine Nitrate NEGATIVE (NEGATIVE) Urine Bilirubin NEGATIVE mg/dL (NEGATIVE) Urine Urobilinogen 0.2 mg/dL (0.2-1.0) Urine Leukocyte Esterase NEGATIVE Giovanny/uL Urine RBC 0-1 /HPF (0-1) Urine WBC None /HPF (0-1) Urine Squamous Epithelial Cells RARE /HPF (0-2) Urine Bacteria None /HPF (None Seen) Labs Reviewed?: Yes EKG/XRAY/US/CT/MRI EKG Comment 06/10/2025 time 11:58 a.m. Ventricular rate 66 Sinus rhythm [place] [address] wave elevation or depression MDM MDM: Differential diagnosis: Dehydration, hypokalemia, generalized body weakness, Rationale: Tests considered and ordered secondary to shared decision making include: Previous outside records reviewed: Old ER visits. Risk of complication and/or morbidity or mortality of patient management: None Medications-Per medication reconciliation Need for hospitalization: Patient does not meet criteria for hospitalization. Need for emergency major/minor surgery: No There are no social concerns with this patient. Patient is a 59-year-old gentleman coming in to be evaluated for generalized body weakness. Laboratory workup showed mild dehydration with hypokalemia. Electrolytes were replaced patient was hydrated states he feels better we will be discharged in stable condition. ED Course Orders Procedure Category Date Status Time Cbc With Differential LAB 06/10/25 Complete 11:48 Chest 1vw RAD 06/10/25 Resulted 11:48 12 Lead Ekg Tracing- EKG 06/10/25 Complete Technical 11:48 Magnesium LAB 06/10/25 Complete 11:48 Creatine Kinase, Total LAB 06/10/25 Complete 11:48 Troponin I High LAB 06/10/25 Complete Sensitivity 11:48 Urinalysis Profile LAB 06/10/25 Complete 11:48 Partial LAB 06/10/25 Complete Thromboplastin Time 11:48 Basic Metabolic Panel LAB 06/10/25 Complete 11:48 0.9%Nacl 1000ml (Ns PHA 06/10/25 Complete 1000ml) 12:30 Potassium Bicarb/Cit PHA 06/10/25 Complete Ac 25meq (K-Lyte Ta 13:00 Current Medications Medications (Trade) Dose Ordered Sig/[place] Route PRN Reason Start Time Stop Time Status Last Admin Dose Admin Potassium Bicarbonate (K-Lyte Tablet Eff 25 Meq Tablet.eff) 50 meq ONCE ONCE PO 06/10/25 13:00 06/10/25 13:01 DC 06/10/25 13:35 Sodium Chloride 1,000 ml @ 0 mls/hr ONCE ONCE IV 06/10/25 12:30 06/10/25 12:31 DC 06/10/25 12:34 Vital Signs Date Time Temp Pulse Resp B/P (MAP) Pulse Ox O2 Delivery O2 Flow Rate FiO2 06/10/25 11:45 99.1 72 18 135/80 95 Room Air 0 DX & DISP Disposition: Discharge Departure Impression: Primary Impression: Hypokalemia Additional Impression: Dehydration Condition: Stable Additional Instructions: FOLLOW-UP WITH PRIMARY CARE PROVIDER IN 1 TO 2 DAYS. TAKE MEDICATIONS DIRECTED HERE IN THE EMERGENCY ROOM. OKAY TO CONTINUE HOME MEDICATIONS UNLESS OTHERWISE DISCUSSED DURING YOUR VISIT IN THE EMERGENCY ROOM TODAY. RETURN TO YOUR NEAREST EMERGENCY ROOM IF SYMPTOMS WORSEN OR IF THERE IS NO IMPROVEMENT. CALL 911 IF YOU NEED IMMEDIATE ASSISTANCE. TAKE TYLENOL [id number] NEEDED AND IF NO CONTRAINDICATIONS ARE PRESENT. INCREASE ORAL HYDRATION. A WOUND CULTURE OR URINE CULTURE WAS ORDERED HERE IN THE EMERGENCY ROOM DEPARTMENT PLEASE FOLLOW-UP WITH PRIMARY CARE PROVIDER AND ADVISE THEM TO GET REPORTS FROM OUR FACILITY. IF YOU HAD ANY CHASITY WRAP/SPLINTS THAT WERE APPLIED HERE, PLEASE DO NOT REMOVE THEM UNTIL YOU SEE YOUR PRIMARY CARE OR SPECIALTY. Referrals: Referrals: SELF,REFERRAL (PCP) ANTHONY MERCER MD Time of Disposition: 15:16 SOLEDAD RUANO MD Jun 10, 2025 12:36
--- NOTE | 2025-06-10 14:06 | EKG ---
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
[2025-06-10 15:08] LABS: APPEARANCE,URINE CLEAR (CLEAR); GLUCOSE, URINE (UA) 300 mg/dL (NEGATIVE); LEUKOCYTE ESTERASE ,URINE NEGATIVE Leu/uL (NEGATIVE); NITRATE,URINE NEGATIVE (NEGATIVE); OCCULT BLOOD,URINE NEGATIVE (NEGATIVE)
[2025-06-10 15:09] LABS: ADD UA MICROSCOPIC YES
[2025-06-10 15:11] LABS: SQUAMOUS EPITHELIAL CELL,UR RARE /HPF (0-2)
[2025-06-10 15:53] VITALS: BP 131/75; PULSE 70; RESP 18; TEMP 99; O2SAT 96
--- NOTE | 2025-06-10 15:56 | NUR ---
PT IS READY FOR DISCHARGE PT IS NEEDING A RIDE HOME. PT USES A CANE TO WALK DUE TO LEFT SIDED WEAKNESS
== END 2025-06-10 15:57 | disposition home or self-care (01) ==
LOC: EDH 11:44
DX: E87.6 Hypokalemia (principal); E86.0 Dehydration; R05.9 Cough, unspecified; E11.9 Type 2 diabetes mellitus without complications; E78.00 Pure hypercholesterolemia, unspecified; I10 Essential (primary) hypertension; Z79.82 Long term (current) use of aspirin; Z79.899 Other long term (current) drug therapy; Z79.84 Long term (current) use of oral hypoglycemic drugs; Z86.73 Personal history of transient ischemic attack (TIA), and cerebral infarction without residual deficits; Z87.442 Personal history of urinary calculi; Z90.49 Acquired absence of other specified parts of digestive tract; Z98.890 Other specified postprocedural states
CPT/HCPCS: 99285; 96360; 71045; 96361 ×2; 82550; 83735; 84484; 80048; 85025; 85730; 81001; 36415; 93005; J7030

== ENCOUNTER 2025-06-30 09:34 | Emergency (ER) | payer MEDICAID ==
[~2025-06-30] VITALS: Ht 170.2 cm; Wt 79.4 kg
[~2025-06-30 09:34] MED LIST changes: -AMLO-257 PO; +AMLO-258 PO; +LOSA100T59 PO; +POTA-193 PO; +SPIR100T5 PO; -SPIR25TA6 PO; -TELM80TA10 PO
[2025-06-30 09:36] VITALS: TEMP 97.8
[2025-06-30 09:56] VITALS: BP 168/98; PULSE 83; RESP 16; O2SAT 97
[2025-06-30] MEDS: 0.9%NACL 1000ML 1,000 ML IV ONE (10:01)
[2025-06-30 10:02] LABS: IMMATURE GRANULOCYTE ABSOLUTE 0.03 K/uL (0-1); NUCLEATED RED BLOOD CELLS 0.0 % (0.0-0.19); PLATELET COUNT (AUTO) 313 K/uL (130-400); RED BLOOD CELL COUNT(AUTO) 4.93 MIL/uL (4.50-6.20); RED CELL DISTRIBUTION WIDTH 12.9 % (11.0-15.5); WHITE BLOOD COUNT (AUTO) 8.2 K/uL (4.8-10.8)
--- NOTE | 2025-06-30 10:14 | ERN ---
General Chief Complaint: Weakness Stated Complaint: GENERAL BODY WEAKNESS YESTERDAY Time Seen by MD: 09:37 Source: patient History of Present Illness Initial Comments Patient is a 59-year-old male coming in complaining of generalized body weakness. Per patient he was recently hospitalized due to low potassium in his here for further evaluation. He also states that he was not able to take the medications that was prescribed to him which was potassium. Allergies: Coded Allergies: No Known Drug Allergies (Verified Allergy, 11/10/12) Home Meds Active Scripts Potassium Chloride (Klor-Con M20) 20 Meq Tab.er.prt, 1 TAB PO DAILY for 3 Days, #3 TAB 0 Refills Prov:MARIUM COPE MD 06/17/25 Spironolactone (Spironolactone) 100 Mg Tablet, 1 TAB PO DAILY for 30 Days, #30 TAB 0 Refills Prov:MARIUM COPE MD 06/17/25 Amlodipine Besylate (Amlodipine Besylate) 10 Mg Tablet, 1 TAB PO DAILY for 30 Days, #30 TAB 0 Refills Prov:MARIUM COPE MD 06/17/25 Losartan Potassium (Losartan Potassium) 100 Mg Tablet, 1 TAB PO DAILY for 30 Days, #30 TAB 0 Refills Prov:MARIUM COPE MD 06/17/25 Lidocaine (Lidocaine Pain Relief) 4 % Adh..patch, 1 PATCH TP DAILY for 30 Days, #30 PATCH 0 Refills Prov:JESSICA BUSTAMANTE 04/08/25 Tamsulosin HCl (Flomax) 0.4 Mg Cap.er.24h, 0.4 MG PO DAILY, #30 CAPSULE. Prov:BOBBY CORONEL V [facility] 12/30/23 Reported Medications Ergocalciferol (Vitamin D2) (Vitamin D2) 1,250 Mcg (18591 Unit) Capsule, 1 CAP PO QWEEK for 28 Days, #4 CAP 0 Refills 04/05/25 Empagliflozin (Jardiance) 10 Mg Tablet, 1 TAB PO DAILY for 30 Days, #30 TAB 0 Refills 04/05/25 Gabapentin (Gabapentin) 400 Mg Capsule, 300 MG PO TID, CAP 04/05/25 Atorvastatin Calcium (Atorvastatin Calcium) 40 Mg Tablet, 1 TAB PO HS for 30 Days, #30 TAB 0 Refills 12/12/24 Aspirin (Aspirin) 81 Mg Tab.chew, 1 TAB PO DAILY for 30 Days, #30 TAB 0 Refills 12/12/24 Trazodone HCl (Trazodone HCl) 100 Mg Tablet, 2.5 TAB PO HS for 30 Days, #30 TAB 0 Refills 12/12/24 Labetalol HCl (Labetalol HCl) 300 Mg Tablet, 1 TAB PO BID for 30 Days, #60 TAB 0 Refills 12/12/24 Duloxetine HCl (Duloxetine HCl) 60 Mg Capsule.dr, 2 CAP PO DAILY for 30 Days, #30 CAP 0 Refills 12/12/24 Past Medical History Past Medical History: Anxiety, Depression, Diabetes-Type II, High Cholesterol, Hypertension, Stroke Medical History Other: LT SIDE WEAKNESS R/T CVA, ABDOMINAL HERNIA, adrenal mass, ureteral stones Past Surgical History: Appendectomy Surgical History Other: LT ARM SX, ABD HERNIA REPAIR Social History Social History: Negative, Lives with family ROS Dictation CONSTITUTIONAL: No chills, no fever, weakness, no diaphoresis, no malaise. HEAD/FACE: No signs of trauma. EENT: No eye pain, no blurred vision, no tearing, no double vision, no ear pain, no ear discharge, no nose pain, no nasal congestion, no throat pain, no throat swelling, no mouth pain. RESPIRATORY: No cough, no orthopnea, no SOB, no stridor, no wheezing. CARDIOVASCULAR: No chest pain, no edema, no palpitations, no syncope. GASTROINTESTINAL/ABDOMINAL: No abdominal pain, no constipation, no diarrhea, no nausea, no vomiting. GENITOURINARY: No abnormal discharge, no dysuria, no frequent urination, no hematuria. No complaints of pain in the genitals. MUSCULOSKELETAL: No back pain, no gout, no joint pain, no joint swelling, no muscle pain, no muscle stiffness, no neck pain. INTEGUMENTARY: No change in color, no change in hair/nails, no dryness, no lesion, no lumps, no rash. NEUROLOGICAL/PSYCH: No anxiety, not depressed, no emotional problem, no headache, no numbness, no pre-existing deficit, no history of seizures, no tremors, no weakness. HEMATOLOGIC/LYMPHATIC: Not anemic, no history of blood clots, no apparent bleeding, no bruising, glands not swollen. All Systems Negative, Except as Noted. Physical Exam Physical Exam Dictation VITAL SIGNS: Reviewed. GENERAL APPEARANCE: Alert, oriented x3, no acute distress, obese. HEAD AND FACE: Non-traumatic. EYES: PERRL, pink conjunctivas, eyelid no trauma, anterior chamber clear. EARS: Pinnas intact and no signs of trauma or erythema. Ear canals clear and no discharge. TMs no erythema. NOSE: No discharge, no bleeding. OROPHARYNX: Mouth normal, teeth no caries, tongue pink. Pharynx clear, no erythema. Tonsils no exudates, no abscesses noted. Mucous membrane moist. NECK: Supple, non-tender, no thyromegaly, no masses, no JVD, no bruits. BREAST: Deferred. CHEST: No tenderness, no crepitus, no paradoxical movement, no retractions. LUNGS: Clear, well-ventilated, symmetric, no rales, no wheezing, no rhonchi, no stridor, good breath sounds bilaterally. HEART: Regular rate, regular rhythm, no murmur, no gallops. VASCULAR: No peripheral edema. ABDOMEN: Soft, positive bowel sounds, nondistended, no guarding, nontender, no rebound, no masses no hepatomegaly, no splenomegaly, no Henderson's sign, no hernias. RECTAL: Deferred. GENITAL: Deferred. NEUROLOGICAL: Normal speech, gross motor function intact, gross sensory function intact. MUSCULOSKELETAL: Neck nontender, full range of motion, back nontender, full range of motion. EXTREMITIES: Nontender, full range of motion. SKIN: Color pink, dry, no turgor, no rash, no lacerations, no abrasions, no contusions. LYMPHATICS: Deferred. Results Laboratory and Microbiology Lab and Micro Result Laboratory Tests Test 06/30/25 09:48 White Blood Count 8.2 K/uL (4.8-10.8) Red Blood Count 4.93 MIL/uL (4.50-6.20) Hemoglobin 15.0 g/dL (14.0-18.0) Hematocrit 44.0 % (42-54) Mean Corpuscular Volume 89.2 fL (79-99) Mean Corpuscular Hemoglobin 30.4 pg (27.0-33.0) Mean Corpuscular Hemoglobin Concent 34.1 g/dL (32.0-36.0) Red Cell Distribution Width 12.9 % (11.0-15.5) Platelet Count 313 K/uL (130-400) Mean Platelet Volume 9.3 fL (7.5-10.5) Immature Granulocyte % (Auto) 0.4 % (0-1) Neutrophils (%) (Auto) 78.6 % (40.0-77.0) H Lymphocytes (%) (Auto) 10.8 % (21.0-51.0) L Monocytes (%) (Auto) 9.2 % (3.0-13.0) Eosinophils (%) (Auto) 0.5 % (0.0-8.0) Basophils (%) (Auto) 0.5 % (0.0-5.0) Neutrophils # (Auto) 6.4 K/uL (1.8-7.7) Lymphocytes # (Auto) 0.9 K/uL (1.0-4.8) L Monocytes # (Auto) 0.8 K/uL (0.1-1.0) Eosinophils # (Auto) 0.04 K/uL (0.00-0.70) Basophils # (Auto) 0.04 K/uL (0.00-0.20) Absolute Immature Granulocyte (auto 0.03 K/uL (0-1) Nucleated Red Blood Cells 0.0 % (0.0-0.19) Sodium Level 139 mmol/L (136-145) Potassium Level 3.5 mmol/L (3.5-5.1) Chloride Level 102 mmol/L (101-111) Carbon Dioxide Level 31 mmol/L (21-32) Blood Urea Nitrogen 15 mg/dL (7-18) Creatinine 0.9 mg/dL (0.5-1.3) Glomerular Filtration Rate Calc 98 mL/min (>90) Random Glucose 100 mg/dL (70-105) Total Calcium 8.6 mg/dL (8.5-10.1) Total Bilirubin 0.7 mg/dL (0.2-1.0) Aspartate Amino Transf (AST/SGOT) 12 U/L (10-37) Alanine Aminotransferase (ALT/SGPT) 22 U/L (12-78) Alkaline Phosphatase 118 U/L (50-136) Total Creatine Kinase 65 U/L (21-232) # Troponin I High Sensitivity 7 ng/L (4-75) Total Protein 7.3 g/dL (6.0-8.3) Albumin 3.9 g/dL (3.5-5.0) Labs Reviewed?: Yes EKG/XRAY/US/CT/MRI EKG Comment 06/30/2025 time 9:42 a.m. Ventricular rate 71 Sinus rhythm [place] [address] wave elevation or depression MDM MDM: Differential diagnosis: Dehydration, hypokalemia, Rationale: Tests considered and ordered secondary to shared decision making include: Previous outside records reviewed: Old ER visits. Risk of complication and/or morbidity or mortality of patient management: None Medications-Per medication reconciliation Need for hospitalization: Patient does not meet criteria for hospitalization. Need for emergency major/minor surgery: No There are no social concerns with this patient. Prescription drug management Prescriptions will include symptomatic care Patient's prior external medical records from other ER visits were reviewed by me as indicated. Prior testing and results from previous visits were reviewed. Prior tests were taken into account with medical decision making and resource utilization, independent historian/historians were used to obtain complete medical history. I independently interpreted the test that were performed, results were reviewed by me and considered findings on radiology if ordered. Medical management and examination interpretation discussions were had by me with other qualified healthcare professionals as indicated for the patient's care. advised by nursing staff the patient eloped ED Course Orders Procedure Category Date Status Time Cbc With Differential LAB 06/30/25 Complete 09:40 Comprehensive LAB 06/30/25 Complete Metabolic Panel 09:40 Troponin I High LAB 06/30/25 Complete Sensitivity 09:40 Urinalysis Profile LAB 06/30/25 Logged 09:40 12 Lead Ekg Tracing- EKG 06/30/25 Logged Technical 09:40 0.9%Nacl 1000ml (Ns PHA 06/30/25 Complete 1000ml) 10:00 Creatine Kinase, Total LAB 06/30/25 Complete 09:40 Drug Screen Urine LAB 06/30/25 Logged 09:40 Current Medications Medications (Trade) Dose Ordered Sig/[place] Route PRN Reason Start Time Stop Time Status Last Admin Dose Admin Sodium Chloride 1,000 ml @ 0 mls/hr ONCE ONCE IV 06/30/25 10:00 06/30/25 10:01 DC 06/30/25 10:01 Vital Signs Date Time Temp Pulse Resp B/P (MAP) Pulse Ox O2 Delivery O2 Flow Rate FiO2 06/30/25 09:56 83 16 168/98 97 Room Air* 0 21 11/1/25 09:36 97.9 79 18 145/84 Room Air DX & DISP Disposition: AMA Departure Impression: Primary Impression: Dehydration Condition: Against Medical Advice Additional Instructions: Was advised by nursing staff the patient eloped Referrals: SELF,REFERRAL (PCP) Time of Disposition: 10:57 SOLEDAD RUANO MD Jun 30, 2025 10:14
[2025-06-30 10:27] LABS: ASPARTATE AMINOTRANSFERASE 12.0 U/L (10-37); CREATINE KINASE, TOTAL 65.0 U/L (21-232); CREATININE 0.9 mg/dL (0.5-1.3); GLOMERULAR FILTR. RATE CALC 98.0 mL/min (>90); GLUCOSE,RANDOM 100.0 mg/dL (70-105); SODIUM SERUM 139.0 mmol/L (136-145); TOTAL PROTEIN, SERUM 7.3 g/dL (6.0-8.3); UREA NITROGEN, BLOOD 15.0 mg/dL (7-18)
--- NOTE | 2025-06-30 10:49 | NUR ---
PT VOICED HE WAS LEAVING BECAUSE HE FELT ANXIETY AND DEPRESSION EVEN SINCE HE GOT IN THE AMBULANCE. HE PUT ON HIS SHIRT AND GRABBED HIS BELONGINGS AND WALKED AWAY, MD RUANO NOTIFIED.
--- NOTE | 2025-06-30 12:41 | EKG ---
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
== END 2025-06-30 10:59 | disposition left against medical advice (07) ==
LOC: EDH 09:34
DX: E86.0 Dehydration (principal); R53.1 Weakness; E11.9 Type 2 diabetes mellitus without complications; E78.00 Pure hypercholesterolemia, unspecified; I10 Essential (primary) hypertension; F32.A Depression, unspecified; F41.9 Anxiety disorder, unspecified; Z79.82 Long term (current) use of aspirin; Z79.84 Long term (current) use of oral hypoglycemic drugs; Z79.899 Other long term (current) drug therapy; Z86.73 Personal history of transient ischemic attack (TIA), and cerebral infarction without residual deficits; Z90.49 Acquired absence of other specified parts of digestive tract; Z98.890 Other specified postprocedural states; Z87.442 Personal history of urinary calculi
CPT/HCPCS: 99284; 96360; 82550; 84484; 80053; 85025; 36415; 93005; J7030

== ENCOUNTER 2025-07-17 20:59 | Emergency (ER) | payer MEDICAID ==
[~2025-07-17] VITALS: Ht 170.2 cm; Wt 79.4 kg
[~2025-07-17 20:59] MED LIST changes: -LABE300T4 PO; +LABE300T80 PO
--- NOTE | 2025-07-17 21:09 | ERN ---
General Chief Complaint: Chest Pain Stated Complaint: CP Time Seen by MD: 21:03 Source: patient History of Present Illness Initial Comments Patient is a 59-year-old male with a history of hypertension diabetes hypercholesterolemia and a stroke in 2018 with residual left arm and left lower extremity paralysis. He comes in because today he is experiencing shortness of breath and chest pain with left arm tingling. EMS was called they gave him some nitroglycerin and aspirin in transit. With only a minimal improvement in his symptoms. Patient had normal sinus rhythm during transit and stable vital signs as well. Patient also states that he has had nausea for one day. No other symptoms. Timing/Duration: 4-6 hours Allergies: Coded Allergies: No Known Drug Allergies (Verified Allergy, 11/10/12) Home Meds Active Scripts Potassium Chloride (Klor-Con M20) 20 Meq Tab.er.prt, 1 TAB PO DAILY for 3 Days, #3 TAB 0 Refills Prov:MARIUM COPE MD 06/17/25 Spironolactone (Spironolactone) 100 Mg Tablet, 1 TAB PO DAILY for 30 Days, #30 TAB 0 Refills Prov:MARIUM COPE MD 06/17/25 Amlodipine Besylate (Amlodipine Besylate) 10 Mg Tablet, 1 TAB PO DAILY for 30 Days, #30 TAB 0 Refills Prov:MARIUM COPE MD 06/17/25 Losartan Potassium (Losartan Potassium) 100 Mg Tablet, 1 TAB PO DAILY for 30 Days, #30 TAB 0 Refills Prov:MARIUM COPE MD 06/17/25 Lidocaine (Lidocaine Pain Relief) 4 % Adh..patch, 1 PATCH TP DAILY for 30 Days, #30 PATCH 0 Refills Prov:JESSICA BUSTAMANTE 04/08/25 Tamsulosin HCl (Flomax) 0.4 Mg Cap.er.24h, 0.4 MG PO DAILY, #30 CAPSULE. Prov:BOBBY CORONEL V CORPORATE OFFICER 12/30/23 Reported Medications Ergocalciferol (Vitamin D2) (Vitamin D2) 1,250 Mcg (60105 Unit) Capsule, 1 CAP PO QWEEK for 28 Days, #4 CAP 0 Refills 04/05/25 Empagliflozin (Jardiance) 10 Mg Tablet, 1 TAB PO DAILY for 30 Days, #30 TAB 0 Refills 04/05/25 Gabapentin (Gabapentin) 400 Mg Capsule, 300 MG PO TID, CAP 8/7/25 Atorvastatin Calcium (Atorvastatin Calcium) 40 Mg Tablet, 1 TAB PO HS for 30 Days, #30 TAB 0 Refills 12/12/24 Aspirin (Aspirin) 81 Mg Tab.chew, 1 TAB PO DAILY for 30 Days, #30 TAB 0 Refills 12/12/24 Trazodone HCl (Trazodone HCl) 100 Mg Tablet, 2.5 TAB PO HS for 30 Days, #30 TAB 0 Refills 12/12/24 Labetalol HCl (Labetalol HCl) 300 Mg Tablet, 1 TAB PO BID for 30 Days, #60 TAB 0 Refills 12/12/24 Duloxetine HCl (Duloxetine HCl) 60 Mg Capsule.dr, 2 CAP PO DAILY for 30 Days, #30 CAP 0 Refills 12/12/24 Past Medical History Past Medical History: Anxiety, Depression, Diabetes-Type II, High Cholesterol, Hypertension, Stroke Medical History Other: LT SIDE WEAKNESS R/T CVA, ABDOMINAL HERNIA, adrenal mass, ureteral stones Past Surgical History: Appendectomy Surgical History Other: LT ARM SX, ABD HERNIA REPAIR Social History Social History: Negative, Lives with family Constitutional: (-) chills, (-) diaphoresis, (-) fever, (-) malaise, (-) weakness, (-) other documentation EENTM: (-) eye pain, (-) blurred vision, (-) tearing, (-) double vision, (-) ear pain, (-) ear discharge, (-) nose pain, (-) nose congestion, (-) throat pain, (-) Throat swelling, (-) mouth pain, (-) tooth pain, (-) mouth swelling, (-) other documentation Respiratory: (+) short of breath; (-) cough, (-) orthopnea, (-) stridor, (-) wheezing, (-) other documentation Cardiovascular: (+) chest pain Gastrointestinal/Abdominal: (+) nausea Genitourinary: (-) penile discharge, (-) dysuria, (-) frequency, (-) hematuria, (-) pain, (-) other documentation Musculoskeletal: (-) Neck pain, (-) back pain, (-) Flank Pain, (-) joint pain, (-) joint swelling, (-) muscle pain, (-) muscle stiffness, (-) gout, (-) other documentation Physical Exam General Appearance: (+) mild distress Orientation: (+) alert, (+) oriented x 3 Head/Face Trauma: No Eye: bilateral eye normal inspection, bilateral eye PERRL, bilateral eye EOMI Ear, Nose, Throat: (+) hearing grossly normal, (+) normal ENT inspection, (+) moist mucous membraine Neck: (+) normal inspection, (+) supple, (+) full range of motion, (+) no JVD Respiratory: (+) chest non-tender, (+) lungs clear, (+) well ventilated Heart: (+) regular, (+) no gallop Vascular: (+) no edema, (+) normal peripheral pulse Gastrointestinal: (+) soft, (+) non-tender, (+) bowel sound present Extremities Comment Patient can not raise his left lower extremity can flex his toes. His left arm also has a contracted fist. These are both baseline for him. He has no new neurologic deficits. Results Laboratory and Microbiology Lab and Micro Result Laboratory Tests Test 07/17/25 21:54 07/17/25 22:07 White Blood Count 6.8 K/uL (4.8-10.8) Red Blood Count 4.56 MIL/uL (4.50-6.20) Hemoglobin 13.6 g/dL (14.0-18.0) L Hematocrit 40.3 % (42-54) L Mean Corpuscular Volume 88.4 fL (79-99) Mean Corpuscular Hemoglobin 29.8 pg (27.0-33.0) Mean Corpuscular Hemoglobin Concent 33.7 g/dL (32.0-36.0) Red Cell Distribution Width 13.0 % (11.0-15.5) Platelet Count 238 K/uL (130-400) Mean Platelet Volume 10.0 fL (7.5-10.5) Immature Granulocyte % (Auto) 0.3 % (0-1) Neutrophils (%) (Auto) 63.2 % (40.0-77.0) Lymphocytes (%) (Auto) 20.9 % (21.0-51.0) L Monocytes (%) (Auto) 12.6 % (3.0-13.0) Eosinophils (%) (Auto) 2.3 % (0.0-8.0) Basophils (%) (Auto) 0.7 % (0.0-5.0) Neutrophils # (Auto) 4.3 K/uL (1.8-7.7) Lymphocytes # (Auto) 1.4 K/uL (1.0-4.8) Monocytes # (Auto) 0.9 K/uL (0.1-1.0) Eosinophils # (Auto) 0.16 K/uL (0.00-0.70) Basophils # (Auto) 0.05 K/uL (0.00-0.20) Absolute Immature Granulocyte (auto 0.02 K/uL (0-1) Nucleated Red Blood Cells 0.0 % (0.0-0.19) Sodium Level 140 mmol/L (136-145) Potassium Level 2.5 mmol/L (3.5-5.1) *L Chloride Level 102 mmol/L (101-111) Carbon Dioxide Level 29 mmol/L (21-32) Blood Urea Nitrogen 13 mg/dL (7-18) Creatinine 1.0 mg/dL (0.5-1.3) Glomerular Filtration Rate Calc 87 mL/min (>90) Random Glucose 95 mg/dL (70-105) Total Calcium 8.4 mg/dL (8.5-10.1) L Troponin I High Sensitivity 11 ng/L (4-75) Urine Color LIGHT-YELLOW (YELLOW) Urine Appearance CLEAR (CLEAR) Urine pH 6.5 (5.0-8.0) Urine Specific [place] 1.011 (1.001-1.031) Urine Protein NEGATIVE mg/dL (NEGATIVE) Urine Glucose (UA) >=1000 mg/dL (NEGATIVE) H Urine Ketones 20 mg/dL (NEGATIVE) H Urine Occult Blood NEGATIVE (NEGATIVE) Urine Nitrate NEGATIVE (NEGATIVE) Urine Bilirubin NEGATIVE mg/dL (NEGATIVE) Urine Urobilinogen 0.2 mg/dL (0.2-1.0) Urine Leukocyte Esterase NEGATIVE Giovanny/uL EKG/XRAY/US/CT/MRI EKG: (+) NSR EKG Comment Nonspecific T-wave changes in the lateral leads on EKG. They are consistent with a hypo kalemia that we noted on his chemistry panel. I have given the patient 50 mEq of potassium chloride orally. MDM MDM: Differential diagnosis: Cardiac dysrhythmia, anxiety, acute SD, dehydration, electrolyte abnormalities. Rationale: Tests considered and ordered secondary to shared decision making include: Previous outside records reviewed: Old ER visits. Risk of complication and/or morbidity or mortality of patient management: None Medications-Per medication reconciliation Need for hospitalization: Patient does meet criteria for hospitalization. Need for emergency major/minor surgery: No There are no social concerns with this patient. Prescription drug management Prescriptions will include symptomatic care Patient's prior external medical records from other ER visits were reviewed by me as indicated. Prior testing and results from previous visits were reviewed. Prior tests were taken into account with medical decision making and resource utilization, independent historian/historians were used to obtain complete me dical history. I independently interpreted the test that were performed, results were reviewed by me and considered findings on radiology if ordered. Based on patient's lab results I suspect he is dehydrated. This certainly could explain his chest pain. I think his hypokalemia and emesis are both caused by his hypovolemia. Alternatively the patient has come in hypokalemic on numerous occasions and he needs to follow up with his primary care physician to see why he continues to have hypokalemia despite taking potassium supplements. Near the case patient's symptoms have resolved with simple rehydration and oral potassium. His chemistry panel is normal his EKGs normal except for T-wave changes secondary to hypokalemia in his cardiac enzymes are normal. CBC is normal except for mild anemia. Urine shows a surprising amount of glucose in it as his serum glucose is normal. There are ketones in his urine consistent with dehydration. He does not have DKA as his serum bicarb is normal and his blood glucose is normal. ED Course Orders Procedure Category Date Status Time 12 Lead Ekg Tracing- EKG 07/17/25 Complete Technical 21:03 Cbc With Differential LAB 07/17/25 Complete 21:03 Basic Metabolic Panel LAB 07/17/25 Complete 21:03 Urinalysis Profile LAB 07/17/25 Complete 21:03 Troponin I High LAB 07/17/25 Complete Sensitivity 21:03 Ketorolac PHA 07/17/25 Complete Tromethamine 30mg/Ml 21:30 Lactated Ringers PHA 07/17/25 Complete 1000ml (Lactated 21:03 Potassium Bicarb/Cit PHA 07/17/25 Complete Ac 25meq (K-Lyte Ta 23:00 Current Medications Medications (Trade) Dose Ordered Sig/[place] Route PRN Reason Start Time Stop Time Status Last Admin Dose Admin Ketorolac Tromethamine (toRADol) 30 mg ONCE ONCE IVP 07/17/25 21:30 07/17/25 21:31 DC 07/17/25 22:09 Lactated Ringer's (Lactated Ringers 1000ml) 1,000 ml BOLUS STAT IV 07/17/25 21:03 07/17/25 21:06 DC 07/17/25 22:09 Potassium Bicarbonate (K-Lyte Tablet Eff 25 Meq Tablet.eff) 50 meq ONCE ONCE PO 07/17/25 23:00 07/17/25 23:01 DC Vital Signs Date Time Temp Pulse Resp B/P (MAP) Pulse Ox O2 Delivery O2 Flow Rate FiO2 07/17/25 22:20 58 18 160/90 97 Room Air* 0 21 07/17/25 21:03 98.1 80 18 170/65 99 0 DX & DISP Disposition: Discharge Departure Impression: Primary Impression: Dehydration Additional Impressions: Hypokalemia, Rib pain on left side, Chest pain Condition: Stable Assign Patient to: You have been admitted more than once for low potassium. I do not know why this keeps happening unless you have extreme amounts of vomiting when you are admitted to the hospital each of the times you have low potassium. You need to follow-up with your primary care physician to figure out why your potassium keeps dropping. I studies here show no evidence of a heart attack your troponins are normal and your EKG was normal beyond expected changes for low potassium. Referrals: SELF,REFERRAL (PCP) SILVIA KILGORE MD Jul 17, 2025 21:09
--- NOTE | 2025-07-17 21:46 | EKG ---
[facility] Test Date: 2025-07-17 Test Time: 21:00:23 Pat Name: DANYELL ROSARIO Department: ED Room: Gender: M Overlock Operator: [id number] : 1965 Requested By: SILVIA KILGORE Order Number: [id number] Reading MD: Magno Greco Measurements Intervals [place] Rate: 52 P: 62 CO: 177 QRS: 44 QRSD: 91 T: 0 QT: 349 QTc: 325 Interpretive Statements Sinus rhythm Nonspecific T abnormalities, lateral leads Compared to ECG 06/30/2025 09:42:38 T-wave abnormality now present Electronically Signed On 07-18-2025 07:18:51 ASSISTANT SECRETARY by Magno Greco Please click the below link to view image of tracing.
[2025-07-17 22:01] LABS: IMMATURE GRANULOCYTE ABSOLUTE 0.02 K/uL (0-1); NUCLEATED RED BLOOD CELLS 0.0 % (0.0-0.19); PLATELET COUNT (AUTO) 238 K/uL (130-400); RED BLOOD CELL COUNT(AUTO) 4.56 MIL/uL (4.50-6.20); RED CELL DISTRIBUTION WIDTH 13.0 % (11.0-15.5); WHITE BLOOD COUNT (AUTO) 6.8 K/uL (4.8-10.8)
[2025-07-17] MEDS: LACTATED RINGERS 1000ML IV STA (22:09)
[2025-07-17 22:24] LABS: CREATININE 1.0 mg/dL (0.5-1.3); GLOMERULAR FILTR. RATE CALC 87.0 mL/min (>90); GLUCOSE,RANDOM 95.0 mg/dL (70-105); SODIUM SERUM 140.0 mmol/L (136-145); UREA NITROGEN, BLOOD 13.0 mg/dL (7-18)
[2025-07-17 22:30] LABS: APPEARANCE,URINE CLEAR (CLEAR); GLUCOSE, URINE (UA) >=1000 mg/dL (NEGATIVE); LEUKOCYTE ESTERASE ,URINE NEGATIVE Leu/uL (NEGATIVE); NITRATE,URINE NEGATIVE (NEGATIVE); OCCULT BLOOD,URINE NEGATIVE (NEGATIVE)
[2025-07-17 22:32] LABS: ADD UA MICROSCOPIC NO
[2025-07-17 23:29] VITALS: BP 166/94; PULSE 56; RESP 18; TEMP 98.3; O2SAT 97
== END 2025-07-17 23:52 | disposition home or self-care (01) ==
LOC: EDH 20:59
DX: E86.0 Dehydration (principal); E87.6 Hypokalemia; R07.81 Pleurodynia; E11.9 Type 2 diabetes mellitus without complications; E78.00 Pure hypercholesterolemia, unspecified; F32.A Depression, unspecified; F41.9 Anxiety disorder, unspecified; I10 Essential (primary) hypertension; I69.354 Hemiplegia and hemiparesis following cerebral infarction affecting left non-dominant side; Z79.82 Long term (current) use of aspirin; Z79.84 Long term (current) use of oral hypoglycemic drugs; Z79.899 Other long term (current) drug therapy; Z87.442 Personal history of urinary calculi; Z90.49 Acquired absence of other specified parts of digestive tract; Z98.890 Other specified postprocedural states
CPT/HCPCS: 99284; 96374; 84484; 80048; 85025; 81003; 36415; 93005; J1885; J7120

== ENCOUNTER 2025-07-27 09:52 | Emergency (ER) | payer MEDICAID ==
[~2025-07-27] VITALS: Ht 170.2 cm; Wt 75.7 kg
[2025-07-27 10:32] LABS: IMMATURE GRANULOCYTE ABSOLUTE 0.04 K/uL (0-1); NUCLEATED RED BLOOD CELLS 0.0 % (0.0-0.19); PLATELET COUNT (AUTO) 258 K/uL (130-400); RED BLOOD CELL COUNT(AUTO) 5.34 MIL/uL (4.50-6.20); RED CELL DISTRIBUTION WIDTH 13.0 % (11.0-15.5); WHITE BLOOD COUNT (AUTO) 9.5 K/uL (4.8-10.8)
[2025-07-27 10:42] LABS: CREATININE 1.1 mg/dL (0.5-1.3); GLOMERULAR FILTR. RATE CALC 77.0 mL/min (>90); GLUCOSE,RANDOM 89.0 mg/dL (70-105); SODIUM SERUM 138.0 mmol/L (136-145); UREA NITROGEN, BLOOD 15.0 mg/dL (7-18)
[2025-07-27 10:48] LABS: ASPARTATE AMINOTRANSFERASE 17.0 U/L (10-37); TOTAL PROTEIN, SERUM 8.1 g/dL (6.0-8.3)
--- NOTE | 2025-07-27 13:41 | ERN ---
ED Note History of Present Illness Stated Complaint: WEAKNESS/ CRAMPING/ NAUSEA Chief Complaint: Other Problems Time Seen by MD: 09:53 Dictation: 59-year-old male presenting to the emergency department with generalized weakness and body cramps, patient also reports mild nausea. Similar episodes in the past when his potassium drops. Allergies: Coded Allergies: No Known Drug Allergies (Verified Allergy, 11/10/12) Home Meds Active Scripts Potassium Chloride (Klor-Con M20) 20 Meq Tab.er.prt, 1 TAB PO DAILY for 3 Days, #3 TAB 0 Refills Prov:MARIUM COPE MD 06/17/25 Spironolactone (Spironolactone) 100 Mg Tablet, 1 TAB PO DAILY for 30 Days, #30 TAB 0 Refills Prov:MARIUM COPE MD 06/17/25 Amlodipine Besylate (Amlodipine Besylate) 10 Mg Tablet, 1 TAB PO DAILY for 30 Days, #30 TAB 0 Refills Prov:MARIUM COPE MD 06/17/25 Losartan Potassium (Losartan Potassium) 100 Mg Tablet, 1 TAB PO DAILY for 30 Days, #30 TAB 0 Refills Prov:MARIUM COPE MD 06/17/25 Lidocaine (Lidocaine Pain Relief) 4 % Adh..patch, 1 PATCH TP DAILY for 30 Days, #30 PATCH 0 Refills Prov:JESSICA BUSTAMANTE 04/08/25 Tamsulosin HCl (Flomax) 0.4 Mg Cap.er.24h, 0.4 MG PO DAILY, #30 CAPSULE. Prov:BOBBY CORONEL V [facility] 12/30/23 Reported Medications Ergocalciferol (Vitamin D2) (Vitamin D2) 1,250 Mcg (29791 Unit) Capsule, 1 CAP PO QWEEK for 28 Days, #4 CAP 0 Refills 04/05/25 Empagliflozin (Jardiance) 10 Mg Tablet, 1 TAB PO DAILY for 30 Days, #30 TAB 0 Refills 04/05/25 Gabapentin (Gabapentin) 400 Mg Capsule, 300 MG PO TID, CAP 04/05/25 Atorvastatin Calcium (Atorvastatin Calcium) 40 Mg Tablet, 1 TAB PO HS for 30 Days, #30 TAB 0 Refills 12/12/24 Aspirin (Aspirin) 81 Mg Tab.chew, 1 TAB PO DAILY for 30 Days, #30 TAB 0 Refills 12/12/24 Trazodone HCl (Trazodone HCl) 100 Mg Tablet, 2.5 TAB PO HS for 30 Days, #30 TAB 0 Refills 12/12/24 Labetalol HCl (Labetalol HCl) 300 Mg Tablet, 1 TAB PO BID for 30 Days, #60 TAB 0 Refills 12/12/24 Duloxetine HCl (Duloxetine HCl) 60 Mg Capsule.dr, 2 CAP PO DAILY for 30 Days, #30 CAP 0 Refills 12/12/24 Past Medical History Past Medical History: Anxiety, Depression, Diabetes-Type II, High Cholesterol, Hypertension Additional Past Medical Hx: LT SIDE WEAKNESS R/T CVA, ABDOMINAL HERNIA, adrenal mass, ureteral stones Surgical History: Appendectomy, Other Surgical History Other: RT INGUINAL, LT SHOULDER Social History: Negative, Lives with family Review of System Dictation Constitutional: Negative for fever,chills, and weight loss Eyes: Negative for injury, pain,redness, and discharge ENT: Negative for injury,pain or swelling Cardiovascular: Negative for chest pain, palpitations, and edema Respiratory: Negative for shortness of breath, cough, and wheezing, Abdomen/GI: . Per HPI Back: Negative for injury and pain : Negative for injury, bleeding and discharge MS/Extremity: Negative for injury and deformity Skin: Negative for rash, and discoloration Neuro: Per HPI Initial Vital Sign VS Vital Signs Date Time Temp Pulse Resp B/P (MAP) Pulse Ox O2 Delivery O2 Flow Rate FiO2 07/27/25 09:58 98.1 85 18 160/97 99 0 07/27/25 10:36 Room Air* 21 Physical Exam Dictation General: awake, alert, NAD Head/Face: Normocephalic, atraumatic Eyes: PERRL, EOMI, vision at baseline ENT: oral cavity clear, TMs clear, no signs of infection Neck: Trachea midline, supple, no nuchal rigidity Cardiovascular: RRR, normal S1/S2, No MRGs, no JVD Respiratory: CTAB, no respiratory distress, No rales or wheezes Abdomen: Soft, non-tender, non-distended, normal bowel sounds, no guarding or rebound. Skin: Warm, dry, normal turgor, no rash MS/Extremity: Pulses equal, no cyanosis, neurovascular intact, FROM Neuro: COAx4, GCS 15, strength 5/5, CN 2-12 intact, normal cerebellar exam, normal gait, Psych: Normal behavior, mood, and affect normal Results (Laboratory/Radiology) Laboratory/Radiology Laboratory Tests Test 07/27/25 10:05 White Blood Count 9.5 K/uL (4.8-10.8) Red Blood Count 5.34 MIL/uL (4.50-6.20) Hemoglobin 16.1 g/dL (14.0-18.0) Hematocrit 47.2 % (42-54) Mean Corpuscular Volume 88.4 fL (79-99) Mean Corpuscular Hemoglobin 30.1 pg (27.0-33.0) Mean Corpuscular Hemoglobin Concent 34.1 g/dL (32.0-36.0) Red Cell Distribution Width 13.0 % (11.0-15.5) Platelet Count 258 K/uL (130-400) Mean Platelet Volume 11.4 fL (7.5-10.5) H Immature Granulocyte % (Auto) 0.4 % (0-1) Neutrophils (%) (Auto) 82.1 % (40.0-77.0) H Lymphocytes (%) (Auto) 9.2 % (21.0-51.0) L Monocytes (%) (Auto) 6.7 % (3.0-13.0) Eosinophils (%) (Auto) 0.7 % (0.0-8.0) Basophils (%) (Auto) 0.9 % (0.0-5.0) Neutrophils # (Auto) 7.8 K/uL (1.8-7.7) H Lymphocytes # (Auto) 0.9 K/uL (1.0-4.8) L Monocytes # (Auto) 0.6 K/uL (0.1-1.0) Eosinophils # (Auto) 0.07 K/uL (0.00-0.70) Basophils # (Auto) 0.09 K/uL (0.00-0.20) Absolute Immature Granulocyte (auto 0.04 K/uL (0-1) Nucleated Red Blood Cells 0.0 % (0.0-0.19) White Cell Morphology Comment See comments Sodium Level 138 mmol/L (136-145) Potassium Level 3.9 mmol/L (3.5-5.1) Chloride Level 97 mmol/L (101-111) L Carbon Dioxide Level 34 mmol/L (21-32) H Blood Urea Nitrogen 15 mg/dL (7-18) Creatinine 1.1 mg/dL (0.5-1.3) Glomerular Filtration Rate Calc 77 mL/min (>90) Random Glucose 89 mg/dL (70-105) Total Calcium 9.1 mg/dL (8.5-10.1) Magnesium Level 2.20 mg/dL (1.80-2.40) Total Bilirubin 0.7 mg/dL (0.2-1.0) Direct Bilirubin 0.1 mg/dL (0.0-0.3) Aspartate Amino Transf (AST/SGOT) 17 U/L (10-37) Alanine Aminotransferase (ALT/SGPT) 19 U/L (12-78) Alkaline Phosphatase 111 U/L (50-136) Total Protein 8.1 g/dL (6.0-8.3) Albumin 4.3 g/dL (3.5-5.0) Labs Reviewed?: Yes EKG: (+) NSR, (+) rhythm, (+) nonspecific ST T wave chg, (+) unchanged ED Course ED Course Orders Procedure Category Date Status Time Cbc With Differential LAB 07/27/25 Complete 10:07 Basic Metabolic Panel LAB 07/27/25 Complete 10:07 Magnesium LAB 07/27/25 Complete 10:08 Hepatic Function Panel LAB 07/27/25 Complete 10:08 12 Lead Ekg Tracing- EKG 07/27/25 Logged Technical 10:08 Ketorolac PHA 07/27/25 Complete Tromethamine 15mg/Ml 11:23 Diazepam 5 Mg/Ml 2 Ml PHA 07/27/25 Complete Syg (Valium 5 Mg/M 11:23 Current Medications Medications (Trade) Dose Ordered Sig/[place] Route PRN Reason Start Time Stop Time Status Last Admin Dose Admin Diazepam (VALium 5 MG/ML 2 ML SYG) 5 mg ONCE STAT IVP 07/27/25 11:23 07/27/25 11:26 DC 07/27/25 11:40 Ketorolac Tromethamine (toRADol) 15 mg ONCE STAT IV 07/27/25 11:23 07/27/25 11:26 DC 07/27/25 11:39 Vital Signs Date Time Temp Pulse Resp B/P (MAP) Pulse Ox O2 Delivery O2 Flow Rate FiO2 07/27/25 13:03 98.2 61 15 121/60 99 Room Air* 0 07/27/25 11:59 98.2 70 16 144/88 98 Room Air* 0 07/27/25 10:36 98.2 70 14 148/86 99 Room Air* 0 07/27/25 09:58 98.1 85 18 160/97 99 0 Medical Decision Making MDM MDM: Differential diagnosis: Rationale: Tests considered and ordered secondary to shared decision making include: Previous outside records reviewed: Old ER visits. Risk of complication and/or morbidity or mortality of patient management: None Medications-Per medication reconciliation Need for hospitalization: Patient does not meet criteria for hospitalization. Need for emergency major/minor surgery: No There are no social concerns with this patient. Prescription drug management Prescriptions will include symptomatic care Patient's prior external medical records from other ER visits were reviewed by me as indicated. Prior testing and results from previous visits were reviewed. Prior tests were taken into account with medical decision making and resource utilization, independent historian/historians were used to obtain complete medical history. I independently interpreted the test that were performed, results were reviewed by me and considered findings on radiology if ordered. Medical management and examination interpretation discussions were had by me with other qualified healthcare professionals as indicated for the patient's care. 59-year-old male with generalized weakness and body cramps, muscle aches, stable exam negative workup symptoms improved after Valium stable for discharge. DX & DISP Disposition: Discharge Departure Impression: Primary Impression: Weakness Additional Impression: Muscle cramps Condition: Stable Referrals: SELF,REFERRAL (PCP) NETO PARKS MD Jul 27, 2025 13:41
[2025-07-27 14:25] VITALS: BP 163/92; PULSE 70; RESP 12; TEMP 98.2; O2SAT 98
--- NOTE | 2025-07-28 07:37 | EKG ---
[facility] Test Date: 2025-07-27 Test Time: 10:12:13 Pat Name: DANYELL ROSARIO Department: ED Room: Gender: Gut Carrier: [facility] : 1965 Requested By: NETO PARKS Order Number: [id number] Reading MD: Teresa Tesfaye Measurements Intervals [place] Rate: 72 P: 63 IA: 158 QRS: 66 QRSD: 83 T: 69 QT: 409 QTc: 448 Interpretive Statements Sinus rhythm Compared to ECG 07/17/2025 21:00:23 T-wave abnormality no longer present Electronically Signed On 07-29-2025 13:11:23 MECHANIC RECOVERY by Teresa Tesfaye Please click the below link to view image of tracing.
== END 2025-07-27 14:26 | disposition home or self-care (01) ==
LOC: EDH 09:52
DX: F41.9 Anxiety disorder, unspecified (principal); I10 Essential (primary) hypertension; F32.A Depression, unspecified; E11.9 Type 2 diabetes mellitus without complications; E78.00 Pure hypercholesterolemia, unspecified; Z79.82 Long term (current) use of aspirin; Z79.84 Long term (current) use of oral hypoglycemic drugs; Z79.899 Other long term (current) drug therapy; Z86.73 Personal history of transient ischemic attack (TIA), and cerebral infarction without residual deficits; Z87.442 Personal history of urinary calculi; Z90.49 Acquired absence of other specified parts of digestive tract; Z98.890 Other specified postprocedural states
CPT/HCPCS: 99285; 96374; 96375; 80076; 83735; 80048; 85025; 36415; 93005; J1885; J3360

== ENCOUNTER 2025-08-19 08:07 | Emergency (ER) | payer MEDICAID ==
[~2025-08-19] VITALS: Ht 170.2 cm; Wt 75.7 kg
--- NOTE | 2025-08-19 08:20 | NUR ---
PATIENT IN ROOM
[2025-08-19 09:11] LABS: IMMATURE GRANULOCYTE ABSOLUTE 0.02 K/uL (0-1); NUCLEATED RED BLOOD CELLS 0.0 % (0.0-0.19); PLATELET COUNT (AUTO) 239 K/uL (130-400); RED BLOOD CELL COUNT(AUTO) 5.05 MIL/uL (4.50-6.20); RED CELL DISTRIBUTION WIDTH 13.3 % (11.0-15.5); WHITE BLOOD COUNT (AUTO) 6.7 K/uL (4.8-10.8)
[2025-08-19 09:20] LABS: CREATININE 1.0 mg/dL (0.5-1.3); GLOMERULAR FILTR. RATE CALC 87.0 mL/min (>90); GLUCOSE,RANDOM 106.0 mg/dL (70-105); SODIUM SERUM 141.0 mmol/L (136-145); UREA NITROGEN, BLOOD 13.0 mg/dL (7-18)
--- NOTE | 2025-08-19 09:31 | NUR ---
NOTIFIED ER DR (DR. Aaron) ON PATIENT'S ELEVATED BP.
--- NOTE | 2025-08-19 11:03 | ERN ---
ED Note History of Present Illness Stated Complaint: RIB PAIN Chief Complaint: Rib Pain Time Seen by MD: 08:10 Dictation: 59-year-old male with left-sided rib pain patient reports recent fall and rib fractures which were diagnosed with the his primary care doctor in mobile x- rays. Patient reports he had worsening pain today no shortness a breath. No other injuries. Allergies: Coded Allergies: No Known Drug Allergies (Verified Allergy, 11/10/12) Home Meds Active Scripts Potassium Chloride (Klor-Con M20) 20 Meq Tab.er.prt, 1 TAB PO DAILY for 3 Days, #3 TAB 0 Refills Prov:MARIUM COPE MD 06/17/25 Spironolactone (Spironolactone) 100 Mg Tablet, 1 TAB PO DAILY for 30 Days, #30 TAB 0 Refills Prov:MARIUM COPE MD 06/17/25 Amlodipine Besylate (Amlodipine Besylate) 10 Mg Tablet, 1 TAB PO DAILY for 30 Days, #30 TAB 0 Refills Prov:MARIUM COPE MD 06/17/25 Losartan Potassium (Losartan Potassium) 100 Mg Tablet, 1 TAB PO DAILY for 30 Days, #30 TAB 0 Refills Prov:MARIUM COPE MD 06/17/25 Lidocaine (Lidocaine Pain Relief) 4 % Adh..patch, 1 PATCH TP DAILY for 30 Days, #30 PATCH 0 Refills Prov:JESSICA BUSTAMANTE 04/08/25 Tamsulosin HCl (Flomax) 0.4 Mg Cap.er.24h, 0.4 MG PO DAILY, #30 CAPSULE. Prov:[facility]BY CORONEL V [facility] 12/30/23 Reported Medications Ergocalciferol (Vitamin D2) (Vitamin D2) 1,250 Mcg (86851 Unit) Capsule, 1 CAP PO QWEEK for 28 Days, #4 CAP 0 Refills 04/05/25 Empagliflozin (Jardiance) 10 Mg Tablet, 1 TAB PO DAILY for 30 Days, #30 TAB 0 Refills 04/05/25 Gabapentin (Gabapentin) 400 Mg Capsule, 300 MG PO TID, CAP 04/05/25 Atorvastatin Calcium (Atorvastatin Calcium) 40 Mg Tablet, 1 TAB PO HS for 30 Days, #30 TAB 0 Refills 12/12/24 Aspirin (Aspirin) 81 Mg Tab.chew, 1 TAB PO DAILY for 30 Days, #30 TAB 0 Refills 12/12/24 Trazodone HCl (Trazodone HCl) 100 Mg Tablet, 2.5 TAB PO HS for 30 Days, #30 TAB 0 Refills 12/12/24 Labetalol HCl (Labetalol HCl) 300 Mg Tablet, 1 TAB PO BID for 30 Days, #60 TAB 0 Refills 12/12/24 Duloxetine HCl (Duloxetine HCl) 60 Mg Capsule.dr, 2 CAP PO DAILY for 30 Days, #30 CAP 0 Refills 12/12/24 Past Medical History Past Medical History: CVA, Diabetes-Type II, High Cholesterol, Hypertension Additional Past Medical Hx: LT SIDE WEAKNESS R/T CVA, ABDOMINAL HERNIA, adrenal mass, ureteral stones Surgical History: Appendectomy, Other Surgical History Other: HERNIA, LEFT HUMERUS, LEFT WRIST SX. Social History: Negative, Lives with family Review of System Dictation Constitutional: Negative for fever,chills, and weight loss Eyes: Negative for injury, pain,redness, and discharge ENT: Negative for injury,pain or swelling Cardiovascular: Per HPI Respiratory: Negative for shortness of breath, cough, and wheezing, Abdomen/GI: Negative for abdominal pain, nausea, vomiting, diarrhea, and consti pation Back: Negative for injury and pain : Negative for injury, bleeding and discharge MS/Extremity: Negative for injury and deformity Skin: Negative for rash, and discoloration Neuro: Negative for headache, weakness, numbness, tingling, and seizure Psych: Negative for suicide ideation, homicidal ideation, and hallucinations Initial Vital Sign VS Vital Signs Date Time Temp Pulse Resp B/P (MAP) Pulse Ox O2 Delivery O2 Flow Rate FiO2 08/19/25 08:15 98.4 72 16 174/95 96 Room Air 0 08/19/25 08:20 21 Physical Exam Dictation General: awake, alert, NAD Head/Face: Normocephalic, atraumatic Eyes: PERRL, EOMI, vision at baseline ENT: oral cavity clear, TMs clear, no signs of infection Neck: Trachea midline, supple, no nuchal rigidity Cardiovascular: RRR, normal S1/S2, No MRGs, no JVD Chest wall--mild tenderness to left lateral chest wall area no deformity Respiratory: CTAB, no respiratory distress, No rales or wheezes Abdomen: Soft, non-tender, non-distended, normal bowel sounds, no guarding or rebound. Skin: Warm, dry, normal turgor, no rash MS/Extremity: Pulses equal, no cyanosis, neurovascular intact, FROM Neuro: COAx4, GCS 15, strength 5/5, CN 2-12 intact, normal cerebellar exam, normal gait, Psych: Normal behavior, mood, and affect normal Results (Laboratory/Radiology) Laboratory/Radiology Laboratory Tests Test 08/19/25 08:58 White Blood Count 6.7 K/uL (4.8-10.8) Red Blood Count 5.05 MIL/uL (4.50-6.20) Hemoglobin 15.0 g/dL (14.0-18.0) Hematocrit 45.8 % (42-54) Mean Corpuscular Volume 90.7 fL (79-99) Mean Corpuscular Hemoglobin 29.7 pg (27.0-33.0) Mean Corpuscular Hemoglobin Concent 32.8 g/dL (32.0-36.0) Red Cell Distribution Width 13.3 % (11.0-15.5) Platelet Count 239 K/uL (130-400) Mean Platelet Volume 9.3 fL (7.5-10.5) Immature Granulocyte % (Auto) 0.3 % (0-1) Neutrophils (%) (Auto) 79.6 % (40.0-77.0) H Lymphocytes (%) (Auto) 10.6 % (21.0-51.0) L Monocytes (%) (Auto) 8.1 % (3.0-13.0) Eosinophils (%) (Auto) 0.7 % (0.0-8.0) Basophils (%) (Auto) 0.7 % (0.0-5.0) Neutrophils # (Auto) 5.3 K/uL (1.8-7.7) Lymphocytes # (Auto) 0.7 K/uL (1.0-4.8) L Monocytes # (Auto) 0.5 K/uL (0.1-1.0) Eosinophils # (Auto) 0.05 K/uL (0.00-0.70) Basophils # (Auto) 0.05 K/uL (0.00-0.20) Absolute Immature Granulocyte (auto 0.02 K/uL (0-1) Nucleated Red Blood Cells 0.0 % (0.0-0.19) Sodium Level 141 mmol/L (136-145) Potassium Level 3.5 mmol/L (3.5-5.1) Chloride Level 106 mmol/L (101-111) Carbon Dioxide Level 30 mmol/L (21-32) Blood Urea Nitrogen 13 mg/dL (7-18) Creatinine 1.0 mg/dL (0.5-1.3) Glomerular Filtration Rate Calc 87 mL/min (>90) Random Glucose 106 mg/dL (70-105) H Total Calcium 8.7 mg/dL (8.5-10.1) Troponin I High Sensitivity 10 ng/L (4-75) Labs Reviewed?: Yes EKG: (+) NSR, (+) rhythm, (+) nonspecific ST T wave chg, (+) nonspecific ST T wave chg, (+) unchanged ED Course ED Course Orders Procedure Category Date Status Time Ribs Unilat 2v Lt RAD 08/19/25 Taken 08:23 12 Lead Ekg Tracing- EKG 08/19/25 Logged Technical 08:23 Basic Metabolic Panel LAB 08/19/25 Complete 08:23 Cbc With Differential LAB 08/19/25 Complete 08:23 Troponin I High LAB 08/19/25 Complete Sensitivity 08:23 Chest 1vw RAD 08/19/25 Taken 08:23 Morphine 4mg Syg PHA 08/19/25 Complete (Morphine 4mg Syg) 08:23 Ondansetron 4mg Inj PHA 08/19/25 Complete (Zofran 4mg Inj) 08:23 Hydralazine 20mg Inj PHA 08/19/25 Complete (Apresoline 20mg In 09:33 Respiratory RT 08/19/25 Transmitted Communication 10:53 Current Medications Medications (Trade) Dose Ordered Sig/[place] Route PRN Reason Start Time Stop Time Status Last Admin Dose Admin Hydralazine HCl (APRESOLine 20MG INJ) 10 mg ONCE STAT IV 08/19/25 09:33 08/19/25 09:38 DC 08/19/25 09:48 Morphine Sulfate (morPHINE 4MG SYG) 4 mg ONCE STAT IVP 08/19/25 08:23 08/19/25 08:25 DC 08/19/25 09:02 Ondansetron HCl (zoFRAN 4MG INJ) 4 mg ONCE STAT IVP 08/19/25 08:23 08/19/25 08:25 DC 12/21/25 09:02 Vital Signs Date Time Temp Pulse Resp B/P (MAP) Pulse Ox O2 Delivery O2 Flow Rate FiO2 08/19/25 09:48 63 187/108 08/19/25 08:20 97.9 61 11 155/103 98 Room Air* 0 21 08/19/25 08:15 98.4 72 16 174/95 96 Room Air 0 Medical Decision Making MDM MDM: Differential diagnosis: Rationale: Tests considered and ordered secondary to shared decision making include: Previous outside records reviewed: Old ER visits. Risk of complication and/or morbidity or mortality of patient management: None Medications-Per medication reconciliation Need for hospitalization: Patient does not meet criteria for hospitalization. Need for emergency major/minor surgery: No There are no social concerns with this patient. Prescription drug management Prescriptions will include symptomatic care Patient's prior external medical records from other ER visits were reviewed by me as indicated. Prior testing and results from previous visits were reviewed. Prior tests were taken into account with medical decision making and resource utilization, independent historian/historians were used to obtain complete medical history. I independently interpreted the test that were performed, results were reviewed by me and considered findings on radiology if ordered. Medical management and examination interpretation discussions were had by me with other qualified healthcare professionals as indicated for the patient's care. 59-year-old male with atypical chest pain, rib pain from rib fractures no pneumothorax or complications negative cardiac workup heart score one, stable for discharge, given incentive spirometry, and symptoms controlled. DX & DISP Disposition: Discharge Departure Impression: Primary Impression: Chest wall pain Additional Impression: Multiple rib fractures Condition: Stable Referrals: SELF,REFERRAL (PCP) NETO PARKS MD Aug 19, 2025 11:03
--- NOTE | 2025-08-19 11:20 | HMCIMG ---
EXAM: CR Chest, 1 View. CLINICAL HISTORY: injury COMPARISON: 06/12 21:46 EDT FINDINGS: LUNGS: The lungs show no infiltrate or other acute finding. PLEURAL SPACES: No pleural effusion or pneumothorax. MEDIASTINUM: The cardiomediastinal silhouette is within normal limits. BONES: No aggressive appearing osseous lesion seen. IMPRESSION: No acute cardiopulmonary pathology is evident. /[place]
--- NOTE | 2025-08-19 11:21 | HMCIMG ---
EXAM: CR left Rib, 4 View. CLINICAL HISTORY: injury COMPARISON: None provided. FINDINGS: LUNGS: The visualized lungs appear essentially clear. PLEURAL SPACES: No pneumothorax evident. No pleural effusions. BONES: No visible acute rib fracture. IMPRESSION: No visible acute rib fracture. No pneumothorax. /[place]
--- NOTE | 2025-08-19 11:34 | NUR ---
RT CALLED AT THIS TIME FOR INCENTIVE SPIROMETER
[2025-08-19 12:05] VITALS: BP 170/99; PULSE 73; RESP 17; TEMP 97.9; O2SAT 99
--- NOTE | 2025-08-19 18:05 | EKG ---
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
== END 2025-08-19 12:22 | disposition home or self-care (01) ==
LOC: EDH 08:07
DX: S22.42XA Multiple fractures of ribs, left side, initial encounter for closed fracture (principal); E11.9 Type 2 diabetes mellitus without complications; E78.00 Pure hypercholesterolemia, unspecified; I10 Essential (primary) hypertension; Z79.82 Long term (current) use of aspirin; Z79.84 Long term (current) use of oral hypoglycemic drugs; Z79.899 Other long term (current) drug therapy; Z86.73 Personal history of transient ischemic attack (TIA), and cerebral infarction without residual deficits; Z87.442 Personal history of urinary calculi; Z90.49 Acquired absence of other specified parts of digestive tract; X58.XXXA Exposure to other specified factors, initial encounter; Y93.89 Activity, other specified; Y92.89 Other specified places as the place of occurrence of the external cause; Y99.8 Other external cause status
CPT/HCPCS: 99285; 96374; 96375; 71045; 84484; 80048; 85025; 36415; 71100; 93005; J0360; J2405; J2270

== ENCOUNTER 2025-08-27 09:16 | Inpatient (IN) | payer MEDICAID ==
[~2025-08-27] VITALS: Ht 170.2 cm; Wt 75.7 kg
--- NOTE | 2025-08-27 09:33 | ERN ---
General Chief Complaint: Wound Check Stated Complaint: URINARY INCONTINENCE CAUSING SORES Time Seen by MD: 09:23 Source: patient History of Present Illness Initial Comments Patient is a 59-year-old male who came to ER with complain of bilateral wounds on his buttocks and out growth on his testicle. As per the patient, he had a stroke in 2018 after which he developed urinary and fecal incontinence therefore the patient wears briefs. About 1 week ago, the patient saw some blood in his brief 1 week ago but today there was significant amount of blood in his brief that prompted him to come to the ER Timing/Duration: 1 week Allergies: Coded Allergies: No Known Drug Allergies (Verified Allergy, 11/10/12) Home Meds Active Scripts Potassium Chloride (Klor-Con M20) 20 Meq Tab.er.prt, 1 TAB PO DAILY for 3 Days, #3 TAB 0 Refills Prov:MARIUM COPE MD 06/17/25 Spironolactone (Spironolactone) 100 Mg Tablet, 1 TAB PO DAILY for 30 Days, #30 TAB 0 Refills Prov:MARIUM COPE MD 06/17/25 Amlodipine Besylate (Amlodipine Besylate) 10 Mg Tablet, 1 TAB PO DAILY for 30 Days, #30 TAB 0 Refills Prov:MARIUM COPE MD 06/17/25 Losartan Potassium (Losartan Potassium) 100 Mg Tablet, 1 TAB PO DAILY for 30 Days, #30 TAB 0 Refills Prov:MARIUM COPE MD 06/17/25 Lidocaine (Lidocaine Pain Relief) 4 % Adh..patch, 1 PATCH TP DAILY for 30 Days, #30 PATCH 0 Refills Prov:JESSICA BUSTAMANTE 04/08/25 Tamsulosin HCl (Flomax) 0.4 Mg Cap.er.24h, 0.4 MG PO DAILY, #30 CAPSULE. Prov:BOBBY CORONEL V [facility] 12/30/23 Reported Medications Ergocalciferol (Vitamin D2) (Vitamin D2) 1,250 Mcg (60172 Unit) Capsule, 1 CAP PO QWEEK for 28 Days, #4 CAP 0 Refills 04/05/25 Empagliflozin (Jardiance) 10 Mg Tablet, 1 TAB PO DAILY for 30 Days, #30 TAB 0 Refills 04/05/25 Gabapentin (Gabapentin) 400 Mg Capsule, 300 MG PO TID, CAP 04/05/25 Atorvastatin Calcium (Atorvastatin Calcium) 40 Mg Tablet, 1 TAB PO HS for 30 Days, #30 TAB 0 Refills 12/12/24 Aspirin (Aspirin) 81 Mg Tab.chew, 1 TAB PO DAILY for 30 Days, #30 TAB 0 Refills 12/12/24 Trazodone HCl (Trazodone HCl) 100 Mg Tablet, 2.5 TAB PO HS for 30 Days, #30 TAB 0 Refills 12/12/24 Labetalol HCl (Labetalol HCl) 300 Mg Tablet, 1 TAB PO BID for 30 Days, #60 TAB 0 Refills 12/12/24 Duloxetine HCl (Duloxetine HCl) 60 Mg Capsule.dr, 2 CAP PO DAILY for 30 Days, #30 CAP 0 Refills 12/12/24 Past Medical History Past Medical History: CVA, Diabetes-Type II, High Cholesterol, Heart Disease, Hypertension, Stroke, UTI Medical History Other: LT SIDE WEAKNESS R/T CVA, ABDOMINAL HERNIA, adrenal mass, ureteral stones Past Surgical History: Appendectomy, Other Surgical History Other: HERNIA, LEFT HUMERUS, LEFT WRIST SX. Social History Social History: Negative, Lives with family Constitutional: (-) chills, (-) diaphoresis, (-) fever, (-) malaise, (-) weakness, (-) other documentation EENTM: (-) eye pain, (-) blurred vision, (-) tearing, (-) double vision, (-) ear pain, (-) ear discharge, (-) nose pain, (-) nose congestion, (-) throat pain, (-) Throat swelling, (-) mouth pain, (-) tooth pain, (-) mouth swelling, (-) other documentation Respiratory: (-) cough, (-) orthopnea, (-) short of breath, (-) stridor, (-) wheezing, (-) other documentation Cardiovascular: (-) chest pain, (-) edema, (-) palpitations, (-) syncope, (-) dyspnea on exertion, (-) other documentation Gastrointestinal/Abdominal: (-) nausea, (-) vomiting, (-) diarrhea, (-) abdominal pain, (-) abdominal distention, (-) constipation, (-) rectal bleeding, (-) dark stool/melena, (-) other documentation Genitourinary: (+) frequency Skin: (+) other documentation Neuro: (-) altered mental status, (-) headache, (-) syncope, (-) paralysis, (-) numbness, (-) seizure, (-) pre-existing deficit, (-) tremors, (-) weakness, (-) dizziness, (-) slurred speech, (-) vertigo, (-) other documentation Physical Exam General Appearance: (+) no apparent distress Orientation: (+) alert, (+) oriented x 3 Head/Face Trauma: No Ear, Nose, Throat: (-) hearing grossly normal, (-) normal ENT inspection, (-) moist mucous membraine, (-) normal pharynx, (-) normal TM, (-) abnormal TM, (-) pharyngeal erythema, (-) sinus drainange, (-) sinus pain, (-) tonsillar exudate, (-) tonsillar swelling, (-) nasal drip, (-) nasal congestion, (-) hearing decreased, (-) dry mucous membraine, (-) other documentation Neck: (-) normal inspection, (-) supple, (-) full range of motion, (-) no JVD, (-) non-tender, (-) no bruit, (-) tender, (-) limited range of motion, (-) tender lateral, (-) tender midline, (-) thyromegaly, (-) lymphadenopathy, (-) masses, (-) carotid bruit, (-) other documentaion Respiratory: (-) chest non-tender, (-) lungs clear, (-) well ventilated, (-) decreased breath sounds, (-) retractions, (-) abnormal breath sound, (-) crackles, (-) plerual rub, (-) rales, (-) rhonchi, (-) stridor, (-) wheezing, (- ) other documentation Heart: (-) regular, (-) no gallop, (-) murmur, (-) irregular, (-) bradycardia, (-) tachycardia, (-) systolic murmur, (-) diastolic murmur, (-) extra beats, (-) friction rub, (-) gallop/S3, (-) gallop/S4, (-) other documentation Vascular: (-) no edema, (-) normal peripheral pulse, (-) no JVD, (-) abdominal aorta, (-) abnormal peripheral pulse, (-) carotid bruit, (-) edema, (-) JVD, (-) varicose vein, (-) other documentation Gastrointestinal: (-) soft, (-) non-tender, (-) no organomegaly, (-) bowel sound present, (-) distended, (-) tender, (-) abnormal bowel sounds, (-) bowel sound absent, (-) rebound, (-) hernandez's sign, (-) guarding, (-) hernia, (-) mass, (-) pulsatile mass, (-) CVA tenderness, (-) hepatomegaly, (-) spleenomegaly, (-) other documentation, (-) McBerney's, (-) other documentation Genital: (+) other documentation Genital Comment Ulcer on the left side of the scrotum Rectal Comment Bilateral decubitus ulcer buttocks Extremities: (-) normal range of motion, (-) non-tender, (-) normal inspection, (-) no pedal edema, (-) no calf tenderness, (-) normal capillary refill, (-) pelvis stable, (-) calf tenderness, (-) inflammation, (-) pedal edema, (-) slow capillary refill, (-) swelling, (-) other Results Laboratory and Microbiology Lab and Micro Result Laboratory Tests Test 08/27/25 09:30 08/27/25 09:45 White Blood Count 8.8 K/uL (4.8-10.8) Red Blood Count 4.73 MIL/uL (4.50-6.20) Hemoglobin 14.1 g/dL (14.0-18.0) Hematocrit 43.7 % (42-54) Mean Corpuscular Volume 92.4 fL (79-99) Mean Corpuscular Hemoglobin 29.8 pg (27.0-33.0) Mean Corpuscular Hemoglobin Concent 32.3 g/dL (32.0-36.0) Red Cell Distribution Width 13.3 % (11.0-15.5) Platelet Count 251 K/uL (130-400) Mean Platelet Volume 9.7 fL (7.5-10.5) Immature Granulocyte % (Auto) 0.6 % (0-1) Neutrophils (%) (Auto) 77.0 % (40.0-77.0) Lymphocytes (%) (Auto) 10.3 % (21.0-51.0) L Monocytes (%) (Auto) 9.0 % (3.0-13.0) Eosinophils (%) (Auto) 2.4 % (0.0-8.0) Basophils (%) (Auto) 0.7 % (0.0-5.0) Neutrophils # (Auto) 6.8 K/uL (1.8-7.7) Lymphocytes # (Auto) 0.9 K/uL (1.0-4.8) L Monocytes # (Auto) 0.8 K/uL (0.1-1.0) Eosinophils # (Auto) 0.21 K/uL (0.00-0.70) Basophils # (Auto) 0.06 K/uL (0.00-0.20) Absolute Immature Granulocyte (auto 0.05 K/uL (0-1) Nucleated Red Blood Cells 0.0 % (0.0-0.19) Prothrombin Time 12.2 SEC (9.6-11.6) H Prothromb Time International Ratio 1.17 (0.85-1.15) H Activated Partial Thromboplast Time 37.6 SEC (26.3-35.5) H Sodium Level 148 mmol/L (136-145) H Potassium Level 3.5 mmol/L (3.5-5.1) Chloride Level 107 mmol/L (101-111) Carbon Dioxide Level 34 mmol/L (21-32) H Blood Urea Nitrogen 13 mg/dL (7-18) Creatinine 1.2 mg/dL (0.5-1.3) Glomerular Filtration Rate Calc 70 mL/min (>90) Random Glucose 100 mg/dL (70-105) Lactic Acid Level 1.6 mmol/L (0.8-2.5) Total Calcium 8.7 mg/dL (8.5-10.1) Troponin I High Sensitivity 8 ng/L (4-75) Procalcitonin < 0.05 ng/mL (0.05-0.5) L Urine Color LIGHT-YELLOW (YELLOW) Urine Appearance CLEAR (CLEAR) Urine pH 6.5 (5.0-8.0) Urine Specific [place] 1.014 (1.001-1.031) Urine Protein 10 mg/dL (NEGATIVE) H Urine Glucose (UA) >=1000 mg/dL (NEGATIVE) H Urine Ketones NEGATIVE mg/dL (NEGATIVE) Urine Occult Blood SMALL (NEGATIVE) H Urine Nitrate NEGATIVE (NEGATIVE) Urine Bilirubin NEGATIVE mg/dL (NEGATIVE) Urine Urobilinogen 0.2 mg/dL (0.2-1.0) Urine Leukocyte Esterase NEGATIVE Giovanny/uL Urine RBC 11-25 /HPF (0-1) H Urine WBC 0-1 /HPF (0-1) Urine Squamous Epithelial Cells RARE /HPF (0-2) Urine Bacteria None /HPF (None Seen) MDM MDM: Differential diagnosis: Rationale: Tests considered and ordered secondary to shared decision making include: labs, ECG and radiology Previous outside records reviewed: Old ER visits. Risk of complication and/or morbidity or mortality of patient management: None Medications-Per medication reconciliation Need for hospitalization: Patient does meet criteria for hospitalization. Need for emergency major/minor surgery: No There are no social concerns with this patient. Prescription drug management Prescriptions will include symptomatic care Patient's prior external medical records from other ER visits were reviewed by me as indicated. Prior testing and results from previous visits were reviewed. Prior tests were taken into account with medical decision making and resource utilization, independent historian/historians were used to obtain complete medical history. I independently interpreted the test that were performed, results were reviewed by me and considered findings on radiology if ordered. Medical management and examination interpretation discussions were had by me with other qualified healthcare professionals as indicated for the patient's care. ED Course Orders Procedure Category Date Status Time 12 Lead Ekg Tracing- EKG 08/27/25 Complete Technical 09:24 Cbc With Differential LAB 08/27/25 Complete 09:24 Basic Metabolic Panel LAB 08/27/25 Complete 09:24 Lactic Acid LAB 08/27/25 Complete 09:24 Procalcitonin LAB 08/27/25 Complete 09:24 Pt And Ptt LAB 08/27/25 Complete 09:24 Troponin I High LAB 08/27/25 Complete Sensitivity 09:24 Urinalysis LAB 08/27/25 Complete W/Microscopic 09:24 Us Scrotum & Contents US 08/27/25 Taken 09:47 Ct Abdomen/Pelvis CT 08/27/25 Resulted W/Contrast 09:49 Iohexol (Omnipaque) PHA 08/27/25 Complete 10:26 Vancomycin 1g/250ml PHA 08/27/25 In Process Kit (Vancomycin 1g/2 12:00 Cefepime Hcl 1 Gm PHA 08/27/25 In Process Vial (Maxipime 1 Gm Vi 12:00 Current Medications Medications (Trade) Dose Ordered Sig/[place] Route PRN Reason Start Time Stop Time Status Last Admin Dose Admin Cefepime HCl (MAXipime 1 GM vial) 1 gm ONCE IVPB 08/27/25 12:00 09/06/25 11:59 UNV Iohexol (Omnipaque) 75 ml STK-MED ONCE IV 08/27/25 10:26 08/27/25 10:27 DC Vancomycin HCl (Vancomycin 1g/ 250ml Kit) 1 gm ONCE ONCE IV 08/27/25 12:00 08/27/25 12:01 UNV Vital Signs Date Time Temp Pulse Resp B/P (MAP) Pulse Ox O2 Delivery O2 Flow Rate FiO2 08/27/25 10:06 98.4 61 17 121/82 96 Room Air* 0 21 08/27/25 09:19 98.4 71 16 136/85 97 Room Air 0 DX & DISP Disposition: Inpatient Departure Impression: Primary Impression: Scrotal abscess Condition: Stable Referrals: SELF,REFERRAL (PCP) GO LIPSCOMB MD Aug 27, 2025 09:33 SHAGUFTA ZAPATA MD Aug 27, 2025 11:48
[2025-08-27 09:47] LABS: IMMATURE GRANULOCYTE ABSOLUTE 0.05 K/uL (0-1); NUCLEATED RED BLOOD CELLS 0.0 % (0.0-0.19); PLATELET COUNT (AUTO) 251 K/uL (130-400); RED BLOOD CELL COUNT(AUTO) 4.73 MIL/uL (4.50-6.20); RED CELL DISTRIBUTION WIDTH 13.3 % (11.0-15.5); WHITE BLOOD COUNT (AUTO) 8.8 K/uL (4.8-10.8)
[2025-08-27 09:54] LABS: CREATININE 1.2 mg/dL (0.5-1.3); GLOMERULAR FILTR. RATE CALC 70.0 mL/min (>90); GLUCOSE,RANDOM 100.0 mg/dL (70-105); SODIUM SERUM 148.0 mmol/L (136-145); UREA NITROGEN, BLOOD 13.0 mg/dL (7-18)
[2025-08-27 09:59] LABS: INR 1.17 (0.85-1.15)
[2025-08-27 10:03] LABS: APPEARANCE,URINE CLEAR (CLEAR); GLUCOSE, URINE (UA) >=1000 mg/dL (NEGATIVE); LEUKOCYTE ESTERASE ,URINE NEGATIVE Leu/uL (NEGATIVE); NITRATE,URINE NEGATIVE (NEGATIVE); OCCULT BLOOD,URINE SMALL (NEGATIVE); SQUAMOUS EPITHELIAL CELL,UR RARE /HPF (0-2)
[2025-08-27] MEDS ORDERED: IOHEXOL-350 75 ML VIAL IV ONE (10:26)
--- NOTE | 2025-08-27 10:35 | EKG ---
[facility] Test Date: 2025-08-27 Test Time: 10:12:12 Pat Name: DANYELL ROSARIO Department: EDH Room: ED Gender: M Outside Deliverer: [id number] : 1965 Requested By: SHAGUFTA ZAPATA Order Number: [id number] Reading MD: Gayle Don Measurements Intervals [place] Rate: 54 P: 59 [place]: 169 QRS: 23 QRSD: 86 T: 133 QT: 425 QTc: 404 Interpretive Statements normal sinus rhythm Sinus rhythm Nonspecific T abnormalities (flattening), lateral leads Compared to ECG 08/19/2025 08:47:21 T-wave abnormality now present Electronically Signed On 08-27-2025 16:47:10 LACE ROLLER by Gayle Don Please click the below link to view image of tracing.
--- NOTE | 2025-08-27 11:25 | HMCIMG ---
EXAM: CT Abdomen and Pelvis with IV contrast CLINICAL HISTORY: Scrotal ulcer/abcess TECHNIQUE: Axial computed tomography images of the abdomen and pelvis with intravenous contrast. CONTRAST: with intravenous contrast. COMPARISON: Study dated 05/20. FINDINGS: LUNG BASES: Atelectatic bands along the left lower lobe. LIVER: The liver is enlarged in size, with the right hepatic lobe measuring up to 17.7 cm. GALLBLADDER AND BILE DUCTS: The gallbladder appears within normal limits. No radioopaque gallstones are seen. No biliary ductal dilatation is evident. PANCREAS: Unremarkable. SPLEEN: Unremarkable. ADRENAL GLANDS: A 1.4 cm nodule along the left adrenal gland. A 0.6 cm nodule along the right adrenal gland. Suggested adrenal protocol for further evaluation. KIDNEYS, URETERS, AND BLADDER: A 5.8 mm calculus along the lower calyx of the right kidney. Multiple well-defined, rounded subcentimeter-sized non-enhancing areas along the right kidney, suggestive of multiple simple cysts. Suggested USG correlation with a non-emergent basis for further evaluation. There is no hydronephrosis or hydroureter. The wall of the urinary bladder measures 8 mm, likely due to a contracted urinary bladder. The possibility of cystitis appears less likely. USG correlation is advised. STOMACH AND BOWEL: A defect measuring 1.1 cm along the left hemidiaphragm with focal herniation of fat through it, suggestive of Bochdalek's hernia. Unremarkable appearance of the stomach and bowel. No evidence of bowel obstruction. No evidence suggesting enteritis or colitis. APPENDIX: No evidence of acute appendicitis on CT examination. PERITONEUM: No free fluid. No free air. LYMPH NODES: No lymphadenopathy is evident. REPRODUCTIVE: A well-defined peripherally enhancing collection measuring 3.1 x 2.3 cm is visualized along the left scrotal sac with adjacent fat stranding and inflammatory changes. There is an associated left-sided hydrocele. Multiple homogeneously enhancing, rounded left-sided inguinal nodes are visualized. VASCULATURE: Atheromatous calcific changes along the aorta and the coronary arteries. No evidence of abdominal aortic aneurysm. BONES: Degenerative changes along the visualized spine. Redemonstrated left posterior and lateral rib fractures. IMPRESSION: 1. Left scrotal abscess measuring 3.1 x 2.3 cm with adjacent inflammatory changes, left hydrocele, and left inguinal lymphadenopathy. 2. Redemonstrated left posterior and lateral rib fractures. 3. No other acute findings. /[place]
--- NOTE | 2025-08-27 11:55 | HMCIMG ---
STUDY Ultrasound Scrotum with Color Doppler CLINICAL HISTORY Scrotal ulcer. History of prior scrotal issues. TECHNIQUE High-resolution grayscale and color Doppler ultrasound evaluation of both testes, epididymides, and scrotal contents COMPARISON None provided FINDINGS Right testis The right testis measures approximately 3.2 1.3 1.9 cm. Testicular parenchyma is homogeneous in echotexture. Multiple punctate echogenic foci are noted without posterior acoustic shadowing, consistent with testicular microlithiasis. Color Doppler demonstrates normal intratesticular vascularity. No focal intratesticular mass is identified. Right epididymis The epididymal head measures approximately 5 mm, body approximately 2 mm, and tail approximately 3 mm. Echotexture is unremarkable. Color Doppler flow is within normal limits. Left testis The left testis measures approximately 4.5 2.2 2.6 cm. Testicular parenchyma is homogeneous. Multiple punctate echogenic foci are present, consistent with testicular microlithiasis. Normal intratesticular vascularity is demonstrated on color Doppler. No focal intratesticular mass is identified. Left epididymis The epididymal head measures approximately 9 mm, body approximately 2 mm, and tail approximately 3 mm. Echotexture is unremarkable with normal Doppler flow. Left groin / extratesticular findings A complex fluid collection is noted in the left groin region, measuring approximately 1.9 2.5 2.2 cm. Peripheral vascularity is demonstrated on color Doppler imaging. The appearance is suspicious for a localized abscess in the appropriate clinical setting. Scrotal wall Scrotal wall thickening is present, correlating with the history of scrotal ulceration. IMPRESSION * Left groin complex fluid collection measuring approximately 1.9 2.5 2.2 cm with peripheral vascularity, highly suspicious for abscess in the clinical context of scrotal ulceration. * Bilateral testicular microlithiasis without focal intratesticular mass; testicular perfusion is preserved bilaterally. * No sonographic evidence of testicular torsion or epididymo-orchitis. * Epididymides are within normal limits bilaterally. /[place]
--- NOTE | 2025-08-27 12:14 | HP ---
[facility] HISTORY AND PHYSICAL Date of Service: Aug 27, 2025 Time of Service: 12:14 HISTORY OF PRESENT ILLNESS: 59 year old male with past medical history of diabetes mellitus type 2, depression, anxiety, hypertension, hyperlipidemia, coronary artery disease, hi story of CVA, BPH who presented to the hospital secondary to pain and swelling in his scrotal area. Patient states for the past 4-5 days he has noted some redness and swelling in the scrotal area. He states it started as a small rash which gradually became bigger. He noted that he was having bloody discharge from the area. There was some pus noted to. He also notes some thick mucousy discharge with urination. He denies any sexual encounter and denied any sick contacts. Denied any chest pain, shortness of breath, abdominal pain. He is able to urinate. Labs were notable for white count of 8.8, hemoglobin was 14.1, platelet count was 251 K, sodium was 148, potassium was 3.5, creatinine was 1.2, blood glucose was [address] abdomen pelvis which was concerning for left-sided scrotal abscess measuring 3.1 x 2.3 cm adjacent inflammatory changes. There is left hydrocele present and left inguinal lymphadenopathy. He has also has old left posterior and lateral rib fractures. Urology was consulted by ED provider REVIEW OF SYSTEMS CONSTITUTIONAL: Denies fevers, chills, or night sweats. No unintentional weight loss reported. NEUROLOGICAL: Denies headache, amaurosis fugax, motor weakness, sensory deficit, vertigo/spinning sensation, gait abnormalities, or tremors. ENT: No hearing loss, otalgia, otorrhea, rhinitis, rhinorrhea, hoarseness, or sore throat. CARDIOVASCULAR: Denies any exertional angina, dyspnea on exertion, orthopnea, paroxysmal nocturnal dyspnea, palpitations, life-threatening arrhythmias, c laudication. PULMONARY: Denies any shortness of breath, cough, phlegm/sputum, hemoptysis, pleuritic chest pain. SLEEP: Denies morning headaches, daytime somnolence or napping. Denies difficulty falling asleep, staying asleep, waking from sleep. Denies knowledge of snoring. GASTROINTESTINAL: Denies any type of dysphagia to either liquids or solids. Denies nausea, vomiting, pyrosis, early satiety, abdominal pain, diarrhea, cons tipation, or changes in stool consistency or caliber. Denies coffee-ground emesis, hematemesis, hematochezia, or melanotic stools. GENITOURINARY: Positive for genital discharge, pain and swelling in the scrotum ENDOCRINOLOGIC: Denies polyuria, polydipsia, polyphagia or heat/cold intolerances. HEMATOLOGIC: Denies thrombophilia/previous clots, or coagulopathy/bleeding disorders. ONCOLOGIC: Denies personal history of malignancy. DERMATOLOGIC: Denies rashes or pruritus. PSYCHIATRIC: Denies any suicidal or homicidal ideation. Denies hallucinations. PAST MEDICAL HISTORY: Hypertension, hyperlipidemia, diabetes mellitus type 2, anxiety, depression, history of rib fracture in March 2025 history of stroke PAST SURGICAL HISTORY: History of hernia repair, appendectomy, left wrist surgery PAST SOCIAL HISTORY: Uses marijuana once a week. Also uses tobacco once a week. He drinks alcohol very occasionally. Denied any drug use FAMILY HISTORY: Denied any pertinent family history Coded Allergies: No Known Drug Allergies (Verified Allergy, 11/10/12) PHYSICAL EXAM GENERAL APPEARANCE: The patient is awake, alert, and oriented, in no acute cardiopulmonary distress. NEUROLOGICAL: Cranial nerves II-XII grossly intact. Motor is 5/5 in bilateral upper and lower extremities proximal to distal. No sensory deficits. HEENT: Face is symmetric. Pupils are equal and reactive. Extraocular movements are intact. NECK: Supple. No JVD. No thyromegaly. No submental, submandibular, pre- /postauricular, occipital or supraclavicular lymphadenopathy. CHEST: Normal chest expansion. No Telemetry. LUNGS: Absence of any rales, rhonchi or any wheezing. CARDIOVASCULAR: Regular. S1 and S2 normal. No appreciable rubs, murmurs or gallops. ABDOMEN: Soft, nontender, and nondistended. There is no rebound, voluntary guarding, or rigidity. : There is erythema noted in the right groin area and there is swelling also noted. Area is tender to palpation. There is reddish colored discharge noted from the scrotal area EXTREMITIES: Non-edematous and not cyanotic. No clubbing. Good capillary refill. SKIN: No skin breakdown. Vital Sign (Last 24 Hours) 08/27/25 10:06 Temp 98.4 Pulse 61 Resp 17 B/P (MAP) 121/82 Pulse Ox 96 O2 Delivery Room Air* O2 Flow Rate 0 FiO2 21 LABS: Laboratory: Test 08/27/25 09:45 08/27/25 09:30 Range/Units Urine Color LIGHT-YELLOW YELLOW Urine Appearance CLEAR CLEAR Urine pH 6.5 5.0-8.0 Urine Specific [place] 1.014 1.001-1.031 Urine Protein 10 H NEGATIVE mg/dL Urine Glucose (UA) >=1000 H NEGATIVE mg/dL Urine Ketones NEGATIVE NEGATIVE mg/dL Urine Occult Blood SMALL H NEGATIVE Urine Nitrate NEGATIVE NEGATIVE Urine Bilirubin NEGATIVE NEGATIVE mg/dL Urine Urobilinogen 0.2 0.2-1.0 mg/dL Urine Leukocyte Esterase NEGATIVE NEGATIVE Giovanny/uL Urine RBC 11-25 H 0-1 /HPF Urine WBC 0-1 0-1 /HPF Urine Squamous Epithelial Cells RARE 0-2 /HPF Urine Bacteria None None Seen /HPF White Blood Count 8.8 4.8-10.8 K/uL Red Blood Count 4.73 4.50-6.20 MIL/uL Hemoglobin 14.1 14.0-18.0 g/dL Hematocrit 43.7 42-54 % Mean Corpuscular Volume 92.4 79-99 fL Mean Corpuscular Hemoglobin 29.8 27.0-33.0 pg Mean Corpuscular Hemoglobin Concent 32.3 32.0-36.0 g/dL Red Cell Distribution Width 13.3 11.0-15.5 % Platelet Count 251 130-400 K/uL Mean Platelet Volume 9.7 7.5-10.5 fL Immature Granulocyte % (Auto) 0.6 0-1 % Neutrophils (%) (Auto) 77.0 40.0-77.0 % Lymphocytes (%) (Auto) 10.3 L 21.0-51.0 % Monocytes (%) (Auto) 9.0 3.0-13.0 % Eosinophils (%) (Auto) 2.4 0.0-8.0 % Basophils (%) (Auto) 0.7 0.0-5.0 % Neutrophils # (Auto) 6.8 1.8-7.7 K/uL Lymphocytes # (Auto) 0.9 L 1.0-4.8 K/uL Monocytes # (Auto) 0.8 0.1-1.0 K/uL Eosinophils # (Auto) 0.21 0.00-0.70 K/uL Basophils # (Auto) 0.06 0.00-0.20 K/uL Absolute Immature Granulocyte (auto 0.05 0-1 K/uL Nucleated Red Blood Cells 0.0 0.0-0.19 % Prothrombin Time 12.2 H 9.6-11.6 SEC Prothromb Time International Ratio 1.17 H 0.85-1.15 Activated Partial Thromboplast Time 37.6 H 26.3-35.5 SEC Sodium Level 148 H 136-145 mmol/L Potassium Level 3.5 3.5-5.1 mmol/L Chloride Level 107 101-111 mmol/L Carbon Dioxide Level 34 H 21-32 mmol/L Blood Urea Nitrogen 13 7-18 mg/dL Creatinine 1.2 0.5-1.3 mg/dL Glomerular Filtration Rate Calc 70 >90 mL/min Random Glucose 100 70-105 mg/dL Lactic Acid Level 1.6 0.8-2.5 mmol/L Total Calcium 8.7 8.5-10.1 mg/dL Troponin I High Sensitivity 8 4-75 ng/L Procalcitonin < 0.05 L 0.05-0.5 ng/mL DIAGNOSTICS / RADIOLOGY: [ ] ASSESSMENT: Left-sided scrotal abscess POA Hypertension Hyperlipidemia Hypernatremia History of CVA BPH History of rib fractures Anxiety Depression PLAN: -patient to be admitted to medical-surgical unit -in reference to scrotal abscess. We will start patient on vancomycin, cefepime, Flagyl. Also check a GNC. Follow up on scrotal ultrasound. Obtain a Urology consultation -reference to hyponatremia. We will start patient on D5 NS. Repeat BMP in the afternoon. -obtain home medications which will be reconciled once available -check TSH, hemoglobin A1c -further orders per hospitalization course Advanced Care Planning Which of the following were discussed: Hospice care: Yes __ No _x_ Therapeutic options: Yes __ No __ Advance directives: Yes __ No __ Other discussions: Discussed with who?: patient (Patient, family or surrogates) Voluntary nature of this service was explained to the patient? Yes _x_ No __ Amount of time spent: 25 minutes HERMES Nguyễn MD, MD Aug 27, 2025 12:14
[2025-08-27] MEDS ORDERED: VANCOMYCIN PROTOCOL PER PHARMACY IV SCH (12:30)
[2025-08-27] MEDS: DEXTROSE 5 %-0.45 % NACL 1,000 ML IV SCH (12:37)
[2025-08-27] MEDS: VANCOMYCIN 2GM/500 ML BAG 500 ML IV ONE (12:37)
[2025-08-27] MEDS: VANCOMYCIN KIT 1 GM/250 ML IV.KIT IV ONE (12:37)
[2025-08-27 13:33] LABS: AMPHET/METH SCREEN,URINE NEGATIVE (NEGATIVE); BARBITURATE SCREEN, URINE NEGATIVE (NEGATIVE); CANNABINOID SCREEN,URINE POSITIVE (NEGATIVE); COCAINE SCREEN,URINE POSITIVE (NEGATIVE)
--- NOTE | 2025-08-27 13:59 | HMCIMG ---
EXAM: CR Chest, 1 View. CLINICAL HISTORY: pre op COMPARISON: None provided. FINDINGS: LUNGS: The lungs show no infiltrate or other acute finding. PLEURAL SPACES: No evidence of pleural effusion or pneumothorax. MEDIASTINUM: Cardiac size and mediastinal contours within normal limits. BONES: No aggressive appearing osseous lesion seen. IMPRESSION: No acute cardiopulmonary pathology is evident. /[place]
[2025-08-27 18:26] LABS: CREATININE 1.1 mg/dL (0.5-1.3); GLOMERULAR FILTR. RATE CALC 77.0 mL/min (>90); GLUCOSE,RANDOM 116.0 mg/dL (70-105); SODIUM SERUM 141.0 mmol/L (136-145); UREA NITROGEN, BLOOD 11.0 mg/dL (7-18)
[2025-08-27] MEDS: FAMOTIDINE 20MG VIAL IV SCH (19:58)
[2025-08-27] MEDS: 0.9%NACL 1000ML 1,000 ML IV SCH (19:58)
--- NOTE | 2025-08-27 23:31 | CONS ---
CONSULTATION NOTE Date of Service: Aug 27, 2025 Reason for Consultation: Scrotal abscess Requesting Physician: Nolberto Medellin MD HISTORY OF PRESENT ILLNESS: 59 year old male with past medical history of diabetes mellitus type 2, depression, anxiety, hypertension, hyperlipidemia, coronary artery disease, history of CVA, BPH who presented to the hospital secondary to pain and swelling in his scrotal area. Patient states for the past 4-5 days he has noted some redness and swelling in the scrotal area. He states it started as a small rash which gradually became bigger. He noted that he was having bloody discharge from the area. There was some pus noted to. He also notes some thick mucousy discharge with urination. He denies any sexual encounter and denied any sick contacts. Denied any chest pain, shortness of breath, abdominal pain. He is able to urinate. Labs were notable for white count of 8.8, hemoglobin was 14.1, platelet count was 251 K, sodium was 148, potassium was 3.5, creatinine was 1.2, blood glucose was [address] abdomen pelvis which was concerning for left-sided scrotal abscess measuring 3.1 x 2.3 cm adjacent inflammatory changes. There is left hydrocele present and left inguinal lymphadenopathy. He has also has old left posterior and lateral rib fractures. Patient admitted for supportive care with a urological consult. REVIEW OF SYSTEMS CONSTITUTIONAL: Denies fever, chills, or fatigue. HEAD/FACE: No signs of trauma. EENT: Denies eye pain, blurred vision, double vision, or light sensitivity. RESPIRATORY: Denies shortness of breath, cough, wheezing CARDIOVASCULAR: Denies chest pain, palpitation, syncope GASTROINTESTINAL/ABDOMINAL: Denies abdominal pain, constipation, diarrhea, nausea or vomiting GENITOURINARY: Denies dysuria or hematuria. MUSCULOSKELETAL: Denies joint pain, tenderness, or trauma. INTEGUMENTARY: Denies rash or itchiness NEUROLOGICAL/PSYCH: Denies anxiety, depression, heat or cold intolerance. PAST MEDICAL HISTORY: Hypertension, hyperlipidemia, diabetes mellitus type 2, anxiety, depression, history of rib fracture in March 2025 history of stroke PAST SURGICAL HISTORY: History of hernia repair, appendectomy, left wrist surgery PAST SOCIAL HISTORY: Uses marijuana once a week. Also uses tobacco once a week. He drinks alcohol very occasionally. Denied any drug use FAMILY HISTORY: Noncontributory Coded Allergies: No Known Drug Allergies (Verified Allergy, 11/10/12) PHYSICAL EXAM EYES: Anicteric. Pupils equal and reactive. HENT: No oral thrush seen, moist Oral mucosa NECK: Supple, no JVD or thyromegaly. LUNGS: Good air entry. No rales, no rhonchi. CARDIOVASCULAR: S1, S2 regular. No murmur heard. ABDOMEN: Soft, non tender, bowel sounds present, no organomegaly CENTRAL NERVOUS SYSTEM: Awake, alert, oriented x 3. No focal deficits. SKIN: No rashes, no swelling. LYMPHATICS: No peripheral lymphadenopathy MUSCULOSKELETAL: No joint swelling, erythema or tenderness. EXTREMITIES: No cyanosis or clubbing BACK: No deformity, no pressure ulcer. GENITOURINARY: Indurated left superior hemiscrotum with a an area of skin bridge/opening with some purulent/bloody drainage. The rest of the scrotum is normal Vital Sign (Last 24 Hours) 08/27/25 19:21 Temp 98.6 Pulse 60 Resp 18 B/P (MAP) 152/85 Pulse Ox 98 O2 Delivery Room Air* O2 Flow Rate 0 FiO2 21 LABS: Laboratory: Test 08/27/25 18:48 08/27/25 18:00 08/27/25 09:45 08/27/25 09:30 Range/Units Whole Blood Glucose 121 H 70-110 MG/DL Sodium Level 141 136-145 mmol/L Potassium Level 3.1 L 3.5-5.1 mmol/L Chloride Level 107 101-111 mmol/L Carbon Dioxide Level 30 21-32 mmol/L Blood Urea Nitrogen 11 7-18 mg/dL Creatinine 1.1 0.5-1.3 mg/dL Glomerular Filtration Rate Calc 77 >90 mL/min Random Glucose 116 H 70-105 mg/dL Total Calcium 8.2 L 8.5-10.1 mg/dL Urine Color LIGHT-YELLOW YELLOW Urine Appearance CLEAR CLEAR Urine pH 6.5 5.0-8.0 Urine Specific [place] 1.014 1.001-1.031 Urine Protein 10 H NEGATIVE mg/dL Urine Glucose (UA) >=1000 H NEGATIVE mg/dL Urine Ketones NEGATIVE NEGATIVE mg/dL Urine Occult Blood SMALL H NEGATIVE Urine Nitrate NEGATIVE NEGATIVE Urine Bilirubin NEGATIVE NEGATIVE mg/dL Urine Urobilinogen 0.2 0.2-1.0 mg/dL Urine Leukocyte Esterase NEGATIVE NEGATIVE Giovanny/uL Urine RBC 11-25 H 0-1 /HPF Urine WBC 0-1 0-1 /HPF Urine Squamous Epithelial Cells RARE 0-2 /HPF Urine Bacteria None None Seen /HPF Urine Random Sodium 59 40-220 mmol/l Urine Opiates Screen NEGATIVE NEGATIVE Urine Barbiturates Screen NEGATIVE NEGATIVE Urine Phencyclidine Screen NEGATIVE NEGATIVE Urine Amphetamines Screen NEGATIVE NEGATIVE Urine Benzodiazepines Screen NEGATIVE NEGATIVE Urine Cocaine Screen POSITIVE H NEGATIVE Urine Marijuana (THC) Screen POSITIVE H NEGATIVE White Blood Count 8.8 4.8-10.8 K/uL Red Blood Count 4.73 4.50-6.20 MIL/uL Hemoglobin 14.1 14.0-18.0 g/dL Hematocrit 43.7 42-54 % Mean Corpuscular Volume 92.4 79-99 fL Mean Corpuscular Hemoglobin 29.8 27.0-33.0 pg Mean Corpuscular Hemoglobin Concent 32.3 32.0-36.0 g/dL Red Cell Distribution Width 13.3 11.0-15.5 % Platelet Count 251 130-400 K/uL Mean Platelet Volume 9.7 7.5-10.5 fL Immature Granulocyte % (Auto) 0.6 0-1 % Neutrophils (%) (Auto) 77.0 40.0-77.0 % Lymphocytes (%) (Auto) 10.3 L 21.0-51.0 % Monocytes (%) (Auto) 9.0 3.0-13.0 % Eosinophils (%) (Auto) 2.4 0.0-8.0 % Basophils (%) (Auto) 0.7 0.0-5.0 % Neutrophils # (Auto) 6.8 1.8-7.7 K/uL Lymphocytes # (Auto) 0.9 L 1.0-4.8 K/uL Monocytes # (Auto) 0.8 0.1-1.0 K/uL Eosinophils # (Auto) 0.21 0.00-0.70 K/uL Basophils # (Auto) 0.06 0.00-0.20 K/uL Absolute Immature Granulocyte (auto 0.05 0-1 K/uL Nucleated Red Blood Cells 0.0 0.0-0.19 % Prothrombin Time 12.2 H 9.6-11.6 SEC Prothromb Time International Ratio 1.17 H 0.85-1.15 Activated Partial Thromboplast Time 37.6 H 26.3-35.5 SEC Hemoglobin A1c 5.1 4.0-6.0 % Estimated Average Glucose (eAG) 100 70-126 mg/dL Lactic Acid Level 1.6 0.8-2.5 mmol/L Troponin I High Sensitivity 8 4-75 ng/L C-Reactive Protein, Quantitative 57.70 H 0.5-3.0 mg/L Procalcitonin < 0.05 L 0.05-0.5 ng/mL Thyroid Stimulating Hormone (TSH) 0.91 0.36-3.74 uIU/mL DIAGNOSTICS / RADIOLOGY: Patient had a scrotal ultrasound as discussed in the HPI. Patient also had a CT of the abdomen and pelvis. ASSESSMENT: 59-year-old man with poorly controlled diabetes presents to the emergency department secondary to a left scrotal abscess PLAN: 1. The region of fluctuance is very minimal. Much of the surrounding tissue is mostly indurated. We will suggest warm compresses to help declare a drainable pocket in the next 24-48 hours. 2. Continue supportive care. 3. We will follow his course and then make decisions about bring him to the operating room for incision and drainage if necessary We spent 60 minutes to complete this visit, more than half of the time was spent in counseling and coordination of care and addressing questions posed by patient. Some time was spent discussing with members of his care team. The rest of the time was spent reviewing medical records including imaging studies and laboratory data. CLAUDIO BATES MD Aug 27, 2025 23:31
[2025-08-28] MEDS: GABAPENTIN 300 MG CAPSULE ONE (00:49)
[2025-08-28] MEDS: GABAPENTIN 300 MG CAPSULE PO ONE (00:49)
[2025-08-28 07:12] LABS: IMMATURE GRANULOCYTE ABSOLUTE 0.04 K/uL (0-1); NUCLEATED RED BLOOD CELLS 0.0 % (0.0-0.19); PLATELET COUNT (AUTO) 228 K/uL (130-400); RED BLOOD CELL COUNT(AUTO) 4.75 MIL/uL (4.50-6.20); RED CELL DISTRIBUTION WIDTH 13.2 % (11.0-15.5); WHITE BLOOD COUNT (AUTO) 6.7 K/uL (4.8-10.8)
[2025-08-28 07:18] LABS: CREATININE 0.8 mg/dL (0.5-1.3); GLOMERULAR FILTR. RATE CALC 102.0 mL/min (>90); GLUCOSE,RANDOM 93.0 mg/dL (70-105); SODIUM SERUM 140.0 mmol/L (136-145); UREA NITROGEN, BLOOD 8.0 mg/dL (7-18)
[2025-08-28] MEDS: VANCOMYCIN 1G/250ML KIT 250 ML IV SCH (07:27)
[2025-08-28] MEDS ORDERED: PoTASSium chl 10% ELIXIR 20MEQ 20 MEQ/15 ML UDCUP PO PRN (09:30)
[2025-08-28] MEDS: PoTASSium chloRIDE 20MEQ ER 20 MEQ ERTAB PO ONE (09:55)
[2025-08-28] MEDS: amLODIPine 5 MG TAB PO SCH (09:55)
[2025-08-28] MEDS: GABAPENTIN 300 MG CAPSULE PO SCH (09:56)
--- NOTE | 2025-08-28 11:12 | PN ---
[facility] PROGRESS NOTE Date of Service: Aug 28, 2025 Time of Service: 11:12 59 year old male with past medical history of diabetes mellitus type 2, depression, anxiety, hypertension, hyperlipidemia, coronary artery disease, history of CVA, BPH who presented to the hospital secondary to pain and swelling in his scrotal area. Patient states for the past 4-5 days he has noted some redness and swelling in the scrotal area. He states it started as a small rash which gradually became bigger. He noted that he was having bloody discharge from the area. There was some pus noted to. He also notes some thick mucousy discharge with urination. He denies any sexual encounter and denied any sick contacts. Denied any chest pain, shortness of breath, abdominal pain. He is able to urinate. Labs were notable for white count of 8.8, hemoglobin was 14.1, platelet count was 251 K, sodium was 148, potassium was 3.5, creatinine was 1.2, blood glucose was [address] abdomen pelvis which was concerning for left-sided scrotal abscess measuring 3.1 x 2.3 cm adjacent inflammatory changes. There is left hydrocele present and left inguinal lymphadenopathy. He has also has old left posterior and lateral rib fractures. Urology was consulted by ED provider SUBJECTIVE: 08/28/2025: Patient was evaluated at bedside in ED 4. He appeared in no acute cardiopulmonary distress. He admitted to progressively worsening lesion on his left side of scrotum that began a week ago and have gradually increased in size with associated redness and pain that prompted the ED visit. An ultrasound of testicles and CT abdomen pelvis showed left-sided scrotal abscess measuring 3.1 x 2.3 cm and adjacent inflammatory changes. Urology evaluated the patient and recommended warm compresses for 24-48 hours as the surrounding tissue looks indurated and possible incision and drainage later. His serum potassium was low, 2.9 and was replaced. He has recent admission for resistant hypertension during which workup for hyperaldosteronism was performed, however results are normal. We will continue his home medications and maintain follow up with Urology for possible scrotal abscess drainage. An ID consult has also been placed. REVIEW OF SYSTEMS CONSTITUTIONAL: Denies fevers, chills, or night sweats. No unintentional weight loss reported. NEUROLOGICAL: Denies headache, amaurosis fugax, motor weakness, sensory deficit, vertigo/spinning sensation, gait abnormalities, or tremors. ENT: No hearing loss, otalgia, otorrhea, rhinitis, rhinorrhea, hoarseness, or sore throat. CARDIOVASCULAR: Denies any exertional angina, dyspnea on exertion, orthopnea, paroxysmal nocturnal dyspnea, palpitations, life-threatening arrhythmias, claudication. PULMONARY: Denies any shortness of breath, cough, phlegm/sputum, hemoptysis, pleuritic chest pain. SLEEP: Denies morning headaches, daytime somnolence or napping. Denies diffi culty falling asleep, staying asleep, waking from sleep. Denies knowledge of snoring. GASTROINTESTINAL: Denies any type of dysphagia to either liquids or solids. Denies nausea, vomiting, pyrosis, early satiety, abdominal pain, diarrhea, constipation, or changes in stool consistency or caliber. Denies coffee-ground emesis, hematemesis, hematochezia, or melanotic stools. GENITOURINARY: Positive for genital discharge, pain and swelling in the scrotum ENDOCRINOLOGIC: Denies polyuria, polydipsia, polyphagia or heat/cold intolerances. HEMATOLOGIC: Denies thrombophilia/previous clots, or coagulopathy/bleeding disorders. ONCOLOGIC: Denies personal history of malignancy. DERMATOLOGIC: Denies rashes or pruritus. PSYCHIATRIC: Denies any suicidal or homicidal ideation. Denies hallucinations. PHYSICAL EXAM GENERAL APPEARANCE: The patient is awake, alert, and oriented, in no acute cardiopulmonary distress. NEUROLOGICAL: Cranial nerves II-XII grossly intact. Motor is 5/5 in bilateral upper and lower extremities proximal to distal. No sensory deficits. HEENT: Face is symmetric. Pupils are equal and reactive. Extraocular movements are intact. NECK: Supple. No JVD. No thyromegaly. No submental, submandibular, pre- /postauricular, occipital or supraclavicular lymphadenopathy. CHEST: Normal chest expansion. No Telemetry. LUNGS: Absence of any rales, rhonchi or any wheezing. CARDIOVASCULAR: Regular. S1 and S2 normal. No appreciable rubs, murmurs or gallops. ABDOMEN: Soft, nontender, and nondistended. There is no rebound, voluntary guarding, or rigidity. : There is erythema noted in the right groin area and there is swelling also noted. Area is tender to palpation. There is reddish colored discharge noted from the scrotal area EXTREMITIES: Non-edematous and not cyanotic. No clubbing. Good capillary refill. SKIN: No skin breakdown. Vital Signs (last 8hr) Date Time Temp Pulse Resp B/P (MAP) Pulse Ox O2 Delivery O2 Flow Rate FiO2 08/28/25 08:16 98.4 57 18 157/86 97 Room Air* 0 21 08/28/25 06:06 98.4 52 19 167/78 97 Room Air* 0 21 LABS: Laboratory: Test 08/28/25 07:40 08/28/25 06:56 08/27/25 09:45 08/27/25 09:30 Range/Units Whole Blood Glucose 87 70-110 MG/DL White Blood Count 6.7 4.8-10.8 K/uL Red Blood Count 4.75 4.50-6.20 MIL/uL Hemoglobin 14.1 14.0-18.0 g/dL Hematocrit 42.5 42-54 % Mean Corpuscular Volume 89.5 79-99 fL Mean Corpuscular Hemoglobin 29.7 27.0-33.0 pg Mean Corpuscular Hemoglobin Concent 33.2 32.0-36.0 g/dL Red Cell Distribution Width 13.2 11.0-15.5 % Platelet Count 228 130-400 K/uL Mean Platelet Volume 9.5 7.5-10.5 fL Immature Granulocyte % (Auto) 0.6 0-1 % Neutrophils (%) (Auto) 76.7 40.0-77.0 % Lymphocytes (%) (Auto) 10.0 L 21.0-51.0 % Monocytes (%) (Auto) 9.5 3.0-13.0 % Eosinophils (%) (Auto) 2.8 0.0-8.0 % Basophils (%) (Auto) 0.4 0.0-5.0 % Neutrophils # (Auto) 5.1 1.8-7.7 K/uL Lymphocytes # (Auto) 0.7 L 1.0-4.8 K/uL Monocytes # (Auto) 0.6 0.1-1.0 K/uL Eosinophils # (Auto) 0.19 0.00-0.70 K/uL Basophils # (Auto) 0.03 0.00-0.20 K/uL Absolute Immature Granulocyte (auto 0.04 0-1 K/uL Nucleated Red Blood Cells 0.0 0.0-0.19 % White Cell Morphology Comment See comments Sodium Level 140 136-145 mmol/L Potassium Level 2.9 *L 3.5-5.1 mmol/L Chloride Level 106 101-111 mmol/L Carbon Dioxide Level 30 21-32 mmol/L Blood Urea Nitrogen 8 7-18 mg/dL Creatinine 0.8 0.5-1.3 mg/dL Glomerular Filtration Rate Calc 102 >90 mL/min Random Glucose 93 70-105 mg/dL Total Calcium 8.5 8.5-10.1 mg/dL Urine Color LIGHT-YELLOW YELLOW Urine Appearance CLEAR CLEAR Urine pH 6.5 5.0-8.0 Urine Specific [place] 1.014 1.001-1.031 Urine Protein 10 H NEGATIVE mg/dL Urine Glucose (UA) >=1000 H NEGATIVE mg/dL Urine Ketones NEGATIVE NEGATIVE mg/dL Urine Occult Blood SMALL H NEGATIVE Urine Nitrate NEGATIVE NEGATIVE Urine Bilirubin NEGATIVE NEGATIVE mg/dL Urine Urobilinogen 0.2 0.2-1.0 mg/dL Urine Leukocyte Esterase NEGATIVE NEGATIVE Giovanny/uL Urine RBC 11-25 H 0-1 /HPF Urine WBC 0-1 0-1 /HPF Urine Squamous Epithelial Cells RARE 0-2 /HPF Urine Bacteria None None Seen /HPF Urine Random Sodium 59 40-220 mmol/l Urine Opiates Screen NEGATIVE NEGATIVE Urine Barbiturates Screen NEGATIVE NEGATIVE Urine Phencyclidine Screen NEGATIVE NEGATIVE Urine Amphetamines Screen NEGATIVE NEGATIVE Urine Benzodiazepines Screen NEGATIVE NEGATIVE Urine Cocaine Screen POSITIVE H NEGATIVE Urine Marijuana (THC) Screen POSITIVE H NEGATIVE Prothrombin Time 12.2 H 9.6-11.6 SEC Prothromb Time International Ratio 1.17 H 0.85-1.15 Activated Partial Thromboplast Time 37.6 H 26.3-35.5 SEC Hemoglobin A1c 5.1 4.0-6.0 % Estimated Average Glucose (eAG) 100 70-126 mg/dL Lactic Acid Level 1.6 0.8-2.5 mmol/L Troponin I High Sensitivity 8 4-75 ng/L C-Reactive Protein, Quantitative 57.70 H 0.5-3.0 mg/L Procalcitonin < 0.05 L 0.05-0.5 ng/mL Thyroid Stimulating Hormone (TSH) 0.91 0.36-3.74 uIU/mL Current Medications Medications (Trade) Dose Ordered Sig/[place] Route PRN Reason Start Time Stop Time Status Last Admin Dose Admin Amlodipine Besylate (NorvASC 5MG TAB) 10 mg DAILY PO 08/28/25 09:00 09/27/25 08:59 08/28/25 09:55 10 MG Aspirin (Aspirin 81mg Chew Tab) 81 mg DAILY PO 08/28/25 11:00 09/27/25 10:59 Atorvastatin Calcium (LIPItor 40MG) 40 mg HS PO 08/28/25 21:00 09/27/25 20:59 Cefepime HCl (MAXipime 1 GM vial) 1 gm Q8H IVPB 08/27/25 20:00 09/06/25 19:59 08/28/25 04:34 1 GM Dextrose/Sodium Chloride 1,000 ml @ 75 mls/hr [id number] IV 08/27/25 12:30 08/27/25 19:45 DC 08/27/25 12:37 75 MLS/HR Duloxetine HCl (CymbALTA 30 mg CAP) 60 mg DAILY PO 08/28/25 09:00 09/27/25 08:59 08/28/25 09:55 60 MG Famotidine (Pepcid 20mg Vial) 20 mg BID IV 08/27/25 21:00 09/26/25 20:59 08/28/25 09:55 20 MG Gabapentin (NEURontin 300 MG CAP) 300 mg TID PO 08/28/25 09:00 09/27/25 08:59 08/28/25 09:56 300 MG Insulin Human Regular (humuLIN R 100 UNIT/ML 3ML) INSULIN SLIDING SCAL... Q6H6 SQ 08/27/25 18:00 09/26/25 17:59 Labetalol HCl (TRANdate 100 MG TABLET) 100 mg BID PO 08/28/25 21:00 09/27/25 20:59 Labetalol HCl (TRANdate 200 MG TABLET) 200 mg BID PO 08/28/25 21:00 09/27/25 20:59 Losartan Potassium (CozAAR 100MG TAB) 100 mg DAILY PO 08/28/25 09:00 09/27/25 08:59 08/28/25 09:55 100 MG Metronidazole/ Sodium Chloride 100 ml @ 100 mls/hr Q8H6 IVPB 08/27/25 14:00 09/06/25 13:59 08/28/25 04:53 100 MLS/HR Morphine Sulfate (morPHINE 2MG SYG) 2 mg Q6H PRN IVP SEVERE PAIN (7-10) 08/27/25 12:30 09/03/25 12:29 08/28/25 07:28 2 MG Potassium Chloride 100 ml @ 100 mls/hr AD PRN IV POTASSIUM PROTOCOL 08/28/25 09:30 09/27/25 09:29 Potassium Chloride (K-Dur/Klor-Con 20meq) 20 meq AD PRN PO POTASSIUM PROTOCOL 08/28/25 09:30 09/27/25 09:29 Potassium Chloride (KCl 10% Elixir 20meq/15ml) 20 meq AD PRN PO POTASSIUM PROTOCOL 08/28/25 09:30 09/27/25 09:29 Sodium Chloride 1,000 ml @ 75 mls/hr [id number] IV 08/27/25 20:00 09/26/25 19:59 08/28/25 09:56 75 MLS/HR Spironolactone (Aldactone 25mg) 100 mg DAILY PO 08/29/25 09:00 09/28/25 08:59 Tamsulosin HCl (FloMAX) 0.4 mg DAILY PO 08/28/25 09:00 09/27/25 08:59 08/28/25 09:55 0.4 MG Trazodone HCl (DesyREL/OlepTRO) 250 mg HS PO 08/28/25 21:00 09/27/25 20:59 08/28/25 00:52 250 MG Vancomycin HCl 250 ml @ 125 mls/hr Q12H IV 08/28/25 06:00 09/07/25 05:59 08/28/25 07:27 125 MLS/HR Vancomycin HCl (Vancomycin Protocol) 1 each AD IV 08/27/25 12:30 09/10/25 12:29 DIAGNOSTICS / RADIOLOGY: [ ] PATIENT: DANYELL ROSARIO SR MR#: [id number] : 1965 SEX: M AGE: 59 LOCATION: [facility] ORDER STATUS: REG REPORT#: [id number] SERVICE [id number] REASON: SCROTUL ULCER ORDERING PHYSICIAN: SHAGUFTA ZAPATA MD PROCEDURE: SCROTUM - US SCROTUM & CONTENTS STUDY Ultrasound Scrotum with Color Doppler CLINICAL HISTORY Scrotal ulcer. History of prior scrotal issues. TECHNIQUE High-resolution grayscale and color Doppler ultrasound evaluation of both testes, epididymides, and scrotal contents COMPARISON None provided FINDINGS Right testis The right testis measures approximately 3.2 1.3 1.9 cm. Testicular parenchyma is homogeneous in echotexture. Multiple punctate echogenic foci are noted without posterior acoustic shadowing, consistent with testicular microlithiasis. Color Doppler demonstrates normal intratesticular vascularity. No focal intratesticular mass is identified. Right epididymis The epididymal head measures approximately 5 mm, body approximately 2 mm, and tail approximately 3 mm. Echotexture is unremarkable. Color Doppler flow is within normal limits. Left testis The left testis measures approximately 4.5 2.2 2.6 cm. Testicular parenchyma is homogeneous. Multiple punctate echogenic foci are present, consistent with testicular microlithiasis. Normal intratesticular vascularity is demonstrated on color Doppler. No focal intratesticular mass is identified. Left epididymis The epididymal head measures approximately 9 mm, body approximately 2 mm, and tail approximately 3 mm. Echotexture is unremarkable with normal Doppler flow. Left groin / extratesticular findings A complex fluid collection is noted in the left groin region, measuring approximately 1.9 2.5 2.2 cm. Peripheral vascularity is demonstrated on color Doppler imaging. The appearance is suspicious for a localized abscess in the appropriate clinical setting. Scrotal wall Scrotal wall thickening is present, correlating with the history of scrotal ulceration. IMPRESSION * Left groin complex fluid collection measuring approximately 1.9 2.5 2.2 cm with peripheral vascularity, highly suspicious for abscess in the clinical context of scrotal ulceration. * Bilateral testicular microlithiasis without focal intratesticular mass; testicular perfusion is preserved bilaterally. * No sonographic evidence of testicular torsion or epididymo-orchitis. * Epididymides are within normal limits bilaterally. /[place] DICTATED BY: MACRINA CHERY Jr., MD DATE: 08/27/25 1259 ELECTRONICALLY SIGNED BY: MACRINA CHERY Jr., MD DATE: 08/27/25 1254 PATIENT: DANYELL ROSARIO SR MR#: [id number] : 1965 SEX: M AGE: 59 LOCATION: [facility] ORDER 0 STATUS: REG ER REPORT#: [id number] SERVICE REASON: Scrotal ulcer/abcess ORDERING PHYSICIAN: GO LIPSCOMB MD PROCEDURE: ABD PEL W - CT ABDOMEN/PELVIS W/CONTRAST EXAM: CT Abdomen and Pelvis with IV contrast CLINICAL HISTORY: Scrotal ulcer/abcess TECHNIQUE: Axial computed tomography images of the abdomen and pelvis with intravenous contrast. CONTRAST: with intravenous contrast. COMPARISON: Study dated 05/20. FINDINGS: LUNG BASES: Atelectatic bands along the left lower lobe. LIVER: The liver is enlarged in size, with the right hepatic lobe measuring up to 17.7 cm. GALLBLADDER AND BILE DUCTS: The gallbladder appears within normal limits. No radioopaque gallstones are seen. No biliary ductal dilatation is evident. PANCREAS: Unremarkable. SPLEEN: Unremarkable. ADRENAL GLANDS: A 1.4 cm nodule along the left adrenal gland. A 0.6 cm nodule along the right adrenal gland. Suggested adrenal protocol for further evaluation. KIDNEYS, URETERS, AND BLADDER: A 5.8 mm calculus along the lower calyx of the right kidney. Multiple well-defined, rounded subcentimeter-sized non-enhancing areas along the right kidney, suggestive of multiple simple cysts. Suggested USG correlation with a non-emergent basis for further evaluation. There is no hydronephrosis or hydroureter. The wall of the urinary bladder measures 8 mm, likely due to a contracted urinary bladder. The possibility of cystitis appears less likely. USG correlation is advised. STOMACH AND BOWEL: A defect measuring 1.1 cm along the left hemidiaphragm with focal herniation of fat through it, suggestive of Bochdalek's hernia. Unremarkable appearance of the stomach and bowel. No evidence of bowel obstruction. No evidence suggesting enteritis or colitis. APPENDIX: No evidence of acute appendicitis on CT examination. PERITONEUM: No free fluid. No free air. LYMPH NODES: No lymphadenopathy is evident. REPRODUCTIVE: A well-defined peripherally enhancing collection measuring 3.1 x 2.3 cm is visualized along the left scrotal sac with adjacent fat stranding and inflammatory changes. There is an associated left-sided hydrocele. Multiple homogeneously enhancing, rounded left-sided inguinal nodes are visualized. VASCULATURE: Atheromatous calcific changes along the aorta and the coronary arteries. No evidence of abdominal aortic aneurysm. BONES: Degenerative changes along the visualized spine. Redemonstrated left posterior and lateral rib fractures. IMPRESSION: 1. Left scrotal abscess measuring 3.1 x 2.3 cm with adjacent inflammatory changes, left hydrocele, and left inguinal lymphadenopathy. 2. Redemonstrated left posterior and lateral rib fractures. 3. No other acute findings. /[place] DICTATED BY: MACRINA CHERY Jr., MD DATE: 08/27/251223 ELECTRONICALLY SIGNED BY: MACRINA CHERY Jr., MD DATE: 08/27/251223 PATIENT: DANYELL ROSARIO SR MR#: [id number] : 1965 SEX: M AGE: 59 LOCATION: [facility] ORDER 43 STATUS: ADM IN REPORT#: [id number] SERVICE 1243 REASON: pre op ORDERING PHYSICIAN: HERMES RICHARDS MD PROCEDURE: CXR1VW - CHEST 1VW EXAM: CR Chest, 1 View. CLINICAL HISTORY: pre op COMPARISON: None provided. FINDINGS: LUNGS: The lungs show no infiltrate or other acute finding. PLEURAL SPACES: No evidence of pleural effusion or pneumothorax. MEDIASTINUM: Cardiac size and mediastinal contours within normal limits. BONES: No aggressive appearing osseous lesion seen. IMPRESSION: No acute cardiopulmonary pathology is evident. /[place] DICTATED BY: MACRINA CHERY Jr., MD DATE: 08/27/251457 ELECTRONICALLY SIGNED BY: MACRINA CHERY Jr., MD DATE: 08/27/251457 ASSESSMENT: Left-sided scrotal abscess POA Resistant Hypertension POA Hyperlipidemia POA Hypernatremia, resolved Hypokalemia History of CVA BPH Current cocaine abuse POA History of rib fractures Anxiety Depression PLAN: Left-sided scrotal abscess POA * Patient presented with one-week history of progressively increasing left-sided testicular lesion with increased thickness and saline fitted with pus drainage * Testicular ultrasound and CT abdomen showed 3.18-2.2 cm with adjacent inflammatory changes, left hydrocele, and left inguinal lymphadenopathy * Urology consult was obtained and they recommended continuing warm compresses and monitor for 24-48 hours and possible incision and drainage later * Patient's HbA1c is controlled and only concerning medication explaining the abscess could be Jardiance, which was held during this admission * Continue vancomycin q.12 IV, cefepime1 g Q 8 IV, and metronidazole Q8 IV * Apply warm compresses to the affected area * PRN pain medication with IV morphine 2 mg * Infectious disease consult was obtained Resistant hypertension POA * Patient has resistant hypertension on max doses of losartan, labetalol, amlodipine, spironolactone * Patient also had previous admission for difficult to treat hypertension during which he had several episodes of hypokalemia * Concerning for these findings renin activity, aldosterone and renin aldosterone ratio were obtained during the last visit, the results are normal * Renal artery duplex ultrasound dated 03/08/2020 showed no evidence of renal artery stenosis bilaterally and normal-size kidneys * Resume losartan 100 mg daily, labetalol 300 mg b.i.d., spironolactone 100 mg daily and amlodipine 10 mg * Initiate hypokalemia protocol and replace potassium aggressively * We will continue to monitor his blood pressure and defer further workup at this moment Hypokalemia * Patient's potassium was 2.9 this morning, 3.5 on admission * Patient's home medications have not been resumed until this morning as they were not available to be reconciled * Replace potassium aggressively * Monitor labs am History of CVA * Continue [id number] mg and atorvastatin 40 mg Continue GI prophylaxis with famotidine and DVT prophylaxis with SCDs ATTESTATION BY PHYSICIAN I have seen and examined the patient. I reviewed the documentation, medical decision making, and treatment plan as noted by the resident physician above. I agree with the findings and plan of care. CARISA LEPE MD, HARSHAVARDHA MD Aug 28, 2025 11:12
[2025-08-28] MEDS: ASPIRIN 81MG CHEW TAB PO SCH (11:50)
--- NOTE | 2025-08-28 13:26 | NUR ---
REPORT GIVEN TO ADIEL HUTCHISON, PT STABLE NO DISTRESS VITALS WNL NO C/O PAIN. PT TAKEN IN BED WITH PERSONAL BELONGINGS.
--- NOTE | 2025-08-28 13:33 | NUR ---
PER ADIEL HUTCHISON ROOM IS BEING CLEANED, WILL CALL ME BACK.
[2025-08-28 13:45] VITALS: O2SAT 97
--- NOTE | 2025-08-28 13:45 | NUR ---
UNIT ARRIVAL RECEIVED PATIENT VIA STRETCHER. PATIENT AWAKE, ALERT AND ORIENTED. NO SIGNS OF DISTRESS NOTED. PATIENT REPORTS NO PAIN AT THIS TIME. BED LOCKED IN LOWEST POSITION CALL LIGHT WITHIN REACH.
--- NOTE | 2025-08-28 14:28 | NUR ---
DCP: HOME Pt lives at home with his brother Steve Carter [phone] and their mother. Pt states he is able to complete his ADLS, but a time needs help dressing related to limited use of left arm. Has provider services 26.45hrs a week thru [facility] for meals, home management and laundry. Pt has a cane, shower chair, bsc, and hospital bed. Has no HH or HD at thisime. PCP is Ximena Correa at [facility] and uses [facility] for rx needs. Pt denies dc needs and will return home at md.
[2025-08-28] MEDS ORDERED: PHARMACY COMMUNICATION 1 EACH EACH MISC SCH (14:30)
[2025-08-28 16:00] VITALS: BP 146/79; PULSE 54; RESP 18; TEMP 97.7
[2025-08-28 20:00] VITALS: O2SAT 98
[2025-08-28 20:30] VITALS: BP 124/83; PULSE 75; RESP 18; TEMP 98.3
[2025-08-29 00:04] VITALS: BP 153/97; PULSE 57; RESP 18; TEMP 97.8
[2025-08-29 04:05] VITALS: BP 155/90; PULSE 63; RESP 18; TEMP 98.8
[2025-08-29 05:15] LABS: IMMATURE GRANULOCYTE ABSOLUTE 0.04 K/uL (0-1); NUCLEATED RED BLOOD CELLS 0.0 % (0.0-0.19); PLATELET COUNT (AUTO) 236 K/uL (130-400); RED BLOOD CELL COUNT(AUTO) 4.56 MIL/uL (4.50-6.20); RED CELL DISTRIBUTION WIDTH 12.9 % (11.0-15.5); WHITE BLOOD COUNT (AUTO) 6.0 K/uL (4.8-10.8)
[2025-08-29 05:43] LABS: CREATININE 1.0 mg/dL (0.5-1.3); GLOMERULAR FILTR. RATE CALC 87.0 mL/min (>90); GLUCOSE,RANDOM 91.0 mg/dL (70-105); SODIUM SERUM 142.0 mmol/L (136-145); UREA NITROGEN, BLOOD 10.0 mg/dL (7-18); VANCOMYCIN TROUGH 15.8 UG/ML (10.0-20.0)
[2025-08-29 07:41] VITALS: BP 150/95; PULSE 62; RESP 17; TEMP 98.3
[2025-08-29 08:00] VITALS: O2SAT 99
[2025-08-29] MEDS: SPIRONOLACTONE 25 MG TAB PO SCH (09:30)
[2025-08-29] MEDS: PoTASSium chloRIDE 20MEQ ER 20 MEQ ERTAB PO PRN (09:36)
[2025-08-29 11:10] VITALS: BP 147/83; PULSE 67; RESP 18; TEMP 98.4
--- NOTE | 2025-08-29 11:44 | PN ---
[facility] PROGRESS NOTE Date of Service: Aug 29, 2025 Time of Service: 11:44 59 year old male with past medical history of diabetes mellitus type 2, depression, anxiety, hypertension, hyperlipidemia, coronary artery disease, history of CVA, BPH who presented to the hospital secondary to pain and swelling in his scrotal area. Patient states for the past 4-5 days he has noted some redness and swelling in the scrotal area. He states it started as a small rash which gradually became bigger. He noted that he was having bloody discharge from the area. There was some pus noted to. He also notes some thick mucousy discharge with urination. He denies any sexual encounter and denied any sick contacts. Denied any chest pain, shortness of breath, abdominal pain. He is able to urinate. Labs were notable for white count of 8.8, hemoglobin was 14.1, platelet count was 251 K, sodium was 148, potassium was 3.5, creatinine was 1.2, blood glucose was [address] abdomen pelvis which was concerning for left-sided scrotal abscess measuring 3.1 x 2.3 cm adjacent inflammatory changes. There is left hydrocele present and left inguinal lymphadenopathy. He has also has old left posterior and lateral rib fractures. Urology was consulted by ED provider SUBJECTIVE: 08/28/2025: Patient was evaluated at bedside in ED 4. He appeared in no acute cardiopulmonary distress. He admitted to progressively worsening lesion on his left side of scrotum that began a week ago and have gradually increased in size with associated redness and pain that prompted the ED visit. An ultrasound of testicles and CT abdomen pelvis showed left-sided scrotal abscess measuring 3.1 x 2.3 cm and adjacent inflammatory changes. Urology evaluated the patient and recommended warm compresses for 24-48 hours as the surrounding tissue looks indurated and possible incision and drainage later. His serum potassium was low, 2.9 and was replaced. He has recent admission for resistant hypertension during which workup for hyperaldosteronism was performed, however results are normal. We will continue his home medications and maintain follow up with Urology for possible scrotal abscess drainage. An ID consult has also been placed. REVIEW OF SYSTEMS CONSTITUTIONAL: Denies fevers, chills, or night sweats. No unintentional weight loss reported. NEUROLOGICAL: Denies headache, amaurosis fugax, motor weakness, sensory deficit, vertigo/spinning sensation, gait abnormalities, or tremors. ENT: No hearing loss, otalgia, otorrhea, rhinitis, rhinorrhea, hoarseness, or sore throat. CARDIOVASCULAR: Denies any exertional angina, dyspnea on exertion, orthopnea, paroxysmal nocturnal dyspnea, palpitations, life-threatening arrhythmias, claudication. PULMONARY: Denies any shortness of breath, cough, phlegm/sputum, hemoptysis, pleuritic chest pain. SLEEP: Denies morning headaches, daytime somnolence or napping. Denies diffi culty falling asleep, staying asleep, waking from sleep. Denies knowledge of snoring. GASTROINTESTINAL: Denies any type of dysphagia to either liquids or solids. Denies nausea, vomiting, pyrosis, early satiety, abdominal pain, diarrhea, constipation, or changes in stool consistency or caliber. Denies coffee-ground emesis, hematemesis, hematochezia, or melanotic stools. GENITOURINARY: Positive for genital discharge, pain and swelling in the scrotum ENDOCRINOLOGIC: Denies polyuria, polydipsia, polyphagia or heat/cold intolerances. HEMATOLOGIC: Denies thrombophilia/previous clots, or coagulopathy/bleeding disorders. ONCOLOGIC: Denies personal history of malignancy. DERMATOLOGIC: Denies rashes or pruritus. PSYCHIATRIC: Denies any suicidal or homicidal ideation. Denies hallucinations. PHYSICAL EXAM GENERAL APPEARANCE: The patient is awake, alert, and oriented, in no acute cardiopulmonary distress. NEUROLOGICAL: Cranial nerves II-XII grossly intact. Motor is 5/5 in bilateral upper and lower extremities proximal to distal. No sensory deficits. HEENT: Face is symmetric. Pupils are equal and reactive. Extraocular movements are intact. NECK: Supple. No JVD. No thyromegaly. No submental, submandibular, pre- /postauricular, occipital or supraclavicular lymphadenopathy. CHEST: Normal chest expansion. No Telemetry. LUNGS: Absence of any rales, rhonchi or any wheezing. CARDIOVASCULAR: Regular. S1 and S2 normal. No appreciable rubs, murmurs or gallops. ABDOMEN: Soft, nontender, and nondistended. There is no rebound, voluntary guarding, or rigidity. : There is erythema noted in the right groin area and there is swelling also noted. Area is tender to palpation. There is reddish colored discharge noted from the scrotal area EXTREMITIES: Non-edematous and not cyanotic. No clubbing. Good capillary refill. SKIN: No skin breakdown. Vital Signs (last 8hr) Date Time Temp Pulse Resp B/P (MAP) Pulse Ox O2 Delivery O2 Flow Rate FiO2 08/29/25 11:10 98.4 67 18 147/83 99 Room Air 08/29/25 07:41 98.2 62 17 150/95 99 Room Air 08/29/25 04:05 98.8 63 18 155/90 99 Room Air LABS: Laboratory: Test 08/29/25 10:32 08/29/25 05:04 08/28/25 06:56 Range/Units Whole Blood Glucose 101 70-110 MG/DL White Blood Count 6.0 4.8-10.8 K/uL Red Blood Count 4.56 4.50-6.20 MIL/uL Hemoglobin 13.6 L 14.0-18.0 g/dL Hematocrit 40.7 L 42-54 % Mean Corpuscular Volume 89.3 79-99 fL Mean Corpuscular Hemoglobin 29.8 27.0-33.0 pg Mean Corpuscular Hemoglobin Concent 33.4 32.0-36.0 g/dL Red Cell Distribution Width 12.9 11.0-15.5 % Platelet Count 236 130-400 K/uL Mean Platelet Volume 9.4 7.5-10.5 fL Immature Granulocyte % (Auto) 0.7 0-1 % Neutrophils (%) (Auto) 73.5 40.0-77.0 % Lymphocytes (%) (Auto) 10.7 L 21.0-51.0 % Monocytes (%) (Auto) 11.0 3.0-13.0 % Eosinophils (%) (Auto) 3.3 0.0-8.0 % Basophils (%) (Auto) 0.8 0.0-5.0 % Neutrophils # (Auto) 4.4 1.8-7.7 K/uL Lymphocytes # (Auto) 0.6 L 1.0-4.8 K/uL Monocytes # (Auto) 0.7 0.1-1.0 K/uL Eosinophils # (Auto) 0.20 0.00-0.70 K/uL Basophils # (Auto) 0.05 0.00-0.20 K/uL Absolute Immature Granulocyte (auto 0.04 0-1 K/uL Nucleated Red Blood Cells 0.0 0.0-0.19 % Sodium Level 142 136-145 mmol/L Potassium Level 3.3 L 3.5-5.1 mmol/L Chloride Level 107 101-111 mmol/L Carbon Dioxide Level 28 21-32 mmol/L Blood Urea Nitrogen 10 7-18 mg/dL Creatinine 1.0 0.5-1.3 mg/dL Glomerular Filtration Rate Calc 87 >90 mL/min Random Glucose 91 70-105 mg/dL Total Calcium 8.5 8.5-10.1 mg/dL Vancomycin Level Trough 15.8 # 10.0-20.0 UG/ML White Cell Morphology Comment See comments Current Medications Medications (Trade) Dose Ordered Sig/[place] Route PRN Reason Start Time Stop Time Status Last Admin Dose Admin Amlodipine Besylate (NorvASC 5MG TAB) 10 mg DAILY PO 08/28/25 09:00 09/27/25 08:59 08/29/25 09:31 10 MG Aspirin (Aspirin 81mg Chew Tab) 81 mg DAILY PO 08/28/25 11:00 09/27/25 10:59 08/29/25 09:31 81 MG Atorvastatin Calcium (LIPItor 40MG) 40 mg HS PO 08/28/25 21:00 09/27/25 20:59 08/28/25 20:36 40 MG Cefepime HCl (MAXipime 1 GM vial) 1 gm Q8H IVPB 08/27/25 20:00 09/06/25 19:59 08/29/25 03:46 1 GM Dextrose/Sodium Chloride 1,000 ml @ 75 mls/hr [id number] IV 08/27/25 12:30 08/27/25 19:45 DC 08/27/25 12:37 75 MLS/HR Duloxetine HCl (CymbALTA 30 mg CAP) 60 mg DAILY PO 08/28/25 09:00 09/27/25 08:59 08/29/25 09:29 60 MG Famotidine (Pepcid 20mg Vial) 20 mg BID IV 08/27/25 21:00 09/26/25 20:59 08/29/25 09:31 20 MG Gabapentin (NEURontin 300 MG CAP) 300 mg TID PO 08/28/25 09:00 09/27/25 08:59 08/29/25 09:30 300 MG Insulin Human Regular (humuLIN R 100 UNIT/ML 3ML) INSULIN SLIDING SCAL... Q6H6 SQ 08/27/25 18:00 09/26/25 17:59 Labetalol HCl (TRANdate 100 MG TABLET) 100 mg BID PO 08/28/25 21:00 09/27/25 20:59 08/29/25 09:31 100 MG Labetalol HCl (TRANdate 200 MG TABLET) 200 mg BID PO 08/28/25 21:00 09/27/25 20:59 08/29/25 09:30 200 MG Losartan Potassium (CozAAR 100MG TAB) 100 mg DAILY PO 08/28/25 09:00 09/27/25 08:59 08/29/25 09:31 100 MG Metronidazole/ Sodium Chloride 100 ml @ 100 mls/hr Q8H6 IVPB 08/27/25 14:00 09/06/25 13:59 08/29/25 06:16 100 MLS/HR Morphine Sulfate (morPHINE 2MG SYG) 2 mg Q6H PRN IVP SEVERE PAIN (7-10) 08/27/25 12:30 09/03/25 12:29 08/28/25 07:28 2 MG Pharmacy Profile Note (Lace Assessment) 1 each AD MISC 08/28/25 14:30 08/28/25 14:09 DC Potassium Chloride 100 ml @ 100 mls/hr AD PRN IV POTASSIUM PROTOCOL 08/28/25 09:30 09/27/25 09:29 Potassium Chloride (K-Dur/Klor-Con 20meq) 20 meq AD PRN PO POTASSIUM PROTOCOL 08/28/25 09:30 09/27/25 09:29 08/29/25 09:36 20 MEQ Potassium Chloride (KCl 10% Elixir 20meq/15ml) 20 meq AD PRN PO POTASSIUM PROTOCOL 08/28/25 09:30 09/27/25 09:29 Sodium Chloride 1,000 ml @ 75 mls/hr [id number] IV 08/27/25 20:00 09/26/25 19:59 08/28/25 09:56 75 MLS/HR Spironolactone (Aldactone 25mg) 100 mg DAILY PO 08/29/25 09:00 09/28/25 08:59 08/29/25 09:30 100 MG Tamsulosin HCl (FloMAX) 0.4 mg DAILY PO 08/28/25 09:00 09/27/25 08:59 08/29/25 09:31 0.4 MG Trazodone HCl (DesyREL/OlepTRO) 250 mg HS PO 08/28/25 21:00 09/27/25 20:59 08/28/25 20:38 250 MG Vancomycin HCl 250 ml @ 125 mls/hr Q12H IV 08/28/25 06:00 09/07/25 05:59 08/29/25 06:17 125 MLS/HR Vancomycin HCl (Vancomycin Protocol) 1 each AD IV 08/27/25 12:30 09/10/25 12:29 DIAGNOSTICS / RADIOLOGY: [ ] ASSESSMENT: Left-sided scrotal abscess POA Resistant Hypertension POA Hyperlipidemia POA Hypernatremia, resolved Hypokalemia History of CVA BPH Current cocaine abuse POA History of rib fractures Anxiety Depression PLAN: Left-sided scrotal abscess POA * Patient presented with one-week history of progressively increasing left-sided testicular lesion with increased thickness and saline fitted with pus drainage * Testicular ultrasound and CT abdomen showed 3.18-2.2 cm with adjacent inflammatory changes, left hydrocele, and left inguinal lymphadenopathy * Urology consult was obtained and they recommended continuing warm compresses and monitor for 24-48 hours and possible incision and drainage later * Patient's HbA1c is controlled and only concerning medication explaining the abscess could be Jardiance, which was held during this admission * Continue vancomycin q.12 IV, cefepime1 g Q 8 IV, and metronidazole Q8 IV * Apply warm compresses to the affected area * PRN pain medication with IV morphine 2 mg * Infectious disease consult was obtained Resistant hypertension POA * Patient has resistant hypertension on max doses of losartan, labetalol, amlodipine, spironolactone * Patient also had previous admission for difficult to treat hypertension during which he had several episodes of hypokalemia * Concerning for these findings renin activity, aldosterone and renin aldosterone ratio were obtained during the last visit, the results are normal * Renal artery duplex ultrasound dated 03/08/2020 showed no evidence of renal artery stenosis bilaterally and normal-size kidneys * Resume losartan 100 mg daily, labetalol 300 mg b.i.d., spironolactone 100 mg daily and amlodipine 10 mg * Initiate hypokalemia protocol and replace potassium aggressively * We will continue to monitor his blood pressure and defer further workup at this moment Hypokalemia * Patient's potassium was 2.9 this morning, 3.5 on admission * Patient's home medications have not been resumed until this morning as they were not available to be reconciled * Replace potassium aggressively * Monitor labs am History of CVA * Continue lopsacu14 mg and atorvastatin 40 mg Continue GI prophylaxis with famotidine and DVT prophylaxis with SCDs MAR PENG MD Aug 29, 2025 11:44
--- NOTE | 2025-08-29 11:50 | NUR ---
AMA paperwork Patient is adamantly requesting to leave the hospital to deal with a personal banking issue. His friend is at bedside to pick him up. Patient advised that if he left, he would be doing it against medical advice. That we do NOT recommend he leave until we can get him diagnosed and treated appropriately. Patient states that he is aware and he will go back through the ED if needed. Patient signed the AMA form and the peripheral IV was removed. Patient left with his friend. Primary notified.
--- NOTE | 2025-08-29 17:32 | DS ---
Discharge Summary Hospital Course Summary: This is a 59-year-old male with past medical history of diabetes mellitus type 2, depression, anxiety, hypertension, hyperlipidemia, CAD, history of CVA, BPH who presented to the hospital secondary to pain and swelling in his scrotal area. Patient states that for the past 4-5 days had noted some redness and swelling which has progressively increased and also became more painful. He had started to notice bloody purulent discharge from that area. He denied any sexual encounter with new partners, and denied any sick contacts. Patient denied chest pain, shortness of breath, abdominal pain and dysuria. At the time of admission laboratory tests were unremarkable for white count, hemoglobin was stable, and no major electrolyte abnormalities except for mild hypokalemia. His urinalysis was positive for cocaine and marijuana. CT abdomen and pelvis showed left-sided scrotal abscess measuring 3.1 and 2.3 cm with inflammatory changes. There were also left hydrocele present on left inguinal lymphadenopathy. Concerning for the clinical imaging findings patient was admitted for further management of acute scrotal abscess. Upon hospitalization patient was started on IV antibiotics, IV analgesia, and IV hydration and a urology consult was obtained. Owing to mostly indurated surrounding tissue and less fluctuance of the scrotal abscess urologist recommended warm compresses to help declare drainable pocket in the next 24-48 hours. Warm compresses were applied to the affected area with resultant fluctuant drainage from his scrotal abscess the following morning. The abscess fluid was sent for culture and sensitivity and an Infectious Disease consult was also obtained. However on 08/29/2025 around 11:45 a.m. in the morning the nurse reported that patient was adamantly requesting to leave the hospital to deal with the personal banking issue. Patient was clearly advised that if he had left AMA, he can not undergo definitive treatment and his condition can worsen. Patient was made aware of the risks of leaving against AMA and reported understanding. Automotive Painter(s): Dr. Mckeon, urologist Date of Service: Aug 27, 2025 Reason for Consultation: Scrotal abscess Requesting Physician: Hermes Medellin MD HISTORY OF PRESENT ILLNESS: 59 year old male with past medical history of diabetes mellitus type 2, depression, anxiety, hypertension, hyperlipidemia, coronary artery disease, history of CVA, BPH who presented to the hospital secondary to pain and swelling in his scrotal area. Patient states for the past 4-5 days he has noted some redness and swelling in the scrotal area. He states it started as a small rash which gradually became bigger. He noted that he was having bloody discharge from the area. There was some pus noted to. He also notes some thick mucousy discharge with urination. He denies any sexual encounter and denied any sick c ontacts. Denied any chest pain, shortness of breath, abdominal pain. He is able to urinate. Labs were notable for white count of 8.8, hemoglobin was 14.1, platelet count was 251 K, sodium was 148, potassium was 3.5, creatinine was 1.2, blood glucose was [address] abdomen pelvis which was concerning for left-sided scrotal abscess measuring 3.1 x 2.3 cm adjacent inflammatory changes. There is left hydrocele present and left inguinal lymphadenopathy. He has also has old left posterior and lateral rib fractures. Patient admitted for supportive care with a urological consult. REVIEW OF SYSTEMS CONSTITUTIONAL: Denies fever, chills, or fatigue. HEAD/FACE: No signs of trauma. EENT: Denies eye pain, blurred vision, double vision, or light sensitivity. RESPIRATORY: Denies shortness of breath, cough, wheezing CARDIOVASCULAR: Denies chest pain, palpitation, syncope GASTROINTESTINAL/ABDOMINAL: Denies abdominal pain, constipation, diarrhea, nausea or vomiting GENITOURINARY: Denies dysuria or hematuria. MUSCULOSKELETAL: Denies joint pain, tenderness, or trauma. INTEGUMENTARY: Denies rash or itchiness NEUROLOGICAL/PSYCH: Denies anxiety, depression, heat or cold intolerance. PAST MEDICAL HISTORY: Hypertension, hyperlipidemia, diabetes mellitus type 2, anxiety, depression, history of rib fracture in March 2025 history of stroke PAST SURGICAL HISTORY: History of hernia repair, appendectomy, left wrist surgery PAST SOCIAL HISTORY: Uses marijuana once a week. Also uses tobacco once a week. He drinks alcohol very occasionally. Denied any drug use FAMILY HISTORY: Noncontributory Coded Allergies: No Known Drug Allergies (Verified Allergy, 11/10/12) PHYSICAL EXAM EYES: Anicteric. Pupils equal and reactive. HENT: No oral thrush seen, moist Oral mucosa NECK: Supple, no JVD or thyromegaly. LUNGS: Good air entry. No rales, no rhonchi. CARDIOVASCULAR: S1, S2 regular. No murmur heard. ABDOMEN: Soft, non tender, bowel sounds present, no organomegaly CENTRAL NERVOUS SYSTEM: Awake, alert, oriented x 3. No focal deficits. SKIN: No rashes, no swelling. LYMPHATICS: No peripheral lymphadenopathy MUSCULOSKELETAL: No joint swelling, erythema or tenderness. EXTREMITIES: No cyanosis or clubbing BACK: No deformity, no pressure ulcer. GENITOURINARY: Indurated left superior hemiscrotum with a an area of skin bridge/opening with some purulent/bloody drainage. The rest of the scrotum is normal Vital Sign (Last 24 Hours) 08/27/25 19:21 Temp 98.6 Pulse 60 Resp 18 B/P (MAP) 152/85 Pulse Ox 98 O2 Delivery Room Air* O2 Flow Rate 0 FiO2 21 LABS: Laboratory: Test 08/27/25 18:48 08/27/25 18:00 08/27/25 09:45 08/27/25 09:30 Range/Units Whole Blood Glucose 121 H 70-110 MG/DL Sodium Level 141 136-145 mmol/L Potassium Level 3.1 L 3.5-5.1 mmol/L Chloride Level 107 101-111 mmol/L Carbon Dioxide Level 30 21-32 mmol/L Blood Urea Nitrogen 11 7-18 mg/dL Creatinine 1.1 0.5-1.3 mg/dL Glomerular Filtration Rate Calc 77 >90 mL/min Random Glucose 116 H 70-105 mg/dL Total Calcium 8.2 L 8.5-10.1 mg/dL Urine Color LIGHT-YELLOW YELLOW Urine Appearance CLEAR CLEAR Urine pH 6.5 5.0-8.0 Urine Specific [place] 1.014 1.001-1.031 Urine Protein 10 H NEGATIVE mg/dL Urine Glucose (UA) >=1000 H NEGATIVE mg/dL Urine Ketones NEGATIVE NEGATIVE mg/dL Urine Occult Blood SMALL H NEGATIVE Urine Nitrate NEGATIVE NEGATIVE Urine Bilirubin NEGATIVE NEGATIVE mg/dL Urine Urobilinogen 0.2 0.2-1.0 mg/dL Urine Leukocyte Esterase NEGATIVE NEGATIVE Giovanny/uL Urine RBC 11-25 H 0-1 /HPF Urine WBC 0-1 0-1 /HPF Urine Squamous Epithelial Cells RARE 0-2 /HPF Urine Bacteria None None Seen /HPF Urine Random Sodium 59 40-220 mmol/l Urine Opiates Screen NEGATIVE NEGATIVE Urine Barbiturates Screen NEGATIVE NEGATIVE Urine Phencyclidine Screen NEGATIVE NEGATIVE Urine Amphetamines Screen NEGATIVE NEGATIVE Urine Benzodiazepines Screen NEGATIVE NEGATIVE Urine Cocaine Screen POSITIVE H NEGATIVE Urine Marijuana (THC) Screen POSITIVE H NEGATIVE White Blood Count 8.8 4.8-10.8 K/uL Red Blood Count 4.73 4.50-6.20 MIL/uL Hemoglobin 14.1 14.0-18.0 g/dL Hematocrit 43.7 42-54 % Mean Corpuscular Volume 92.4 79-99 fL Mean Corpuscular Hemoglobin 29.8 27.0-33.0 pg Mean Corpuscular Hemoglobin Concent 32.3 32.0-36.0 g/dL Red Cell Distribution Width 13.3 11.0-15.5 % Platelet Count 251 130-400 K/uL Mean Platelet Volume 9.7 7.5-10.5 fL Immature Granulocyte % (Auto) 0.6 0-1 % Neutrophils (%) (Auto) 77.0 40.0-77.0 % Lymphocytes (%) (Auto) 10.3 L 21.0-51.0 % Monocytes (%) (Auto) 9.0 3.0-13.0 % Eosinophils (%) (Auto) 2.4 0.0-8.0 % Basophils (%) (Auto) 0.7 0.0-5.0 % Neutrophils # (Auto) 6.8 1.8-7.7 K/uL Lymphocytes # (Auto) 0.9 L 1.0-4.8 K/uL Monocytes # (Auto) 0.8 0.1-1.0 K/uL Eosinophils # (Auto) 0.21 0.00-0.70 K/uL Basophils # (Auto) 0.06 0.00-0.20 K/uL Absolute Immature Granulocyte (auto 0.05 0-1 K/uL Nucleated Red Blood Cells 0.0 0.0-0.19 % Prothrombin Time 12.2 H 9.6-11.6 SEC Prothromb Time International Ratio 1.17 H 0.85-1.15 Activated Partial Thromboplast Time 37.6 H 26.3-35.5 SEC Hemoglobin A1c 5.1 4.0-6.0 % Estimated Average Glucose (eAG) 100 70-126 mg/dL Lactic Acid Level 1.6 0.8-2.5 mmol/L Troponin I High Sensitivity 8 4-75 ng/L C-Reactive Protein, Quantitative 57.70 H 0.5-3.0 mg/L Procalcitonin < 0.05 L 0.05-0.5 ng/mL Thyroid Stimulating Hormone (TSH) 0.91 0.36-3.74 uIU/mL DIAGNOSTICS / RADIOLOGY: Patient had a scrotal ultrasound as discussed in the HPI. Patient also had a CT of the abdomen and pelvis. ASSESSMENT: 59-year-old man with poorly controlled diabetes presents to the emergency department secondary to a left scrotal abscess PLAN: 1. The region of fluctuance is very minimal. Much of the surrounding tissue is mostly indurated. We will suggest warm compresses to help declare a drainable pocket in the next 24-48 hours. 2. Continue supportive care. 3. We will follow his course and then make decisions about bring him to the o perating room for incision and drainage if necessary We spent 60 minutes to complete this visit, more than half of the time was spent in counseling and coordination of care and addressing questions posed by patient. Some time was spent discussing with members of his care team. The rest of the time was spent reviewing medical records including imaging studies and laboratory data. CLAUDIO MCKEON MD Aug 27, 2025 23:31 Electronically Signed by: CLAUDIO MCKEON MD08/28/25 0001 Electronically Co-Signed by: Procedure(s): PATIENT: DANYELL ROSARIO SR MR#: [id number] : 1965 SEX: M AGE: 59 LOCATION: [facility] [address] ORDER 7 STATUS: [facility] REPORT#: [id number] SERVICE 6 REASON: SCROTUL ULCER ORDERING PHYSICIAN: SHAGUFTA ZAPATA MD PROCEDURE: SCROTUM - US SCROTUM & CONTENTS STUDY Ultrasound Scrotum with Color Doppler CLINICAL HISTORY Scrotal ulcer. History of prior scrotal issues. TECHNIQUE High-resolution grayscale and color Doppler ultrasound evaluation of both testes, epididymides, and scrotal contents COMPARISON None provided FINDINGS Right testis The right testis measures approximately 3.2 1.3 1.9 cm. Testicular parenchyma is homogeneous in echotexture. Multiple punctate echogenic foci are noted without posterior acoustic shadowing, consistent with testicular microlithiasis. Color Doppler demonstrates normal intratesticular vascularity. No focal intratesticular mass is identified. Right epididymis The epididymal head measures approximately 5 mm, body approximately 2 mm, and tail approximately 3 mm. Echotexture is unremarkable. Color Doppler flow is within normal limits. Left testis The left testis measures approximately 4.5 2.2 2.6 cm. Testicular parenchyma is homogeneous. Multiple punctate echogenic foci are present, consistent with testicular microlithiasis. Normal intratesticular vascularity is demonstrated on color Doppler. No focal intratesticular mass is identified. Left epididymis The epididymal head measures approximately 9 mm, body approximately 2 mm, and tail approximately 3 mm. Echotexture is unremarkable with normal Doppler flow. Left groin / extratesticular findings A complex fluid collection is noted in the left groin region, measuring approximately 1.9 2.5 2.2 cm. Peripheral vascularity is demonstrated on color Doppler imaging. The appearance is suspicious for a localized abscess in the appropriate clinical setting. Scrotal wall Scrotal wall thickening is present, correlating with the history of scrotal ulceration. IMPRESSION * Left groin complex fluid collection measuring approximately 1.9 2.5 2.2 cm with peripheral vascularity, highly suspicious for abscess in the clinical context of scrotal ulceration. * Bilateral testicular microlithiasis without focal intratesticular mass; testicular perfusion is preserved bilaterally. * No sonographic evidence of testicular torsion or epididymo-orchitis. * Epididymides are within normal limits bilaterally. /[place] DICTATED BY: MACRINA CHERY Jr., MD DATE: 08/27/251253 ELECTRONICALLY SIGNED BY: MACRINA CHERY Jr., MD DATE: 08/27/251253 PATIENT: DANYELL ROSARIO SR MR#: [id number] : 1965 SEX: M AGE: 59 LOCATION: [facility] ORDER 0 STATUS: REG REPORT#: [id number] SERVICE REASON: Scrotal ulcer/abcess ORDERING PHYSICIAN: GO LIPSCOMB MD PROCEDURE: ABD PEL W - CT ABDOMEN/PELVIS W/CONTRAST EXAM: CT Abdomen and Pelvis with IV contrast CLINICAL HISTORY: Scrotal ulcer/abcess TECHNIQUE: Axial computed tomography images of the abdomen and pelvis with intravenous contrast. CONTRAST: with intravenous contrast. COMPARISON: Study dated 05/20. FINDINGS: LUNG BASES: Atelectatic bands along the left lower lobe. LIVER: The liver is enlarged in size, with the right hepatic lobe measuring up to 17.7 cm. GALLBLADDER AND BILE DUCTS: The gallbladder appears within normal limits. No radioopaque gallstones are seen. No biliary ductal dilatation is evident. PANCREAS: Unremarkable. SPLEEN: Unremarkable. ADRENAL GLANDS: A 1.4 cm nodule along the left adrenal gland. A 0.6 cm nodule along the right adrenal gland. Suggested adrenal protocol for further evaluation. KIDNEYS, URETERS, AND BLADDER: A 5.8 mm calculus along the lower calyx of the right kidney. Multiple well-defined, rounded subcentimeter-sized non-enhancing areas along the right kidney, suggestive of multiple simple cysts. Suggested USG correlation with a non-emergent basis for further evaluation. There is no hydronephrosis or hydroureter. The wall of the urinary bladder measures 8 mm, likely due to a contracted urinary bladder. The possibility of cystitis appears less likely. USG correlation is advised. STOMACH AND BOWEL: A defect measuring 1.1 cm along the left hemidiaphragm with focal herniation of fat through it, suggestive of Bochdalek's hernia. Unremarkable appearance of the stomach and bowel. No evidence of bowel obstruction. No evidence suggesting enteritis or colitis. APPENDIX: No evidence of acute appendicitis on CT examination. PERITONEUM: No free fluid. No free air. LYMPH NODES: No lymphadenopathy is evident. REPRODUCTIVE: A well-defined peripherally enhancing collection measuring 3.1 x 2.3 cm is visualized along the left scrotal sac with adjacent fat stranding and inflammatory changes. There is an associated left-sided hydrocele. Multiple homogeneously enhancing, rounded left-sided inguinal nodes are visualized. VASCULATURE: Atheromatous calcific changes along the aorta and the coronary arteries. No evidence of abdominal aortic aneurysm. BONES: Degenerative changes along the visualized spine. Redemonstrated left posterior and lateral rib fractures. IMPRESSION: 1. Left scrotal abscess measuring 3.1 x 2.3 cm with adjacent inflammatory changes, left hydrocele, and left inguinal lymphadenopathy. 2. Redemonstrated left posterior and lateral rib fractures. 3. No other acute findings. /[place] DICTATED BY: MACRINA CHERY Jr., MD DATE: 08/27/251223 ELECTRONICALLY SIGNED BY: MACRINA CHERY Jr., MD DATE: 08/27/251223 PATIENT: DANYELL ROSARIO SR MR#: [id number] : 1965 SEX: M AGE: 59 LOCATION: [facility] ORDER 43 STATUS: ADM IN REPORT#: [id number] SERVICE 124 REASON: pre op ORDERING PHYSICIAN: HERMES MEDELLIN MD PROCEDURE: CXR1VW - CHEST 1VW EXAM: CR Chest, 1 View. CLINICAL HISTORY: pre op COMPARISON: None provided. FINDINGS: LUNGS: The lungs show no infiltrate or other acute finding. PLEURAL SPACES: No evidence of pleural effusion or pneumothorax. MEDIASTINUM: Cardiac size and mediastinal contours within normal limits. BONES: No aggressive appearing osseous lesion seen. IMPRESSION: No acute cardiopulmonary pathology is evident. [facility] DICTATED BY: MACRINA CHERY Jr., MD DATE: 08/27/251457 ELECTRONICALLY SIGNED BY: MACRINA CHERY Jr., MD DATE: 08/27/251457 Assessment/Plan: ASSESSMENT: Left-sided scrotal abscess Resistant Hypertension Hyperlipidemia Hypernatremia, resolved Hypokalemia History of CVA Benign prostatic hyperplasia Current cocaine abuse History of rib fractures Anxiety Depression Discharge Instructions: ADMISSION DATE : 08/27/2025 DISCHARGE DATE: 08/29/2025, left against medical advice DISPOSITION : Home CONDITION : Stable MIDDLEWARE ADMINISTRATOR(S) : Dr. Mckeon, urologist FOLLOW UP APPOINTMENT(S) : PROCEDURES: IMAGING (S) : report attached to summary MICROBIOLOGY : report attached to summary ACTIVITY : ad katia HOME MEDICATIONS : Continued Home Medications: Active Scripts Potassium Chloride (Klor-Con M20) 20 Meq Tab.er.prt, 1 TAB PO DAILY for 3 Days, #3 TAB 0 Refills Prov:MARIUM COPE MD 06/17/25 Spironolactone (Spironolactone) 100 Mg Tablet, 1 TAB PO DAILY for 30 Days, #30 TAB 0 Refills Prov:MARIUM COPE MD 06/17/25 Amlodipine Besylate (Amlodipine Besylate) 10 Mg Tablet, 1 TAB PO DAILY for 30 Days, #30 TAB 0 Refills Prov:MARIUM COPE MD 06/17/25 Losartan Potassium (Losartan Potassium) 100 Mg Tablet, 1 TAB PO DAILY for 30 Days, #30 TAB 0 Refills Prov:MARIUM COPE MD 06/17/25 Tamsulosin HCl (Flomax) 0.4 Mg Cap.er.24h, 0.4 MG PO DAILY, #30 CAPSULE. Prov:BOBBY CORONEL V SOCIAL MEDIA SPECIALIST 12/30/23 Reported Medications Ergocalciferol (Vitamin D2) (Vitamin D2) 1,250 Mcg (40288 Unit) Capsule, 1 CAP PO QWEEK for 28 Days, #4 CAP 0 Refills 04/05/25 Empagliflozin (Jardiance) 10 Mg Tablet, 1 TAB PO DAILY for 30 Days, #30 TAB 0 Refills 04/05/25 Gabapentin (Gabapentin) 400 Mg Capsule, 300 MG PO TID, CAP 04/05/25 Atorvastatin Calcium (Atorvastatin Calcium) 40 Mg Tablet, 1 TAB PO HS for 30 Days, #30 TAB 0 Refills 12/12/24 Aspirin (Aspirin) 81 Mg Tab.chew, 1 TAB PO DAILY for 30 Days, #30 TAB 0 Refills 12/12/24 Trazodone HCl (Trazodone HCl) 100 Mg Tablet, 2.5 TAB PO HS for 30 Days, #30 TAB 0 Refills 12/12/24 Labetalol HCl (Labetalol HCl) 300 Mg Tablet, 1 TAB PO BID for 30 Days, #60 TAB 0 Refills 12/12/24 Duloxetine HCl (Duloxetine HCl) 60 Mg Capsule.dr, 2 CAP PO DAILY for 30 Days, #30 CAP 0 Refills 12/12/24 Discontinued Scripts Lidocaine (Lidocaine Pain Relief) 4 % Adh..patch, 1 PATCH TP DAILY for 30 Days, #30 PATCH 0 Refills Prov:JESSICA BUSTAMANTE 04/08/25 Time spent arranging discharge: 1-30 minutes ATTESTATION BY PHYSICIAN I have seen and examined the patient. I reviewed the documentation, medical decision making, and treatment plan as noted by the resident physician above. I agree with the findings and plan of care. CARISA LEPE MD, HARSHAVARDHA MD Aug 29, 2025 17:32
== END 2025-08-29 11:55 | disposition left against medical advice (07) | DRG 501 ==
LOC: EDH 09:16 → EEVIPCON 09:16 → EDHIP 09:17 → UNDOADMIN 12:09 → EDHIP 12:09 → 3CH 08-28 13:45
PROVIDERS: ADMIT Internal Medicine; ATTEND Internal Medicine
DX: N49.2 Inflammatory disorders of scrotum (principal); E87.0 Hyperosmolality and hypernatremia; I10 Essential (primary) hypertension; F32.A Depression, unspecified; F14.10 Cocaine abuse, uncomplicated; N40.0 Benign prostatic hyperplasia without lower urinary tract symptoms; E78.00 Pure hypercholesterolemia, unspecified; E87.6 Hypokalemia; I1A.0 Resistant hypertension; N43.3 Hydrocele, unspecified; F41.9 Anxiety disorder, unspecified; R59.0 Localized enlarged lymph nodes; I25.10 Atherosclerotic heart disease of native coronary artery without angina pectoris; Z86.73 Personal history of transient ischemic attack (TIA), and cerebral infarction without residual deficits; Z87.442 Personal history of urinary calculi; Z90.49 Acquired absence of other specified parts of digestive tract
CPT/HCPCS: 36415; 71045; 74177; 76870; 80048; 80202; 80305; 81001; 82948; 83036; 83605; 83930; 83935; 84145; 84300; 84443; 84484; 85025; 85610; 85730; 86140; 87070; 87076; 87086; 87186; 87491; 87591; 93005; 96365; 96374; 99285; G0378; J0692; J2270; J3373; J3490; Q9967; J1308; J3375